=== PATIENT | female | born 1950 | race American Indian/Alaskan Native ===

== ENCOUNTER 2016-06-23 07:40 | Inpatient (IN) | payer MEDICARE ==
[2016-06-23] MEDS ORDERED: NACL 0.9% 1000 ML 1,000 ML IV ONE (08:10)
[2016-06-23] MEDS ORDERED: NACL 0.9% 500 ML 500 ML IV ONE ×2 (08:28→08:59)
[2016-06-23 08:34] LABS: Hematocrit 21.3 % (30.3-42.9); Hemoglobin 6.9 gm/dl (10.1-14.3); Mean Corpuscular HGB Conc 33 % (30-34); Mean Corpuscular Hemoglobin 28 pg (28-32); Mean Corpuscular Volume 87 fl (79-97); Platelet Count 457 K/mm3 (140-440); Red Blood Count 2.44 M/mm3 (3.65-5.03); Red Cell Distribution Width 16.8 % (13.2-15.2); White Blood Count 19.5 K/mm3 (4.5-11.0)
--- NOTE | 2016-06-23 08:43 | Emergency Department Report ---
HPI - General Chief Complaint: GI Bleed Time Seen by Provider: 06/23/16 08:26 - HPI HPI: Chief complaint: GI bleeding HPI: Patient is 66-year-old female who is of diabetes [id number], hypertension, atrial fibrillation, CVA with right-sided hemiparesis and speech difficulties who is on Coumadin and woke up with bloody rectal bleeding. Patient was brought in by ambulance with a blood pressure 77/40. History was from patient's son who takes care of her along with his aunt the patient's sister. Son states over the last several weeks she's been more confused and she had a seizure last week and was put on Keppra. CT scan of her head done at that time showed no acute process. Per the son. Patient's last INR was about a month ago and was therapeutic. Patient takes 5 mg on and Sunday and 2.5 mg the rest of the time. Unclear if patient had black tarry stools before today. Mode of arrival: EMS Source: Patient old chart family member Began: This morning Duration: Continuous Context: See above Quality: Denies pain Severity: 0 out of 10 Improved with: Unable to assess Worsened with: Unable to assess Associated signs and symptoms: Unable to assess ED Past Medical Hx - Past Medical History Previous Medical History?: Yes Hx Hypertension: Yes Hx CVA: Yes Hx Heart Attack/AMI: Yes (questional) Hx Diabetes: Yes Hx Arthritis: Yes Additional medical history: AFIB--on coumadin - Surgical History Past Surgical History?: Yes Additional Surgical History: right femoral pseudoaneurysm repair 2010 - Social History Smoking Status: Current Every Day Smoker Substance Use Type: None - Medications Home Medications: Home Medications Medication Instructions Recorded Confirmed Last Taken Type Lisinopril [Zestril TAB] 40 mg PO QDAY 07/19/13 05/24/16 1 Day Ago History Warfarin [Coumadin] 5 mg PO DAILY 07/19/13 05/24/16 1 Day Ago History glipiZIDE [Glucotrol] 5 mg PO BID 07/19/13 05/24/16 1 Day Ago History Ascorbic Acid [Vitamin C] 500 mg PO QDAY #30 ml 07/25/13 05/24/16 1 Day Ago Rx Carvedilol [Coreg] 12.5 mg PO BID #60 tablet 07/25/13 05/24/16 1 Day Ago Rx Ferrous Sulfate [Feosol 325 MG tab] 325 mg PO QDAY #30 tablet 07/25/13 05/24/16 1 Day Ago Rx amLODIPine [Norvasc] 5 mg PO QDAY #30 tablet 07/25/13 05/24/16 1 Day Ago Rx LORazepam [Ativan] 0.5 mg PO QHS PRN #5 tab 05/25/16 Unknown Rx ED Review of Systems ROS: Stated complaint: LOW BP/LOWER GI BLEED Other details as noted in HPI Comment: Unobtainable due to pts medical conditions (patient confused and hypotensive) Physical Exam - Physical Exam Vital Signs: Vital Signs 06/23/16 08:04 Temperature 97.6 F Pulse Rate 72 Blood Pressure 77/40 O2 Sat by Pulse 93 Oximetry Physical Exam: GENERAL: The patient is an obese -[place] female in no acute distress HEENT: Normocephalic. Atraumatic. Extraocular motions are intact. Patient has moist mucous membranes. Pale conjunctiva NECK: Supple. No meningitic signs are noted. There is no adenopathy noted. CHEST/LUNGS: Clear to auscultation. There is no respiratory distress noted. HEART/CARDIOVASCULAR: Regular. There is no tachycardia. There is no gallop rub or murmur. ABDOMEN: Abdomen is soft, nontender. Patient has normal bowel sounds. There is no abdominal distention. A large amount of maroon bloody stool to patient's clothing and on the bed. Guaiac positive SKIN: There is no rash. There is no edema. There is no diaphoresis. NEURO: The patient is awake, alert, and oriented to name and situation. The patient is cooperative. MUSCULOSKELETAL: There is no tenderness or deformity. There is no evidence of acute injury. ED Course Vital Signs 06/23/16 08:04 Temperature 97.6 F Pulse Rate 72 Blood Pressure 77/40 O2 Sat by Pulse 93 Oximetry - Reevaluation(s) Reevaluation #1: 06/23/16 08:45 2 IVs were started and patient given 2 L of normal saline. Patient will be transfused as soon as the blood is ready. Reevaluation #2: 06/23/16 09:55 Because patient's EKG is not consistent with elevated potassium and she will be given 5 units of regular insulin IV and calcium chloride. We will hold the sodium bicarbonate. We will redraw the potassium. Reevaluation #3: 06/23/16 Dr. Celeste was notified. Reevaluation #4: 06/23/16 10:10 Patient given 10 g of vitamin K IV as well as 4 units of fresh frozen plasma INR greater than 17. ED Medical Decision Making - Lab Data Result diagrams: 06/23/16 08:16 06/23/16 08:16 Laboratory Tests 06/23/16 06/23/16 08:16 08:16 PT > 120.0 H INR > 17.67 H* APTT 91.4 H* Glucose 303 H Calcium 8.3 L Total Protein 5.4 L Lipase 11 L - EKG Data EKG shows normal: sinus rhythm Rate: normal (62) - EKG Data When compared to previous EKG there are: previous EKG unavailable Interpretation: other (low-voltage EKG no peaked T waves.) Critical care time in (mins) excluding proc time.: 40 Critical care attestation.: If time is entered above; I have spent that time in minutes in the direct care of this critically ill patient, excluding procedure time. ED Disposition Clinical Impression: Hyperkalemia GI bleed Qualifiers: GI bleed type/associated pathology: unspecified gastrointestinal hemorrhage type Qualified Code(s): K92.2 - Gastrointestinal hemorrhage, unspecified Acute renal failure Qualifiers: Acute renal failure type: unspecified Qualified Code(s): N17.9 - Acute kidney failure, unspecified Disposition: OP ADMITTED IP TO THIS HOSP Is pt being admited?: Yes Does the pt Need Aspirin: No Condition: Serious Time of Disposition: 09:09 (admit to the hospitalist)
[2016-06-23 08:53] LABS: Albumin 3.2 g/dL (3.9-5); Albumin/Globulin Ratio 1.5 %; BUN/Creatinine Ratio 16.12; Bilirubin,Total 0.2 mg/dL (0.1-1.2); Calcium 8.3 mg/dL (8.4-10.2); Chloride 99.3 mmol/L (98-107); Total Protein 5.4 g/dL (6.3-8.2)
[2016-06-23 08:57] LABS: INR > 17.67 (0.87-1.13); Partial Thromboplastin Time 91.4 Sec. (24.2-36.6)
[2016-06-23 09:00] LABS: Potassium 6.4 mmol/L (3.6-5.0)
[2016-06-23] MEDS ORDERED: D50W (25GM) IV ONE ×2 (09:04→09:46)
[2016-06-23] MEDS ORDERED: SODIUM BICARBONATE IV ONE ×3 (09:04→10:30)
[2016-06-23] MEDS ORDERED: CALCIUM CHLORIDE IVP ONE (09:04)
--- NOTE | 2016-06-23 09:15 | Admit Criteria Form ---
Admission Criteria Documentation: GASTROINTESTINAL BLEEDING, LOWER Clinical Indications for Admission to Inpatient Care ( Place 'X' for any and all applicable criteria): Admission is indicated for ANY ONE of the following(1)(2)(3)(4)(5): [X ]I. Active gross bleeding per rectum [X ]II. Inpatient admission required rather than observation care (Also use Gastrointestinal Bleeding, Lower: Observation Care as appropriate) because of ANY ONE of the following: [X ]a) Hemodynamic instability that is severe or persistent [ ]b) Anemia requiring inpatient admission as indicated by ALL of the following: [ ]1) Presence of significant clinical finding indicated by ANY ONE of the following: [ ]A. Tachycardia for age [ ]B. Orthostatic vital sign changes [ ]C. Cognitive impairment [ ]D. Heart failure [ ]E. Chest pain [ ]F. Exertional dyspnea [ ]G. Other findings suggesting inadequate perfusion (eg, peripheral or myocardial ischemia, end organ dysfunction) [ ]2) Initial (eg, emergency department, observation care) treatment with transfusion or volume replacement is judged inappropriate (due to severity of the finding) or has been ineffective [ ]c) Severe pain requiring acute inpatient management [ ]d) Absent bowel sounds with complete ileus [ ]e) Signs of intestinal obstruction or peritonitis [A] [ ]f) High-risk low platelet count [ X]g) Severe electrolyte abnormalities requiring inpatient care [ ]h) Acute renal failure [ ]i) High fever or infection requiring inpatient admission as indicated by ANY ONE of the following(8)(9): [ ]1) Appropriate outpatient or observation care antimicrobial treatment unavailable, not effective, or not feasible Documented bacteremia [ ]2) Documented bacteremia [ ]3) Temperature greater than 104.9 degrees F ( 40.5 degrees C) (oral) [ ]4) Temperature greater than 103.1 degrees F ( 39.5 degrees C) (oral) or less than 96.8 degrees F (36 degrees C) (rectal) that does not respond to all emergency treatment measures [ ]j) IV fluid to replace significant ongoing losses ( greater than 3 L/m2 per day) [ ]k) Immediate inpatient surgery needed [ ]l) Parenteral nutrition regimen that must be implemented on inpatient basis [ ]m) Other condition, treatment or monitoring requiring inpatient admission [ ]III. Unstable comorbid illness (renal, hepatic, pulmonary, hematologic, neurologic, or cardiac) [ ]IV. Failure to control bleeding after colonoscopy [ ]V. Coagulopathy [ ]. Suspected or known ischemic colitis(6) [ ]VII. Previous aortic graft placement or known aortic aneurysm Extended stay beyond goal length of stay may be needed for(3)(4)(28): [ ]a) Emergency surgery [ ]b) Coagulation abnormalities(26) [ ]c) Recurrent or persistent bleeding, continued vital sign instability(27)( 28) [ ]d) Active comorbidities (eg, renal insufficiency, heart failure, pre- existing liver disease) The original [employer] content created by [employer] has been revised. The portions of the content which have been revised are identified through the use of italic text or in bold, and [facility] has neither reviewed nor approved the modified material. All other unmodified content is copyright [facility] [employer] [employer]. Please see references footnoted in the original [employer] edition 2016 Admission Criteria Met: Yes
--- NOTE | 2016-06-23 09:39 | History and Physical Report ---
History of Present Illness Date of examination: 06/23/16 Date of admission: 06/23/16 Chief complaint: GI bleed History of present illness: Patient is a pleasant 66-year-old female with history of atrial fibrillation on Coumadin, anemia, diabetes mellitus, hypertension, seizure, stroke and recent loss of vision in both eyes in the last 2 months. We'll presents to the ER with noted GI bleed and hypotension. Information is obtained from the son who reports the patient for about 2 days of having some Dark stools and for the past 1-2 days red blood per rectum which he noted mostly today. On arrival to the ER she was noted to be hypotensive with an INR greater than 17. Patient is being transfused 2 units packed red blood cells with 6 pack FFP. She denies any chest pain, nausea, vomiting, he denies any prior episode of GI bleed. ROS Constitutional: No fever but fatigue Skin: No rash. Eyes: No recent vision problems or eye pain. ENT: No congestion, ear pain, or sore throat. Endocrine: No thyroid problems. Cardiovascular: No chest pain. Respiratory: No cough, shortness of breath, congestion, or wheezing. Gastrointestinal: Abdominal pain nausea or vomiting but reports GI bleed Genitourinary: No dysuria. Musculoskeletal: No joint swelling. Neurologic: States she went blind recently, No seizures. Hematologic: No unusual bruising or bleeding. Psychiatric: No psychiatric problems, hallucinations or depression. All other systems reviewed and otherwise negative. Past History Past Medical History: atrial fib, CAD, diabetes, hypertension, seizures, other ( blind) Past Surgical History: Other (femoral repair right) Social history: lives with family, smoking (history), full code Medications and Allergies Allergies Allergy/AdvReac Type Severity Reaction Status Date / Time No Known Allergies Allergy Unverified 07/19/13 16:48 Home Medications Medication Instructions Recorded Confirmed Last Taken Type Lisinopril [Zestril TAB] 40 mg PO QDAY 07/19/13 06/23/16 06/22/16 History Warfarin [Coumadin] 5 mg PO DAILY 07/19/13 06/23/16 06/22/16 History Ascorbic Acid [Vitamin C] 500 mg PO QDAY #30 ml 07/25/13 06/23/16 06/22/16 Rx Carvedilol [Coreg] 12.5 mg PO BID #60 tablet 07/25/13 06/23/16 06/22/16 Rx Ferrous Sulfate [Feosol 325 MG tab] 325 mg PO QDAY #30 tablet 07/25/13 06/23/16 06/22/16 Rx amLODIPine [Norvasc] 5 mg PO QDAY #30 tablet 07/25/13 06/23/16 06/22/16 Rx Aspirin [Aspirin BABY CHEW TAB] 81 mg PO QDAY 06/23/16 06/23/16 Unknown History Citalopram [Celexa] 20 mg PO DAILY 06/23/16 06/23/16 06/22/16 History Keppra TAB 500 mg PO BID 06/23/16 06/23/16 06/22/16 History glipiZIDE [Glucotrol] 5 mg PO BID 06/23/16 06/23/16 Unknown History Active Meds: Active Medications Al Hydrox/Mg Hydrox/Simethicone (Alum-Mag Hydrox-Simeth [phone]/5ml) 30 ml PO Q4H PRN PRN Reason: Indigestion Bisacodyl (Dulcolax) 10 mg OR QDAY PRN PRN Reason: constipation unrelieved by MOM Dextrose (D50w (25gm)) 50 ml IV PRN PRN PRN Reason: Hypoglycemia Sodium Chloride (Nacl 0.9% 1000 Ml) 1,000 mls @ 250 mls/hr IV ONCE ONE Stop: 06/23/16 12:09 Last Admin: 06/23/16 08:34 Dose: 250 mls/hr Dextrose/Sodium Chloride (D5ns) 1,000 mls @ 75 mls/hr IV DIRECT MARVEL Phytonadione 10 mg/ Sodium (Chloride) 51 mls @ 100 mls/hr IV ONCE ONE Stop: 06/23/16 09:54 Pantoprazole Sodium 80 mg/ (Sodium Chloride) 100 mls @ 10 mls/hr IV Q10H MARVEL PRN Reason: 8 MG/HR Insulin Aspart (Novolog) 0 units SUB-Q Q6HR MARVEL PRN Reason: Protocol Sodium Bicarbonate (Sodium Bicarbonate) 50 meq IV ONCE ONE Stop: 06/23/16 09:05 Sodium Chloride (Nacl 0.9% 1000 Ml) 1,810 ml IV ONCE ONE Stop: 06/23/16 09:27 Exam - Physical Exam Narrative exam: VITAL SIGNS: Reviewed. GENERAL: The patient appeared well nourished and normally developed. Vital signs as documented. HEAD: No signs of head trauma. EYES: Pupils are equal. Extraocular motions intact. EARS: Hearing grossly intact. MOUTH: Oropharynx is normal. NECK: No adenopathy, no JVD. CHEST: Chest with clear breath sounds bilaterally. No wheezes, rales, or rhonchi. CARDIAC: Regular rate and rhythm. S1 and S2, without murmurs, gallops, or rubs. VASCULAR: No Edema. Peripheral pulses normal and equal in all extremities. ABDOMEN: Soft, without detectable tenderness. No sign of distention. No rebound or guarding, and no masses palpated. Bowel Sounds normal. MUSCULOSKELETAL: Good range of motion of all major joints. Extremities without clubbing, cyanosis or edema. NEUROLOGIC EXAM: Alert and oriented x 3. No focal sensory or strength deficits. Speech normal. Follows commands, gait not assessed. PSYCHIATRIC: Mood normal. SKIN: Age-appropriate wrinkles some blemishes. - Constitutional Vitals: Temp Pulse Resp BP Pulse Ox 97.7 F 64 18 104/41 98 06/23/16 09:34 06/23/16 09:34 06/23/16 09:34 06/23/16 09:34 06/23/16 09:34 Results - Labs CBC & Chem 7: 06/23/16 08:16 06/23/16 08:16 Labs: Laboratory Last Values WBC 19.5 K/mm3 (4.5-11.0) H 06/23/16 08:16 RBC 2.44 M/mm3 (3.65-5.03) L 06/23/16 08:16 Hgb 6.9 gm/dl (10.1-14.3) L 06/23/16 08:16 Hct 21.3 % (30.3-42.9) L 06/23/16 08:16 MCV 87 fl (79-97) 06/23/16 08:16 MCH 28 pg (28-32) 06/23/16 08:16 MCHC 33 % (30-34) 06/23/16 08:16 RDW 16.8 % (13.2-15.2) H 06/23/16 08:16 Plt Count 457 K/mm3 (140-440) H 06/23/16 08:16 PT > 120.0 Sec. (12.2-14.9) H 06/23/16 08:16 INR > 17.67 (0.87-1.13) H* 06/23/16 08:16 APTT 91.4 Sec. (24.2-36.6) H* 06/23/16 08:16 Sodium 134 mmol/L (137-145) L 06/23/16 08:16 Potassium 6.4 mmol/L (3.6-5.0) H* 06/23/16 08:16 Chloride 99.3 mmol/L (98-107) 06/23/16 08:16 Carbon Dioxide 16 mmol/L (22-30) L 06/23/16 08:16 Anion Gap 25 mmol/L 06/23/16 08:16 BUN 50 mg/dL (7-17) H 06/23/16 08:16 Creatinine 3.1 mg/dL (0.7-1.2) H 06/23/16 08:16 Estimated GFR 18 ml/min 06/23/16 08:16 BUN/Creatinine Ratio 16.12 % 06/23/16 08:16 Glucose 303 mg/dL (65-100) H 06/23/16 08:16 POC Glucose 313 (70-105) H 06/23/16 08:04 Calcium 8.3 mg/dL (8.4-10.2) L 06/23/16 08:16 Total Bilirubin 0.2 mg/dL (0.1-1.2) 06/23/16 08:16 AST 20 units/L (5-40) 06/23/16 08:16 ALT 14 units/L (7-56) 06/23/16 08:16 Alkaline Phosphatase 70 units/L (35-129) 06/23/16 08:16 Total Protein 5.4 g/dL (6.3-8.2) L 06/23/16 08:16 Albumin 3.2 g/dL (3.9-5) L 06/23/16 08:16 Albumin/Globulin Ratio 1.5 % 06/23/16 08:16 Lipase 11 units/L (13-60) L 06/23/16 08:16 Blood Type O POSITIVE 06/23/16 08:16 Antibody Screen Negative 06/23/16 08:16 Crossmatch See Detail 06/23/16 08:16 - Imaging and Cardiology EKG: image reviewed (normal sinus rhythm or review) Assessment and Plan Assessment and plan: Patient is a pleasant 66-year-old female with history of atrial fibrillation on Coumadin, anemia, diabetes mellitus, hypertension, seizure, stroke and recent loss of vision in both eyes in the last 2 months. We'll presents to the ER with noted GI bleed and hypotension. Information is obtained from the son who reports the patient for about 2 days of having some Dark stools and for the past 1-2 days red blood per rectum which he noted mostly today. On arrival to the ER she was noted to be hypotensive with an INR greater than 17. Patient is being transfused 2 units packed red blood cells with 6 pack FFP. She denies any chest pain, nausea, vomiting, he denies any prior episode of GI bleed. * GI bleed * Admitted to ICU * Avoid all blood thinners, * Start a PPI drip * Discussed with GI will correct INR and plan for panendoscopy * Hypovolemic shock secondary to GI bleed * Admit to ICU, was discussed with insole tack puller hand, we'll aggressively resuscitate patient with IV fluids * ELEUTERIO ON CHRONIC KIDNEY INJURY Secondary to ATN, IN A GI BLEED PATIENT * Likely secondary to ATN. We'll monitor closely. Obtain nephrology evaluation. * Uncontrolled Type 2 DM * Hypotension currently nothing by mouth Will start patient on D5 normal saline after adequately resuscitated * Hyperkalemia * She received, insulin, Kayexalate, calcium gluconate in the ER. We'll recheck * Metabolic acidosis * Likely secondary to renal failure will start patient on bicarbonate drip. For 24 hours. * Legally blind * Has been ongoing for about 2 months recommend outpatient reevaluation. Question if patient had an additional stroke versus diabetic retinopathy. * Seizures * Continue Keppra change to IV while nothing by mouth * Leukocytosis * Reactive no evidence of infection or sepsis at this time * SECONDARY hypercoagulable state * Likely secondary to warfarin, will correct * Mild PROTEIN CALORIE MALNUTRITION * Tar Worker consult once stable. * Etiology of prophylaxis Advance Directives: Yes Plan of care discussed with patient/family: Yes
[2016-06-23] MEDS ORDERED: CALCIUM CHLORIDE IV ONE ×2 (09:46→10:30)
--- NOTE | 2016-06-23 09:50 | Gastroenterology Consultation ---
<VENANCIOAAYUSH ANN - Last Filed: 06/23/16 09:51> History of Present Illness - Reason for Consult Consult date: 06/23/16 GI bleed Requesting physician: VAN LANG - History of Present Illness Ms Miranda is a 66 y/o female admitted for GI bleeding with hypotension. Her son is at bedside and reports a 1-2 day Hx of BRBPR. She denies Abdominal Pain or N/V but admitted to decreased appetite. She is on Coumadin daily for A fib. Her INR was noted >17 on admission. Per chart, her last EGD and colonoscopy was in 2013 with [facility] for anemia. No clear etiology found. It was recommended that the patient follow up with pill cam. On admission, her H/H was 6.9/21. She is currently receiving PRBC. Family at [facility]. PMH significant for A fib, CVA,HTN, DM. She uses tobacco products. Recently diagnosed with Seizures and started on Keppra. Past History Past Medical History: atrial fib, anemia, diabetes, hypertension, seizures, stroke Past Surgical History: Other (femoral psuedoanuerysm repair) Social history: smoking Family history: no significant family history Medications and Allergies Allergies Allergy/AdvReac Type Severity Reaction Status Date / Time No Known Allergies Allergy Unverified 07/19/13 16:48 Home Medications Medication Instructions Recorded Confirmed Last Taken Type Lisinopril [Zestril TAB] 40 mg PO QDAY 07/19/13 06/23/16 06/22/16 History Warfarin [Coumadin] 5 mg PO DAILY 07/19/13 06/23/16 06/22/16 History Ascorbic Acid [Vitamin C] 500 mg PO QDAY #30 ml 07/25/13 06/23/16 06/22/16 Rx Carvedilol [Coreg] 12.5 mg PO BID #60 tablet 07/25/13 06/23/16 06/22/16 Rx Ferrous Sulfate [Feosol 325 MG tab] 325 mg PO QDAY #30 tablet 07/25/13 06/23/16 06/22/16 Rx amLODIPine [Norvasc] 5 mg PO QDAY #30 tablet 07/25/13 06/23/16 06/22/16 Rx Aspirin [Aspirin BABY CHEW TAB] 81 mg PO QDAY 06/23/16 06/23/16 Unknown History Citalopram [Celexa] 20 mg PO DAILY 06/23/16 06/23/16 06/22/16 History Keppra TAB 500 mg PO BID 06/23/16 06/23/16 06/22/16 History glipiZIDE [Glucotrol] 5 mg PO BID 06/23/16 06/23/16 Unknown History Active Meds: Active Medications Al Hydrox/Mg Hydrox/Simethicone (Alum-Mag Hydrox-Simeth [phone]/5ml) 30 ml PO Q4H PRN PRN Reason: Indigestion Bisacodyl (Dulcolax) 10 mg SC QDAY PRN PRN Reason: constipation unrelieved by MOM Dextrose (D50w (25gm)) 50 ml IV PRN PRN PRN Reason: Hypoglycemia Sodium Chloride (Nacl 0.9% 1000 Ml) 1,000 mls @ 250 mls/hr IV ONCE ONE Stop: 06/23/16 12:09 Last Admin: 06/23/16 08:34 Dose: 250 mls/hr Phytonadione 10 mg/ Sodium (Chloride) 51 mls @ 100 mls/hr IV ONCE ONE Stop: 06/23/16 11:00 Pantoprazole Sodium 80 mg/ (Sodium Chloride) 100 mls @ 10 mls/hr IV Q10H MARVEL PRN Reason: 8 MG/HR Sodium Bicarbonate 25 meq/ (Dextrose/Sodium Chloride) 1,025 mls @ 75 mls/hr IV DIRECT MARVEL Insulin Aspart (Novolog) 0 units SUB-Q Q6HR MARVEL PRN Reason: Protocol Sodium Bicarbonate (Sodium Bicarbonate) 50 meq IV ONCE ONE Stop: 06/23/16 09:05 Sodium Chloride (Nacl 0.9% 1000 Ml) 1,810 ml IV ONCE ONE Stop: 06/23/16 09:27 Review of Systems - Review of Systems Constitutional: weakness, other (patient is blind) Eyes: change in vision Gastrointestinal: BRBPR Exam - Constitutional Vital Signs: Temp Pulse Resp BP Pulse Ox 97.7 F 62 18 104/41 98 06/23/16 09:35 06/23/16 09:35 06/23/16 09:35 06/23/16 09:35 06/23/16 09:35 General appearance: no acute distress - EENT ENT: hearing intact - Neck Neck: supple - Respiratory Respiratory: bilateral: CTA - Cardiovascular Rhythm: regular Heart Sounds: Present: S1 & S2 Extremities: No edema - Gastrointestinal General gastrointestinal: Present: soft, non-tender, normal bowel sounds - Integumentary Integumentary: Present: warm, dry - Neurologic Neurological: alert and oriented x3 - Psychiatric Psychiatric: cooperative - Labs CBC & Chem 7: 06/23/16 08:16 06/23/16 08:16 Assessment and Plan 1.BRBPR -EGD in 2013- with gastric erosions -C-scope 2013 with IH and diverticulosis -INR noted over 17. -At this time, recommend correcting INR with Vit K, FFP -PPI empirically -Trend H/H, agree with transfusion as needed -follow up INR post correction. -WIll follow. <HARI ASHLEY - Last Filed: 06/23/16 11:43> History of Present Illness - Reason for Consult Consult date: 06/23/16 Medications and Allergies Active Meds: Active Medications Al Hydrox/Mg Hydrox/Simethicone (Alum-Mag Hydrox-Simeth [phone]/5ml) 30 ml PO Q4H PRN PRN Reason: Indigestion Albuterol (Proventil) 2.5 mg IH Q1H MARVEL Stop: 06/23/16 13:01 Bisacodyl (Dulcolax) 10 mg SC QDAY PRN PRN Reason: constipation unrelieved by MOM Dextrose (D50w (25gm)) 50 ml IV PRN PRN PRN Reason: Hypoglycemia Sodium Chloride (Nacl 0.9% 1000 Ml) 1,000 mls @ 250 mls/hr IV ONCE ONE Stop: 06/23/16 12:09 Last Admin: 06/23/16 08:34 Dose: 250 mls/hr Pantoprazole Sodium 80 mg/ (Sodium Chloride) 100 mls @ 10 mls/hr IV Q10H MARVEL PRN Reason: 8 MG/HR Sodium Bicarbonate 25 meq/ (Dextrose/Sodium Chloride) 1,025 mls @ 75 mls/hr IV DIRECT MARVEL Insulin Aspart (Novolog) 0 units SUB-Q Q6HR MARVEL PRN Reason: Protocol Exam - Constitutional Vital Signs: Temp Pulse Resp BP Pulse Ox 98.3 F 75 16 135/73 100 06/23/16 11:13 06/23/16 11:13 06/23/16 11:13 06/23/16 11:13 06/23/16 11:13 - Labs CBC & Chem 7: 06/23/16 08:16 06/23/16 08:16 Assessment and Plan Pt has had diarrhea and weakness x 3 days. She cannot tell color of stool. Son and sister present. Currently doing well. No further BMs. No abd pain. Rec - Correct coagulopathy - monitor H/H and transfuse as needed. - will do urgent EGD if evidence of significant acute bleed, and otherwise electively in several days. - continue IV PPI - discussed with Dr. Nick and Dr. Andrade
[2016-06-23] MEDS ORDERED: DULCOLAX PR PRN (10:00)
[2016-06-23] MEDS ORDERED: D50W (25GM) IV PRN (10:00)
[2016-06-23] MEDS ORDERED: ALUM-MAG HYDROX-SIMETH 200-200-20MG/5ML PO PRN (10:00)
[2016-06-23] MEDS ORDERED: D5NS 1,000 ML IV SCH (10:00)
[2016-06-23 10:29] LABS: Blastocytes % (Manual) 0 %; Eosinophils % (Manual) 0 % (0.0-4.3)
[2016-06-23 10:30] LABS: Anisocytosis 1+; RBC Morphology Normal
[2016-06-23] MEDS ORDERED: VITAMIN K (ADULT ONLY) 10 MG in NACL 0.9% 50 ML IV ONE (10:30)
[2016-06-23 10:31] LABS: Diff Status Complete
[2016-06-23] MEDS ORDERED: NACL 0.9% 1000 ML IV ONE (11:00)
[2016-06-23] MEDS ORDERED: NACL 0.9% 250ML 250 ML ONE (11:26)
[2016-06-23] MEDS: PROTONIX 80 MG in NACL 0.9% 100 ML IV SCH ×2 (13:04→20:39)
[2016-06-23] MEDS: SODIUM BICARBONATE IV SCH ×2 (13:06→14:15)
[2016-06-23] MEDS: D5NS IV SCH ×2 (13:06→14:15)
[2016-06-23] MEDS: ATIVAN IV PRN (13:28)
[2016-06-23 13:45] LABS: Hematocrit 25.8 % (30.3-42.9); Hemoglobin 8.4 gm/dl (10.1-14.3)
[2016-06-23 13:57] LABS: Calcium 9.4 mg/dL (8.4-10.2); Chloride 104.9 mmol/L (98-107); Potassium 4.7 mmol/L (3.6-5.0)
[2016-06-23] MEDS: NOVOLOG SUB-Q SCH ×2 (14:13→19:15)
[2016-06-23] MEDS: PROVENTIL IH SCH ×3 (14:14→14:36)
[2016-06-23 14:17] LABS: Hematocrit 25.2 % (30.3-42.9); Hemoglobin 8.4 gm/dl (10.1-14.3)
[2016-06-23 14:27] LABS: INR 1.47 (0.87-1.13)
[2016-06-23 15:03] LABS: Bilirubin,Urine NEG (Negative); Blood,Urine NEG (Negative); Ketones,Urine NEG (Negative); Leukocyte Esterase,Urine NEG (Negative); Mucus,Urine FEW /HPF; Nitrite,Urine NEG (Negative); Protein,Urine <15 mg/dL mg/dL (Negative); RBC,Urine < 1.0 /HPF (0.0-6.0); Urobilinogen,Urine < 2.0 mg/dL (<2.0)
[2016-06-23] MEDS: KEPPRA 500 MG in D5W 100 ML IV SCH (16:00)
[2016-06-23] MEDS ORDERED: FLUARIX QUAD 2016-2017(36 MOS+) IM ONE (17:13)
[2016-06-23] MEDS ORDERED: PNEUMOVAX 23 IM ONE (17:13)
--- NOTE | 2016-06-23 17:32 | Consultation ---
History of Present Illness - Reason for Consult acute renal failure, hyperkalemia, metabolic acidosis - History of Present Illness Patient is a 66 year old AAF with history sigificant for Atrial fibrillation on Coumadin, Anemia, Diabetes mellitus type 2, Hypertension, Seizure disorder, CAV and bilateral blindness came to the ER with 2 days h/o rectal bleeding. Patient is a poor historian and information obtained from her son who was at the bedside. She has not been feeling well for the past 2 weeks with poor appetite and decreased PO intake. For the past 2 days patient is experiencing dark stools and red blood per rectum. On arrival to the ER she was noted to be hypotensive, an INR greater than 17, ELEUTERIO and Hyperkalemia. Patient received 2 units of PRBCs, 2 lts of IV normal saline and 6 packs of FFP. Her initial creatinine was 3.1 with potassium of 6.4. Repeat K level is 4.7. No h/o N, V, D, abd pain, chest pain, hemetemesis, dizziness or syncope. Patient is not taking any NSAIDs. Past History Past Medical History: atrial fib, CAD, diabetes, hypertension, seizures, other ( blind) Past Surgical History: Other (femoral repair right) Social history: lives with family, smoking (history), full code Family history: no significant family history Medications and Allergies Allergies Allergy/AdvReac Type Severity Reaction Status Date / Time No Known Allergies Allergy Unverified 07/19/13 16:48 Home Medications Medication Instructions Recorded Confirmed Last Taken Type Lisinopril [Zestril TAB] 40 mg PO QDAY 07/19/13 06/23/16 06/22/16 History Warfarin [Coumadin] 5 mg PO DAILY 07/19/13 06/23/16 06/22/16 History Ascorbic Acid [Vitamin C] 500 mg PO QDAY #30 ml 07/25/13 06/23/16 06/22/16 Rx Carvedilol [Coreg] 12.5 mg PO BID #60 tablet 07/25/13 06/23/16 06/22/16 Rx Ferrous Sulfate [Feosol 325 MG tab] 325 mg PO QDAY #30 tablet 07/25/13 06/23/16 06/22/16 Rx amLODIPine [Norvasc] 5 mg PO QDAY #30 tablet 07/25/13 06/23/16 06/22/16 Rx Aspirin [Aspirin BABY CHEW TAB] 81 mg PO QDAY 06/23/16 06/23/16 Unknown History Citalopram [Celexa] 20 mg PO DAILY 06/23/16 06/23/16 06/22/16 History Keppra TAB 500 mg PO BID 06/23/16 06/23/16 06/22/16 History glipiZIDE [Glucotrol] 5 mg PO BID 06/23/16 06/23/16 Unknown History Active Meds: Active Medications Al Hydrox/Mg Hydrox/Simethicone (Alum-Mag Hydrox-Simeth [id number]/5ml) 30 ml PO Q4H PRN PRN Reason: Indigestion Bisacodyl (Dulcolax) 10 mg VT QDAY PRN PRN Reason: constipation unrelieved by MOM Dextrose (D50w (25gm)) 50 ml IV PRN PRN PRN Reason: Hypoglycemia Pantoprazole Sodium 80 mg/ (Sodium Chloride) 100 mls @ 10 mls/hr IV Q10H MARVEL PRN Reason: 8 MG/HR Last Admin: 06/23/16 13:04 Dose: 10 mls/hr Sodium Bicarbonate 25 meq/ (Dextrose/Sodium Chloride) 1,025 mls @ 75 mls/hr IV DIRECT MARVEL Last Admin: 06/23/16 14:15 Dose: 75 mls/hr Levetiracetam 500 mg/ Dextrose 105 mls @ 400 mls/hr IV Q12H MARVEL Last Admin: 06/23/16 16:00 Dose: 400 mls/hr Insulin Aspart (Novolog) 0 units SUB-Q Q6HR MARVEL PRN Reason: Protocol Last Admin: 06/23/16 14:13 Dose: Not Given Lorazepam (Ativan) 1 mg IV Q4H PRN PRN Reason: Seizures Last Admin: 06/23/16 13:28 Dose: 1 mg Review of Systems Constitutional: fatigue, weakness, malaise, poor appetite, no fever, no chills Ears, nose, mouth and throat: no epistaxis Breasts: deferred Cardiovascular: no chest pain, no orthopnea, no edema, no shortness of breath Respiratory: no cough, no hemoptysis, no shortness of breath Gastrointestinal: BRBPR, melena, hematochezia, no abdominal pain, no nausea, no vomiting, no diarrhea, no hematemesis Genitourinary Female: no hematuria Rectal: bleeding Musculoskeletal: no neck pain Integumentary: no rash Neurological: loss of vision, no paralysis, no syncope Hematologic/Lymphatic: no easy bruising Allergic/Immunologic: no urticaria Exam - Vital Signs Vital signs: Vital Signs Pulse 105 H 06/23/16 07:51 - General Appearance General appearance: well-developed, well-nourished, obese, other (no distress) EENT: PERRL, mucous membranes dry, hearing intact Neck: Present: neck supple, trachea midline Respiratory: Clear to Ascultation Heart: regular, S1S2, no murmurs Gastrointestinal: Present: normoactive bowel sounds. Absent: tenderness, distended, guarding Integumentary: no rash, warm and dry Neurologic: other (bilateral blindness) Musculoskeletal: Present: other (no edema) Psychiatric: mood/affect appropriate, cooperative Results - Lab Results 06/23/16 Unknown 06/23/16 11:03 Most recent lab results Calcium 9.4 mg/dL (8.4-10.2) 06/23/16 11:03 Assessment and Plan - Patient Problems (1) Acute renal failure Current Visit: Yes Status: Acute Qualifiers: Acute renal failure type: unspecified Qualified Code(s): N17.9 - Acute kidney failure, unspecified Plan to address problem: Acute Kidney Injury superimposed on CKD stage 3 in the setting of hypotension and severe anemia. Creatinine is improving. Continue IV fluids. Hemodynamically stable. (2) Hyperkalemia Current Visit: Yes Status: Acute Plan to address problem: Hyperkalemia on the setting of ELEUTERIO. Potassium level is better. (3) Metabolic acidosis Current Visit: Yes Status: Acute Plan to address problem: On bicarbonate drip. (4) GI bleed Current Visit: Yes Status: Acute Qualifiers: GI bleed type/associated pathology: unspecified gastrointestinal hemorrhage type Qualified Code(s): K92.2 - Gastrointestinal hemorrhage, unspecified
[2016-06-23 17:46] LABS: Hematocrit 23.2 % (30.3-42.9); Hemoglobin 7.7 gm/dl (10.1-14.3)
[2016-06-24 01:16] LABS: Hematocrit 22.7 % (30.3-42.9); Hemoglobin 7.8 gm/dl (10.1-14.3)
[2016-06-24] MEDS: NOVOLOG SUB-Q SCH ×4 (02:00→17:34)
[2016-06-24] MEDS: KEPPRA 500 MG in D5W 100 ML IV SCH ×2 (02:49→15:49)
[2016-06-24] MEDS: PROTONIX 80 MG in NACL 0.9% 100 ML IV SCH ×2 (05:31→18:00)
[2016-06-24] MEDS: SODIUM BICARBONATE IV SCH (06:05)
[2016-06-24] MEDS: D5NS IV SCH (06:05)
[2016-06-24 07:56] LABS: Hematocrit 21.9 % (30.3-42.9); Hemoglobin 7.3 gm/dl (10.1-14.3); Mean Corpuscular HGB Conc 33 % (30-34); Mean Corpuscular Hemoglobin 28 pg (28-32); Mean Corpuscular Volume 86 fl (79-97); Platelet Count 184 K/mm3 (140-440); Red Blood Count 2.57 M/mm3 (3.65-5.03); Red Cell Distribution Width 16.4 % (13.2-15.2); White Blood Count 8.7 K/mm3 (4.5-11.0)
[2016-06-24 08:06] LABS: INR 1.22 (0.87-1.13)
[2016-06-24 08:12] LABS: Albumin 3.1 g/dL (3.9-5); Albumin/Globulin Ratio 1.4 %; Bilirubin,Total 0.4 mg/dL (0.1-1.2); Calcium 8.1 mg/dL (8.4-10.2); Total Protein 5.3 g/dL (6.3-8.2)
--- NOTE | 2016-06-24 09:37 | Progress Note ---
Assessment and Plan - Patient Problems (1) Acute renal failure Current Visit: Yes Status: Acute Qualifiers: Acute renal failure type: unspecified Qualified Code(s): N17.9 - Acute kidney failure, unspecified Plan to address problem: Acute Kidney Injury superimposed on CKD stage 3 in the setting of hypotension and severe anemia. Creatinine continues to improve. Continue IV fluids. Hemodynamically stable. (2) Hyperkalemia Current Visit: Yes Status: Acute Plan to address problem: Improved. (3) Metabolic acidosis Current Visit: Yes Status: Acute Plan to address problem: Improving with IV bicarbonate. (4) GI bleed Current Visit: Yes Status: Acute Qualifiers: GI bleed type/associated pathology: unspecified gastrointestinal hemorrhage type Qualified Code(s): K92.2 - Gastrointestinal hemorrhage, unspecified (5) Anemia Current Visit: Yes Status: Acute Plan to address problem: S/p PRBC. Subjective Date of service: 06/24/16 Interval history: Patient denies any new symptoms. Objective - Vital Signs Vital signs: Vital Signs - 12hr 06/24/16 06/24/16 06/24/16 00:15 05:17 07:00 Temperature 97.3 F L 97.3 F L Pulse Rate 78 Pulse Rate [ 86 78 Apical] Pulse Rate [ 80 From Monitor] Respiratory 18 18 20 Rate Blood Pressure 164/74 164/74 [Left Arm] O2 Sat by Pulse 96 96 100 Oximetry 06/24/16 08:14 Temperature 98 F Pulse Rate Pulse Rate [ 77 Apical] Pulse Rate [ From Monitor] Respiratory 18 Rate Blood Pressure 99/66 [Left Arm] O2 Sat by Pulse 100 Oximetry - General Appearance General appearance: well-developed, obese, other (no distress) EENT: PERRL, hearing intact Neck: supple Respiratory: Present: Clear to Ascultation Cardiology: regular, S1S2, no murmurs Gastrointestinal: normoactive bowel sounds, no tenderness, no distended, no guarding, obese Integumentary: no rash, warm and dry Neurologic: other (bilateral blindness) Musculoskeletal: other (no edema) Psychiatric: cooperative - Lab 06/24/16 07:45 06/24/16 07:45 Most recent lab results Calcium 8.1 mg/dL (8.4-10.2) L 06/24/16 07:45
--- NOTE | 2016-06-24 11:20 | Progress Note ---
Assessment and Plan Assessment and plan: Acute GI bleed . s/p 2 Units PRBC and FFP. Bleeding subsided Hgb 7.8. For EGD Coagulopathy due to Coumadin toxicity. INR was > 17 on admission, now down to 1.22 after 4 Units FFP Acute on CKD due to ATN. Creatinine now 1.6 from 3.1 on admission. Seizures disorder. Continue Keppra Hypertension. BP now stable Legally blind Diabetes mellitus type 2. Fingerstick Q6h Full code status History Interval history: Patient presented with bloody stools, Hospitalist Physical - Physical exam Narrative exam: Gen: Not in acute distress, obese HEENT: Normocephalic, atraumatic Neck :supple, no JVD Lungs: Clear to auscultation bilaterally, no crackles or wheeze. Heart: S1 and S2 regular, no murmurs no gallop Abdomen:soft, non-tender, non-distended, normal bowel sounds Ext: No edema, no clubbing or cyanosis Neuro: Awake alert - Constitutional Vitals: Temp Pulse Resp BP Pulse Ox 98.2 F 88 20 173/70 96 06/24/16 10:18 06/24/16 10:18 06/24/16 10:18 06/24/16 10:18 06/24/16 10:18 Results - Labs CBC & Chem 7: 06/24/16 22:30 06/24/16 07:45 Labs: Laboratory Last Values WBC 8.7 K/mm3 (4.5-11.0) 06/24/16 07:45 RBC 2.57 M/mm3 (3.65-5.03) L 06/24/16 07:45 Hgb 7.3 gm/dl (10.1-14.3) L 06/24/16 07:45 Hct 21.9 % (30.3-42.9) L 06/24/16 07:45 MCV 86 fl (79-97) 06/24/16 07:45 MCH 28 pg (28-32) 06/24/16 07:45 MCHC 33 % (30-34) 06/24/16 07:45 RDW 16.4 % (13.2-15.2) H 06/24/16 07:45 Plt Count 184 K/mm3 (140-440) 06/24/16 07:45 Add Manual Diff Complete 06/23/16 08:16 Total Counted 100 06/23/16 08:16 Seg Neuts % (Manual) 88.0 % (40.0-70.0) H 06/23/16 08:16 Band Neutrophils % 0 % 06/23/16 08:16 Lymphocytes % (Manual) 8.0 % (13.4-35.0) L 06/23/16 08:16 Reactive Lymphs % (Man) 0 % 06/23/16 08:16 Monocytes % (Manual) 2.0 % (0.0-7.3) 06/23/16 08:16 Eosinophils % (Manual) 0 % (0.0-4.3) 06/23/16 08:16 Basophils % (Manual) 1.0 % (0.0-1.8) 06/23/16 08:16 Metamyelocytes % 1.0 % 06/23/16 08:16 Myelocytes % 0 % 06/23/16 08:16 Promyelocytes % 0 % 06/23/16 08:16 Blast Cells % 0 % 06/23/16 08:16 Nucleated RBC % Not Reportable 06/23/16 08:16 Seg Neutrophils # Man 17.2 K/mm3 (1.8-7.7) H 06/23/16 08:16 Band Neutrophils # 0.0 K/mm3 06/23/16 08:16 Lymphocytes # (Manual) 1.6 K/mm3 (1.2-5.4) 06/23/16 08:16 Abs React Lymphs (Man) 0.0 K/mm3 06/23/16 08:16 Monocytes # (Manual) 0.4 K/mm3 (0.0-0.8) 06/23/16 08:16 Eosinophils # (Manual) 0.0 K/mm3 (0.0-0.4) 06/23/16 08:16 Basophils # (Manual) 0.2 K/mm3 (0.0-0.1) H 06/23/16 08:16 Metamyelocytes # 0.2 K/mm3 06/23/16 08:16 Myelocytes # 0.0 K/mm3 06/23/16 08:16 Promyelocytes # 0.0 K/mm3 06/23/16 08:16 Blast Cells # 0.0 K/mm3 06/23/16 08:16 WBC Morphology Not Reportable 06/23/16 08:16 Hypersegmented Neuts Not Reportable 06/23/16 08:16 Hyposegmented Neuts Not Reportable 06/23/16 08:16 Hypogranular Neuts Not Reportable 06/23/16 08:16 Smudge Cells Not Reportable 06/23/16 08:16 Toxic Granulation Not Reportable 06/23/16 08:16 Toxic Vacuolation Not Reportable 06/23/16 08:16 Dohle Bodies Not Reportable 06/23/16 08:16 Pelger-Huet Anomaly Not Reportable 06/23/16 08:16 Massiel Rods Not Reportable 06/23/16 08:16 Platelet Estimate Appears normal 06/23/16 08:16 Clumped Platelets Not Reportable 06/23/16 08:16 Plt Clumps, EDTA Not Reportable 06/23/16 08:16 Large Platelets Not Reportable 06/23/16 08:16 Giant Platelets Not Reportable 06/23/16 08:16 Platelet Satelliting Not Reportable 06/23/16 08:16 Plt Morphology Comment Not Reportable 06/23/16 08:16 RBC Morphology Normal 06/23/16 08:16 Dimorphic RBCs Not Reportable 06/23/16 08:16 Polychromasia Not Reportable 06/23/16 08:16 Hypochromasia Not Reportable 06/23/16 08:16 Poikilocytosis Not Reportable 06/23/16 08:16 Anisocytosis 1+ 06/23/16 08:16 Microcytosis Not Reportable 06/23/16 08:16 Macrocytosis Not Reportable 06/23/16 08:16 Spherocytes Not Reportable 06/23/16 08:16 Pappenheimer Bodies Not Reportable 06/23/16 08:16 Sickle Cells Not Reportable 06/23/16 08:16 Target Cells Not Reportable 06/23/16 08:16 Tear Drop Cells Not Reportable 06/23/16 08:16 Ovalocytes Not Reportable 06/23/16 08:16 Helmet Cells Not Reportable 06/23/16 08:16 [place] Bodies Not Reportable 06/23/16 08:16 Carrier Rings Not Reportable 06/23/16 08:16 [place] Cells Not Reportable 06/23/16 08:16 Bite Cells Not Reportable 06/23/16 08:16 Crenated Cell Not Reportable 06/23/16 08:16 Elliptocytes Not Reportable 06/23/16 08:16 Acanthocytes (Spur) Not Reportable 06/23/16 08:16 Rouleaux Not Reportable 06/23/16 08:16 Hemoglobin C Crystals Not Reportable 06/23/16 08:16 Schistocytes Not Reportable 06/23/16 08:16 Malaria parasites Not Reportable 06/23/16 08:16 Radames Bodies Not Reportable 06/23/16 08:16 Hem Pathologist Commnt No 06/23/16 08:16 PT 15.3 Sec. (12.2-14.9) H 06/24/16 07:45 INR 1.22 (0.87-1.13) H 06/24/16 07:45 APTT 91.4 Sec. (24.2-36.6) H* 06/23/16 08:16 Sodium 147 mmol/L (137-145) H 06/24/16 07:45 Potassium 4.0 mmol/L (3.6-5.0) 06/24/16 07:45 Chloride 111.0 mmol/L (98-107) H 06/24/16 07:45 Carbon Dioxide 20 mmol/L (22-30) L 06/24/16 07:45 Anion Gap 20 mmol/L 06/24/16 07:45 BUN 32 mg/dL (7-17) H 06/24/16 07:45 Creatinine 1.6 mg/dL (0.7-1.2) H 06/24/16 07:45 Estimated GFR 39 ml/min 06/24/16 07:45 BUN/Creatinine Ratio 20.00 % 06/24/16 07:45 Glucose 131 mg/dL (65-100) H 06/24/16 07:45 POC Glucose 145 (70-105) H 06/24/16 05:03 Calcium 8.1 mg/dL (8.4-10.2) L 06/24/16 07:45 Total Bilirubin 0.4 mg/dL (0.1-1.2) 06/24/16 07:45 AST 25 units/L (5-40) 06/24/16 07:45 ALT 14 units/L (7-56) 06/24/16 07:45 Alkaline Phosphatase 61 units/L (35-129) 06/24/16 07:45 Total Protein 5.3 g/dL (6.3-8.2) L 06/24/16 07:45 Albumin 3.1 g/dL (3.9-5) L 06/24/16 07:45 Albumin/Globulin Ratio 1.4 % 06/24/16 07:45 Lipase 11 units/L (13-60) L 06/23/16 08:16 Urine Color Yellow (Yellow) 06/23/16 14:35 Urine Turbidity Clear (Clear) 06/23/16 14:35 Urine pH 5.0 (5.0-7.0) 06/23/16 14:35 Ur Specific [place] 1.015 (1.003-1.030) 06/23/16 14:35 Urine Protein <15 mg/dl mg/dL (Negative) 06/23/16 14:35 Urine Glucose (UA) Neg mg/dL (Negative) 06/23/16 14:35 Urine Ketones Neg mg/dL (Negative) 06/23/16 14:35 Urine Blood Neg (Negative) 06/23/16 14:35 Urine Nitrite Neg (Negative) 06/23/16 14:35 Urine Bilirubin Neg (Negative) 06/23/16 14:35 Urine Urobilinogen < 2.0 mg/dL (<2.0) 06/23/16 14:35 Ur Leukocyte Esterase Neg (Negative) 06/23/16 14:35 Urine WBC (Auto) 1.0 /HPF (0.0-6.0) 06/23/16 14:35 Urine RBC (Auto) < 1.0 /HPF (0.0-6.0) 06/23/16 14:35 U Epithel Cells (Auto) < 1.0 /HPF (0-13.0) 06/23/16 14:35 Hyaline Casts 2 /LPF 06/23/16 14:35 Urine Mucus Few /HPF 06/23/16 14:35 Blood Type O POSITIVE 06/23/16 08:16 Antibody Screen Negative 06/23/16 08:16 Crossmatch See Detail 06/23/16 08:16
[2016-06-24] MEDS ORDERED: SODIUM BICARBONATE 150 MEQ in D5W 1,000 ML IV SCH (12:00)
[2016-06-24 13:42] LABS: Hemoglobin 7.8 gm/dl (10.1-14.3)
--- NOTE | 2016-06-24 17:32 | Progress Note ---
Assessment and Plan 1. GI bleed - doing well now, with no further bleed after correction of coagulopathy. H/H stable. - continue PPI - monitor H/H and INR and correct as needed - will give clears today - will plan on EGD +/- colonoscopy on 06/26, unless pt develops acute bleed. Subjective Date of service: 06/24/16 Interval history: Pt doing well. No complaints. Denies further bleeding. Objective - Constitutional Vitals: Vital Signs - 12hr 06/24/16 06/24/16 06/24/16 07:00 08:14 10:00 Temperature 98 F Pulse Rate 78 98 H Pulse Rate [ 78 77 Apical] Pulse Rate [ Left Radial] Respiratory 20 18 Rate Respiratory 18 Rate [Bilateral ] Blood Pressure 99/66 [Left Arm] O2 Sat by Pulse 100 100 Oximetry 06/24/16 06/24/16 10:18 13:38 Temperature 98.2 F 98.8 F Pulse Rate Pulse Rate [ 81 Apical] Pulse Rate [ 88 Left Radial] Respiratory 20 16 Rate Respiratory Rate [Bilateral ] Blood Pressure 173/70 160/89 [Left Arm] O2 Sat by Pulse 96 99 Oximetry General appearance: Present: no acute distress - EENT Eyes: PERRL, EOM intact ENT: hearing intact - Respiratory Respiratory effort: normal - Gastrointestinal General gastrointestinal: Present: soft, non-tender - Labs CBC & Chem 7: 06/24/16 13:33 06/24/16 07:45 Labs: Abnormal lab results 06/23/16 06/23/16 06/23/16 Range/Units 16:35 17:35 19:03 RBC (3.65-5.03) M/mm3 Hgb 7.7 L (10.1-14.3) gm/dl Hct 23.2 L (30.3-42.9) % RDW (13.2-15.2) % PT (12.2-14.9) Sec. INR (0.87-1.13) Sodium (137-145) mmol/L Chloride (98-107) mmol/L Carbon Dioxide (22-30) mmol/L BUN (7-17) mg/dL Creatinine (0.7-1.2) mg/dL Glucose (65-100) mg/dL POC Glucose 147 H 134 H (70-105) Calcium (8.4-10.2) mg/dL Total Protein (6.3-8.2) g/dL Albumin (3.9-5) g/dL 06/23/16 06/24/16 06/24/16 Range/Units 20:53 00:56 02:10 RBC (3.65-5.03) M/mm3 Hgb 7.8 L (10.1-14.3) gm/dl Hct 22.7 L (30.3-42.9) % RDW (13.2-15.2) % PT (12.2-14.9) Sec. INR (0.87-1.13) Sodium (137-145) mmol/L Chloride (98-107) mmol/L Carbon Dioxide (22-30) mmol/L BUN (7-17) mg/dL Creatinine (0.7-1.2) mg/dL Glucose (65-100) mg/dL POC Glucose 116 H 111 H (70-105) Calcium (8.4-10.2) mg/dL Total Protein (6.3-8.2) g/dL Albumin (3.9-5) g/dL 06/24/16 06/24/16 06/24/16 Range/Units 05:03 07:45 07:45 RBC 2.57 L (3.65-5.03) M/mm3 Hgb 7.3 L (10.1-14.3) gm/dl Hct 21.9 L (30.3-42.9) % RDW 16.4 H (13.2-15.2) % PT (12.2-14.9) Sec. INR (0.87-1.13) Sodium 147 H (137-145) mmol/L Chloride 111.0 H (98-107) mmol/L Carbon Dioxide 20 L (22-30) mmol/L BUN 32 H (7-17) mg/dL Creatinine 1.6 H (0.7-1.2) mg/dL Glucose 131 H (65-100) mg/dL POC Glucose 145 H (70-105) Calcium 8.1 L (8.4-10.2) mg/dL Total Protein 5.3 L (6.3-8.2) g/dL Albumin 3.1 L (3.9-5) g/dL 01/01/0106/24/16 06/24/16 Range/Units 07:45 11:17 13:33 RBC (3.65-5.03) M/mm3 Hgb 7.8 L (10.1-14.3) gm/dl Hct 23.0 L (30.3-42.9) % RDW (13.2-15.2) % PT 15.3 H (12.2-14.9) Sec. INR 1.22 H (0.87-1.13) Sodium (137-145) mmol/L Chloride (98-107) mmol/L Carbon Dioxide (22-30) mmol/L BUN (7-17) mg/dL Creatinine (0.7-1.2) mg/dL Glucose (65-100) mg/dL POC Glucose 193 H (70-105) Calcium (8.4-10.2) mg/dL Total Protein (6.3-8.2) g/dL Albumin (3.9-5) g/dL
[2016-06-24 22:48] LABS: Hemoglobin 8.5 gm/dl (10.1-14.3)
[2016-06-25] MEDS: NOVOLOG SUB-Q SCH ×4 (00:45→18:17)
[2016-06-25] MEDS: PROTONIX 80 MG in NACL 0.9% 100 ML IV SCH ×4 (03:13→22:52)
[2016-06-25] MEDS: KEPPRA 500 MG in D5W 100 ML IV SCH ×2 (03:45→15:12)
[2016-06-25 08:35] LABS: Hematocrit 24.6 % (30.3-42.9)
[2016-06-25 08:49] LABS: INR 1.19 (0.87-1.13)
--- NOTE | 2016-06-25 08:55 | Progress Note ---
Assessment and Plan - Patient Problems (1) Acute renal failure Current Visit: Yes Status: Acute Qualifiers: Acute renal failure type: unspecified Qualified Code(s): N17.9 - Acute kidney failure, unspecified Plan to address problem: Acute Kidney Injury superimposed on CKD stage 3 in the setting of hypotension and severe anemia. Creatinine continues to improve. Continue IV fluids. Hemodynamically stable. (2) Hyperkalemia Current Visit: Yes Status: Acute Plan to address problem: Improved. (3) Metabolic acidosis Current Visit: Yes Status: Acute Plan to address problem: Improving. (4) GI bleed Current Visit: Yes Status: Acute Qualifiers: GI bleed type/associated pathology: unspecified gastrointestinal hemorrhage type Qualified Code(s): K92.2 - Gastrointestinal hemorrhage, unspecified (5) Anemia Current Visit: Yes Status: Acute Plan to address problem: H/H is stable. Subjective Date of service: 06/25/16 Interval history: Patient doing ok. Objective - Vital Signs Vital signs: Vital Signs - 12hr 06/24/16 06/25/16 06/25/16 22:00 00:00 05:21 Temperature 98.1 F 98.3 F Pulse Rate 131 H Pulse Rate [ 100 H 68 Right Radial] Respiratory 18 18 Rate Blood Pressure 133/63 140/67 [Left Arm] O2 Sat by Pulse 98 97 Oximetry - General Appearance General appearance: well-developed, well-nourished, obese, other (no distress) EENT: mucous membranes moist, hearing intact Neck: no carotid bruit, supple Respiratory: Present: Clear to Ascultation Cardiology: regular, S1S2, no murmurs Gastrointestinal: normoactive bowel sounds, no tenderness, no distended, no guarding Integumentary: no rash, warm and dry Neurologic: other (bilateral blindness noted) Musculoskeletal: other (no edema) Psychiatric: mood/affect appropriate, cooperative - Lab 06/25/16 07:59 06/25/16 07:59 Most recent lab results Calcium 8.1 mg/dL (8.4-10.2) L 06/24/16 07:45
[2016-06-25 09:01] LABS: BUN/Creatinine Ratio 15.38; Chloride 109.9 mmol/L (98-107); Magnesium 1.7 mg/dL (1.7-2.3); Phosphorous 2.8 mg/dL (2.5-4.5); Potassium 3.7 mmol/L (3.6-5.0)
--- NOTE | 2016-06-25 13:47 | Progress Note ---
Assessment and Plan Assessment and plan: Acute GI bleed . s/p 2 Units PRBC and FFP. Bleeding subsided Hgb 8.0. For EGD tomorrow 06/26/2016 Coagulopathy due to Coumadin toxicity. INR was > 17 on admission, now down to 1.19 after 4 Units FFP Acute on CKD due to ATN. Creatinine now 1.3 today. Was 1.6 yesterday and 3.1 on admission. Seizures disorder. Continue Keppra Hypertension. BP now stable Legally blind. Diabetes mellitus type 2. Fingerstick Q6h Full code status History Interval history: Patient presented with bloody stools, she is poor historian, No more bloody stools Hospitalist Physical - Physical exam Narrative exam: Gen: Not in acute distress, obese HEENT: Normocephalic, atraumatic Neck :supple, no JVD Lungs: Clear to auscultation bilaterally, no crackles or wheeze. Heart: S1 and S2 regular, no murmurs no gallop Abdomen:soft, non-tender, non-distended, normal bowel sounds Ext: No edema, no clubbing or cyanosis Neuro: Awake alert, legally blind - Constitutional Vitals: Temp Pulse Resp BP Pulse Ox 98.4 F 74 20 121/59 100 06/25/16 11:15 06/25/16 11:15 06/25/16 11:15 06/25/16 11:15 06/25/16 11:15 General appearance: Present: no acute distress Results - Labs CBC & Chem 7: 06/25/16 07:59 06/25/16 07:59 Labs: Laboratory Last Values WBC 8.7 K/mm3 (4.5-11.0) 06/24/16 07:45 RBC 2.57 M/mm3 (3.65-5.03) L 06/24/16 07:45 Hgb 8.0 gm/dl (10.1-14.3) L 06/25/16 07:59 Hct 24.6 % (30.3-42.9) L 06/25/16 07:59 MCV 86 fl (79-97) 06/24/16 07:45 MCH 28 pg (28-32) 06/24/16 07:45 MCHC 33 % (30-34) 06/24/16 07:45 RDW 16.4 % (13.2-15.2) H 06/24/16 07:45 Plt Count 184 K/mm3 (140-440) 06/24/16 07:45 Add Manual Diff Complete 06/23/16 08:16 Total Counted 100 06/23/16 08:16 Seg Neuts % (Manual) 88.0 % (40.0-70.0) H 06/23/16 08:16 Band Neutrophils % 0 % 06/23/16 08:16 Lymphocytes % (Manual) 8.0 % (13.4-35.0) L 06/23/16 08:16 Reactive Lymphs % (Man) 0 % 06/23/16 08:16 Monocytes % (Manual) 2.0 % (0.0-7.3) 06/23/16 08:16 Eosinophils % (Manual) 0 % (0.0-4.3) 06/23/16 08:16 Basophils % (Manual) 1.0 % (0.0-1.8) 06/23/16 08:16 Metamyelocytes % 1.0 % 06/23/16 08:16 Myelocytes % 0 % 06/23/16 08:16 Promyelocytes % 0 % 06/23/16 08:16 Blast Cells % 0 % 06/23/16 08:16 Nucleated RBC % Not Reportable 06/23/16 08:16 Seg Neutrophils # Man 17.2 K/mm3 (1.8-7.7) H 06/23/16 08:16 Band Neutrophils # 0.0 K/mm3 06/23/16 08:16 Lymphocytes # (Manual) 1.6 K/mm3 (1.2-5.4) 06/23/16 08:16 Abs React Lymphs (Man) 0.0 K/mm3 06/23/16 08:16 Monocytes # (Manual) 0.4 K/mm3 (0.0-0.8) 06/23/16 08:16 Eosinophils # (Manual) 0.0 K/mm3 (0.0-0.4) 06/23/16 08:16 Basophils # (Manual) 0.2 K/mm3 (0.0-0.1) H 06/23/16 08:16 Metamyelocytes # 0.2 K/mm3 06/23/16 08:16 Myelocytes # 0.0 K/mm3 06/23/16 08:16 Promyelocytes # 0.0 K/mm3 06/23/16 08:16 Blast Cells # 0.0 K/mm3 06/23/16 08:16 WBC Morphology Not Reportable 06/23/16 08:16 Hypersegmented Neuts Not Reportable 06/23/16 08:16 Hyposegmented Neuts Not Reportable 06/23/16 08:16 Hypogranular Neuts Not Reportable 06/23/16 08:16 Smudge Cells Not Reportable 06/23/16 08:16 Toxic Granulation Not Reportable 06/23/16 08:16 Toxic Vacuolation Not Reportable 06/23/16 08:16 Dohle Bodies Not Reportable 06/23/16 08:16 Pelger-Huet Anomaly Not Reportable 06/23/16 08:16 Massiel Rods Not Reportable 06/23/16 08:16 Platelet Estimate Appears normal 06/23/16 08:16 Clumped Platelets Not Reportable 06/23/16 08:16 Plt Clumps, EDTA Not Reportable 06/23/16 08:16 Large Platelets Not Reportable 06/23/16 08:16 Giant Platelets Not Reportable 06/23/16 08:16 Platelet Satelliting Not Reportable 06/23/16 08:16 Plt Morphology Comment Not Reportable 06/23/16 08:16 RBC Morphology Normal 06/23/16 08:16 Dimorphic RBCs Not Reportable 06/23/16 08:16 Polychromasia Not Reportable 06/23/16 08:16 Hypochromasia Not Reportable 06/23/16 08:16 Poikilocytosis Not Reportable 06/23/16 08:16 Anisocytosis 1+ 06/23/16 08:16 Microcytosis Not Reportable 06/23/16 08:16 Macrocytosis Not Reportable 06/23/16 08:16 Spherocytes Not Reportable 06/23/16 08:16 Pappenheimer Bodies Not Reportable 06/23/16 08:16 Sickle Cells Not Reportable 06/23/16 08:16 Target Cells Not Reportable 06/23/16 08:16 Tear Drop Cells Not Reportable 06/23/16 08:16 Ovalocytes Not Reportable 06/23/16 08:16 Helmet Cells Not Reportable 06/23/16 08:16 [place] Bodies Not Reportable 06/23/16 08:16 [place] Rings Not Reportable 06/23/16 08:16 [place] Cells Not Reportable 06/23/16 08:16 Bite Cells Not Reportable 06/23/16 08:16 Crenated Cell Not Reportable 06/23/16 08:16 Elliptocytes Not Reportable 06/23/16 08:16 Acanthocytes (Spur) Not Reportable 06/23/16 08:16 Rouleaux Not Reportable 06/23/16 08:16 Hemoglobin C Crystals Not Reportable 06/23/16 08:16 Schistocytes Not Reportable 06/23/16 08:16 Malaria parasites Not Reportable 06/23/16 08:16 Radames Bodies Not Reportable 06/23/16 08:16 Hem Pathologist Commnt No 06/23/16 08:16 PT 15.0 Sec. (12.2-14.9) H 06/25/16 07:59 INR 1.19 (0.87-1.13) H 06/25/16 07:59 APTT 91.4 Sec. (24.2-36.6) H* 06/23/16 08:16 Sodium 146 mmol/L (137-145) H 06/25/16 07:59 Potassium 3.7 mmol/L (3.6-5.0) 06/25/16 07:59 Chloride 109.9 mmol/L (98-107) H 06/25/16 07:59 Carbon Dioxide 20 mmol/L (22-30) L 06/25/16 07:59 Anion Gap 20 mmol/L 06/25/16 07:59 BUN 20 mg/dL (7-17) H 06/25/16 07:59 Creatinine 1.3 mg/dL (0.7-1.2) H 06/25/16 07:59 Estimated GFR 50 ml/min 06/25/16 07:59 BUN/Creatinine Ratio 15.38 % 06/25/16 07:59 Glucose 157 mg/dL (65-100) H 06/25/16 07:59 POC Glucose 207 (70-105) H 06/25/16 11:27 Calcium 8.0 mg/dL (8.4-10.2) L 06/25/16 07:59 Phosphorus 2.8 mg/dL (2.5-4.5) 06/25/16 07:59 Magnesium 1.7 mg/dL (1.7-2.3) 06/25/16 07:59 Total Bilirubin 0.4 mg/dL (0.1-1.2) 06/24/16 07:45 AST 25 units/L (5-40) 06/24/16 07:45 ALT 14 units/L (7-56) 06/24/16 07:45 Alkaline Phosphatase 61 units/L (35-129) 06/24/16 07:45 Total Protein 5.3 g/dL (6.3-8.2) L 06/24/16 07:45 Albumin 3.1 g/dL (3.9-5) L 06/24/16 07:45 Albumin/Globulin Ratio 1.4 % 06/24/16 07:45 Lipase 11 units/L (13-60) L 06/23/16 08:16 Urine Color Yellow (Yellow) 06/23/16 14:35 Urine Turbidity Clear (Clear) 06/23/16 14:35 Urine pH 5.0 (5.0-7.0) 06/23/16 14:35 Ur Specific [place] 1.015 (1.003-1.030) 06/23/16 14:35 Urine Protein <15 mg/dl mg/dL (Negative) 06/23/16 14:35 Urine Glucose (UA) Neg mg/dL (Negative) 06/23/16 14:35 Urine Ketones Neg mg/dL (Negative) 06/23/16 14:35 Urine Blood Neg (Negative) 06/23/16 14:35 Urine Nitrite Neg (Negative) 06/23/16 14:35 Urine Bilirubin Neg (Negative) 06/23/16 14:35 Urine Urobilinogen < 2.0 mg/dL (<2.0) 06/23/16 14:35 Ur Leukocyte Esterase Neg (Negative) 06/23/16 14:35 Urine WBC (Auto) 1.0 /HPF (0.0-6.0) 06/23/16 14:35 Urine RBC (Auto) < 1.0 /HPF (0.0-6.0) 06/23/16 14:35 U Epithel Cells (Auto) < 1.0 /HPF (0-13.0) 06/23/16 14:35 Hyaline Casts 2 /LPF 06/23/16 14:35 Urine Mucus Few /HPF 06/23/16 14:35 Blood Type O POSITIVE 06/23/16 08:16 Antibody Screen Negative 06/23/16 08:16 Crossmatch See Detail 06/23/16 08:16
--- NOTE | 2016-06-25 15:44 | Progress Note ---
Assessment and Plan 1. GI bleed - doing well now, with no further bleed after correction of coagulopathy. H/H slightly lower. INR corrected. If endoscopic evaluation negative, pt can f/u as outpatient with her primary GI team regarding further evaluation. Would try to avoid Coumadin if possible, in that case. - continue PPI - monitor H/H - will give clears today - will plan on EGD and colonoscopy on 06/26 Subjective Date of service: 06/25/16 Interval history: Pt doing well. No complaints except she is thirsty. Denies further bleeding. Objective - Constitutional Vitals: Vital Signs - 12hr 06/25/16 06/25/16 06/25/16 05:21 09:05 10:00 Temperature 98.3 F 98.4 F Pulse Rate 66 Pulse Rate [ 80 Left Radial] Pulse Rate [ 68 Right Radial] Respiratory 18 20 Rate Blood Pressure 140/67 123/59 [Left Arm] O2 Sat by Pulse 97 100 Oximetry 06/25/16 11:15 Temperature 98.4 F Pulse Rate Pulse Rate [ 74 Left Radial] Pulse Rate [ Right Radial] Respiratory 20 Rate Blood Pressure 121/59 [Left Arm] O2 Sat by Pulse 100 Oximetry General appearance: Present: no acute distress - EENT Eyes: PERRL, EOM intact ENT: hearing intact - Respiratory Respiratory effort: normal - Gastrointestinal General gastrointestinal: Present: soft, non-tender - Labs CBC & Chem 7: 06/25/16 07:59 06/25/16 07:59 Labs: Abnormal lab results 06/24/16 06/24/16 06/25/16 Range/Units 16:44 22:30 07:59 Hgb 8.5 L 8.0 L (10.1-14.3) gm/dl Hct 26.0 L 24.6 L (30.3-42.9) % PT (12.2-14.9) Sec. INR (0.87-1.13) Sodium (137-145) mmol/L Chloride (98-107) mmol/L Carbon Dioxide (22-30) mmol/L BUN (7-17) mg/dL Creatinine (0.7-1.2) mg/dL Glucose (65-100) mg/dL POC Glucose 144 H (70-105) Calcium (8.4-10.2) mg/dL 01/02/0106/25/16 06/25/16 Range/Units 07:59 07:59 09:14 Hgb (10.1-14.3) gm/dl Hct (30.3-42.9) % PT 15.0 H (12.2-14.9) Sec. INR 1.19 H (0.87-1.13) Sodium 146 H (137-145) mmol/L Chloride 109.9 H (98-107) mmol/L Carbon Dioxide 20 L (22-30) mmol/L BUN 20 H (7-17) mg/dL Creatinine 1.3 H (0.7-1.2) mg/dL Glucose 157 H (65-100) mg/dL POC Glucose 183 H (70-105) Calcium 8.0 L (8.4-10.2) mg/dL 06/25/16 Range/Units 11:27 Hgb (10.1-14.3) gm/dl Hct (30.3-42.9) % PT (12.2-14.9) Sec. INR (0.87-1.13) Sodium (137-145) mmol/L Chloride (98-107) mmol/L Carbon Dioxide (22-30) mmol/L BUN (7-17) mg/dL Creatinine (0.7-1.2) mg/dL Glucose (65-100) mg/dL POC Glucose 207 H (70-105) Calcium (8.4-10.2) mg/dL
[2016-06-25] MEDS ORDERED: GOLYTELY PO ONE (18:00)
[2016-06-26] MEDS: NOVOLOG SUB-Q SCH ×5 (00:47→23:49)
[2016-06-26] MEDS: [UNRECOGNIZED DRUG - OTHER] IV SCH ×3 (03:14→20:56)
[2016-06-26] MEDS: KEPPRA IV SCH ×3 (03:14→20:56)
[2016-06-26 07:06] LABS: BUN/Creatinine Ratio 13.33; Calcium 7.7 mg/dL (8.4-10.2); Chloride 105.2 mmol/L (98-107); Potassium 3.3 mmol/L (3.6-5.0)
[2016-06-26] MEDS ORDERED: D5W 1,000 ML IV SCH (08:00)
--- NOTE | 2016-06-26 08:22 | Anesthesia Consultation ---
Anesthesia Consult and Med Hx Date of service: 06/26/16 - Pre-Operative Health Status ASA Pre-Surgery Classification: ASA3 Proposed Anesthetic Plan: MAC - Pulmonary Hx Smoking: Yes Hx Asthma: No COPD: No Hx Pneumonia: No - Cardiovascular System Hx Hypertension: Yes Hx Coronary Artery Disease: Yes (CABG; acute CHF due to severe anemia) Hx Heart Attack/AMI: Yes (Cardioembolic stroke) Hx Cardia Arrhythmia: Yes (h/o atrial fibrilation with embolic event) - Central Nervous System Hx Seizures: Yes CVA: Yes - Endocrine Hx Renal Disease: Yes (ARF) Hx End Stage Renal Disease: No Hx Insulin Dependent Diabetes: Yes (uncontrolled IDDM, present with metabolic acidosis) - Hematic Hx Anemia: Yes (severe anemia, was tranfused 3 units of RBCs on 07/20/13) - Other Systems Hx Alcohol Use: Yes - Additional Comments Anesthesia Medical History Comments: Patient presented on 06/23/16 with hypotension, metabolic acidosis, blood in stool, Coumadin toxicity INR >17. Transfused with 2 units PRBC and 4 FFP. Patient has become blind in both eyes within past 2 months. Poor historian.
--- NOTE | 2016-06-26 09:26 | Progress Note ---
Assessment and Plan - Patient Problems (1) Acute renal failure Current Visit: Yes Status: Acute Qualifiers: Acute renal failure type: unspecified Plan to address problem: Acute Kidney Injury superimposed on CKD stage 3 in the setting of hypotension and severe anemia. Creatinine has improved to her baseline. Hemodynamically stable. (2) Hyperkalemia Current Visit: Yes Status: Acute Plan to address problem: Improved. (3) Metabolic acidosis Current Visit: Yes Status: Acute Plan to address problem: Improving. (4) GI bleed Current Visit: Yes Status: Acute Qualifiers: GI bleed type/associated pathology: unspecified gastrointestinal hemorrhage type Qualified Code(s): K92.2 - Gastrointestinal hemorrhage, unspecified Plan to address problem: S/p EGD and Colonoscopy. (5) Anemia Current Visit: Yes Status: Acute Plan to address problem: H/H is stable. Subjective Date of service: 06/26/16 Interval history: No new complaint. Objective - Vital Signs Vital signs: Vital Signs - 12hr 06/25/16 06/26/16 06/26/16 22:00 00:00 04:00 Temperature 98.3 F 98.0 F Pulse Rate 72 Pulse Rate [ 68 65 Right Radial] Respiratory 18 18 Rate Blood Pressure 125/59 130/63 [Right Arm] O2 Sat by Pulse 99 98 Oximetry 06/26/16 09:14 Temperature 97.7 F Pulse Rate Pulse Rate [ 69 Right Radial] Respiratory 18 Rate Blood Pressure 135/63 [Right Arm] O2 Sat by Pulse 98 Oximetry - General Appearance General appearance: well-developed, well-nourished, obese, other (no distress) EENT: PERRL, hearing intact Neck: supple Respiratory: Present: Clear to Ascultation Cardiology: regular, S1S2, no murmurs Gastrointestinal: normoactive bowel sounds, no tenderness, no distended, no guarding Integumentary: no rash Neurologic: no asterixis, confused, other (bilateral blindness) Musculoskeletal: other (no edema) Psychiatric: mood/affect appropriate, cooperative - Lab 06/25/16 07:59 06/26/16 05:41 Most recent lab results Calcium 7.7 mg/dL (8.4-10.2) L 06/26/16 05:41 Phosphorus 2.8 mg/dL (2.5-4.5) 06/25/16 07:59 Magnesium 1.7 mg/dL (1.7-2.3) 06/25/16 07:59
[2016-06-26] MEDS: KCL 10MEQ/100ML 100 ML IV SCH ×2 (09:35→19:58)
[2016-06-26] MEDS ORDERED: PROVENTIL IH PRN (09:43)
[2016-06-26] MEDS ORDERED: DIPRIVAN 10 MG/ML IV ONE ×3 (12:54→14:42)
[2016-06-26] MEDS: NACL 0.9% 1000 ML 1,000 ML IV SCH (13:40)
--- NOTE | 2016-06-26 15:38 | Post Operative Note ---
Pre-op diagnosis: GI bleed, anemia Post-op diagnosis: other (Erosive gastritis and duodenitis, normal colonoscopy except for mild diverticulosis) Findings: 1. Mult shallow linear erosions in gastric body and antrum. No clear stigmata of bleeding. 2. Mult shallow linear erosions in proximal duodenum 3. Otherwise normal EGD 4. Mild sigmoid diverticulosis 5. Otherwise normal colonoscopy 6. No evidence of old or fresh blood noted Procedure: EGD with bx, Colonoscopy Anesthesia: MAC Surgeon: HARI ASHLEY Estimated blood loss: none Pathology: list (1. Gastric body) Specimen disposition: to lab Condition: stable Disposition: floor (Advance diet, chronic PPI, F/u patholgy, monitor H/H, and consider whether or not to keep pt on coumadin local [employer])
--- NOTE | 2016-06-26 15:42 | Progress Note ---
Assessment and Plan Assessment and plan: Acute GI bleed . s/p 2 Units PRBC and FFP. Bleeding subsided Hgb 8.0. For EGD today 06/26/16 Coagulopathy due to Coumadin toxicity. INR was > 17 on admission, now down to 1.19 after 4 Units FFP Acute on CKD due to ATN. Creatinine now 1.2 today. Was 3.1 on admission. Nephrology following. Chronic afib. Was on Coumadin. Now on hold because of bleed. Seizures disorder. Continue Keppra iv Hypertension. BP now stable Legally blind. Diabetes mellitus type 2. Fingerstick Q6h Full code status History Interval history: Patient presented with bloody stools, she is a poor historian, No more bloody stools, legally blind Hospitalist Physical - Physical exam Narrative exam: Gen: Not in acute distress, obese HEENT: Normocephalic, atraumatic Neck :supple, no JVD Lungs: Clear to auscultation bilaterally, no crackles or wheeze. Heart: S1 and S2 regular, no murmurs no gallop Abdomen:soft, non-tender, non-distended, normal bowel sounds Ext: No edema, no clubbing or cyanosis Neuro: Awake alert, legally blind - Constitutional Vitals: Temp Pulse Resp BP Pulse Ox 97.5 F L 96 H 18 153/93 97 06/26/16 13:32 06/26/16 13:32 06/26/16 13:32 06/26/16 13:32 06/26/16 13:32 General appearance: Present: no acute distress Results - Labs CBC & Chem 7: 06/25/16 07:59 06/26/16 05:41 Labs: Laboratory Last Values WBC 8.7 K/mm3 (4.5-11.0) 06/24/16 07:45 RBC 2.57 M/mm3 (3.65-5.03) L 06/24/16 07:45 Hgb 8.0 gm/dl (10.1-14.3) L 06/25/16 07:59 Hct 24.6 % (30.3-42.9) L 06/25/16 07:59 MCV 86 fl (79-97) 06/24/16 07:45 MCH 28 pg (28-32) 06/24/16 07:45 MCHC 33 % (30-34) 06/24/16 07:45 RDW 16.4 % (13.2-15.2) H 06/24/16 07:45 Plt Count 184 K/mm3 (140-440) 06/24/16 07:45 Add Manual Diff Complete 06/23/16 08:16 Total Counted 100 06/23/16 08:16 Seg Neuts % (Manual) 88.0 % (40.0-70.0) H 06/23/16 08:16 Band Neutrophils % 0 % 06/23/16 08:16 Lymphocytes % (Manual) 8.0 % (13.4-35.0) L 06/23/16 08:16 Reactive Lymphs % (Man) 0 % 06/23/16 08:16 Monocytes % (Manual) 2.0 % (0.0-7.3) 06/23/16 08:16 Eosinophils % (Manual) 0 % (0.0-4.3) 06/23/16 08:16 Basophils % (Manual) 1.0 % (0.0-1.8) 06/23/16 08:16 Metamyelocytes % 1.0 % 06/23/16 08:16 Myelocytes % 0 % 06/23/16 08:16 Promyelocytes % 0 % 06/23/16 08:16 Blast Cells % 0 % 06/23/16 08:16 Nucleated RBC % Not Reportable 06/23/16 08:16 Seg Neutrophils # Man 17.2 K/mm3 (1.8-7.7) H 06/23/16 08:16 Band Neutrophils # 0.0 K/mm3 06/23/16 08:16 Lymphocytes # (Manual) 1.6 K/mm3 (1.2-5.4) 06/23/16 08:16 Abs React Lymphs (Man) 0.0 K/mm3 06/23/16 08:16 Monocytes # (Manual) 0.4 K/mm3 (0.0-0.8) 06/23/16 08:16 Eosinophils # (Manual) 0.0 K/mm3 (0.0-0.4) 06/23/16 08:16 Basophils # (Manual) 0.2 K/mm3 (0.0-0.1) H 06/23/16 08:16 Metamyelocytes # 0.2 K/mm3 06/23/16 08:16 Myelocytes # 0.0 K/mm3 06/23/16 08:16 Promyelocytes # 0.0 K/mm3 06/23/16 08:16 Blast Cells # 0.0 K/mm3 06/23/16 08:16 WBC Morphology Not Reportable 06/23/16 08:16 Hypersegmented Neuts Not Reportable 06/23/16 08:16 Hyposegmented Neuts Not Reportable 06/23/16 08:16 Hypogranular Neuts Not Reportable 06/23/16 08:16 Smudge Cells Not Reportable 06/23/16 08:16 Toxic Granulation Not Reportable 06/23/16 08:16 Toxic Vacuolation Not Reportable 06/23/16 08:16 Dohle Bodies Not Reportable 06/23/16 08:16 [place]uet Anomaly Not Reportable 06/23/16 08:16 Massiel Rods Not Reportable 06/23/16 08:16 Platelet Estimate Appears normal 06/23/16 08:16 Clumped Platelets Not Reportable 06/23/16 08:16 Plt Clumps, EDTA Not Reportable 06/23/16 08:16 Large Platelets Not Reportable 06/23/16 08:16 Giant Platelets Not Reportable 06/23/16 08:16 Platelet Satelliting Not Reportable 06/23/16 08:16 Plt Morphology Comment Not Reportable 06/23/16 08:16 RBC Morphology Normal 06/23/16 08:16 Dimorphic RBCs Not Reportable 06/23/16 08:16 Polychromasia Not Reportable 06/23/16 08:16 Hypochromasia Not Reportable 06/23/16 08:16 Poikilocytosis Not Reportable 06/23/16 08:16 Anisocytosis 1+ 06/23/16 08:16 Microcytosis Not Reportable 06/23/16 08:16 Macrocytosis Not Reportable 06/23/16 08:16 Spherocytes Not Reportable 06/23/16 08:16 Pappenheimer Bodies Not Reportable 06/23/16 08:16 Sickle Cells Not Reportable 06/23/16 08:16 Target Cells Not Reportable 06/23/16 08:16 Tear Drop Cells Not Reportable 06/23/16 08:16 Ovalocytes Not Reportable 06/23/16 08:16 Helmet Cells Not Reportable 06/23/16 08:16 [place] Bodies Not Reportable 06/23/16 08:16 [place] Rings Not Reportable 06/23/16 08:16 [place] Cells Not Reportable 06/23/16 08:16 Bite Cells Not Reportable 06/23/16 08:16 Crenated Cell Not Reportable 06/23/16 08:16 Elliptocytes Not Reportable 06/23/16 08:16 Acanthocytes (Spur) Not Reportable 06/23/16 08:16 Rouleaux Not Reportable 06/23/16 08:16 Hemoglobin C Crystals Not Reportable 06/23/16 08:16 Schistocytes Not Reportable 06/23/16 08:16 Malaria parasites Not Reportable 06/23/16 08:16 Radames Bodies Not Reportable 06/23/16 08:16 Hem Pathologist Commnt No 06/23/16 08:16 PT 15.0 Sec. (12.2-14.9) H 06/25/16 07:59 INR 1.19 (0.87-1.13) H 06/25/16 07:59 APTT 91.4 Sec. (24.2-36.6) H* 06/23/16 08:16 Sodium 146 mmol/L (137-145) H 06/26/16 05:41 Potassium 3.3 mmol/L (3.6-5.0) L 06/26/16 05:41 Chloride 105.2 mmol/L (98-107) 06/26/16 05:41 Carbon Dioxide 29 mmol/L (22-30) D 06/26/16 05:41 Anion Gap 15 mmol/L 06/26/16 05:41 BUN 16 mg/dL (7-17) 06/26/16 05:41 Creatinine 1.2 mg/dL (0.7-1.2) 06/26/16 05:41 Estimated GFR 55 ml/min 06/26/16 05:41 BUN/Creatinine Ratio 13.33 % 06/26/16 05:41 Glucose 155 mg/dL (65-100) H 06/26/16 05:41 POC Glucose 159 (70-105) H 06/26/16 06:41 Calcium 7.7 mg/dL (8.4-10.2) L 06/26/16 05:41 Phosphorus 2.8 mg/dL (2.5-4.5) 06/25/16 07:59 Magnesium 1.7 mg/dL (1.7-2.3) 06/25/16 07:59 Total Bilirubin 0.4 mg/dL (0.1-1.2) 06/24/16 07:45 AST 25 units/L (5-40) 06/24/16 07:45 ALT 14 units/L (7-56) 06/24/16 07:45 Alkaline Phosphatase 61 units/L (35-129) 06/24/16 07:45 Total Protein 5.3 g/dL (6.3-8.2) L 06/24/16 07:45 Albumin 3.1 g/dL (3.9-5) L 06/24/16 07:45 Albumin/Globulin Ratio 1.4 % 06/24/16 07:45 Lipase 11 units/L (13-60) L 06/23/16 08:16 Urine Color Yellow (Yellow) 06/23/16 14:35 Urine Turbidity Clear (Clear) 06/23/16 14:35 Urine pH 5.0 (5.0-7.0) 06/23/16 14:35 Ur Specific [place] 1.015 (1.003-1.030) 06/23/16 14:35 Urine Protein <15 mg/dl mg/dL (Negative) 06/23/16 14:35 Urine Glucose (UA) Neg mg/dL (Negative) 06/23/16 14:35 Urine Ketones Neg mg/dL (Negative) 06/23/16 14:35 Urine Blood Neg (Negative) 06/23/16 14:35 Urine Nitrite Neg (Negative) 06/23/16 14:35 Urine Bilirubin Neg (Negative) 06/23/16 14:35 Urine Urobilinogen < 2.0 mg/dL (<2.0) 06/23/16 14:35 Ur Leukocyte Esterase Neg (Negative) 06/23/16 14:35 Urine WBC (Auto) 1.0 /HPF (0.0-6.0) 06/23/16 14:35 Urine RBC (Auto) < 1.0 /HPF (0.0-6.0) 06/23/16 14:35 U Epithel Cells (Auto) < 1.0 /HPF (0-13.0) 06/23/16 14:35 Hyaline Casts 2 /LPF 06/23/16 14:35 Urine Mucus Few /HPF 06/23/16 14:35 Blood Type O POSITIVE 06/23/16 08:16 Antibody Screen Negative 06/23/16 08:16 Crossmatch See Detail 06/23/16 08:16
--- NOTE | 2016-06-26 16:37 | Post Anesthesia Evaluation ---
- Post Anesthesia Evaluation Patient Participated: Yes Airway Patent: Yes Stable Respiratory Function: Yes Nausea/Vomiting: No Temp > 96.8F: Yes Pain Manageable: Yes Adequeate Hydration: Yes Anesthesia Complications: No Block Receding Appropriately: Not Applicable Patient on Ventilator: No
[2016-06-26] MEDS: ATIVAN IV PRN (18:35)
[2016-06-26] MEDS: PROTONIX 80 MG in NACL 0.9% 100 ML IV SCH (19:56)
--- NOTE | 2016-06-26 20:06 | Operative Report ---
UPPER ENDOSCOPY AND COLONOSCOPY REPORT PROCEDURE: Upper endoscopy with biopsy and colonoscopy. PREOPERATIVE DIAGNOSIS: Gastrointestinal bleed. POSTOPERATIVE DIAGNOSIS: Erosive gastritis and sigmoid diverticulosis. SEDATION: MAC by Anesthesia. HISTORY: The patient is a 66-year-old woman, who is on Coumadin for chronic atrial fibrillation. She has a history of CVA. She apparently had rectal bleeding at home and was brought to the ER, where she was found to have maroon bloody stool in the bed. Procedure, indications, risks, and benefits were explained, and consent was obtained. The patient was placed in left lateral decubitus position and sedated. Fuji video upper endoscope was passed through the mouth and oropharynx into the descending duodenum. Scope was then gradually withdrawn with close inspection of mucosa. FINDINGS: 1. Normal appearing esophagus with sharp Z-line at 36 cm from the incisors. 2. 4 cm hiatal hernia. 3. Multiple shallow linear gastric erosions, especially in the body and in the antrum. Biopsies were obtained. 4. Remainder of gastric antrum, fundus, body, and cardia were normal appearing. There was no evidence of older fresh blood and no stigmata of bleeding noted. 5. Multiple shallow erosions with white base noted in the proximal duodenum. Remainder of duodenum was normal. The patient was subsequently rotated and a colonoscopy was performed. Fuji video colonoscope was passed through the rectum after digital examination and passed with significant difficulty to the cecum, which was identified by the ileocecal valve and the appendiceal orifice. Scope was then gradually withdrawn with close inspection of the mucosa. Prep was good. The colon was tortuous and looped. FINDINGS: 1. Mild sigmoid diverticulosis. 2. Remainder of visualized colonic mucosa is normal appearing with no evidence of mass lesions, vascular lesions or inflammation. The patient tolerated both procedures well without immediate complications. IMPRESSION: 1. Erosive gastritis - biopsied. 2. Mild erosive antritis. 3. Mild sigmoid diverticulosis. 4. Otherwise, normal exam from both ends. RECOMMENDATIONS: 1. Monitor H and H and transfuse if needed. 2. Chronic proton pump inhibitors. 3. Reassess need or appropriateness of long-term Coumadin based on the patient's individual risks of complications. 4. Follow up as an outpatient and may need pill camera evaluation based on how she responds. [facility]# [id number] [facility]
[2016-06-27] MEDS: PROTONIX 80 MG in NACL 0.9% 100 ML IV SCH ×2 (05:56→08:02)
[2016-06-27] MEDS: NACL 0.9% 1000 ML 1,000 ML IV SCH (05:58)
[2016-06-27 06:33] LABS: Hematocrit 22.7 % (30.3-42.9); Hemoglobin 7.6 gm/dl (10.1-14.3); Mean Corpuscular HGB Conc 34 % (30-34); Mean Corpuscular Hemoglobin 30 pg (28-32); Mean Corpuscular Volume 87 fl (79-97); Platelet Count 219 K/mm3 (140-440); Red Blood Count 2.59 M/mm3 (3.65-5.03); Red Cell Distribution Width 16.4 % (13.2-15.2)
[2016-06-27 06:54] LABS: BUN/Creatinine Ratio 8.33; Calcium 7.5 mg/dL (8.4-10.2); Chloride 103.8 mmol/L (98-107); Magnesium 1.7 mg/dL (1.7-2.3); Phosphorous 2.3 mg/dL (2.5-4.5); Potassium 3.2 mmol/L (3.6-5.0)
[2016-06-27] MEDS: NOVOLOG SUB-Q SCH ×3 (07:27→18:43)
[2016-06-27] MEDS: ATIVAN IV PRN ×2 (08:29→12:10)
--- NOTE | 2016-06-27 09:15 | Progress Note ---
Assessment and Plan - Patient Problems (1) Acute renal failure Status: Acute Qualifiers: Acute renal failure type: unspecified Qualified Code(s): N17.9 - Acute kidney failure, unspecified Plan to address problem: Acute Kidney Injury superimposed on CKD stage 3 in the setting of hypotension and severe anemia. Creatinine has improved to her baseline. Hemodynamically stable. F/u with me in 1-2 weeks. (2) Hyperkalemia Status: Acute Plan to address problem: Patient is hypokalemic now. (3) Metabolic acidosis Status: Acute Plan to address problem: Improving. (4) GI bleed Status: Acute Qualifiers: GI bleed type/associated pathology: unspecified gastrointestinal hemorrhage type Qualified Code(s): K92.2 - Gastrointestinal hemorrhage, unspecified Plan to address problem: S/p EGD and Colonoscopy. (5) Anemia Status: Acute Subjective Date of service: 06/27/16 Interval history: Patient is feeling better. Objective - Vital Signs Vital signs: Vital Signs - 12hr 06/27/16 06/27/16 06/27/16 00:58 02:42 06:05 Temperature 99.5 F 98.7 F Pulse Rate 80 Pulse Rate [ 76 77 Apical] Pulse Rate [ Right Radial] Respiratory 18 18 Rate Blood Pressure 108/55 136/65 [Right Arm] O2 Sat by Pulse 98 98 Oximetry 06/27/16 08:20 Temperature 98.5 F Pulse Rate Pulse Rate [ Apical] Pulse Rate [ 73 Right Radial] Respiratory 16 Rate Blood Pressure 131/59 [Right Arm] O2 Sat by Pulse 99 Oximetry - General Appearance General appearance: well-developed, well-nourished, obese, other (no distress) EENT: mucous membranes moist, hearing intact Neck: supple Respiratory: Present: Clear to Ascultation Cardiology: regular, S1S2, no murmurs Gastrointestinal: normoactive bowel sounds, no tenderness, no distended, no guarding Integumentary: no rash, warm and dry Neurologic: no focal deficit, confused, other (bilateral blindness) Musculoskeletal: other (no edema) Psychiatric: mood/affect appropriate, cooperative - Lab 06/27/16 05:31 06/27/16 05:31 Most recent lab results Calcium 7.5 mg/dL (8.4-10.2) L 06/27/16 05:31 Phosphorus 2.3 mg/dL (2.5-4.5) L 06/27/16 05:31 Magnesium 1.7 mg/dL (1.7-2.3) 06/27/16 05:31
[2016-06-27] MEDS ORDERED: NACL 0.9% 500 ML 500 ML IV NR (09:30)
[2016-06-27] MEDS ORDERED: PROTONIX PO SCH (10:00)
[2016-06-27] MEDS: [UNRECOGNIZED DRUG - OTHER] IV SCH (10:20)
[2016-06-27] MEDS: KEPPRA IV SCH (10:20)
[2016-06-27] MEDS: K-PHOS NEUTRAL PO SCH ×2 (11:41→17:36)
--- NOTE | 2016-06-27 16:59 | Discharge Summary ---
Providers - Providers Date of Admission: 06/23/16 09:21 Date of discharge: 06/27/16 Attending physician: OSCAR ENGLISH 06/23/16 09:29 Consult to Physician [CONS] Routine Consulting Provider: AYANA TRAVIS Reason For Exam: ELEUTERIO Place consult to:: nephro Notified:: y Was contact made?: Yes If yes, spoke with:: office Time called:: 09:45 06/23/16 09:30 Consult to Physician [CONS] Routine Consulting Provider: HARI BATISTA Reason For Exam: GI BLEED Place consult to:: gastro Notified:: y If yes, spoke with:: dr batista Time called:: 09:35 06/26/16 14:15 Physical Therapy Evaluation and Treat [CONS] Routine Comment: Reason For Exam: SKILL LEVEL FOR SNF Primary care 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: 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 Hospitalization Condition: Serious Disposition: DC/TX SNF W [facility] CERT Core Measure Documentation - Palliative Care Palliative Care/ Comfort Measures: Not Applicable - Core Measures Any of the following diagnoses?: none Exam - Constitutional Vitals: Temp Pulse Resp BP Pulse Ox 98.0 F 70 16 115/76 99 06/27/16 16:27 06/27/16 16:27 06/27/16 16:27 06/27/16 16:27 06/27/16 08:20 General appearance: Present: no acute distress, well-nourished - EENT Eyes: Present: PERRL, EOM intact - Neck Neck: Present: supple, normal ROM - Respiratory Respiratory effort: normal Respiratory: negative: rales, rhonchi, wheezing - Cardiovascular Rhythm: regular Heart Sounds: Present: S1 & S2 - Extremities Extremities: no ischemia, pulses intact, pulses symmetrical - Abdominal General gastrointestinal: Present: soft, non-tender, non-distended, normal bowel sounds - Integumentary Integumentary: Present: clear, warm - Musculoskeletal Musculoskeletal: strength equal bilaterally - Psychiatric Psychiatric: appropriate mood/affect, cooperative - Neurologic Neurologic: moves all extremities Plan Activity: advance as tolerated Diet: low salt, diabetic Additional Instructions: Hold Coumadin and aspirin in view of severe anemia and GI bleeding. Check with primary care physician/federal district law clerk prior to resuming aspirin and Coumadin Follow up with: PRIMARY CAREMD [Primary Care Provider] - 3-5 Days HARI BATISTA MD [Staff Physician] - 7 Days SENAIT BALDERRAMA MD [Staff Physician] - 7 Days Forms: Accompanied Note
[2016-06-27 18:25] VITALS: BP 106/59
[2016-06-27] MEDS ORDERED: KEPPRA PO SCH (22:00)
== END 2016-06-27 19:18 | DRG 377 ==
LOC: ED 07:40 → CC1 09:21 → 4A 17:17
PROVIDERS: ADMIT Internal Medicine; ATTEND Internal Medicine
PROC: 30233K1 Transfusion of Nonautologous Frozen Plasma into Peripheral Vein, Percutaneous Approach (ICD-10-PCS; 2016-06-23)
PROC: 30233L1 Transfusion of Nonautologous Fresh Plasma into Peripheral Vein, Percutaneous Approach (ICD-10-PCS; 2016-06-23)
PROC: 3E0234Z Introduction of Serum, Toxoid and Vaccine into Muscle, Percutaneous Approach (ICD-10-PCS; 2016-06-23)
PROC: 0DB68ZX Excision of Stomach, Via Natural or Artificial Opening Endoscopic, Diagnostic (ICD-10-PCS; principal; 2016-06-26)
PROC: 0DJD8ZZ Inspection of Lower Intestinal Tract, Via Natural or Artificial Opening Endoscopic (ICD-10-PCS; 2016-06-26)
PROC: 30233N1 Transfusion of Nonautologous Red Blood Cells into Peripheral Vein, Percutaneous Approach (ICD-10-PCS; 2016-06-27)
DX: K92.2 Gastrointestinal hemorrhage, unspecified (principal); N17.0 Acute kidney failure with tubular necrosis; R57.1 Hypovolemic shock; I69.351 Hemiplegia and hemiparesis following cerebral infarction affecting right dominant side; E87.2 Acidosis; E44.1 Mild protein-calorie malnutrition; D68.69 Other thrombophilia; D68.32 Hemorrhagic disorder due to extrinsic circulating anticoagulants; I13.0 Hypertensive heart and chronic kidney disease with heart failure and stage 1 through stage 4 chronic kidney disease, or unspecified chronic kidney disease; M19.90 Unspecified osteoarthritis, unspecified site; E87.5 Hyperkalemia; D64.9 Anemia, unspecified; I95.9 Hypotension, unspecified; I25.10 Atherosclerotic heart disease of native coronary artery without angina pectoris; E11.22 Type 2 diabetes mellitus with diabetic chronic kidney disease; E11.65 Type 2 diabetes mellitus with hyperglycemia; D72.829 Elevated white blood cell count, unspecified; G40.909 Epilepsy, unspecified, not intractable, without status epilepticus; N18.3 Chronic kidney disease, stage 3 (moderate); T45.515A Adverse effect of anticoagulants, initial encounter; H54.8 Legal blindness, as defined in USA; I50.9 Heart failure, unspecified; I48.2 Chronic atrial fibrillation; K44.9 Diaphragmatic hernia without obstruction or gangrene; Z23 Encounter for immunization; I69.328 Other speech and language deficits following cerebral infarction; Z79.01 Long term (current) use of anticoagulants; Z98.890 Other specified postprocedural states; Z79.899 Other long term (current) drug therapy; Z87.891 Personal history of nicotine dependence; Z79.82 Long term (current) use of aspirin; Z68.34 Body mass index [BMI] 34.0-34.9, adult; Z95.1 Presence of aortocoronary bypass graft
CPT/HCPCS: 36415; 51702; 80048; 80053; 81001; 82271; 82962; 83690; 83735; 84100; 85007; 85014; 85018; 85025; 85027; 85610; 85730; 86850; 86900; 86901; 86920; 88305; 88342; 90686; 90732; 93005; 93010; 94640; 96361; 96365; 96375; C9113; J1815; J1953; J2060; J2704; J3430; J3480; J7030; J7042; J7050; J7070; P9016; P9017

== ENCOUNTER 2018-06-23 22:59 | Inpatient (IN) | payer MEDICARE ==
[2018-06-23] MEDS ORDERED: NACL 0.9% 500 ML 500 ML IV ONE (23:30)
[2018-06-23] MEDS ORDERED: ROCEPHIN/NS 1 GM/50 ML 1 GM/50 ML BAG IV SCH (23:45)
--- NOTE | 2018-06-23 23:58 | XRay Report ---
FINAL REPORT PROCEDURE: XR CHEST 1V AP TECHNIQUE: Chest radiograph anteroposterior view. CPT 27674 HISTORY: fever COMPARISON: 05/22/2018. FINDINGS: Heart: [id number] degree cardiomegaly is noted obscuring the left lower lung and left costophre calvin angle. Mediastinum/Vessels: Normal. Lungs/Pleural space: Right lung and right pleural space are clear. Left lower lung and left costophre calvin angle are obscured by the cardiac shadow. Any underlying infiltrates or left pleural effusion can not be excluded. Bony thorax: No acute osseous abnormality. Life support devices: None. IMPRESSION: Cardiomegaly Left lower lung and left costophrenic angle are obscured by cardiac shadow. A two view chest study is recommended whenever the patient's condition permits. Otherwise no obvious acute abnormality.
[2018-06-24] MEDS ORDERED: TYLENOL PR ONE ×2 (00:03→00:08)
[2018-06-24 00:04] LABS: Bilirubin,Urine NEG (Negative); Blood,Urine NEG (Negative); Color,Urine Amber (Yellow); Mucus,Urine 2+ /HPF; Urobilinogen,Urine < 2.0 mg/dL (<2.0)
[2018-06-24 00:07] LABS: Hematocrit 35.8 % (30.3-42.9); Mean Corpuscular HGB Conc 33 % (30-34); Mean Corpuscular Volume 92 fl (79-97); Platelet Count 227 K/mm3 (140-440); Red Blood Count 3.87 M/mm3 (3.65-5.03); Red Cell Distribution Width 15.7 % (13.2-15.2)
--- NOTE | 2018-06-24 00:24 | Emergency Department Report ---
ED General Adult HPI - General Chief complaint: Fever Stated complaint: AMS Time Seen by Provider: 06/23/18 23:24 Source: EMS, old records reviewed Mode of arrival: Stretcher Limitations: Altered Mental Status - History of Present Illness Initial comments: Patient is a 68-year-old female past history of recent admission for acute renal failure as well as A. fib hypertension who is presenting with altered mental status. Patient was noted this evening to be poorly responsive. Patient baseline is talking although she does have some d ementia. Patient was noted to be poorly responsive and responding only to painful stimuli prior to arrival. Patient also noted to have a fever in route. Patient's report states that there has been no nausea vomiting off and congestion. Symptoms started just this evening. Severity scale (0 -10): 10 - Related Data Home Medications Medication Instructions Recorded Confirmed Last Taken AtorvaSTATin [Lipitor] 40 mg PO DAILY 08/06/16 06/24/18 Unknown Acetaminophen [Acetaminophen TAB] 650 mg PO Q6HR PRN 05/22/18 06/24/18 Unknown Amlodipine Besylate [Norvasc] 10 mg PO QDAY 05/22/18 06/24/18 Unknown Cholecalciferol (Vitamin D3) 2,000 unit PO DAILY 05/22/18 06/24/18 Unknown [Vitamin D3] Folic Acid 0.4 mg PO QDAY 05/22/18 06/24/18 Unknown Hydralazine HCl 50 mg PO BID 05/22/18 06/24/18 Unknown Insulin Detemir [Levemir VIAL] 20 units SUB-Q QHS 05/22/18 06/24/18 Unknown Insulin NPH Hum/Reg Insulin Hm 5 units SUB-Q DAILY@1130 05/22/18 06/24/18 Unknown [HumuLIN 70-30 Vial] Insulin Regular, Human [HumuLIN R] See Protocol SUB-Q ACHS 05/22/18 06/24/18 Unknown Melatonin [Melatin] 3 mg PO HS 05/22/18 06/24/18 Unknown Multivitamin Tab W-MINERAL 1 each PO QDAY 05/22/18 06/24/18 Unknown [Multiple Vitamin/Mineral (Theragran M)] Ranitidine HCl [Zantac 150 MG TAB] 150 mg PO BID 05/22/18 06/24/18 Unknown hydrOXYzine HCl [Hydroxyzine HCl] 25 mg PO Q12H 05/22/18 06/24/18 Unknown Divalproex [Ryan AGUILLON] 125 mg PO BID 06/24/18 06/24/18 Unknown carBAMazepine [TEGretol] 200 mg PO BID 06/24/18 06/24/18 Unknown Previous Rx's Medication Instructions Recorded Last Taken Type Carvedilol [Coreg] 25 mg PO BID tablet 08/09/16 Unknown Rx Allergies Allergy/AdvReac Type Severity Reaction Status Date / Time lisinopril Allergy Unknown Verified 06/23/18 23:57 ED Review of Systems ROS: Stated complaint: AMS Other details as noted in HPI Comment: Unobtainable due to pts medical conditions ED Past Medical Hx - Past Medical History Previous Medical History?: Yes Hx Hypertension: Yes Hx CVA: Yes Hx Heart Attack/AMI: Yes Hx Diabetes: Yes Hx Renal Disease: Yes (ARF) Hx Arthritis: Yes Hx Seizures: Yes Hx Asthma: No Hx COPD: No Hx HIV: No Additional medical history: AFIB--on coumadin - Surgical History Past Surgical History?: Yes Additional Surgical History: right femoral pseudoaneurysm repair 2010 - Social History Smoking Status: Unknown if ever smoked Substance Use Type: None - Medications Home Medications: Home Medications Medication Instructions Recorded Confirmed Last Taken Type AtorvaSTATin [Lipitor] 40 mg PO DAILY 08/06/16 06/24/18 Unknown History Carvedilol [Coreg] 25 mg PO BID tablet 08/09/16 06/24/18 Unknown Rx Acetaminophen [Acetaminophen TAB] 650 mg PO Q6HR PRN 05/22/18 06/24/18 Unknown History Amlodipine Besylate [Norvasc] 10 mg PO QDAY 05/22/18 06/24/18 Unknown History Cholecalciferol (Vitamin D3) 2,000 unit PO DAILY 05/22/18 06/24/18 Unknown History [Vitamin D3] Folic Acid 0.4 mg PO QDAY 05/22/18 06/24/18 Unknown History Hydralazine HCl 50 mg PO BID 05/22/18 06/24/18 Unknown History Insulin Detemir [Levemir VIAL] 20 units SUB-Q QHS 05/22/18 06/24/18 Unknown History Insulin NPH Hum/Reg Insulin Hm 5 units SUB-Q DAILY@1130 05/22/18 06/24/18 Unknown History [HumuLIN 70-30 Vial] Insulin Regular, Human [HumuLIN R] See Protocol SUB-Q ACHS 05/22/18 06/24/18 Unknown History Melatonin [Melatin] 3 mg PO HS 05/22/18 06/24/18 Unknown History Multivitamin Tab W-MINERAL 1 each PO QDAY 05/22/18 06/24/18 Unknown History [Multiple Vitamin/Mineral (Theragran M)] Ranitidine HCl [Zantac 150 MG TAB] 150 mg PO BID 05/22/18 06/24/18 Unknown History hydrOXYzine HCl [Hydroxyzine HCl] 25 mg PO Q12H 05/22/18 06/24/[address] [DepaKOTE DR] 125 mg PO BID 06/24/18 06/24/18 Unknown History carBAMazepine [TEGretol] 200 mg PO BID 06/24/18 06/24/18 Unknown History ED Physical Exam - General Limitations: Altered Mental Status, Physical Limitation General appearance: in no apparent distress, lethargic - Head Head exam: Present: atraumatic - Eye Eye exam: Present: other (patient is clinically blind). Absent: normal appearance - ENT ENT exam: Present: mucous membranes moist - Neck Neck exam: Present: normal inspection - Respiratory Respiratory exam: Present: normal lung sounds bilaterally, rhonchi. Absent: respiratory distress, wheezes, rales - Cardiovascular Cardiovascular Exam: Present: regular rate, normal rhythm. Absent: systolic murmur, diastolic murmur, rubs, gallop - GI/Abdominal GI/Abdominal exam: Present: soft, normal bowel sounds. Absent: distended, guarding, rebound - Extremities Exam Extremities exam: Present: normal inspection - Back Exam Back exam: Present: normal inspection - Neurological Exam Neurological exam: Present: alert, oriented X3 - Psychiatric Psychiatric exam: Present: normal affect, normal mood - Skin Skin exam: Present: warm, dry, intact, normal color. Absent: rash ED Course Vital Signs 06/23/18 06/23/18 06/23/18 23:30 23:43 23:57 Temperature 102.2 F H Pulse Rate 109 H 111 H Respiratory 17 20 20 Rate Blood Pressure 140/84 140/84 Blood Pressure 140/84 [Right] O2 Sat by Pulse 100 100 100 Oximetry 06/24/18 06/24/18 06/24/18 00:46 01:00 01:42 Temperature 101.2 F H Pulse Rate 110 H 110 H 112 H Respiratory 13 10 L 13 Rate Blood Pressure 120/67 122/72 Blood Pressure 114/68 [Right] O2 Sat by Pulse 100 100 100 Oximetry ED Medical Decision Making - Lab Data Result diagrams: 06/23/18 23:38 06/23/18 23:38 Lab Results 06/23/18 06/23/18 06/23/18 Range/Units 23:38 23:38 23:38 WBC 14.2 H (4.5-11.0) K/mm3 RBC 3.87 (3.65-5.03) M/mm3 Hgb 12.0 (10.1-14.3) gm/dl Hct 35.8 (30.3-42.9) % MCV 92 (79-97) fl MCH 31 (28-32) pg MCHC 33 (30-34) % RDW 15.7 H (13.2-15.2) % Plt Count 227 (140-440) K/mm3 Seg Neutrophils % Vamp Liner Sodium 140 (137-145) mmol/L Potassium 4.3 (3.6-5.0) mmol/L Chloride 101.4 (98-107) mmol/L Carbon Dioxide 26 (22-30) mmol/L Anion Gap 17 mmol/L BUN 26 H (7-17) mg/dL Creatinine 1.6 H (0.7-1.2) mg/dL Estimated GFR 39 ml/min BUN/Creatinine Ratio 16 % Glucose 183 H (65-100) mg/dL Lactic Acid 2.10 H* (0.7-2.0) mmol/L Calcium 8.3 L (8.4-10.2) mg/dL Total Bilirubin 0.30 (0.1-1.2) mg/dL AST 52 H (5-40) units/L ALT 31 (7-56) units/L Alkaline Phosphatase 119 (35-129) units/L Total Protein 6.3 (6.3-8.2) g/dL Albumin 3.2 L (3.9-5) g/dL Albumin/Globulin Ratio 1.0 % Urine Color (Yellow) Urine Turbidity (Clear) Urine pH (5.0-7.0) Ur Specific Melcroft (1.003-1.030) Urine Protein (Negative) mg/dL Urine Glucose (UA) (Negative) mg/dL Urine Ketones (Negative) mg/dL Urine Blood (Negative) Urine Nitrite (Negative) Urine Bilirubin (Negative) Urine Urobilinogen (<2.0) mg/dL Ur Leukocyte Esterase (Negative) Urine WBC (Auto) (0.0-6.0) /HPF Urine RBC (Auto) (0.0-6.0) /HPF U Epithel Cells (Auto) (0-13.0) /HPF Urine Mucus /HPF 06/23/18 06/24/18 Range/Units 23:43 00:50 WBC (4.5-11.0) K/mm3 RBC (3.65-5.03) M/mm3 Hgb (10.1-14.3) gm/dl Hct (30.3-42.9) % MCV (79-97) fl MCH (28-32) pg MCHC (30-34) % RDW (13.2-15.2) % Plt Count (140-440) K/mm3 Seg Neutrophils % Sodium (137-145) mmol/L Potassium (3.6-5.0) mmol/L Chloride (98-107) mmol/L Carbon Dioxide (22-30) mmol/L Anion Gap mmol/L BUN (7-17) mg/dL Creatinine (0.7-1.2) mg/dL Estimated GFR ml/min BUN/Creatinine Ratio % Glucose (65-100) mg/dL Lactic Acid 2.00 (0.7-2.0) mmol/L Calcium (8.4-10.2) mg/dL Total Bilirubin (0.1-1.2) mg/dL AST (5-40) units/L ALT (7-56) units/L Alkaline Phosphatase (35-129) units/L Total Protein (6.3-8.2) g/dL Albumin (3.9-5) g/dL Albumin/Globulin Ratio % Urine Color Fabiola (Yellow) Urine Turbidity Slightly-cloudy (Clear) Urine pH 5.0 (5.0-7.0) Ur Specific Melcroft 1.023 (1.003-1.030) Urine Protein 30 mg/dl (Negative) mg/dL Urine Glucose (UA) Neg (Negative) mg/dL Urine Ketones Neg (Negative) mg/dL Urine Blood Neg (Negative) Urine Nitrite Neg (Negative) Urine Bilirubin Neg (Negative) Urine Urobilinogen < 2.0 (<2.0) mg/dL Ur Leukocyte Esterase Tr (Negative) Urine WBC (Auto) 4.0 (0.0-6.0) /HPF Urine RBC (Auto) 1.0 (0.0-6.0) /HPF U Epithel Cells (Auto) < 1.0 (0-13.0) /HPF Urine Mucus 2+ /HPF - Medical Decision Making Patient is a 68-year-old female who is presenting with fever of unknown etiology. Patient had just trace leuk esterase in her urine. No definitive pneumonia was found. Blood cultures are been sent. Patient also had a flu test is sent as well. Patient will be admitted because of the altered mental status. Patient is admitetd to the hospitalist service. Critical care attestation.: If time is entered above; I have spent that time in minutes in the direct care of this critically ill patient, excluding procedure time. ED Disposition Clinical Impression: Fever of unknown origin Altered mental state Qualifiers: Altered mental status type: unspecified Qualified Code(s): R41.82 - Altered mental status, unspecified Disposition: OP ADMIT IP TO THIS HOSP Is pt being admited?: Yes Does the pt Need Aspirin: No Condition: Stable Referrals: PRIMARY CARE, [Primary Care Provider] - 3-5 Days Time of Disposition: 02:05
[2018-06-24 00:29] LABS: Albumin 3.2 g/dL (3.9-5); Calcium 8.3 mg/dL (8.4-10.2)
--- NOTE | 2018-06-24 01:43 | Cat Scan Report ---
FINAL REPORT PROCEDURE: CT CHEST WO CON TECHNIQUE: Computerized axial tomography of the chest was performed without contrast material. This study is performed without intravenous contrast and the sensitivity for pathology, including neoplasm s, adenopathy, abscess, pulmonary embolism and aortic dissection, is reduced. HISTORY: fever, cough, inconclusive cxr COMPARISON: No prior studies are available for comparison. TECHNICAL QUALITY: Satisfactory. FINDINGS: Heart and pericardium: The heart size is moderately pronounced. No pericardial effusion. Thoracic aorta: Mild atherosclerosis of the aorta. Pulmonary vasculature: Normal. Lymph nodes: No enlarged thoracic lymph nodes. Lungs: Slight vascular congestion. Mild atelectasis bilateral lower lungs. No consolidation or effusi on. No pneumothorax. Central airway is patent.. Pleural space: No effusion, thickening, or pneumothorax. Musculoskeletal structures: Mild degenerative changes of the thoracic spine. No acute osseous abnorma lity.. Upper abdominal structures: No significant abnormality. IMPRESSION: Mild vascular congestion with slight bilateral lower lung atelectasis. Heart size is moderately enlar ged..
[2018-06-24] MEDS ORDERED: TORADOL IV ONE (01:48)
[2018-06-24] MEDS ORDERED: TORADOL ONE (01:48)
[2018-06-24 02:07] LABS: Band Neutrophils # (Manual) 0.6 K/mm3; Basophils % (Manual) 0 % (0.0-1.8); Eosinophils % (Manual) 0 % (0.0-4.3); Platelet Estimate Consistent w Auto; RBC Morphology Normal; Total Cells Counted 100
[2018-06-24] MEDS ORDERED: TYLENOL PO PRN (02:31)
[2018-06-24] MEDS ORDERED: ZOFRAN IV PRN (02:33)
[2018-06-24] MEDS ORDERED: D50W (25GM) Syringe IV PRN (02:40)
[2018-06-24] MEDS ORDERED: HEPARIN SUB-Q ONE (03:03)
--- NOTE | 2018-06-24 03:33 | History and Physical Report ---
CHIEF COMPLAINT: Fever. Other complaint include change in mental status. HISTORY OF PRESENT ILLNESS: The patient is a 68-year-old [place] [facility] because of change in mental status with fever. The patient was noted to be less responsive than baseline, although the patient has a history of dementia, she talks. There is no history of shortness of breath. No history of nausea or vomiting and no history of chest pain and the patient was brought in for evaluation. PAST MEDICAL HISTORY: Pertinent for dementia, hypertension, cerebrovascular accident, coronary artery disease, diabetes mellitus, renal insufficiency, arthritis, seizure disorder and atrial fibrillation, on Coumadin. PAST SURGICAL HISTORY: Pertinent for right femoral pseudoaneurysm repair in 2010. FAMILY HISTORY: Noncontributory. SOCIAL HISTORY: [facility]. Does not smoke, does not drink alcohol and does not use illicit drugs. MEDICATIONS: The patient is on Lipitor 40 mg daily, Coreg 25 mg by mouth twice daily, Tylenol 650 mg by mouth every 6 hours as needed for fever and headache, Norvasc 10 mg by mouth daily, vitamin D3 2000 units by mouth daily, folic acid 0.4 mg by mouth daily, hydralazine 50 mg twice daily, Levemir insulin 20 units subcutaneous at bedtime, insulin 70/30, 5 units subcutaneous daily, insulin regular according to sliding scale protocol, melatonin 3 mg by mouth at bedtime, multivitamin with mineral one by mouth daily, ranitidine 150 mg by mouth twice daily, hydroxyzine 25 mg by mouth every 12 hours, divalproex or Depakote 125 mg by mouth daily, Tegretol 200 mg by mouth daily. ALLERGIES: THE PATIENT IS ALLERGIC TO LISINOPRIL. REVIEW OF SYSTEMS: CONSTITUTIONAL: There is fever, but no chills and no diaphoresis. HEENT: There is no headache or sore throat. CARDIOVASCULAR SYSTEM: There is no chest pain or orthopnea. RESPIRATORY SYSTEM: There is no shortness of breath or cough. GASTROINTESTINAL SYSTEM: There is no nausea, no vomiting, no abdominal pain, diarrhea or constipation. NEUROLOGIC SYSTEM: Change in mental status noted. MUSCULOSKELETAL SYSTEM: There is no joint pain or swelling. DERMATOLOGIC: There is no skin rash or itching. GENITOURINARY SYSTEM: There is no dysuria, hematuria or flank pain. Rest of system review is normal. PHYSICAL EXAMINATION: GENERAL: At the time of exam, the patient was found to be lethargic, but arousable and not in acute disease. VITAL SIGNS: Vital signs at the initial time of presentation show temperature of 102.2 degrees Fahrenheit, pulse of 109, respirations 17, blood pressure 140/84, O2 sat of 100% on room air. HEENT: Showed pupils to be equal, round, reactive to light and accommodating. Oral mucosa looks dry. NECK: Supple with no JVD or carotid bruit. CARDIOVASCULAR: Show normal first and second heart sounds with no gallops or murmurs. RESPIRATORY SYSTEM: Show good air entry on both sides of the lung with no abnormal breath sounds. GASTROINTESTINAL SYSTEM: Show abdomen to be full, soft, nontender with no organomegaly or rigidity. NEUROLOGIC: Shows the patient is lethargic, but arousable with no new focal deficit. MUSCULOSKELETAL SYSTEM: Show no joint swelling. DERMATOLOGICAL SYSTEM: Show no skin rash. GENITOURINARY SYSTEM: Showing no costovertebral angle tenderness. PERTINENT LABORATORY AND IMAGING STUDIES: The patient had a chest x-ray done and chest x-ray shows cardiomegaly with left lower lung and left costophrenic angle blunting by cardiac shadow. The patient also had CT of the chest without contrast done that showed that mild vascular congestion with slight bilateral lower lobe atelectasis and moderately enlarged heart size. LABORATORY RESULTS: The patient had CBC done with elevated white count of 14,200 with CBC differential showing high segmented neutrophil of 85% and unremarkable lymphocyte count. The patient's chemistry shows elevated BUN of 26 with high creatinine of 1.6. The patient's initial lactic acid level was elevated with a value of 2.1 and rest of chemistry shows elevated AST of 52 with normal ALT. The patient's urinalysis shows slightly cloudy urine with trace urine leukocyte esterase and normal urine WBC with no urine bacteria seen and negative urine nitrite. DIAGNOSES: 1. Altered mental status. 2. Sepsis. PLAN: 1. The patient will be admitted to telemetry. 2. The patient will be on IV Zosyn 3.375 grams q. 8 hours. Also, the patient will be on IV Levaquin 750 mg daily. 3. The patient will be on IV normal saline at 75 mL an hour because of finding of mild congestion on chest x-ray. 4. The patient will be on Accu-Chek before meals and at bedtime followed by low-dose sliding scale using regular insulin coverage. The patient's diet will be consistent carbohydrate, low sodium diet. 5. The patient will have Nephrology consult with Dr. Willy Mujica in the morning because of renal insufficiency. 6. The patient will have basic metabolic panel done in the morning. 7. The patient will have PT and PTT done stat because of notation of patient being on Coumadin for atrial fibrillation. 8. The patient will be on Tylenol 650 mg by mouth every 4 hours for fever and headache. 9. The patient will be on IV Levaquin 750 mg daily for treatment of sepsis. 10. The patient will be on her home medication as shown in the medication reconciliation section. JOB# [id number] OCN/NTS
[2018-06-24 03:39] LABS: INR 1.31 (0.87-1.13)
[2018-06-24] MEDS ORDERED: HEPARIN ONE (04:04)
[2018-06-24] MEDS ORDERED: ZOSYN/NS 4.5GM/100ML 4.5 GM/100 ML VIAL IV ONE (06:13)
[2018-06-24 06:40] LABS: Calcium 8.3 mg/dL (8.4-10.2)
[2018-06-24] MEDS: ZOSYN/NS 3.375GM/50ML 3.375 GM/50 ML BAG IV SCH ×3 (06:45→21:53)
[2018-06-24] MEDS: HumuLIN R SUB-Q SCH ×3 (08:04→18:00)
[2018-06-24] MEDS ORDERED: NON-FORMULARY (Hydralazine Hcl [Hydralazine Hcl] 50 MG) PO SCH (10:00)
[2018-06-24] MEDS ORDERED: NON-FORMULARY (Folic Acid [Folic Acid] 0.4 MG) PO SCH (10:00)
[2018-06-24] MEDS ORDERED: LEVAQUIN 750MG/150ML 750 MG/150 ML BAG IV SCH ×2 (10:00)
[2018-06-24] MEDS ORDERED: NON-FORMULARY (Ranitidine Hcl [Zantac 150 Mg Tab] 150 MG) PO SCH (10:00)
[2018-06-24] MEDS ORDERED: NON-FORMULARY (Cholecalciferol (Vitamin D3) [Vitamin D3] 2,000 UNIT) PO SCH (10:00)
--- NOTE | 2018-06-24 10:37 | Consultation ---
History of Present Illness - Reason for Consult Consult date: 06/24/18 chronic renal failure Requesting physician: JAMES DENT - History of Present Illness 68-year-old lady brought from half-way due to altered mental status. Patient was only responding to painful stimuli. She had her mouth open. She has not been observed to be having any fever or chills cough, nausea, vomiting or diarrhea. Patient is not able to give a history and history obtained from [facility] family is limited since she resides at the half-way. History is obtained from them and from the review of the records. She does have history of chronic kidney disease creatinine was 1.5 in 05/25/2018. Past History Past Medical History: atrial fib, CAD, diabetes, hypertension, hyperlipidemia, stroke (multiple strokes and felt to have multi-infarct dementia), other (Vision impairment) Past Surgical History: No surgical history Social history: lives with family (Lived with Son until 2 Years Ago When She Had to Go to a [facility] after She Had a Stroke. 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 denies: smoking (smoking 2 years ago when she moved into a half-way), prescription drug abuse, IV drug use Family history: CAD (Brother from a myocardial infarction), cancer (father of CA larynx. He worked in the [employer]), other (Mother at a young age of alcohol related medical problems) Medications and Allergies Allergies Allergy/AdvReac Type Severity Reaction Status Date / Time lisinopril Allergy Unknown Verified 06/23/18 23:57 Home Medications Medication Instructions Recorded Confirmed Last Taken Type AtorvaSTATin [Lipitor] 40 mg PO DAILY 08/06/16 06/24/18 Unknown History Carvedilol [Coreg] 25 mg PO BID tablet 08/09/16 06/24/18 Unknown Rx Acetaminophen [Acetaminophen TAB] 650 mg PO Q6HR PRN 05/22/18 06/24/18 Unknown History Amlodipine Besylate [Norvasc] 10 mg PO QDAY 05/22/18 06/24/18 Unknown History Cholecalciferol (Vitamin D3) 2,000 unit PO DAILY 05/22/18 06/24/18 Unknown History [Vitamin D3] Folic Acid 0.4 mg PO QDAY 05/22/18 06/24/18 Unknown History Hydralazine HCl 50 mg PO BID 05/22/18 06/24/18 Unknown History Insulin Detemir [Levemir VIAL] 20 units SUB-Q QHS 05/22/18 06/24/18 Unknown History Insulin NPH Hum/Reg Insulin Hm 5 units SUB-Q DAILY@1130 05/22/18 06/24/18 Unknown History [HumuLIN 70-30 Vial] Insulin Regular, Human [HumuLIN R] See Protocol SUB-Q ACHS 05/22/18 06/24/18 Unknown History Melatonin [Melatin] 3 mg PO HS 05/22/18 06/24/18 Unknown History Multivitamin Tab W-MINERAL 1 each PO QDAY 05/22/18 06/24/18 Unknown History [Multiple Vitamin/Mineral (Theragran M)] Ranitidine HCl [Zantac 150 MG TAB] 150 mg PO BID 05/22/18 06/24/18 Unknown History hydrOXYzine HCl [Hydroxyzine HCl] 25 mg PO Q12H 05/22/18 06/24/[address] [Adrienne LOPEZ] 125 mg PO BID 06/24/18 06/24/18 Unknown History carBAMazepine [TEGretol] 200 mg PO BID 06/24/18 06/24/18 Unknown History Active Meds: Active Medications Acetaminophen (Tylenol) 650 mg PO Q4H PRN PRN Reason: Fever >101 Amlodipine Besylate (Norvasc) 10 mg PO QDAY [facility] Atorvastatin Calcium (Lipitor) 40 mg PO DAILY [facility] Carbamazepine (Tegretol) 200 mg PO BID [facility] Carvedilol (Coreg) 25 mg PO BID [facility] Cholecalciferol (Vitamin D3) 2,000 unit PO DAILY [facility] Dextrose (D50w (25gm) Syringe) 50 ml IV PRN PRN PRN Reason: Hypoglycemia Divalproex Sodium (Adrienne Lopez) 125 mg PO BID [facility] Famotidine (Pepcid) 10 mg PO BID [facility] Folic Acid (Folvite) 0.5 mg PO DAILY [facility] Hydralazine HCl (Apresoline) 50 mg PO BID [facility] Hydroxyzine HCl (Atarax) 25 mg PO Q12HR [facility] Sodium Chloride (Nacl 0.9% 1000 Ml) 1,000 mls @ 75 mls/hr IV DIRECT [facility] Piperacillin Sod/Tazobactam Sod (Zosyn/Ns 3.375gm/50ml) 3.375 gm in 50 mls @ 100 mls/hr IV Q8HR [facility]; Protocol Last Admin: 06/24/18 06:45 Dose: 100 mls/hr Documented by: Levofloxacin/Dextrose (Levaquin 750mg/150ml) 750 mg in 150 mls @ 100 mls/hr IV Q48HR [facility]; Protocol Insulin Human Regular (Humulin R) 0 units SUB-Q AC [facility]; Protocol Last Admin: 06/24/18 08:04 Dose: Not Given Documented by: Insulin Human Regular (Humulin R) 0 units SUB-Q QHS [facility]; Protocol Miscellaneous Medication (Melatonin [Melatin]) 3 mg PO HS [facility] Multivitamins/Minerals (Theragran-M Tab) 1 each PO QDAY [facility] Ondansetron HCl (Zofran) 4 mg IV Q8H PRN PRN Reason: Nausea And Vomiting Review of Systems ROS unobtainable: due to mental status Exam - Vital Signs Vital signs: Vital Signs Pulse Resp BP Pulse Ox 109 H 17 140/84 100 06/23/18 23:30 06/23/18 23:30 06/23/18 23:30 06/23/18 23:30 - Physical Exam Narrative exam: Elderly -Ivorian female lying in bed uncooperative with the exam in no acute distress HEENT: NCAT, pink oral mucous membrane Neck: Supple, no venous distention CVS: S1S2 RRR with no murmur, rub or gallop Chest: Clear to auscultation though diminished bilaterally Abdomen: Protuberant, soft, nontender, no organomegaly, bowel sounds are present Extremities: Mild edema left leg with marked tenderness, pigmentary changes both feet and legs, Skin warm and dry, pigmentary changes in both feet and legs Genitourinary: Deferred Neuro: Drowsy, difficult to arouse, some movements on arousal but not speaking to me, alert no focal deficits Results - Lab Results 06/23/18 23:38 06/24/18 06:04 Most recent lab results Calcium 8.3 mg/dL (8.4-10.2) L 06/24/18 06:04 Assessment and Plan - Patient Problems (1) Chronic kidney disease, stage III (moderate) Current Visit: Yes Status: Acute Plan to address problem: 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 Kidney function is close to her baseline. Will quantify proteinuria and follow-up electrolytes and renal function. No other intervention needed at this time. Adjust medications to the degree of renal f unction. (2) Hypertensive chronic kidney disease with stage 1 through stage 4 chronic kidney disease, or unspecified chronic kidney disease Current Visit: Yes Status: Acute Plan to address problem: Blood pressure is controlled. Follow blood pressure on current medications (3) Type 2 diabetes mellitus with diabetic chronic kidney disease Current Visit: Yes Status: Acute Plan to address problem: Blood sugar is not quite at goal. Follow blood sugars on current medication (4) History of stroke with residual deficit Current Visit: Yes Status: Acute Plan to address problem: Continue supportive care (5) Swelling of left lower extremity Current Visit: Yes Status: Acute Plan to address problem: Duplex ultrasound of the leg
[2018-06-24] MEDS: FOLVITE PO SCH (11:02)
[2018-06-24] MEDS: APRESOLINE PO SCH ×2 (11:02→22:28)
[2018-06-24] MEDS: PEPCID PO SCH ×2 (11:03→21:55)
[2018-06-24] MEDS: NORVASC PO SCH (11:03)
[2018-06-24] MEDS: ATARAX PO SCH ×2 (11:03→22:29)
[2018-06-24] MEDS: VITAMIN D3 PO SCH (11:03)
[2018-06-24] MEDS: THERAGRAN-M Tab PO SCH (11:03)
[2018-06-24] MEDS: COREG PO SCH ×2 (11:04→22:28)
--- NOTE | 2018-06-24 14:01 | Event Note ---
Date: 06/24/18 Patient seen and examined, son at bedside. Reports patient normal would have one word responses although at baseline not coherent. she has not spoken necessitating the hospitalization. Will continue treatment for underlying Sepsis. Patient has not been on anticoagluation due to the dementia and previous suspected GI bleed per son. He understands the associated risk
--- NOTE | 2018-06-24 15:22 | Nuclear Medicine Report ---
PERFUSION LUNG SCAN: History: Pulmonary embolism. After injection of Technetium 99m macroaggregated albumin gamma camera imaging of the lungs in multiple projections demonstrates normal pulmonary contours with a homogeneous distribution of activity. No focal areas of perfusion deficiency are identified. IMPRESSION: Normal study.
[2018-06-24 16:00] LABS: Creatinine,Urine 218.6 mg/dL (0.1-20.0)
[2018-06-24] MEDS ORDERED: NON-FORMULARY (Melatonin [Melatin] 3 MG) PO SCH (22:00)
[2018-06-24] MEDS ORDERED: HumuLIN R SUB-Q SCH (22:00)
[2018-06-25] MEDS: HumuLIN R SUB-Q SCH ×5 (00:11→22:51)
[2018-06-25] MEDS: NACL 0.9% 1000 ML 1,000 ML IV SCH ×2 (02:18→22:52)
[2018-06-25] MEDS: ZOSYN/NS 3.375GM/50ML 3.375 GM/50 ML BAG IV SCH (05:12)
--- NOTE | 2018-06-25 08:48 | Progress Note ---
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 Kidney function is close to her baseline. Will quantify proteinuria and follow-up electrolytes and renal function. No other intervention needed at this time. Adjust medications to the degree of renal function. (2) Hypertensive chronic kidney disease with stage 1 through stage 4 chronic kidney disease, or unspecified chronic kidney disease Current Visit: Yes Status: Acute Plan to address problem: Blood pressure is controlled. Follow blood pressure on current medications (3) Type 2 diabetes mellitus with diabetic chronic kidney disease Current Visit: Yes Status: Acute Plan to address problem: Blood sugar is not quite at goal. Follow blood sugars on current medication (4) History of stroke with residual deficit Current Visit: Yes Status: Acute Plan to address problem: Continue supportive care (5) Swelling of left lower extremity Current Visit: Yes Status: Acute Plan to address problem: Duplex ultrasound of the leg Subjective Date of service: 06/25/18 Principal diagnosis: chronic kidney disease with acute kidney injury Interval history: Patient seen lying in bed. She says a few words today. Family at bedside Objective - Exam Narrative Exam: Elderly -Chilean female lying in bed uncooperative with the exam in no acute distress HEENT: NCAT, pink oral mucous membrane Neck: Supple, no venous distention CVS: S1S2 RRR with no murmur, rub or gallop Chest: Clear to auscultation though diminished bilaterally Abdomen: Protuberant, soft, nontender, no organomegaly, bowel sounds are present Extremities: Mild edema left leg with mild tenderness, pigmentary changes both feet and legs, Skin warm and dry, pigmentary changes in both feet and legs Genitourinary: Deferred Neuro: Drowsy, difficult to arouse, some movements on arousal but not speaking to me, alert no focal deficits - Vital Signs Vital signs: Vital Signs - 12hr 06/24/18 06/24/18 06/24/18 21:16 22:00 22:28 Temperature Pulse Rate 113 H 113 H Respiratory 18 Rate Blood Pressure 139/82 O2 Sat by Pulse Oximetry 06/25/18 06/25/18 06/25/18 02:03 05:26 07:26 Temperature 100.6 F H 98.3 F 98.0 F Pulse Rate 121 H 118 H Respiratory 22 18 Rate Blood Pressure 129/84 121/77 O2 Sat by Pulse 93 92 Oximetry - Lab 06/26/18 06:58 06/26/18 06:58 Most recent lab results Calcium 8.0 mg/dL (8.4-10.2) L 06/25/18 05:00 Urine Creatinine 218.6 mg/dL (0.1-20.0) H 06/24/18 15:37 Urine Total Protein 87 mg/dL (5-11.8) H 06/24/18 15:37 Medications & Allergies - Medications Allergies/Adverse Reactions: Allergies lisinopril Allergy (Verified 06/23/18 23:57) Unknown Home Medications: Home Medications Medication Instructions Recorded Confirmed Last Taken Type AtorvaSTATin [Lipitor] 40 mg PO DAILY 08/06/16 06/24/18 Unknown History Carvedilol [Coreg] 25 mg PO BID tablet 08/09/16 06/24/18 Unknown Rx Acetaminophen [Acetaminophen TAB] 650 mg PO Q6HR PRN 05/22/18 06/24/18 Unknown History Amlodipine Besylate [Norvasc] 10 mg PO QDAY 05/22/18 06/24/18 Unknown History Cholecalciferol (Vitamin D3) 2,000 unit PO DAILY 05/22/18 06/24/18 Unknown History [Vitamin D3] Folic Acid 0.4 mg PO QDAY 05/22/18 06/24/18 Unknown History Hydralazine HCl 50 mg PO BID 05/22/18 06/24/18 Unknown History Insulin Detemir [Levemir VIAL] 20 units SUB-Q QHS 05/22/18 06/24/18 Unknown History Insulin NPH Hum/Reg Insulin Hm 5 units SUB-Q DAILY@1130 05/22/18 06/24/18 Unknown History [HumuLIN 70-30 Vial] Insulin Regular, Human [HumuLIN R] See Protocol SUB-Q ACHS 05/22/18 06/24/18 Unknown History Melatonin [Melatin] 3 mg PO HS 05/22/18 06/24/18 Unknown History Multivitamin Tab W-MINERAL 1 each PO QDAY 05/22/18 06/24/18 Unknown History [Multiple Vitamin/Mineral (Theragran M)] Ranitidine HCl [Zantac 150 MG TAB] 150 mg PO BID 05/22/18 06/24/18 Unknown History hydrOXYzine HCl [Hydroxyzine HCl] 25 mg PO Q12H 05/22/18 06/24/18 Unknown History Divalproex [Adrienne LOPEZ] 125 mg PO BID 06/24/18 06/24/18 Unknown History carBAMazepine [TEGretol] 200 mg PO BID 06/24/18 06/24/18 Unknown History Active Medications: Generic Name Dose Route Start Last Admin Trade Name Freq PRN Reason Stop Dose Admin Acetaminophen 650 mg 06/24/18 02:31 06/25/18 02:18 Tylenol PO 650 mg Q4H PRN Administration Fever >101 Amlodipine Besylate 10 mg 06/24/18 10:00 06/24/18 11:03 Norvasc PO 10 mg QDAY [facility] Administration Atorvastatin Calcium 40 mg 06/24/18 10:00 06/24/18 11:04 Lipitor PO 40 mg DAILY [facility] Administration Carbamazepine 200 mg 06/24/18 10:00 06/24/18 21:55 Tegretol PO 200 mg BID [facility] Administration Carvedilol 25 mg 06/24/18 10:00 06/24/18 22:28 Coreg PO 25 mg BID [facility] Administration Cholecalciferol 2,000 unit 06/24/18 10:00 06/24/18 11:03 Vitamin D3 PO 2,000 unit DAILY [facility] Administration Dextrose 50 ml 06/24/18 02:40 D50w (25gm) Syringe IV PRN PRN Hypoglycemia Divalproex Sodium 125 mg 06/24/18 10:00 06/24/18 22:29 Adrienne Lopez PO 125 mg BID [facility] Administration Famotidine 10 mg 06/24/18 10:00 06/24/18 21:55 Pepcid PO 10 mg BID [facility] Administration Folic Acid 0.5 mg 06/24/18 10:00 06/24/18 11:02 Folvite PO 0.5 mg DAILY [facility] Administration Hydralazine HCl 50 mg 06/24/18 10:00 06/24/18 22:28 Apresoline PO 50 mg BID [facility] Administration Hydroxyzine HCl 25 mg 06/24/18 10:00 06/24/18 22:29 Atarax PO 25 mg Q12HR [facility] Administration Sodium Chloride 1,000 mls @ 75 mls/hr 06/24/18 03:00 06/25/18 02:18 Nacl 0.9% 1000 Ml IV 75 mls/hr DIRECT [facility] Administration Piperacillin Sod/Tazobactam Sod 3.375 gm in 50 mls @ 100 mls/hr 06/24/18 06:00 06/25/18 05:12 Zosyn/Ns 3.375gm/50ml IV 100 mls/hr Q8HR [facility] Administration Protocol Levofloxacin/Dextrose 750 mg in 150 mls @ 100 mls/hr 06/24/18 10:00 06/24/18 11:04 Levaquin 750mg/150ml IV 100 mls/hr Q48HR [facility] Administration Protocol Insulin Human Regular 0 units 06/24/18 18:00 06/25/18 06:46 Humulin R SUB-Q 1 units Q6HR [facility] Administration Protocol Multivitamins/Minerals 1 each 06/24/18 10:00 06/24/18 11:03 Theragran-M Tab PO 1 each QDAY [facility] Administration Ondansetron HCl 4 mg 06/24/18 02:33 Zofran IV Q8H PRN Nausea And Vomiting
[2018-06-25] MEDS: THERAGRAN-M Tab PO SCH (09:07)
[2018-06-25] MEDS: FOLVITE PO SCH (09:07)
[2018-06-25] MEDS: PEPCID PO SCH ×2 (09:08→22:49)
[2018-06-25] MEDS: VITAMIN D3 PO SCH (09:09)
[2018-06-25] MEDS: ATARAX PO SCH ×2 (09:10→22:49)
[2018-06-25] MEDS: COREG PO SCH ×2 (09:11→22:50)
[2018-06-25] MEDS: NORVASC PO SCH (09:12)
[2018-06-25] MEDS: APRESOLINE PO SCH ×2 (09:12→22:50)
--- NOTE | 2018-06-25 09:46 | Progress Note ---
Assessment and Plan Assessment and plan: Patient is a 68-year-old female past history of Afib, ckd, Dementia, DM, Seizure and [facility] patient presenting to the ED with report of change in mental status. Per Patients son who was in the room the patient normal would have one word responses although at baseline not coherent. she has not spoken necessitating the hospitalization. Patient has not been on anticoagluation due to the dementia and previous suspected GI bleed per son. He understands the associated risk. No other report was obtained from the nursing facility Sepsis secondary to Beta hemolytic Strep Acute on chronic kidney injury secondary to vasomotor nephropathy Severe Dementia Scabies Diabetes Mellitus Seizure Disorder Right leg cellulitis Left Lower ext swelling CVA with residual deficit. Plan Continue supportive care Obtain ID consult- discussed with them placed the isolation for scabies Abx per ID- Cefazlin AND PREMETHRIN AND IVERMENCTIN Recheck Blood culture TTE Nephrology input noted Adjust Insulin therapy NM checked and no Pulmonary embolism. DVT/GI prophy Discussed with the son. History Interval history: Patient seen and examined, still very weak appearing. Hospitalist Physical - Physical exam Narrative exam: VITAL SIGNS: Reviewed. GENERAL: The patient appeared somnolent, mild distress and with itching. Vital signs as documented. HEAD: No signs of head trauma. EYES: Pupils are equal. Extraocular motions intact. EARS: Hearing grossly intact. MOUTH: Oropharynx is normal. NECK: No adenopathy, no JVD. CHEST: Chest with clear breath sounds bilaterally. No wheezes, rales, or rhonchi. CARDIAC: Regular rate and rhythm. S1 and S2, without murmurs, gallops, or rubs. VASCULAR: No Edema. Peripheral pulses normal and equal in all extremities. ABDOMEN: Soft, without detectable tenderness. No sign of distention. No rebound or guarding, and no masses palpated. Bowel Sounds normal. MUSCULOSKELETAL: Good range of motion of all major joints. Extremities without clubbing, cyanosis or edema. NEUROLOGIC EXAM: Alert and oriented x 3. No focal sensory or strength deficits. Speech normal. Follows commands. PSYCHIATRIC: Mood normal. SKIN: Right lower ext cellulites, +scabies - Constitutional Vitals: Temp Pulse Resp BP Pulse Ox 98.0 F 114 H 18 123/80 92 06/25/18 07:26 06/25/18 09:12 06/25/18 07:26 06/25/18 09:12 06/25/18 07:26 Results - Labs CBC & Chem 7: 06/23/18 23:38 06/25/18 05:00 Labs: Laboratory Last Values WBC 14.2 K/mm3 (4.5-11.0) H 06/23/18 23:38 RBC 3.87 M/mm3 (3.65-5.03) 06/23/18 23:38 Hgb 12.0 gm/dl (10.1-14.3) 06/23/18 23:38 Hct 35.8 % (30.3-42.9) 06/23/18 23:38 MCV 92 fl (79-97) 06/23/18 23:38 MCH 31 pg (28-32) 06/23/18 23:38 MCHC 33 % (30-34) 06/23/18 23:38 RDW 15.7 % (13.2-15.2) H 06/23/18 23:38 Plt Count 227 K/mm3 (140-440) 06/23/18 23:38 Add Manual Diff Complete 06/23/18 23:38 Total Counted 100 06/23/18 23:38 Seg Neutrophils % [employer] 06/23/18 23:38 Seg Neuts % (Manual) 85.0 % (40.0-70.0) H 06/23/18 23:38 Band Neutrophils % 4.0 % 06/23/18 23:38 Lymphocytes % (Manual) 5.0 % (13.4-35.0) L 06/23/18 23:38 Reactive Lymphs % (Man) 0 % 06/23/18 23:38 Monocytes % (Manual) 6.0 % (0.0-7.3) 06/23/18 23:38 Eosinophils % (Manual) 0 % (0.0-4.3) 06/23/18 23:38 Basophils % (Manual) 0 % (0.0-1.8) 06/23/18 23:38 Metamyelocytes % 0 % 06/23/18 23:38 Myelocytes % 0 % 06/23/18 23:38 Promyelocytes % 0 % 06/23/18 23:38 Blast Cells % 0 % 06/23/18 23:38 Nucleated RBC % 1.0 % (0.0-0.9) H 06/23/18 23:38 Seg Neutrophils # Man 12.1 K/mm3 (1.8-7.7) H 06/23/18 23:38 Band Neutrophils # 0.6 K/mm3 06/23/18 23:38 Lymphocytes # (Manual) 0.7 K/mm3 (1.2-5.4) L 06/23/18 23:38 Abs React Lymphs (Man) 0.0 K/mm3 06/23/18 23:38 Monocytes # (Manual) 0.9 K/mm3 (0.0-0.8) H 06/23/18 23:38 Eosinophils # (Manual) 0.0 K/mm3 (0.0-0.4) 06/23/18 23:38 Basophils # (Manual) 0.0 K/mm3 (0.0-0.1) 06/23/18 23:38 Metamyelocytes # 0.0 K/mm3 06/23/18 23:38 Myelocytes # 0.0 K/mm3 06/23/18 23:38 Promyelocytes # 0.0 K/mm3 06/23/18 23:38 Blast Cells # 0.0 K/mm3 06/23/18 23:38 WBC Morphology Not Reportable 06/23/18 23:38 Hypersegmented Neuts Not Reportable 06/23/18 23:38 Hyposegmented Neuts Not Reportable 06/23/18 23:38 Hypogranular Neuts Not Reportable 06/23/18 23:38 Smudge Cells Not Reportable 06/23/18 23:38 Toxic Granulation Not Reportable 06/23/18 23:38 Toxic Vacuolation Not Reportable 06/23/18 23:38 Dohle Bodies Not Reportable 06/23/18 23:38 Pelger-Huet Anomaly Not Reportable 06/23/18 23:38 Massiel Rods Not Reportable 06/23/18 23:38 Platelet Estimate Consistent w auto 06/23/18 23:38 Clumped Platelets Not Reportable 06/23/18 23:38 Plt Clumps, EDTA Not Reportable 06/23/18 23:38 Large Platelets Not Reportable 06/23/18 23:38 Giant Platelets Not Reportable 06/23/18 23:38 Platelet Satelliting Not Reportable 06/23/18 23:38 Plt Morphology Comment Not Reportable 06/23/18 23:38 RBC Morphology Normal 06/23/18 23:38 Dimorphic RBCs Not Reportable 06/23/18 23:38 Polychromasia Not Reportable 06/23/18 23:38 Hypochromasia Not Reportable 06/23/18 23:38 Poikilocytosis Not Reportable 06/23/18 23:38 Anisocytosis Not Reportable 06/23/18 23:38 Microcytosis Not Reportable 06/23/18 23:38 Macrocytosis Not Reportable 06/23/18 23:38 Spherocytes Not Reportable 06/23/18 23:38 Pappenheimer Bodies Not Reportable 06/23/18 23:38 Sickle Cells Not Reportable 06/23/18 23:38 Target Cells Not Reportable 06/23/18 23:38 Tear Drop Cells Not Reportable 06/23/18 23:38 Ovalocytes Not Reportable 06/23/18 23:38 Helmet Cells Not Reportable 06/23/18 23:38 Webber-Ravanna Bodies Not Reportable 06/23/18 23:38 Lagrange Rings Not Reportable 06/23/18 23:38 Beau Cells Not Reportable 06/23/18 23:38 Bite Cells Not Reportable 06/23/18 23:38 Crenated Cell Not Reportable 06/23/18 23:38 Elliptocytes Not Reportable 06/23/18 23:38 Acanthocytes (Spur) Not Reportable 06/23/18 23:38 Rouleaux Not Reportable 06/23/18 23:38 Hemoglobin C Crystals Not Reportable 06/23/18 23:38 Schistocytes Not Reportable 06/23/18 23:38 Malaria parasites Not Reportable 06/23/18 23:38 Radames Bodies Not Reportable 06/23/18 23:38 Hem Pathologist Commnt No 06/23/18 23:38 PT 16.7 Sec. (12.2-14.9) H 06/24/18 03:14 INR 1.31 (0.87-1.13) H 06/24/18 03:14 APTT 34.0 Sec. (24.2-36.6) 06/24/18 03:14 D-Dimer 790.04 ng/mlDDU (0-234) H 06/24/18 11:14 Sodium 145 mmol/L (137-145) 06/25/18 05:00 Potassium 3.9 mmol/L (3.6-5.0) 06/25/18 05:00 Chloride 106.9 mmol/L (98-107) 06/25/18 05:00 Carbon Dioxide 24 mmol/L (22-30) 06/25/18 05:00 Anion Gap 18 mmol/L 06/25/18 05:00 BUN 33 mg/dL (7-17) H 06/25/18 05:00 Creatinine 1.6 mg/dL (0.7-1.2) H 06/25/18 05:00 Estimated GFR 39 ml/min 06/25/18 05:00 BUN/Creatinine Ratio 21 % 06/25/18 05:00 Glucose 156 mg/dL (65-100) H 06/25/18 05:00 POC Glucose 174 (70-105) H 06/25/18 06:41 Lactic Acid 1.40 mmol/L (0.7-2.0) 06/24/18 03:01 Calcium 8.0 mg/dL (8.4-10.2) L 06/25/18 05:00 Total Bilirubin 0.30 mg/dL (0.1-1.2) 06/23/18 23:38 AST 52 units/L (5-40) H 06/23/18 23:38 ALT 31 units/L (7-56) 06/23/18 23:38 Alkaline Phosphatase 119 units/L (35-129) 06/23/18 23:38 Total Protein 6.3 g/dL (6.3-8.2) 06/23/18 23:38 Albumin 3.2 g/dL (3.9-5) L 06/23/18 23:38 Albumin/Globulin Ratio 1.0 % 06/23/18 23:38 Urine Color Fabiola (Yellow) 06/23/18 23:43 Urine Turbidity Slightly-cloudy (Clear) 06/23/18 23:43 Urine pH 5.0 (5.0-7.0) 06/23/18 23:43 Ur Specific [place] 1.023 (1.003-1.030) 06/23/18 23:43 Urine Protein 30 mg/dl mg/dL (Negative) 06/23/18 23:43 Urine Glucose (UA) Neg mg/dL (Negative) 06/23/18 23:43 Urine Ketones Neg mg/dL (Negative) 06/23/18 23:43 Urine Blood Neg (Negative) 06/23/18 23:43 Urine Nitrite Neg (Negative) 06/23/18 23:43 Urine Bilirubin Neg (Negative) 06/23/18 23:43 Urine Urobilinogen < 2.0 mg/dL (<2.0) 06/23/18 23:43 Ur Leukocyte Esterase Tr (Negative) 06/23/18 23:43 Urine WBC (Auto) 4.0 /HPF (0.0-6.0) 06/23/18 23:43 Urine RBC (Auto) 1.0 /HPF (0.0-6.0) 06/23/18 23:43 U Epithel Cells (Auto) < 1.0 /HPF (0-13.0) 06/23/18 23:43 Urine Mucus 2+ /HPF 06/23/18 23:43 Urine Creatinine 218.6 mg/dL (0.1-20.0) H 06/24/18 15:37 Urine Total Protein 87 mg/dL (5-11.8) H 06/24/18 15:37 Influenza A (Rapid) Negative (Negative) 06/24/18 07:15 Influenza B (Rapid) Negative (Negative) 06/24/18 07:15 Nutrition/Malnutrition Assess - Dietary Evaluation Nutrition/Malnutrition Findings: Nutrition Notes Start: 06/24/18 16:25 Freq: Status: Active Protocol: Document 06/24/18 16:25 RM (Rec: 06/24/18 16:26 RM [id number]) Nutrition Notes Need for 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 Andrea 14 points. Pt not in room at time of visit. Nutrition Intervention Follow-Up By: 06/25/18 Additional Comments Follow for assessment
[2018-06-25] MEDS: ZITHROMAX 500 MG in NACL 0.9% 250ML 250 ML IV SCH (10:46)
--- NOTE | 2018-06-25 11:49 | Consultation ---
History of Present Illness - Reason for Consult Consult date: 06/25/18 Sepsis Requesting physician: JAMES DENT - History of Present Illness This patient is a 68-year-old female with a past history of recent admission on 05/22/18 for acute renal failure , A fib and hypertension. She presented in the ED on 06/23/18 with altered mental status. On admission, WBC 14.2, Creatinine 1.6, Temperature 102.2, BP 140/84, HR 118. U/A negative for UTI, Influenza s creen is negative. Chest CT shows slight vascular congestion, Mild atelectasis bilateral lower lungs. No consolidation, effusion or pneumothorax. Blood cultures were drawn and are positive for Beta Hemolytic Strep group G , 4 out of 4 bottles. Patient is currently non-verbal, somnolent. Sister is a bedside, stated that she is a SNF resident and is normally communicative at baseline with early dementia. Sister stated that patient was diagnosed with scabies 3 months ago and was given an oral medication and cream . She is unsure of the duration that the shelter gave the patient the medication regimen, however she states that patient continues to scratch her abdomen, back and palms of hands vigorously. Family member also states that for the last 6 months, her sister has had chronic right leg swelling and warmth. She states that prior to 6 months, her sister was ambulating without incidence. Review of Systems: (obtained from sister at bedside) General: + fevers, no chills no rigors, + decreased appetite HEENT: no new visual disturbance Respiratory: No cough, sputum, hemoptysis or shortness of breath Cardiovascular: No chest pain, syncope Gastrointestinal: No nausea, vomiting. or diarrhea Genitourinary: No dysuria or hematuria Musculoskeletal: decreased joint motion , right leg tenderness and swelling Neurologic: No headaches, seizures Hematologic: No easy bruising or bleeding Endocrine: No night sweats. Skin: excessive pruritus on hands, back and abdomen, +scabies Psychiatric: No suicidal or homicidal ideation Past History Past Medical History: atrial fib, CAD, diabetes, hypertension, hyperlipidemia, stroke (multiple strokes and felt to have multi-infarct dementia), other (Vision impairment) Past Surgical History: No surgical history Social history: lives with family (Lived with Son until 2 Years Ago When She Had to Go to a Half-Way after She Had a Stroke. 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 denies: smoking (smoking 2 years ago when she moved into a shelter), prescription drug abuse, IV drug use Family history: CAD (Brother from a myocardial infarction), cancer (father of CA larynx. He worked in the [employer]), other (Mother at a young age of alcohol related medical problems) Medications and Allergies Allergies Allergy/AdvReac Type Severity Reaction Status Date / Time lisinopril Allergy Unknown Verified 06/23/18 23:57 Home Medications Medication Instructions Recorded Confirmed Last Taken Type AtorvaSTATin [Lipitor] 40 mg PO DAILY 08/06/16 06/24/18 Unknown History Carvedilol [Coreg] 25 mg PO BID tablet 08/09/16 06/24/18 Unknown Rx Acetaminophen [Acetaminophen TAB] 650 mg PO Q6HR PRN 05/22/18 06/24/18 Unknown History Amlodipine Besylate [Norvasc] 10 mg PO QDAY 05/22/18 06/24/18 Unknown History Cholecalciferol (Vitamin D3) 2,000 unit PO DAILY 05/22/18 06/24/18 Unknown History [Vitamin D3] Folic Acid 0.4 mg PO QDAY 05/22/18 06/24/18 Unknown History Hydralazine HCl 50 mg PO BID 05/22/18 06/24/18 Unknown History Insulin Detemir [Levemir VIAL] 20 units SUB-Q QHS 05/22/18 06/24/18 Unknown History Insulin NPH Hum/Reg Insulin Hm 5 units SUB-Q DAILY@1130 05/22/18 06/24/18 Unknown History [HumuLIN 70-30 Vial] Insulin Regular, Human [HumuLIN R] See Protocol SUB-Q ACHS 05/22/18 06/24/18 Unknown History Melatonin [Melatin] 3 mg PO HS 05/22/18 06/24/18 Unknown History Multivitamin Tab W-MINERAL 1 each PO QDAY 05/22/18 06/24/18 Unknown History [Multiple Vitamin/Mineral (Theragran M)] Ranitidine HCl [Zantac 150 MG TAB] 150 mg PO BID 05/22/18 06/24/18 Unknown History hydrOXYzine HCl [Hydroxyzine HCl] 25 mg PO Q12H 05/22/18 06/24/[address] [Ryan LOPEZ] 125 mg PO BID 06/24/18 06/24/18 Unknown History carBAMazepine [TEGretol] 200 mg PO BID 06/24/18 06/24/18 Unknown History Active Meds: Active Medications Acetaminophen (Tylenol) 650 mg PO Q4H PRN PRN Reason: Fever >101 Last Admin: 06/25/18 02:18 Dose: 650 mg Documented by: Amlodipine Besylate (Norvasc) 10 mg PO QDAY [facility] Last Admin: 06/25/18 09:12 Dose: 10 mg Documented by: Atorvastatin Calcium (Lipitor) 40 mg PO DAILY [facility] Last Admin: 06/25/18 09:09 Dose: 40 mg Documented by: Carbamazepine (Tegretol) 200 mg PO BID [facility] Last Admin: 06/25/18 09:09 Dose: 200 mg Documented by: Carvedilol (Coreg) 25 mg PO BID [facility] Last Admin: 06/25/18 09:11 Dose: 25 mg Documented by: Cholecalciferol (Vitamin D3) 2,000 unit PO DAILY [facility] Last Admin: 06/25/18 09:09 Dose: 2,000 unit Documented by: Dextrose (D50w (25gm) Syringe) 50 ml IV PRN PRN PRN Reason: Hypoglycemia Divalproex Sodium (Ryan Lopez) 125 mg PO BID [facility] Last Admin: 06/25/18 09:42 Dose: 125 mg Documented by: Famotidine (Pepcid) 10 mg PO BID [facility] Last Admin: 06/25/18 09:08 Dose: 10 mg Documented by: Folic Acid (Folvite) 0.5 mg PO DAILY [facility] Last Admin: 06/25/18 09:07 Dose: 0.5 mg Documented by: Hydralazine HCl (Apresoline) 50 mg PO BID [facility] Last Admin: 06/25/18 09:12 Dose: Not Given Documented by: Hydroxyzine HCl (Atarax) 25 mg PO Q12HR [facility] Last Admin: 06/25/18 09:10 Dose: 25 mg Documented by: Sodium Chloride (Nacl 0.9% 1000 Ml) 1,000 mls @ 75 mls/hr IV DIRECT [facility] Last Admin: 06/25/18 02:18 Dose: 75 mls/hr Documented by: Azithromycin 500 mg/ Sodium (Chloride) 250 mls @ 250 mls/hr IV Q24HR [facility] Last Admin: 06/25/18 10:46 Dose: 250 mls/hr Documented by: Insulin Human Regular (Humulin R) 0 units SUB-Q Q6HR [facility]; Protocol Last Admin: 06/25/18 06:46 Dose: 1 units Documented by: Multivitamins/Minerals (Theragran-M Tab) 1 each PO QDAY [facility] Last Admin: 06/25/18 09:07 Dose: 1 each Documented by: Ondansetron HCl (Zofran) 4 mg IV Q8H PRN PRN Reason: Nausea And Vomiting Physical Examination - Physical Exam Narrative exam: Constitutional: somnolent, mild distress, excessive scratching Head, Ears, Nose: Normocephalic, atraumatic. External ears, nose normal Eyes: exam limeted, eyes remained closed. Neck: Supple, no meningeal signs Oral: dentition exam limited Cardiovascular: S1, S2 normal. Respiratory: Good air entry, clear to auscultation bilaterally GI: Soft, non-tender; bowel sounds normal. No peritoneal signs Musculoskeletal: Right leg celllulitis, warm to touch Skin: pruritic lesions with erythematous paoules on back, stomach and bilateral hands, + scabies Hem/Lymphatic: No palpable cervical or supraclavicular nodes. No lymphangitis Psych: somnolent, unable to assess Neurological: somnolent - Constitutional Vitals: Vital Signs Temp Pulse Resp BP Pulse Ox 98.0 F 118 H 18 123/80 92 06/25/18 07:26 06/25/18 09:58 06/25/18 10:00 06/25/18 09:12 06/25/18 10:00 Temperature -Last 24 Hours Temperature 98.0 F Temperature 98.3 F Temperature 100.6 F Temperature 99.2 F Temperature 98.4 F Results - Labs CBC & Chem 7: 06/23/18 23:38 06/25/18 05:00 Labs: Abnormal lab results 06/24/18 06/24/18 06/24/18 Range/Units 11:05 15:37 17:57 BUN (7-17) mg/dL Creatinine (0.7-1.2) mg/dL Glucose (65-100) mg/dL POC Glucose 146 H 159 H (70-105) Calcium (8.4-10.2) mg/dL Urine Creatinine 218.6 H (0.1-20.0) mg/dL Urine Total Protein 87 H (5-11.8) mg/dL 06/24/18 06/25/18 06/25/18 Range/Units 23:40 05:00 05:51 BUN 33 H (7-17) mg/dL Creatinine 1.6 H (0.7-1.2) mg/dL Glucose 156 H (65-100) mg/dL POC Glucose 158 H 168 H (70-105) Calcium 8.0 L (8.4-10.2) mg/dL Urine Creatinine (0.1-20.0) mg/dL Urine Total Protein (5-11.8) mg/dL 06/25/18 Range/Units 06:41 BUN (7-17) mg/dL Creatinine (0.7-1.2) mg/dL Glucose (65-100) mg/dL POC Glucose 174 H (70-105) Calcium (8.4-10.2) mg/dL Urine Creatinine (0.1-20.0) mg/dL Urine Total Protein (5-11.8) mg/dL Assessment and Plan Imaging 06/24/[address]: No consolidation, effusion or pnuemothorax. Mild ateletasis bilateral lower lungs Cultures: 06/23/2018 Blood: Beta Hemolytic Strep Group G, 4 out of 4 bottles A/P: 68-year-old female female with a past history of recent admission on 05/22/18 for acute renal failure , A fib and hypertension, no admitted with: 1. Sepsis on Admission: Evidenced by leukocytosis, fever, tachycardia, Etiology Gram Positive Bacteremia. Beta Hemolytic Strep group G. CT chest shows no consolidation, effuison or pneumothorax. U/A is negative for UTI. Influenza negative. Curently being treated with Azithromycin. 2. Beta Hemolytic Strep, Group C Bacteremia- Culture grew 4 out of 4 bottles. source lilkely skin/scabies +/- ?right leg cellulities 3. Acute Encephalopathy - likely due to sepsis 4. ELEUTERIO- antibiotics renally dosed 5. Scabies- active lesions, bilateral hands and chest and abdomen, patient was presumely treated at the shelter 3 months ago. 6. Right leg celulitis vs stasis dermatitis: per family she has chronic swelling of right leg, r/o DVT Plan: Contact isolation for scabies repeat blood cultures start Cefazolin 2 gm IV q 12 (CrCl 42) start Permethrin 5% from skin to toes including under fingernails and toenails once a week for two weeks start Ivermectin 200 microG per kg per dose x 3. day 1, day 2 and day 8 TTE to r/o endocarditis check strep C [facility] f/u blood cultures order CBC lower extremity ultrasound [facility] M: [phone] O:[phone]
[2018-06-25] MEDS ORDERED: ZOSYN/NS 2.25 GM/50ML 2.25 GM/50 ML BAG IV SCH (12:00)
[2018-06-25] MEDS: ceFAZolin 2 GM in NACL 0.9% 100 ML IV SCH (13:19)
[2018-06-25] MEDS ORDERED: IVERMECTIN PO SCH ×2 (14:30→16:00)
[2018-06-25] MEDS ORDERED: ACTICIN TP ONE (16:00)
[2018-06-25] MEDS ORDERED: ACTICIN TP SCH (16:00)
--- NOTE | 2018-06-25 18:10 | Vascular Lab Report ---
FINAL REPORT EXAM: VL VENOUS DUPLEX LE BILAT HISTORY: Pain and swelling LE TECHNIQUE: Ultrasound examination of the right lower extremity venous system Ultrasound examination of the left lower extremity venous system PRIORS: None. FINDINGS: Right leg: Normal compressibility, vascular patency, and augmentation are present diffusely throughout the visua lized portion of the deep veins of the right leg. No abnormal intraluminal echoes are visualized to suggest thrombus. Left leg: Normal compressibility, vascular patency, and augmentation are present diffusely throughout the visua lized portion of the deep veins of the left leg. No abnormal intraluminal echoes are visualized to s uggest thrombus. IMPRESSION: No sonographic evidence of DVT in the right leg No sonographic evidence of DVT in the left leg
[2018-06-26] MEDS: ceFAZolin 2 GM in NACL 0.9% 100 ML IV SCH ×2 (02:42→14:55)
[2018-06-26 07:09] LABS: Hematocrit 32.5 % (30.3-42.9); Hemoglobin 10.9 gm/dl (10.1-14.3); Mean Corpuscular HGB Conc 33 % (30-34); Mean Corpuscular Volume 93 fl (79-97); Platelet Count 243 K/mm3 (140-440); Red Blood Count 3.52 M/mm3 (3.65-5.03); Red Cell Distribution Width 15.3 % (13.2-15.2)
[2018-06-26 07:30] LABS: Calcium 8.1 mg/dL (8.4-10.2)
[2018-06-26] MEDS: HumuLIN R SUB-Q SCH ×3 (08:15→17:56)
[2018-06-26] MEDS ORDERED: LASIX IV NR (10:00)
[2018-06-26] MEDS: FOLVITE PO SCH (10:21)
[2018-06-26] MEDS: ATARAX PO SCH ×2 (10:21→22:06)
[2018-06-26] MEDS: THERAGRAN-M Tab PO SCH (10:21)
[2018-06-26] MEDS: PEPCID PO SCH ×2 (10:21→22:09)
[2018-06-26] MEDS: VITAMIN D3 PO SCH (10:21)
[2018-06-26] MEDS: KCL 10MEQ/100ML 10 MEQ/100 ML BAG IV SCH ×4 (10:22→14:00)
[2018-06-26] MEDS: APRESOLINE PO SCH ×2 (10:23→22:09)
[2018-06-26] MEDS: NORVASC PO SCH (10:23)
[2018-06-26] MEDS: COREG PO SCH ×2 (10:23→22:07)
[2018-06-26] MEDS: ZITHROMAX 500 MG in NACL 0.9% 250ML 250 ML IV SCH (10:31)
--- NOTE | 2018-06-26 11:16 | Progress Note ---
Assessment and Plan Imaging 06/24/[address]: No consolidation, effusion or pnuemothorax. Mild ateletasis bilateral lower lungs Cultures: 06/23/2018 Blood: Beta Hemolytic Strep Group G, 4 out of 4 bottles A/P: 68-year-old female female with a past history of recent admission on 05/22/18 for acute renal failure , A fib and hypertension, no admitted with: 1. Sepsis on Admission: Evidenced by leukocytosis, fever, tachycardia, Etiology Gram Positive Bacteremia. Beta Hemolytic Strep group G. CT chest shows no consolidation, effuison or pneumothorax. U/A is negative for UTI. Influenza negative. Curently being treated with Azithromycin. 2. Beta Hemolytic Strep, Group G Bacteremia- Culture grew 4 out of 4 bottles. source lilkely skin/scabies +/- ?right leg cellulities -Echo negative for vegetation 3. Scabies- active lesions, bilateral hands and chest and abdomen, patient was presumely treated at the assisted 3 months ago. 4. Acute Encephalopathy - likely due to sepsis 5. ELEUTERIO- antibiotics renally dosed 6. Right leg celulitis vs stasis dermatitis: per family she has chronic swelling of right leg, r/o DVT. Duplex scan show no evidence of DVT. Plan: Contact isolation for scabies f/u blood cultures to ensure clearance, then place Midline continue Cefazolin 2 gm IV q 12 (CrCl 42) continue Permethrin 5% from skin to toes including under fingernails and toenails once a week for two weeks continue Ivermectin 200 microG per kg per dose x 3. day 1, day 2 and day 8 f/u strep C [facility] upon discharge will arrange for IV cefazolin for 2 weeks ending 07/09/17 Order placed with case management. [facility] M: [phone] O:[phone] Subjective Date of service: 06/26/18 Interval history: Patient seen and examined. Conversive today, stated that she was feeling better with decreased "itching". No family at bedside. Objective - Exam Narrative Exam: Constitutional: Alert, conversant, no acute distress Head, Ears, Nose: Normocephalic, atraumatic. External ears, nose normal Eyes: exam limeted, eyes remained closed. Neck: Supple, no meningeal signs Oral: dentition poor. no thrush . Cardiovascular: S1, S2 normal. Respiratory: Good air entry, clear to auscultation bilaterally GI: Soft, non-tender; bowel sounds normal. No peritoneal signs Musculoskeletal: Right leg celllulitis, warm to touch Skin: pruritic lesions with erythematous paoules on back, stomach and bilateral hands, + scabies Hem/Lymphatic: No palpable cervical or supraclavicular nodes. No lymphangitis Psych: Mood ok. Affect normal Neurological: awake, alert, dementia - Constitutional Vitals: Vital Signs Temp Pulse Resp BP Pulse Ox 99.4 F 124 H 22 149/94 94 06/26/18 08:03 06/26/18 10:23 06/26/18 08:03 06/26/18 10:23 06/26/18 09:17 Temperature -Last 24 Hours Temperature 99.4 F Temperature 98.5 F Temperature 98.1 F Temperature 98.0 F - Labs CBC & Chem 7: 06/26/18 06:58 06/26/18 06:58 Labs: Abnormal lab results 06/25/18 06/25/18 06/25/18 Range/Units 11:31 17:27 21:56 WBC (4.5-11.0) K/mm3 RBC (3.65-5.03) M/mm3 RDW (13.2-15.2) % Sodium (137-145) mmol/L Potassium (3.6-5.0) mmol/L Chloride (98-107) mmol/L BUN (7-17) mg/dL Creatinine (0.7-1.2) mg/dL Glucose (65-100) mg/dL POC Glucose 193 H 157 H 140 H (70-105) Calcium (8.4-10.2) mg/dL 06/26/18 06/26/18 06/26/18 Range/Units 06:58 06:58 08:03 WBC 18.8 H (4.5-11.0) K/mm3 RBC 3.52 L (3.65-5.03) M/mm3 RDW 15.3 H (13.2-15.2) % Sodium 147 H (137-145) mmol/L Potassium 3.5 L (3.6-5.0) mmol/L Chloride 108.1 H (98-107) mmol/L BUN 27 H (7-17) mg/dL Creatinine 1.3 H (0.7-1.2) mg/dL Glucose 153 H (65-100) mg/dL POC Glucose 147 H (70-105) Calcium 8.1 L (8.4-10.2) mg/dL
[2018-06-26] MEDS ORDERED: IVERMECTIN PO ONE (12:00)
--- NOTE | 2018-06-26 14:12 | Progress Note ---
Assessment and Plan Assessment and plan: Patient is a 68-year-old female past history of Afib, ckd, Dementia, DM, Seizure and skilled nursing patient presenting to the ED with report of change in mental status. Per Patients son who was in the room the patient normal would have one word responses although at baseline not coherent. she has not spoken necessitating the hospitalization. Patient has not been on anticoagluation due to the dementia and previous suspected GI bleed per son. He understands the associated risk. No other report was obtained from the nursing facility Sepsis secondary to Beta hemolytic Strep Acute on chronic kidney injury secondary to vasomotor nephropathy Severe Dementia Scabies Diabetes Mellitus Seizure Disorder Right leg cellulitis Left Lower ext swelling CVA with residual deficit. Plan Continue supportive care Obtain ID consult- discussed with them placed the isolation for scabies Abx per ID- Cefazlin AND PREMETHRIN AND IVERMENCTIN Recheck Blood culture- 3/4 bottles + TTE- negative for vegetation Nephrology input noted Adjust Insulin therapy NM checked and no Pulmonary embolism. DVT/GI prophy No family present History Interval history: Patient seen and examined, appears improved today now nonverbal and unable to a nswer questions. Nursing staff reports less pruritus. Hospitalist Physical - Physical exam Narrative exam: VITAL SIGNS: Reviewed. GENERAL: The patient appeared somnolent, no distress . Vital signs as docum ented. HEAD: No signs of head trauma. EYES: Pupils are equal. Extraocular motions intact. EARS: Hearing grossly intact. MOUTH: Oropharynx is normal. NECK: No adenopathy, no JVD. CHEST: Chest with clear breath sounds bilaterally. No wheezes, rales, or rhonchi. CARDIAC: Regular rate and rhythm. S1 and S2, without murmurs, gallops, or rubs. VASCULAR: No Edema. Peripheral pulses normal and equal in all extremities. ABDOMEN: Soft, without detectable tenderness. No sign of distention. No rebound or guarding, and no masses palpated. Bowel Sounds normal. MUSCULOSKELETAL: Good range of motion of all major joints. Extremities without clubbing, cyanosis or edema. NEUROLOGIC EXAM: Alert and oriented x 3. No focal sensory or strength deficits. Speech normal. Follows nikhil commands. PSYCHIATRIC: Mood normal. SKIN: Right lower ext cellulites, +scabies - Constitutional Vitals: Temp Pulse Resp BP Pulse Ox 99.4 F 124 H 22 149/94 94 01/09/19 08:03 06/26/18 10:23 06/26/18 08:03 06/26/18 10:23 06/26/18 09:17 Results - Labs CBC & Chem 7: 06/26/18 06:58 06/26/18 06:58 Labs: Laboratory Last Values WBC 18.8 K/mm3 (4.5-11.0) H 06/26/18 06:58 RBC 3.52 M/mm3 (3.65-5.03) L 06/26/18 06:58 Hgb 10.9 gm/dl (10.1-14.3) 06/26/18 06:58 Hct 32.5 % (30.3-42.9) 06/26/18 06:58 MCV 93 fl (79-97) 06/26/18 06:58 MCH 31 pg (28-32) 06/26/18 06:58 MCHC 33 % (30-34) 06/26/18 06:58 RDW 15.3 % (13.2-15.2) H 06/26/18 06:58 Plt Count 243 K/mm3 (140-440) 06/26/18 06:58 Add Manual Diff Complete 06/23/18 23:38 Total Counted 100 06/23/18 23:38 Seg Neutrophils % Sewing Machine Operator Paper Bags 06/23/18 23:38 Seg Neuts % (Manual) 85.0 % (40.0-70.0) H 06/23/18 23:38 Band Neutrophils % 4.0 % 06/23/18 23:38 Lymphocytes % (Manual) 5.0 % (13.4-35.0) L 06/23/18 23:38 Reactive Lymphs % (Man) 0 % 06/23/18 23:38 Monocytes % (Manual) 6.0 % (0.0-7.3) 06/23/18 23:38 Eosinophils % (Manual) 0 % (0.0-4.3) 06/23/18 23:38 Basophils % (Manual) 0 % (0.0-1.8) 06/23/18 23:38 Metamyelocytes % 0 % 06/23/18 23:38 Myelocytes % 0 % 06/23/18 23:38 Promyelocytes % 0 % 06/23/18 23:38 Blast Cells % 0 % 06/23/18 23:38 Nucleated RBC % 1.0 % (0.0-0.9) H 06/23/18 23:38 Seg Neutrophils # Man 12.1 K/mm3 (1.8-7.7) H 06/23/18 23:38 Band Neutrophils # 0.6 K/mm3 06/23/18 23:38 Lymphocytes # (Manual) 0.7 K/mm3 (1.2-5.4) L 06/23/18 23:38 Abs React Lymphs (Man) 0.0 K/mm3 06/23/18 23:38 Monocytes # (Manual) 0.9 K/mm3 (0.0-0.8) H 06/23/18 23:38 Eosinophils # (Manual) 0.0 K/mm3 (0.0-0.4) 06/23/18 23:38 Basophils # (Manual) 0.0 K/mm3 (0.0-0.1) 06/23/18 23:38 Metamyelocytes # 0.0 K/mm3 06/23/18 23:38 Myelocytes # 0.0 K/mm3 06/23/18 23:38 Promyelocytes # 0.0 K/mm3 06/23/18 23:38 Blast Cells # 0.0 K/mm3 06/23/18 23:38 WBC Morphology Not Reportable 06/23/18 23:38 Hypersegmented Neuts Not Reportable 06/23/18 23:38 Hyposegmented Neuts Not Reportable 06/23/18 23:38 Hypogranular Neuts Not Reportable 06/23/18 23:38 Smudge Cells Not Reportable 06/23/18 23:38 Toxic Granulation Not Reportable 06/23/18 23:38 Toxic Vacuolation Not Reportable 06/23/18 23:38 Dohle Bodies Not Reportable 06/23/18 23:38 Pelger-Huet Anomaly Not Reportable 06/23/18 23:38 Massiel Rods Not Reportable 06/23/18 23:38 Platelet Estimate Consistent w auto 06/23/18 23:38 Clumped Platelets Not Reportable 06/23/18 23:38 Plt Clumps, EDTA Not Reportable 06/23/18 23:38 Large Platelets Not Reportable 06/23/18 23:38 Giant Platelets Not Reportable 06/23/18 23:38 Platelet Satelliting Not Reportable 06/23/18 23:38 Plt Morphology Comment Not Reportable 06/23/18 23:38 RBC Morphology Normal 06/23/18 23:38 Dimorphic RBCs Not Reportable 06/23/18 23:38 Polychromasia Not Reportable 06/23/18 23:38 Hypochromasia Not Reportable 06/23/18 23:38 Poikilocytosis Not Reportable 06/23/18 23:38 Anisocytosis Not Reportable 06/23/18 23:38 Microcytosis Not Reportable 06/23/18 23:38 Macrocytosis Not Reportable 06/23/18 23:38 Spherocytes Not Reportable 06/23/18 23:38 Pappenheimer Bodies Not Reportable 06/23/18 23:38 Sickle Cells Not Reportable 06/23/18 23:38 Target Cells Not Reportable 06/23/18 23:38 Tear Drop Cells Not Reportable 06/23/18 23:38 Ovalocytes Not Reportable 06/23/18 23:38 Helmet Cells Not Reportable 06/23/18 23:38 [place] Bodies Not Reportable 06/23/18 23:38 Prim Rings Not Reportable 06/23/18 23:38 Beau Cells Not Reportable 06/23/18 23:38 Bite Cells Not Reportable 06/23/18 23:38 Crenated Cell Not Reportable 06/23/18 23:38 Elliptocytes Not Reportable 06/23/18 23:38 Acanthocytes (Spur) Not Reportable 06/23/18 23:38 Rouleaux Not Reportable 06/23/18 23:38 Hemoglobin C Crystals Not Reportable 06/23/18 23:38 Schistocytes Not Reportable 06/23/18 23:38 Malaria parasites Not Reportable 06/23/18 23:38 Radames Bodies Not Reportable 06/23/18 23:38 Hem Pathologist Commnt No 06/23/18 23:38 PT 16.7 Sec. (12.2-14.9) H 06/24/18 03:14 INR 1.31 (0.87-1.13) H 06/24/18 03:14 APTT 34.0 Sec. (24.2-36.6) 06/24/18 03:14 D-Dimer 790.04 ng/mlDDU (0-234) H 06/24/18 11:14 Sodium 147 mmol/L (137-145) H 06/26/18 06:58 Potassium 3.5 mmol/L (3.6-5.0) L 06/26/18 06:58 Chloride 108.1 mmol/L (98-107) H 06/26/18 06:58 Carbon Dioxide 23 mmol/L (22-30) 06/26/18 06:58 Anion Gap 19 mmol/L 06/26/18 06:58 BUN 27 mg/dL (7-17) H 06/26/18 06:58 Creatinine 1.3 mg/dL (0.7-1.2) H 06/26/18 06:58 Estimated GFR 50 ml/min 06/26/18 06:58 BUN/Creatinine Ratio 21 % 06/26/18 06:58 Glucose 153 mg/dL (65-100) H 06/26/18 06:58 POC Glucose 147 (70-105) H 06/26/18 08:03 Lactic Acid 1.40 mmol/L (0.7-2.0) 06/24/18 03:01 Calcium 8.1 mg/dL (8.4-10.2) L 06/26/18 06:58 Total Bilirubin 0.30 mg/dL (0.1-1.2) 06/23/18 23:38 AST 52 units/L (5-40) H 06/23/18 23:38 ALT 31 units/L (7-56) 06/23/18 23:38 Alkaline Phosphatase 119 units/L (35-129) 06/23/18 23:38 Total Protein 6.3 g/dL (6.3-8.2) 06/23/18 23:38 Albumin 3.2 g/dL (3.9-5) L 06/23/18 23:38 Albumin/Globulin Ratio 1.0 % 06/23/18 23:38 Urine Color Fabiola (Yellow) 06/23/18 23:43 Urine Turbidity Slightly-cloudy (Clear) 06/23/18 23:43 Urine pH 5.0 (5.0-7.0) 06/23/18 23:43 Ur Specific [place] 1.023 (1.003-1.030) 06/23/18 23:43 Urine Protein 30 mg/dl mg/dL (Negative) 06/23/18 23:43 Urine Glucose (UA) Neg mg/dL (Negative) 06/23/18 23:43 Urine Ketones Neg mg/dL (Negative) 06/23/18 23:43 Urine Blood Neg (Negative) 06/23/18 23:43 Urine Nitrite Neg (Negative) 06/23/18 23:43 Urine Bilirubin Neg (Negative) 06/23/18 23:43 Urine Urobilinogen < 2.0 mg/dL (<2.0) 06/23/18 23:43 Ur Leukocyte Esterase Tr (Negative) 06/23/18 23:43 Urine WBC (Auto) 4.0 /HPF (0.0-6.0) 06/23/18 23:43 Urine RBC (Auto) 1.0 /HPF (0.0-6.0) 06/23/18 23:43 U Epithel Cells (Auto) < 1.0 /HPF (0-13.0) 06/23/18 23:43 Urine Mucus 2+ /HPF 06/23/18 23:43 Urine Creatinine 218.6 mg/dL (0.1-20.0) H 06/24/18 15:37 Urine Total Protein 87 mg/dL (5-11.8) H 06/24/18 15:37 Influenza A (Rapid) Negative (Negative) 06/24/18 07:15 Influenza B (Rapid) Negative (Negative) 06/24/18 07:15 Nutrition/Malnutrition Assess - Dietary Evaluation Nutrition/Malnutrition Findings: Nutrition Notes Start: 06/24/18 16:25 Freq: Status: Active Protocol: Document 06/25/18 15:33 RM (Rec: 06/25/18 16:02 RM [id number]) Nutrition Notes Initial or Follow up Assessment Current Diagnosis Acute Kidney Injury CKD(stage I-IV) Coronary Artery Disease Diabetes Hypertension Stroke Other Pertinent Diagnosis Dementia,Swelling of left lower extremity, Seizure disorder Current Diet Cardiac/Consistent Carb Labs/Tests Reviewed Pertinent Medications Reviewed Height 5 ft 7 in Weight 79.379 kg [place] Body Weight (lbs) 135.0 BMI 27.3 Subjective/Other Information Per nurse pt will only eat applesauce. Percent of energy/protein needs met: 0%/0% Burn Absent Trauma Absent #1 Nutrition Diagnosis Inadequate oral intake Etiology dementia As Evidenced by Signs and Symptoms pt nurse statement that pt will only eat applesauce Is patient on ventilator? No Is Patient Ambulatory and/or Out of Bed No REE-([facility]-confined to bed) 1865.080 Calculation Used for Recommendations [facility] Additional Notes Protein Needs: 64-79g (.8-1g/ kg) Fluid Needs: 1 ml/kcal Nutrition Intervention Change Diet Order: Continue current Add Supplement/Snack (indicate name/kcal Nepro 1 daily /protein ) Provides kCal: 425 Provides Protein (gm) 19 Goal #1 Meet at least 75% of calorie and protein needs via PO and ONS intakes Anticipated Discharge Needs: Cardiac/Consistent Carb Follow-Up By: 06/28/18 Additional Comments Follow for PO and ONS intakes
--- NOTE | 2018-06-26 14:21 | Progress Note ---
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 Kidney function has improved. Follow-up electrolytes and renal function periodically.. (2) Hypertensive chronic kidney disease with stage 1 through stage 4 chronic kidney disease, or unspecified chronic kidney disease Current Visit: Yes Status: Acute Plan to address problem: Blood pressure is controlled. Follow blood pressure on current medications (3) Type 2 diabetes mellitus with diabetic chronic kidney disease Current Visit: Yes Status: Acute Plan to address problem: Blood sugar is not quite at goal. Follow blood sugars on current medication (4) History of stroke with residual deficit Current Visit: Yes Status: Acute Plan to address problem: Continue supportive care (5) Swelling of left lower extremity Current Visit: Yes Status: Acute Plan to address problem: Duplex ultrasound of the lower extremities shows no evidence of deep venous thrombosis (6) Encephalopathy acute Current Visit: Yes Status: Acute Plan to address problem: Toxic/metabolic encephalopathy. Resolved (7) Other acute kidney failure Current Visit: Yes Status: Acute Plan to address problem: Acute kidney injury. Pre-renal azotemia which has resolved. Subjective Date of service: 06/26/18 Principal diagnosis: chronic kidney disease with acute kidney injury Interval history: Patient seen lying in bed. She is more talkative today. She denies any pain, shortness of breath, nausea or vomiting. No Family at bedside Objective - Exam Narrative Exam: Elderly -[place] female lying in bed uncooperative with the exam in no acute distress HEENT: NCAT, pink oral mucous membrane Neck: Supple, no venous distention CVS: S1S2 RRR with no murmur, rub or gallop Chest: Clear to auscultation though diminished bilaterally Abdomen: Protuberant, soft, nontender, no organomegaly, bowel sounds are present Extremities: Mild edema, pigmentary changes both feet and legs, Skin warm and dry, pigmentary changes in both feet and legs Genitourinary: Deferred Neuro: Awake, alert no focal deficits - Vital Signs Vital signs: Vital Signs - 12hr 06/26/18 06/26/18 06/26/18 08:03 09:17 10:23 Temperature 99.4 F Pulse Rate 124 H 124 H Respiratory 22 Rate Blood Pressure 149/94 149/94 O2 Sat by Pulse 88 94 Oximetry - Lab 06/26/18 06:58 06/26/18 06:58 Most recent lab results Calcium 8.1 mg/dL (8.4-10.2) L 06/26/18 06:58 Urine Creatinine 218.6 mg/dL (0.1-20.0) H 06/24/18 15:37 Urine Total Protein 87 mg/dL (5-11.8) H 06/24/18 15:37 Medications & Allergies - Medications Allergies/Adverse Reactions: Allergies lisinopril Allergy (Verified 06/23/18 23:57) Unknown Home Medications: Home Medications Medication Instructions Recorded Confirmed Last Taken Type AtorvaSTATin [Lipitor] 40 mg PO DAILY 08/06/16 06/24/18 Unknown History Carvedilol [Coreg] 25 mg PO BID tablet 08/09/16 06/24/18 Unknown Rx Acetaminophen [Acetaminophen TAB] 650 mg PO Q6HR PRN 05/22/18 06/24/18 Unknown History Amlodipine Besylate [Norvasc] 10 mg PO QDAY 05/22/18 06/24/18 Unknown History Cholecalciferol (Vitamin D3) 2,000 unit PO DAILY 05/22/18 06/24/18 Unknown History [Vitamin D3] Folic Acid 0.4 mg PO QDAY 05/22/18 06/24/18 Unknown History Hydralazine HCl 50 mg PO BID 05/22/18 06/24/18 Unknown History Insulin Detemir [Levemir VIAL] 20 units SUB-Q QHS 05/22/18 06/24/18 Unknown History Insulin NPH Hum/Reg Insulin Hm 5 units SUB-Q DAILY@1130 05/22/18 06/24/18 Unknown History [HumuLIN 70-30 Vial] Insulin Regular, Human [HumuLIN R] See Protocol SUB-Q ACHS 05/22/18 06/24/18 Unknown History Melatonin [Melatin] 3 mg PO HS 05/22/18 06/24/18 Unknown History Multivitamin Tab W-MINERAL 1 each PO QDAY 05/22/18 06/24/18 Unknown History [Multiple Vitamin/Mineral (Theragran M)] Ranitidine HCl [Zantac 150 MG TAB] 150 mg PO BID 05/22/18 06/24/18 Unknown History hydrOXYzine HCl [Hydroxyzine HCl] 25 mg PO Q12H 05/22/18 06/24/[address] [Ryan AGUILLON] 125 mg PO BID 06/24/18 06/24/18 Unknown History carBAMazepine [TEGretol] 200 mg PO BID 06/24/18 06/24/18 Unknown History Active Medications: Generic Name Dose Route Start Last Admin Trade Name Freq PRN Reason Stop Dose Admin Acetaminophen 650 mg 06/24/18 02:31 06/25/18 02:18 Tylenol PO 650 mg Q4H PRN Administration Fever >101 Amlodipine Besylate 10 mg 06/24/18 10:00 06/26/18 10:23 Norvasc PO 10 mg QDAY MARVEL Administration Atorvastatin Calcium 40 mg 06/24/18 10:00 06/26/18 10:21 Lipitor PO 40 mg DAILY MARVEL Administration Carbamazepine 200 mg 06/24/18 10:00 06/26/18 10:21 Tegretol PO 200 mg BID MARVEL Administration Carvedilol 25 mg 06/24/18 10:00 06/26/18 10:23 Coreg PO 25 mg BID MARVEL Administration Cholecalciferol 2,000 unit 06/24/18 10:00 06/26/18 10:21 Vitamin D3 PO 2,000 unit DAILY MARVEL Administration Dextrose 50 ml 06/24/18 02:40 D50w (25gm) Syringe IV PRN PRN Hypoglycemia Divalproex Sodium 125 mg 06/24/18 10:00 06/26/18 10:[address] PO 125 mg BID MARVEL Administration Famotidine 10 mg 06/24/18 10:00 06/26/18 10:21 Pepcid PO 10 mg BID MARVEL Administration Folic Acid 0.5 mg 06/24/18 10:00 06/26/18 10:21 Folvite PO 0.5 mg DAILY MARVEL Administration Hydralazine HCl 50 mg 06/24/18 10:00 06/26/18 10:23 Apresoline PO 50 mg BID MARVEL Administration Hydroxyzine HCl 25 mg 06/24/18 10:00 06/26/18 10:21 Atarax PO 25 mg Q12HR MARVEL Administration Sodium Chloride 1,000 mls @ 75 mls/hr 06/24/18 03:00 06/25/18 22:52 Nacl 0.9% 1000 Ml IV 75 mls/hr DIRECT MARVEL Administration Azithromycin 500 mg/ Sodium 250 mls @ 250 mls/hr 06/25/18 11:00 06/26/18 10:31 Chloride IV 250 mls/hr Q24HR MARVEL Administration Cefazolin Sodium 2 gm/ Sodium 100 mls @ 200 mls/hr 06/25/18 14:00 06/26/18 02:42 Chloride IV 200 mls/hr Q12H MARVEL Administration Insulin Human Regular 0 units 06/25/18 16:30 06/26/18 11:25 Humulin R SUB-Q 2 units ACHS MARVEL Administration Protocol Ivermectin 15 mg 07/02/18 12:00 Ivermectin (Nf) PO 07/02/18 12:01 ONCE ONE Multivitamins/Minerals 1 each 06/24/18 10:00 06/26/18 10:21 Theragran-M Tab PO 1 each QDAY MARVEL Administration Ondansetron HCl 4 mg 06/24/18 02:33 Zofran IV Q8H PRN Nausea And Vomiting Permethrin 1 applic 06/25/18 16:00 06/25/18 16:13 Acticin TP 07/02/18 16:01 1 applic Tu MARVEL Administration
--- NOTE | 2018-06-26 15:17 | XRay Report ---
AP CHEST: HISTORY: Pulmonary congestion Moderate cardiomegaly and mild pulmonary venous congestion are identified. The lungs are clear. No evidence for pneumonia, pleural effusion or pneumothorax. IMPRESSION: Cardiomegaly and pulmonary venous congestion.
[2018-06-27] MEDS: ceFAZolin 2 GM in NACL 0.9% 100 ML IV SCH (01:25)
[2018-06-27] MEDS: HumuLIN R SUB-Q SCH ×3 (01:57→15:28)
[2018-06-27 06:28] LABS: Hematocrit 32.6 % (30.3-42.9); Hemoglobin 10.6 gm/dl (10.1-14.3); Mean Corpuscular HGB Conc 32 % (30-34); Mean Corpuscular Volume 93 fl (79-97); Platelet Count 237 K/mm3 (140-440); Red Blood Count 3.51 M/mm3 (3.65-5.03); Red Cell Distribution Width 15.7 % (13.2-15.2)
[2018-06-27] MEDS: NACL 0.9% 1000 ML 1,000 ML IV SCH (06:32)
[2018-06-27 06:36] LABS: Calcium 7.9 mg/dL (8.4-10.2)
[2018-06-27] MEDS ORDERED: MAGNESIUM SULFATE IV ONE (07:57)
--- NOTE | 2018-06-27 07:58 | Discharge Summary ---
Providers - Providers Date of Admission: 06/24/18 03:00 Attending physician: JAMES DENT MD 06/24/18 06:00 Consult to Physician [CONS] Routine Comment: Consulting Provider: GOKUL LOWE Physician Instructions: Reason For Exam: RENAL INSUFFICIENCY 06/24/18 14:17 Speech Therapy Evaluation and Treat [CONS] Stat Reason For Exam: Dysphagia 06/25/18 09:39 Consult to Physician [CONS] Routine Comment: sarika Consulting Provider: SALIMA WALLIS Physician Instructions: Maria Dolores was notified Reason For Exam: SEPSIS 06/26/18 14:36 Consult to Case Management [CONS] Urgent Services Needed at Discharge: Other Notified:: no Additional Physician Instructions: [facility] M [phone] O [phone] F [phone] OUTPATIENT PARENTERAL ANTIBIOTIC THERAPY ORDERS Diagnoses: Beta Henmolytic Group G Bacteremia/ Scabies Antimicrobial administration: IV cefazolin for 2 weeks ending 07/09/17 Permethrin 5% from skin to toes including under fingernails and toenails once a week for two weeks -- !st one done 06/25/18, 2nd one to be completed 07/02/18 Remove MID line after last dose unless otherwise instructed. Lines: Midline Lab monitoring: CBC, BUN, Creatinine, ALT, AST, once a week preferly on Sunday morning. Please fax results to [phone] and call [phone] for critical lab results. Maria Dolores Sorensen NP/Salima Fragoso MD Date: 06/26/2018 Primary care physician: CLERK ANALYST Hospitalization Reason for admission: sepsis Condition: Stable Hospital course: Patient is a 68-year-old female past history of Afib, ckd, Dementia, DM, Seizure and shelter patient presenting to the ED with report of change in mental status. Per Patients son who was in the room the patient normal would have one word responses although at baseline not coherent. she has not spoken necessitating the hospitalization. Patient has not been on anticoagluation due to the dementia and previous suspected GI bleed per son. He understands the associated risk. No other report was obtained from the nursing facility. Patient was treated for sepsis which was beta-hemolytic strep was from azithromycin and subsequently succinylcholine was added ID doctor decided the patient. The patient may have scabies with active lesions bilateral chest patient was started on permethrin, ivermectin per ID recommendation. She is clinically improved. Answering questions appropriately. She is stable at this point for discharge to follow up outpatient PICC line is being placed and will be discontinued once treatment is completed. Echocardiogram was also done which was negative for vegetation. Sepsis secondary to Beta hemolytic Strep Acute on chronic kidney injury secondary to vasomotor nephropathy-resolved Severe Dementia Scabies Diabetes Mellitus Seizure Disorder Right leg cellulitis Left Lower ext swelling CVA with residual deficit. Disposition: DC/[place]-03 SNF [facility] Time spent for discharge: 35 MINS Core Measure Documentation - Palliative Care Palliative Care/ Comfort Measures: Not Applicable - Core Measures Any of the following diagnoses?: none Exam - Physical Exam Narrative exam: VITAL SIGNS: Reviewed. GENERAL: The patient appeared no acute distress, no distress . Vital signs as documented. HEAD: No signs of head trauma. EYES: Pupils are equal. Extraocular motions intact. EARS: Hearing grossly intact. MOUTH: Oropharynx is normal. NECK: No adenopathy, no JVD. CHEST: Chest with clear breath sounds bilaterally. No wheezes, rales, or rhonchi. CARDIAC: Regular rate and rhythm. S1 and S2, without murmurs, gallops, or rubs. VASCULAR: No Edema. Peripheral pulses normal and equal in all extremities. ABDOMEN: Soft, without detectable tenderness. No sign of distention. No rebound or guarding, and no masses palpated. Bowel Sounds normal. MUSCULOSKELETAL: Good range of motion of all major joints. Extremities without clubbing, cyanosis or edema. NEUROLOGIC EXAM: Alert and oriented x 3. No focal sensory or strength deficits. Speech normal. Follows nikhil commands. PSYCHIATRIC: Mood normal. SKIN: Right lower ext cellulites, +scabies - Constitutional Vitals: Temp Pulse Resp BP Pulse Ox 98.4 F 127 H 20 139/94 93 06/27/18 02:06 06/27/18 05:27 06/27/18 02:06 06/27/18 02:06 06/27/18 02:06 Plan Activity: advance as tolerated, fall precautions Diet: diabetic Special Instructions: record daily weights, record daily BP diary, record blood sugar diary Additional Instructions: discontinue PICC LINE POST ANTIBIOTICS Follow up with: PRIMARY CAREMD [Primary Care Provider] - 3-5 Days SALIMA WALLIS MD [Staff Physician] - 7 Days ELISE KUMAR MD [Staff Physician] - 7 Days Prescriptions: ceFAZolin Sodium [ceFAZolin] 2 gm IV Q12H 12 Days vial Ivermectin (Nf) 15 mg PO ONCE #1 tablet Permethrin 5% [Acticin 5% CREAM] 1 applic TP Tu 1 Days tube
--- NOTE | 2018-06-27 09:01 | Progress Note ---
Assessment and Plan Imaging 06/24/[address]: No consolidation, effusion or pnuemothorax. Mild ateletasis bilateral lower lungs Cultures: 06/23/2018 Blood: Beta Hemolytic Strep Group G, 4 out of 4 bottles A/P: 68-year-old female female with a past history of recent admission on 05/22/18 for acute renal failure , A fib and hypertension, no admitted with: 1. Sepsis on Admission: Improved, leukocytosis trending down, still tachycardia. Etiology Gram Positive Bacteremia. Beta Hemolytic Strep group G. CT chest shows no consolidation, effuison or pneumothorax. U/A is negative for UTI. Influenza negative. Curently being treated with Azithromycin. 2. Beta Hemolytic Strep, Group G Bacteremia- Culture grew 4 out of 4 bottles. source lilkely skin/scabies +/- ?right leg cellulities -Echo negative for vegetation 3. Scabies- active lesions, bilateral hands and chest and abdomen, patient was presumely treated at the [facility] 3 months ago. 4. Acute Encephalopathy - Improved 5. ELEUTERIO- Resolved 6. Right leg celulitis vs stasis dermatitis: per family she has chronic swelling of right leg, r/o DVT. Duplex scan show no evidence of DVT. Plan: Contact isolation for scabies f/u blood cultures to ensure clearance continue Cefazolin 2 gm IV q12 continue Permethrin 5% from skin to toes including under fingernails and toenails once a week for two weeks continue Ivermectin 200 microG per kg per dose x 3. day 1, day 2 and day 8 upon discharge will arrange for IV ceftriaxone 2g, IV q 24 for two weeks ending 07/09/17 Order placed with case management. Midline ordered f/u ID clinic 07/11/18 [facility] M: [phone] O:[phone] Subjective Date of service: 06/27/18 Principal diagnosis: chronic kidney disease with acute kidney injury Interval history: Patient seen and examined. Somnolent today, not easily arousable. No family at bedside. Objective - Exam Narrative Exam: Constitutional: Alert, conversant, no acute distress Head, Ears, Nose: Normocephalic, atraumatic. External ears, nose normal Eyes: exam limeted, eyes remained closed. Neck: Supple, no meningeal signs Oral: dentition poor. no thrush . Cardiovascular: S1, S2 normal. Respiratory: Good air entry, clear to auscultation bilaterally GI: Soft, non-tender; bowel sounds normal. No peritoneal signs Musculoskeletal: Right leg celllulitis, warm to touch Skin: pruritic lesions with erythematous paoules on back, stomach and bilateral hands, + scabies, Hem/Lymphatic: No palpable cervical or supraclavicular nodes. No lymphangitis Psych: Mood ok. Affect normal Neurological: awake, alert, dementia - Constitutional Vitals: Vital Signs Temp Pulse Resp BP Pulse Ox 98.4 F 127 H 20 139/94 93 06/27/18 02:06 06/27/18 05:27 06/27/18 02:06 06/27/18 02:06 06/27/18 02:06 Temperature -Last 24 Hours Temperature 98.4 F Temperature 98.0 F Temperature 100.0 F - Labs CBC & Chem 7: 06/27/18 05:08 06/27/18 05:08 Labs: Abnormal lab results 06/26/18 06/26/18 06/27/18 Range/Units 11:38 17:51 05:08 WBC 14.4 H (4.5-11.0) K/mm3 RBC 3.51 L (3.65-5.03) M/mm3 RDW 15.7 H (13.2-15.2) % Sodium (137-145) mmol/L Potassium (3.6-5.0) mmol/L Chloride (98-107) mmol/L BUN (7-17) mg/dL POC Glucose 245 H 235 H (70-105) Calcium (8.4-10.2) mg/dL 06/27/18 Range/Units 05:08 WBC (4.5-11.0) K/mm3 RBC (3.65-5.03) M/mm3 RDW (13.2-15.2) % Sodium 147 H (137-145) mmol/L Potassium 3.4 L (3.6-5.0) mmol/L Chloride 109.2 H (98-107) mmol/L BUN 22 H (7-17) mg/dL POC Glucose (70-105) Calcium 7.9 L (8.4-10.2) mg/dL
[2018-06-27] MEDS: VITAMIN D3 PO SCH (10:00)
[2018-06-27] MEDS ORDERED: MAGNESIUM SULFATE 1 GM in NACL 0.9% 50 ML IV ONE (10:00)
[2018-06-27] MEDS: KCL 10MEQ/100ML 10 MEQ/100 ML BAG IV SCH ×2 (11:03→15:30)
[2018-06-27] MEDS: ZITHROMAX 500 MG in NACL 0.9% 250ML 250 ML IV SCH (11:04)
[2018-06-27] MEDS: APRESOLINE PO SCH (11:04)
[2018-06-27] MEDS: NORVASC PO SCH (11:05)
[2018-06-27] MEDS: ATARAX PO SCH (11:05)
[2018-06-27] MEDS: THERAGRAN-M Tab PO SCH (11:05)
[2018-06-27] MEDS: PEPCID PO SCH (11:06)
[2018-06-27] MEDS: FOLVITE PO SCH (11:06)
[2018-06-27] MEDS: COREG PO SCH (11:06)
[2018-06-27 11:07] VITALS: BP 156/96
--- NOTE | 2018-06-27 13:06 | Progress Note ---
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 Kidney function has improved. stable for discharge from renal stand point (2) Hypertensive chronic kidney disease with stage 1 through stage 4 chronic kidney disease, or unspecified chronic kidney disease Current Visit: Yes Status: Acute Plan to address problem: Blood pressure is controlled. Follow blood pressure on current medications (3) Type 2 diabetes mellitus with diabetic chronic kidney disease Current Visit: Yes Status: Acute Plan to address problem: Blood sugar is not quite at goal. Follow blood sugars on current medication (4) Encephalopathy acute Current Visit: Yes Status: Acute Plan to address problem: Toxic/metabolic encephalopathy. Resolved (5) History of stroke with residual deficit Current Visit: Yes Status: Acute Plan to address problem: Continue supportive care (6) Swelling of left lower extremity Current Visit: Yes Status: Acute Plan to address problem: Duplex ultrasound of the lower extremities shows no evidence of deep venous thrombosis Subjective Date of service: 06/27/18 Principal diagnosis: chronic kidney disease with acute kidney injury Interval history: Pt in no acute respiratory distress, not following commands. Objective - Vital Signs Vital signs: Vital Signs - 12hr 06/27/18 06/27/18 06/27/18 02:06 05:27 11:05 Temperature 98.4 F Pulse Rate 124 H 127 H Respiratory 20 Rate Blood Pressure 139/94 156/96 O2 Sat by Pulse 93 Oximetry 06/27/18 11:06 Temperature Pulse Rate Respiratory Rate Blood Pressure 156/96 O2 Sat by Pulse Oximetry - General Appearance General appearance: appears stated age, chronically ill EENT: ATNC, PERRL, mucous membranes moist Neck: no JVD Respiratory: Present: Clear to Ascultation Cardiology: regular, S1S2 Gastrointestinal: normoactive bowel sounds Integumentary: no rash, other (no edema ) - Lab 06/27/18 05:08 06/27/18 05:08 Most recent lab results Calcium 7.9 mg/dL (8.4-10.2) L 06/27/18 05:08 Urine Creatinine 218.6 mg/dL (0.1-20.0) H 06/24/18 15:37 Urine Total Protein 87 mg/dL (5-11.8) H 06/24/18 15:37 Medications & Allergies - Medications Allergies/Adverse Reactions: Allergies lisinopril Allergy (Verified 06/23/18 23:57) Unknown Home Medications: Home Medications Medication Instructions Recorded Confirmed Last Taken Type AtorvaSTATin [Lipitor] 40 mg PO DAILY 08/06/16 06/24/18 Unknown History Carvedilol [Coreg] 25 mg PO BID tablet 08/09/16 06/24/18 Unknown Rx Acetaminophen [Acetaminophen TAB] 650 mg PO Q6HR PRN 05/22/18 06/24/18 Unknown History Amlodipine Besylate [Norvasc] 10 mg PO QDAY 05/22/18 06/24/18 Unknown History Cholecalciferol (Vitamin D3) 2,000 unit PO DAILY 05/22/18 06/24/18 Unknown History [Vitamin D3] Folic Acid 0.4 mg PO QDAY 05/22/18 06/24/18 Unknown History Hydralazine HCl 50 mg PO BID 05/22/18 06/24/18 Unknown History Insulin Detemir [Levemir VIAL] 20 units SUB-Q QHS 05/22/18 06/24/18 Unknown History Insulin NPH Hum/Reg Insulin Hm 5 units SUB-Q DAILY@1130 05/22/18 06/24/18 Unknown History [HumuLIN 70-30 Vial] Insulin Regular, Human [HumuLIN R] See Protocol SUB-Q ACHS 05/22/18 06/24/18 Un known History Melatonin [Melatin] 3 mg PO HS 05/22/18 06/24/18 Unknown History Multivitamin Tab W-MINERAL 1 each PO QDAY 05/22/18 06/24/18 Unknown History [Multiple Vitamin/Mineral (Theragran M)] Ranitidine HCl [Zantac 150 MG TAB] 150 mg PO BID 05/22/18 06/24/18 Unknown History hydrOXYzine HCl [Hydroxyzine HCl] 25 mg PO Q12H 05/22/18 06/24/18 Unknown History Divalproex [Adrienne Lopez] 125 mg PO BID 06/24/18 06/24/18 Unknown History carBAMazepine [TEGretol] 200 mg PO BID 06/24/18 06/24/18 Unknown History Ivermectin (Nf) 15 mg PO ONCE #1 tablet 06/27/18 Unknown Rx Permethrin 5% [Acticin 5% CREAM] 1 applic TP Tu 1 Days tube 06/27/18 Unknown Rx ceFAZolin Sodium [ceFAZolin] 2 gm IV Q12H 12 Days vial 06/27/18 Unknown Rx Active Medications: Generic Name Dose Route Start Last Admin Trade Name Freq PRN Reason Stop Dose Admin Acetaminophen 650 mg 06/24/18 02:31 06/25/18 02:18 Tylenol PO 650 mg Q4H PRN Administration Fever >101 Amlodipine Besylate 10 mg 06/24/18 10:00 06/27/18 11:05 Norvasc PO 10 mg QDAY MARVEL Administration Atorvastatin Calcium 40 mg 06/24/18 10:00 06/27/18 11:07 Lipitor PO 40 mg DAILY MARVEL Administration Azithromycin 500 mg 06/28/18 10:00 Zithromax PO QDAY MARVEL Carbamazepine 200 mg 06/24/18 10:00 06/27/18 11:05 Tegretol PO 200 mg BID MARVEL Administration Carvedilol 25 mg 06/24/18 10:00 06/27/18 11:06 Coreg PO 25 mg BID MARVEL Administration Cholecalciferol 2,000 unit 06/24/18 10:00 06/27/18 10:00 Vitamin D3 PO 2,000 unit DAILY MARVEL Administration Dextrose 50 ml 06/24/18 02:40 D50w (25gm) Syringe IV PRN PRN Hypoglycemia Divalproex Sodium 125 mg 06/24/18 10:00 06/27/18 11:[address] PO 125 mg BID MARVEL Administration Famotidine 10 mg 06/24/18 10:00 06/27/18 11:06 Pepcid PO 10 mg BID MARVEL Administration Folic Acid 0.5 mg 06/24/18 10:00 06/27/18 11:06 Folvite PO 0.5 mg DAILY MARVEL Administration Hydralazine HCl 50 mg 06/24/18 10:00 06/27/18 11:04 Apresoline PO 50 mg BID MARVEL Administration Hydroxyzine HCl 25 mg 06/24/18 10:00 06/27/18 11:05 Atarax PO 25 mg Q12HR MARVEL Administration Sodium Chloride 1,000 mls @ 75 mls/hr 06/24/18 03:00 06/27/18 06:32 Nacl 0.9% 1000 Ml IV 75 mls/hr DIRECT MARVEL Administration Cefazolin Sodium 2 gm/ Sodium 100 mls @ 200 mls/hr 06/27/18 14:00 Chloride IV Q8HR [facility] Insulin Human Regular 0 units 06/25/18 16:30 06/27/18 11:07 Humulin R SUB-Q Not Given ACHS [facility] Protocol Ivermectin 15 mg 07/02/18 12:00 Ivermectin (Nf) PO 07/02/18 12:01 ONCE ONE Multivitamins/Minerals 1 each 06/24/18 10:00 06/27/18 11:05 Theragran-M Tab PO 1 each QDAY MARVEL Administration Ondansetron HCl 4 mg 06/24/18 02:33 Zofran IV Q8H PRN Nausea And Vomiting Permethrin 1 applic 06/25/18 16:00 06/25/18 16:13 Acticin TP 07/02/18 16:01 1 applic Tu MARVEL Administration
[2018-06-27] MEDS ORDERED: ceFAZolin 2 GM in NACL 0.9% 100 ML IV SCH (14:00)
[2018-06-28] MEDS ORDERED: ZITHROMAX PO SCH (10:00)
[2018-07-02] MEDS ORDERED: IVERMECTIN PO ONE ×2 (10:00→12:00)
== END 2018-06-27 15:50 | DRG 871 ==
LOC: ED 22:59 → 4A 06-24 03:00 → 2B-ACE 06-24 12:52
PROVIDERS: ADMIT Internal Medicine; ATTEND Internal Medicine
PROC: 05HY33Z Insertion of Infusion Device into Upper Vein, Percutaneous Approach (ICD-10-PCS; principal; 2018-06-27)
DX: A40.1 Sepsis due to streptococcus, group B (principal); N17.0 Acute kidney failure with tubular necrosis; G93.40 Encephalopathy, unspecified; L03.115 Cellulitis of right lower limb; F03.90 Unspecified dementia, unspecified severity, without behavioral disturbance, psychotic disturbance, mood disturbance, and anxiety; G40.909 Epilepsy, unspecified, not intractable, without status epilepticus; N18.3 Chronic kidney disease, stage 3 (moderate); I25.10 Atherosclerotic heart disease of native coronary artery without angina pectoris; E11.9 Type 2 diabetes mellitus without complications; B86 Scabies; I48.91 Unspecified atrial fibrillation; E11.22 Type 2 diabetes mellitus with diabetic chronic kidney disease; I12.9 Hypertensive chronic kidney disease with stage 1 through stage 4 chronic kidney disease, or unspecified chronic kidney disease; Z87.891 Personal history of nicotine dependence; Z82.49 Family history of ischemic heart disease and other diseases of the circulatory system; Z79.01 Long term (current) use of anticoagulants; Z88.6 Allergy status to analgesic agent; Z80.2 Family history of malignant neoplasm of other respiratory and intrathoracic organs; Z79.4 Long term (current) use of insulin; Z79.899 Other long term (current) drug therapy; I69.30 Unspecified sequelae of cerebral infarction
CPT/HCPCS: 36415; 71045; 71250; 78580; 80048; 80053; 81001; 82140; 82570; 82962; 84156; 85007; 85025; 85027; 85379; 85610; 85730; 87040; 87076; 87186; 87400; 93005; 93010; 93306; 93970; G0378; A9270-GY; A9540; J0456; J0690; J0696; J1644; J1815; J1885; J1940; J1956; J2543; J3475; J3480; J7030; J7040; J7050

== ENCOUNTER 2018-07-26 04:37 | Inpatient (IN) | payer MEDICAID, MEDICARE ==
[2018-07-26] MEDS ORDERED: LASIX IV ONE (04:44)
[2018-07-26] MEDS ORDERED: CARDIZEM IVP ONE (04:47)
[2018-07-26] MEDS ORDERED: CARDIZEM 100 MG in D5W 80 ML IV SCH (05:00)
--- NOTE | 2018-07-26 05:04 | Emergency Department Report ---
ED Shortness of Breath HPI - General Chief Complaint: Dyspnea/Respdistress Stated Complaint: RESP DISTRESS Time Seen by Provider: 07/26/18 04:44 Source: EMS Mode of arrival: Stretcher Limitations: Altered Mental Status - History of Present Illness Initial Comments: Mrs. Cordova is a 68-year-old female with history of diabetes, hypertension, atrial fibrillation, coronary artery disease, chronic kidney disease, seizure disorder, CVA, encephalopathy, sepsis severe dementia who presents with severe shortness of breath which occurred suddenly just prior to arrival. half-way staff at [facility] stated that patient was in her normal state of health when she began to have lethargy and difficulty breathing. Patient required ventilation through bag valve mask. EMS was unable to apply CPAP. Due to severe work of breathing and altered mental status, Mrs. Miranda was unable to provide any history. History obtained from retirement report to EMS. Past history obtained from electronic medical record. Mrs. Miranda was recently admitted to the hospital for sepsis and altered mental status. She is full CODE STATUS. Lang Rojas is bedside is desires intubation if necessary MD Complaint: shortness of breath -: Sudden Severity: severe Improves With: nothing Worsens With: nothing Known History Of: congestive heart failure Context: recent illness - Related Data Home Medications Medication Instructions Recorded Confirmed Last Taken AtorvaSTATin [Lipitor] 40 mg PO DAILY 08/06/16 06/24/18 Unknown Acetaminophen [Acetaminophen TAB] 650 mg PO Q6HR PRN 05/22/18 06/24/18 Unknown Amlodipine Besylate [Norvasc] 10 mg PO QDAY 05/22/18 06/24/18 Unknown Cholecalciferol (Vitamin D3) 2,000 unit PO DAILY 05/22/18 06/24/18 Unknown [Vitamin D3] Folic Acid 0.4 mg PO QDAY 05/22/18 06/24/18 Unknown Hydralazine HCl 50 mg PO BID 05/22/18 06/24/18 Unknown Insulin Detemir [Levemir VIAL] 20 units SUB-Q QHS 05/22/18 06/24/18 Unknown Insulin NPH Hum/Reg Insulin Hm 5 units SUB-Q DAILY@1130 05/22/18 06/24/18 Unknown [HumuLIN 70-30 Vial] Insulin Regular, Human [HumuLIN R] See Protocol SUB-Q ACHS 05/22/18 06/24/18 Unknown Melatonin [Melatin] 3 mg PO HS 05/22/18 06/24/18 Unknown Multivitamin Tab W-MINERAL 1 each PO QDAY 05/22/18 06/24/18 Unknown [Multiple Vitamin/Mineral (Theragran M)] Ranitidine HCl [Zantac 150 MG TAB] 150 mg PO BID 05/22/18 06/24/18 Unknown hydrOXYzine HCl [Hydroxyzine HCl] 25 mg PO Q12H 05/22/18 06/24/[address] [Depakorebecca Lopez] 125 mg PO BID 06/24/18 06/24/18 Unknown carBAMazepine [TEGretol] 200 mg PO BID 06/24/18 06/24/18 Unknown Previous Rx's Medication Instructions Recorded Last Taken Type Carvedilol [Coreg] 25 mg PO BID tablet 08/09/16 Unknown Rx Ivermectin (Nf) 15 mg PO ONCE #1 tablet 06/27/18 Unknown Rx Permethrin 5% [Acticin 5% CREAM] 1 applic TP Tu 1 Days tube 06/27/18 Unknown Rx ceFAZolin Sodium [ceFAZolin] 2 gm IV Q12H 12 Days vial 06/27/18 Unknown Rx Allergies Allergy/AdvReac Type Severity Reaction Status Date / Time lisinopril Allergy Unknown Verified 06/23/18 23:57 ED Review of Systems ROS: Stated complaint: RESP DISTRESS Other details as noted in HPI Comment: Unobtainable due to pts medical conditions ED Past Medical Hx - Past Medical History Previous Medical History?: Yes Hx Hypertension: Yes Hx CVA: Yes Hx Heart Attack/AMI: Yes Hx Diabetes: Yes Hx Deep Vein Thrombosis: No Hx Renal Disease: Yes (ARF) Hx Arthritis: Yes Hx Seizures: Yes Hx Asthma: No Hx COPD: No Hx HIV: No Additional medical history: AFIB--on coumadin - Surgical History Hx Pacemaker: No Hx Internal Defibrillator: No Additional Surgical History: right femoral pseudoaneurysm repair 2010 - Social History Smoking Status: Unknown if ever smoked - Medications Home Medications: Home Medications Medication Instructions Recorded Confirmed Last Taken Type AtorvaSTATin [Lipitor] 40 mg PO DAILY 08/06/16 06/24/18 Unknown History Carvedilol [Coreg] 25 mg PO BID tablet 08/09/16 06/24/18 Unknown Rx Acetaminophen [Acetaminophen TAB] 650 mg PO Q6HR PRN 12/05/18 01/07/19 Unknown History Amlodipine Besylate [Norvasc] 10 mg PO QDAY 05/22/18 06/24/18 Unknown History Cholecalciferol (Vitamin D3) 2,000 unit PO DAILY 05/22/18 06/24/18 Unknown History [Vitamin D3] Folic Acid 0.4 mg PO QDAY 05/22/18 06/24/18 Unknown History Hydralazine HCl 50 mg PO BID 05/22/18 06/24/18 Unknown History Insulin Detemir [Levemir VIAL] 20 units SUB-Q QHS 05/22/18 06/24/18 Unknown History Insulin NPH Hum/Reg Insulin Hm 5 units SUB-Q DAILY@1130 05/22/18 06/24/18 Unknown History [HumuLIN 70-30 Vial] Insulin Regular, Human [HumuLIN R] See Protocol SUB-Q ACHS 05/22/18 06/24/18 Unknown History Melatonin [Melatin] 3 mg PO HS 05/22/18 06/24/18 Unknown History Multivitamin Tab W-MINERAL 1 each PO QDAY 05/22/18 06/24/18 Unknown History [Multiple Vitamin/Mineral (Theragran M)] Ranitidine HCl [Zantac 150 MG TAB] 150 mg PO BID 05/22/18 06/24/18 Unknown History hydrOXYzine HCl [Hydroxyzine HCl] 25 mg PO Q12H 05/22/18 06/24/[address] [Depfranky Dr] 125 mg PO BID 06/24/18 06/24/18 Unknown History carBAMazepine [TEGretol] 200 mg PO BID 06/24/18 06/24/18 Unknown History Ivermectin (Nf) 15 mg PO ONCE #1 tablet 06/27/18 Unknown Rx Permethrin 5% [Acticin 5% CREAM] 1 applic TP Tu 1 Days tube 06/27/18 Unknown Rx ceFAZolin Sodium [ceFAZolin] 2 gm IV Q12H 12 Days vial 06/27/18 Unknown Rx ED Physical Exam - General Limitations: Altered Mental Status General appearance: lethargic, in distress, other (diaphoretic, pursed lip breathing, accessory muscle use, lethargic) - Head Head exam: Present: atraumatic, normocephalic - Eye Eye exam: Present: normal appearance, PERRL. Absent: scleral icterus, conjunctival injection - ENT ENT exam: Present: mucous membranes moist - Neck Neck exam: Present: normal inspection, full ROM. Absent: tenderness, meningismus - Respiratory Respiratory exam: Present: respiratory distress, wheezes, accessory muscle use, decreased breath sounds, prolonged expiratory - Cardiovascular Cardiovascular Exam: Present: tachycardia, irregular rhythm. Absent: rubs - GI/Abdominal GI/Abdominal exam: Present: soft. Absent: distended, tenderness, guarding, rebound - Extremities Exam Extremities exam: Present: pedal edema - Neurological Exam Neurological exam: Present: altered - Psychiatric Psychiatric exam: Present: flat affect - Skin Skin exam: Present: pallor, other (clammy) ED Course Vital Signs 07/26/18 07/26/18 07/26/18 04:40 04:44 04:45 Pulse Rate 151 H 145 H 140 H Respiratory 39 H 26 H 22 Rate Blood Pressure 170/114 170/114 O2 Sat by Pulse 83 L 100 98 Oximetry 07/26/18 07/26/18 07/26/18 04:48 05:01 05:10 Pulse Rate 154 H 76 145 H Respiratory 32 H 25 H Rate Blood Pressure 172/109 116/84 O2 Sat by Pulse 100 95 Oximetry 07/26/18 05:50 Pulse Rate 114 H Respiratory Rate Blood Pressure 137/94 O2 Sat by Pulse Oximetry ED Medical Decision Making - Lab Data Result diagrams: 07/26/18 05:15 07/26/18 05:15 Laboratory Results - last 24 hr 07/26/18 07/26/18 07/26/18 05:15 05:15 05:15 WBC 9.4 RBC 3.89 Hgb 11.5 Hct 36.0 MCV 93 MCH 30 MCHC 32 RDW 16.4 H Plt Count 236 Lymph % (Auto) 6.1 L [place] % (Auto) 8.4 H Eos % (Auto) 0.7 Baso % (Auto) 0.3 Lymph # 0.6 L [place] # 0.8 Eos # 0.1 Baso # 0.0 Seg Neutrophils % 84.5 H Seg Neutrophils # 7.9 H PT 14.9 INR 1.13 APTT 29.8 D-Dimer 2370.66 H POC ABG pH POC ABG pCO2 POC ABG pO2 POC ABG HCO3 POC ABG Total CO2 POC ABG O2 Sat POC ABG Base Excess FiO2 Sodium Potassium Chloride Carbon Dioxide Anion Gap BUN Creatinine Estimated GFR BUN/Creatinine Ratio Glucose Lactic Acid Calcium Total Bilirubin AST ALT Alkaline Phosphatase Troponin T 0.036 H NT-Pro-B Natriuret Pep Total Protein Albumin Albumin/Globulin Ratio 07/26/18 07/26/18 07/26/18 05:15 05:15 05:37 WBC RBC Hgb Hct MCV MCH MCHC RDW Plt Count Lymph % (Auto) [place] % (Auto) Eos % (Auto) Baso % (Auto) Lymph # [place] # Eos # Baso # Seg Neutrophils % Seg Neutrophils # PT INR APTT D-Dimer POC ABG pH 7.371 POC ABG pCO2 43.8 POC ABG pO2 69 L POC ABG HCO3 25.3 POC ABG Total CO2 27 POC ABG O2 Sat 93 POC ABG Base Excess 0 FiO2 35 Sodium 140 Potassium 4.7 Chloride 101.4 Carbon Dioxide 25 Anion Gap 18 BUN 12 Creatinine 1.0 Estimated GFR > 60 BUN/Creatinine Ratio 12 Glucose 224 H Lactic Acid 2.90 H* Calcium 8.3 L Total Bilirubin 0.40 AST 33 ALT 16 Alkaline Phosphatase 251 H Troponin T NT-Pro-B Natriuret Pep 7314 H Total Protein 7.0 Albumin 3.3 L Albumin/Globulin Ratio 0.9 - EKG Data 07/26/18 05:03 EKG obtained 0446 Atrial fibrillation rapid ventricular rate 140 bpm normal axis prolonged QT interval no ST elevation and no signs of ischemia - Radiology Data Radiology results: image reviewed AP portable chest: Reviewed by me: Pulmonary edema pattern with right pleural effusion - Medical Decision Making I came to the bedside immediately. I saw the patient was severe respiratory distress. I obtained history from EMS and retirement documentation. Also reviewed electronic medical. I spoke with respiratory therapist who promptly applied BiPAP, noninvasive pressure ventilation. Without oxygen supplementation pulse oximetry was 82% on room air. She did have poor air movement with loud wheezing. She did nit make eye contact. Due to altered mental status, I was initially hesitant to utilize non-invasive positive pressure ventilation in lieu of intubation. However I did note that patient had a fibrillation with RVR. Moreover, EMS reported that patient's respiratory distress develop suddenly. Fortunately, after rate control with diltiazem bolus, Mrs. Miranda' respiratory status greatly improved. Her respiratory rate decreased from 45 breaths per minute to 22 breaths per minute on BiPAP. Heart rate improved to 72-90 beats per minute. She appeared much more comfortable. Son is at the bedside. I anticipate that she will do well on BiPAP after rate control, diuresis and blood pressure control. First dose furosemide provided in the ED. Diltiazem infusion initiated. Admitted to ICU in fair condition. Lactic acid 2.9 normal white count, no hypotension, no fever at this time, 30 ml/kg IVF will not be initiated due to acute respiratory failure with pulmonary edema seen on chest x-ray, Awaiting urinalysis results. CT angios has ordered what elevated d-dimer. 1. Acute respiratory failure hypoxia: Acute congestive heart failure exacerbation with atrial fibrillation RVR, CT angios chest will rule out PE, arterial blood gas reviewed, normal pH with normal CO2 while on BiPAP 2. Acute encephalopathy due to respiratory failure hypoxia and dementia possible sepsis 3. Possible sepsis with previous admission for the same, awaiting urinalysis results 4. Atrial fibrillation RVR address with diltiazem bolus with a diltiazem i nfusion Hospitalist Dr. Ramirez agreed to accept the patient in fair condition to ICU Critical Care Time: Yes Critical care time in (mins) excluding proc time.: 55 Critical care attestation.: If time is entered above; I have spent that time in minutes in the direct care of this critically ill patient, excluding procedure time. 55 minutes of critical care time excluding procedures were used in the care of the patient. Patient required multiple assessments and interventions. I reviewed the electronic medical record. I spoke with consultants involved in the care of the patient. ED Disposition Clinical Impression: Acute respiratory failure with hypoxia, Acute exacerbation of CHF (congestive heart failure), Atrial fibrillation with rapid ventricular response, Acute metabolic encephalopathy Disposition: DC-[id number] OP ADMIT IP TO THIS HOSP Is pt being admited?: Yes Does the pt Need Aspirin: No Condition: Fair
[2018-07-26 05:26] LABS: Basophils % (Auto) 0.3 % (0.0-1.8); Eosinophils # (Auto) 0.1 K/mm3 (0.0-0.4); Eosinophils % (Auto) 0.7 % (0.0-4.3); Hemoglobin 11.5 gm/dl (10.1-14.3); Lymphocytes # (Auto) 0.6 K/mm3 (1.2-5.4); Lymphocytes % (Auto) 6.1 % (13.4-35.0); Mean Corpuscular HGB Conc 32 % (30-34); Mean Corpuscular Volume 93 fl (79-97); Monocytes # (Auto) 0.8 K/mm3 (0.0-0.8); Monocytes % (Auto) 8.4 % (0.0-7.3); Platelet Count 236 K/mm3 (140-440); Red Blood Count 3.89 M/mm3 (3.65-5.03); Red Cell Distribution Width 16.4 % (13.2-15.2)
[2018-07-26 05:38] LABS: INR 1.13 (0.87-1.13)
[2018-07-26 05:39] LABS: Partial Thromboplastin Time 29.8 Sec. (24.2-36.6)
[2018-07-26 05:47] LABS: Alanine Aminotransferase 16 units/L (7-56); Albumin 3.3 g/dL (3.9-5); BUN/Creatinine Ratio 12; Blood Urea Nitrogen 12 mg/dL (7-17); Calcium 8.3 mg/dL (8.4-10.2); Hemolysis Index 3
--- NOTE | 2018-07-26 05:52 | XRay Report ---
FINAL REPORT EXAM: XR CHEST 1V AP HISTORY: Dyspnea TECHNIQUE: AP portable view(s) of the chest obtained. PRIORS: 06/23/2018 FINDINGS: No mediastinal shift. Cardiomegaly. Blunting of the right costophrenic angle. Diffuse interstitial pr ominence. No pneumothorax. IMPRESSION: Pulmonary interstitial edema is suggested with small right pleural effusion.
[2018-07-26 06:11] LABS: Bacteria,Urine 1+ /HPF (Negative); Bilirubin,Urine NEG (Negative); Blood,Urine NEG (Negative); Color,Urine Yellow (Yellow); Mucus,Urine FEW /HPF; Urobilinogen,Urine < 2.0 mg/dL (<2.0)
[2018-07-26] MEDS: MAXIPIME/NS 2 GM/100 ML 2 GM/100 ML BAG IV SCH ×3 (06:15→23:14)
[2018-07-26] MEDS ORDERED: ZOFRAN IV PRN (06:20)
[2018-07-26] MEDS ORDERED: SODIUM CHLORIDE FLUSH SYRINGE 10 ML IV PRN (06:20)
[2018-07-26] MEDS ORDERED: TYLENOL PO PRN ×2 (06:20→23:00)
[2018-07-26 06:23] LABS: Chol/HDL Ratio 3.7 %
--- NOTE | 2018-07-26 06:27 | History and Physical Report ---
History of Present Illness Date of examination: 07/26/18 History of present illness: 68-year-old woman with a history of A. fib, hypertension, diabetes, seizure, CVA, coronary artery disease, anxiety, legally blind [facility] breath. History is per the son at bedside, patient is unable to give a history, she is minimally communicative, review of system is unobtainable. Patient was found to be in A. fib with RVR, rate of 150s, started on BiPAP and a Cardizem drip in the Emergency room PAST MEDICAL HISTORY: A. fib, hypertension, diabetes, seizure, CVA, coronary artery disease, anxiety, legally blind PAST SURGICAL HISTORY: Breast surgery, femoral repair SOCIAL HISTORY: No alcohol, no drugs, tobacco FAMILY HISTORY: Hypertension Medications and Allergies Allergies Allergy/AdvReac Type Severity Reaction Status Date / Time lisinopril Allergy Unknown Verified 06/23/18 23:57 Home Medications Medication Instructions Recorded Confirmed Last Taken Type AtorvaSTATin [Lipitor] 40 mg PO DAILY 08/06/16 06/24/18 Unknown History Carvedilol [Coreg] 25 mg PO BID tablet 08/09/16 06/24/18 Unknown Rx Acetaminophen [Acetaminophen TAB] 650 mg PO Q6HR PRN 05/22/18 06/24/18 Unknown History Amlodipine Besylate [Norvasc] 10 mg PO QDAY 05/22/18 06/24/18 Unknown History Cholecalciferol (Vitamin D3) 2,000 unit PO DAILY 05/22/18 06/24/18 Unknown History [Vitamin D3] Folic Acid 0.4 mg PO QDAY 05/22/18 06/24/18 Unknown History Hydralazine HCl 50 mg PO BID 05/22/18 06/24/18 Unknown History Insulin Detemir [Levemir VIAL] 20 units SUB-Q QHS 05/22/18 06/24/18 Unknown History Insulin NPH Hum/Reg Insulin Hm 5 units SUB-Q DAILY@1130 05/22/18 06/24/18 Unknown History [HumuLIN 70-30 Vial] Insulin Regular, Human [HumuLIN R] See Protocol SUB-Q ACHS 05/22/18 06/24/18 Unknown History Melatonin [Melatin] 3 mg PO HS 05/22/18 06/24/18 Unknown History Multivitamin Tab W-MINERAL 1 each PO QDAY 05/22/18 06/24/18 Unknown History [Multiple Vitamin/Mineral (Theragran M)] Ranitidine HCl [Zantac 150 MG TAB] 150 mg PO BID 05/22/18 06/24/18 Unknown Hi story hydrOXYzine HCl [Hydroxyzine HCl] 25 mg PO Q12H 05/22/18 06/24/[address] [Depakote Dr] 125 mg PO BID 06/24/18 06/24/18 Unknown History carBAMazepine [TEGretol] 200 mg PO BID 06/24/18 06/24/18 Unknown History Ivermectin (Nf) 15 mg PO ONCE #1 tablet 06/27/18 Unknown Rx Permethrin 5% [Acticin 5% CREAM] 1 applic TP Tu 1 Days tube 06/27/18 Unknown Rx ceFAZolin Sodium [ceFAZolin] 2 gm IV Q12H 12 Days vial 06/27/18 Unknown Rx Active Meds: Active Medications Acetaminophen (Tylenol) 650 mg PO Q4H PRN PRN Reason: Pain MILD(1-3)/Fever >100.5/YOUSIF Diltiazem HCl 100 mg/ Dextrose 100 mls @ 5 mls/hr IV TITR [facility]; Protocol Last Admin: 07/26/18 05:50 Dose: 5 mg/hr, 5 mls/hr Documented by: Cefepime HCl (Maxipime/Ns 2 Gm/100 Ml) 2 gm in 100 mls @ 200 mls/hr IV Q8HR [facility]; Protocol Vancomycin HCl 1,750 mg/ (Sodium Chloride) 535 mls @ 333 mls/hr IV ONCE ONE; Protocol Stop: 07/26/18 08:36 Ondansetron HCl (Zofran) 4 mg IV Q8H PRN PRN Reason: Nausea And Vomiting Sodium Chloride (Sodium Chloride Flush Syringe 10 Ml) 10 ml IV BID [facility] Sodium Chloride (Sodium Chloride Flush Syringe 10 Ml) 10 ml IV PRN PRN PRN Reason: LINE FLUSH Exam - Physical Exam Narrative exam: Gen. appearance: Patient lying in bed, no apparent distress HEENT: Normocephalic, atraumatic, pupils equally round and reactive to light, unable to do extraocular movement , and no sclericterus,. No JVD or thyromegaly or nodule,neck supple, no carotid bruit ,mucous membranes moist, no exudate or erythema Heart: S1, S2, regular rate and rhythm Lungs: Clear bilaterally, breathing comfortable Abdomen: Positive bowel sounds, non-tender, nondistended, no organomegaly Extremity:no edema cyanosis, clubbing Skin: no rash, dry, warm Neuro: difficult to assess - Constitutional Vitals: Temp Pulse Resp BP Pulse Ox 114 H 25 H 137/94 95 07/26/18 05:50 07/26/18 05:01 07/26/18 05:50 07/26/18 05:01 Results - Labs CBC & Chem 7: 07/26/18 05:15 07/26/18 05:15 Labs: Abnormal lab results 07/26/18 07/26/18 07/26/18 Range/Units 05:15 05:15 05:15 RDW 16.4 H (13.2-15.2) % Lymph % (Auto) 6.1 L (13.4-35.0) % [place] % (Auto) 8.4 H (0.0-7.3) % Lymph # 0.6 L (1.2-5.4) K/mm3 Seg Neutrophils % 84.5 H (40.0-70.0) % Seg Neutrophils # 7.9 H (1.8-7.7) K/mm3 D-Dimer 2370.66 H (0-234) ng/mlDDU POC ABG pO2 (80-105) Glucose (65-100) mg/dL Lactic Acid (0.7-2.0) mmol/L Calcium (8.4-10.2) mg/dL Alkaline Phosphatase (35-129) units/L Troponin T 0.036 H (0.00-0.029) ng/mL NT-Pro-B Natriuret Pep (0-900) pg/mL Albumin (3.9-5) g/dL HDL Cholesterol 30 L (40-59) mg/dL 07/26/18 07/26/18 07/26/18 Range/Units 05:15 05:15 05:37 RDW (13.2-15.2) % Lymph % (Auto) (13.4-35.0) % [place] % (Auto) (0.0-7.3) % Lymph # (1.2-5.4) K/mm3 Seg Neutrophils % (40.0-70.0) % Seg Neutrophils # (1.8-7.7) K/mm3 D-Dimer (0-234) ng/mlDDU POC ABG pO2 69 L (80-105) Glucose 224 H (65-100) mg/dL Lactic Acid 2.90 H* (0.7-2.0) mmol/L Calcium 8.3 L (8.4-10.2) mg/dL Alkaline Phosphatase 251 H (35-129) units/L Troponin T (0.00-0.029) ng/mL NT-Pro-B Natriuret Pep 7314 H (0-900) pg/mL Albumin 3.3 L (3.9-5) g/dL HDL Cholesterol (40-59) mg/dL Assessment and Plan Assessment Acute respiratory failure A. fib with RVR Pulmonary edema Hypertension Diabetes Hypertension Seizure History of CVA Coronary artery disease Anxiety Dementia Legally blind Plan Admit to medicine Continue cardizem drip, continue BIPAP Check cardiac enzymes, echo, consult cardiolgy Patient had GI bleeding 2016, GI recommended no further Coumadin if possible Will hold full dose anticoagulation for now until seen by cardiology Consult critical care, follow CT chest S/p IV antibiotic, no signs of infection but will continue emperic antibiotic for now Check fingersticks, DVT prophylaxis
[2018-07-26] MEDS ORDERED: VANCOMYCIN 1,750 MG in NACL 0.9% 500 ML 500 ML IV ONE (07:00)
[2018-07-26 07:27] LABS: Creatine Kinase MB 1.4 ng/mL (0.0-4.0)
--- NOTE | 2018-07-26 07:32 | Cat Scan Report ---
FINAL REPORT EXAM: CT ANGIO CHEST HISTORY: acute respiratory failure, elevated d-dimer TECHNIQUE: CT imaging obtained through the chest in pulmonary angiographic phase following intraveno us administration of contrast. Transaxial, Coronal and sagittal reformats with maximal intensity proj ections are provided. PRIORS: Chest radiograph of the same date, CT 06/24/2018 FINDINGS: Enlarged caliber of the main pulmonary artery. Well opacified pulmonary arterial tree. No pulmonary e mbolism. No pericardial effusion. Cardiomegaly. Scattered coronary artery calcifications. Thoracic aorta is normal in course and caliber. No periaortic fluid or stranding. No pneumothorax. Moderate right and small left pleural effusion. Right upper lung airspace disease se en at the apex on axial series 2, image 19 and silhouetting the major fissure on images 42-44. Imaged portion of the upper abdomen is unremarkable. The superficial soft tissues are unremarkable. No acute bony abnormality or worrisome osseous lesions identified. IMPRESSION: New right upper lung airspace disease compared to 06/24/2018. Moderate right and small left pleural e ffusions are also present. No pulmonary embolism or pneumothorax.
[2018-07-26] MEDS ORDERED: LOVENOX SUB-Q SCH ×3 (10:00→22:00)
[2018-07-26] MEDS: SODIUM CHLORIDE FLUSH SYRINGE 10 ML IV SCH ×2 (10:29→23:24)
--- NOTE | 2018-07-26 12:10 | Consultation ---
History of Present Illness Consult date: 07/26/18 Requesting physician: ARBEN TSE Reason for consult: other (Acute Hypoxemic Respiratory Failure) History of present illness: PULMONARY/CCM CONSULT NOTE (Full dictation # [id number]) Please see dictated notes for full details Medications and Allergies Allergies Allergy/AdvReac Type Severity Reaction Status Date / Time lisinopril Allergy Unknown Verified 06/23/18 23:57 Home Medications Medication Instructions Recorded Confirmed Last Taken Type AtorvaSTATin [Lipitor] 40 mg PO DAILY 08/06/16 07/26/18 Unknown History Carvedilol [Coreg] 25 mg PO BID tablet 08/09/16 07/26/18 Unknown Rx Acetaminophen [Acetaminophen TAB] 650 mg PO Q6HR PRN 05/22/18 07/26/18 Unknown History Amlodipine Besylate [Norvasc] 10 mg PO QDAY 05/22/18 07/26/18 Unknown History Cholecalciferol (Vitamin D3) 2,000 unit PO DAILY 05/22/18 07/26/18 Unknown History [Vitamin D3] Folic Acid 0.4 mg PO QDAY 05/22/18 07/26/18 Unknown History Hydralazine HCl 50 mg PO BID 05/22/18 07/26/18 Unknown History Insulin Detemir [Levemir VIAL] 20 units SUB-Q QHS 05/22/18 07/26/18 Unknown History Insulin NPH Hum/Reg Insulin Hm 5 units SUB-Q DAILY@1130 05/22/18 07/26/18 Unknown History [HumuLIN 70-30 Vial] Insulin Regular, Human [HumuLIN R] See Protocol SUB-Q ACHS 05/22/18 07/26/18 Unknown History Melatonin [Melatin] 3 mg PO HS 05/22/18 07/26/18 Unknown History Multivitamin Tab W-MINERAL 1 each PO QDAY 05/22/18 07/26/18 Unknown History [Multiple Vitamin/Mineral (Theragran M)] Ranitidine HCl [Zantac 150 MG TAB] 150 mg PO BID 05/22/18 07/26/18 Unknown History hydrOXYzine HCl [Hydroxyzine HCl] 25 mg PO Q12H 05/22/18 07/26/[address] [Depakote Dr] 125 mg PO BID 06/24/18 07/26/18 Unknown History carBAMazepine [TEGretol] 200 mg PO BID 06/24/18 07/26/18 Unknown History Active Meds: Active Medications Acetaminophen (Tylenol) 650 mg PO Q4H PRN PRN Reason: Pain MILD(1-3)/Fever >100.5/YOUSIF Enoxaparin Sodium (Lovenox) 40 mg SUB-Q QDAY@1000 [facility] Last Admin: 07/26/18 10:28 Dose: 40 mg Documented by: Diltiazem HCl 100 mg/ Dextrose 100 mls @ 5 mls/hr IV TITR [facility]; Protocol Last Titration: 07/26/18 10:24 Dose: 10 mg/hr, 10 mls/hr Documented by: Cefepime HCl (Maxipime/Ns 2 Gm/100 Ml) 2 gm in 100 mls @ 200 mls/hr IV Q8HR [facility]; Protocol Last Admin: 07/26/18 06:15 Dose: 200 mls/hr Documented by: Insulin Human Lispro (Humalog) 0 unit SUB-Q ACHS [facility]; Protocol Ondansetron HCl (Zofran) 4 mg IV Q8H PRN PRN Reason: Nausea And Vomiting Sodium Chloride (Sodium Chloride Flush Syringe 10 Ml) 10 ml IV BID [facility] Last Admin: 07/26/18 10:29 Dose: 10 ml Documented by: Sodium Chloride (Sodium Chloride Flush Syringe 10 Ml) 10 ml IV PRN PRN PRN Reason: LINE FLUSH Physical Examination Vital signs: Vital Signs Pulse Resp Pulse Ox 151 H 39 H 83 L 07/26/18 04:40 07/26/18 04:40 07/26/18 04:40 Results - Laboratory Findings CBC and BMP: 07/26/18 05:15 07/26/18 05:15 ABG POC ABG pH 7.371 (7.35-7.45) 07/26/18 05:37 POC ABG pCO2 43.8 (35-45) 07/26/18 05:37 POC ABG pO2 69 (80-105) L 07/26/18 05:37 POC ABG HCO3 25.3 07/26/18 05:37 POC ABG Total CO2 27 07/26/18 05:37 POC ABG O2 Sat 93 07/26/18 05:37 PT/INR, D-dimer PT 14.9 Sec. (12.2-14.9) 07/26/18 05:15 INR 1.13 (0.87-1.13) 07/26/18 05:15 D-Dimer 2370.66 ng/mlDDU (0-234) H 07/26/18 05:15 Abnormal lab findings: Abnormal Labs 07/26/18 07/26/18 07/26/18 05:15 05:15 05:15 RDW 16.4 H Lymph % (Auto) 6.1 L [place] % (Auto) 8.4 H Lymph # 0.6 L Seg Neutrophils % 84.5 H Seg Neutrophils # 7.9 H D-Dimer 2370.66 H POC ABG pO2 Glucose POC Glucose Lactic Acid Calcium Alkaline Phosphatase Troponin T 0.036 H NT-Pro-B Natriuret Pep Albumin HDL Cholesterol 30 L 07/26/18 07/26/18 07/26/18 05:15 05:15 05:37 RDW Lymph % (Auto) [place] % (Auto) Lymph # Seg Neutrophils % Seg Neutrophils # D-Dimer POC ABG pO2 69 L Glucose 224 H POC Glucose Lactic Acid 2.90 H* Calcium 8.3 L Alkaline Phosphatase 251 H Troponin T NT-Pro-B Natriuret Pep 7314 H Albumin 3.3 L HDL Cholesterol 07/26/18 07/26/18 07/26/18 06:35 06:49 09:26 RDW Lymph % (Auto) [place] % (Auto) Lymph # Seg Neutrophils % Seg Neutrophils # D-Dimer POC ABG pO2 Glucose POC Glucose 195 H Lactic Acid 2.20 H* Calcium Alkaline Phosphatase Troponin T 0.034 H NT-Pro-B Natriuret Pep Albumin HDL Cholesterol
[2018-07-26] MEDS: HumaLOG SUB-Q SCH ×2 (12:29→17:27)
[2018-07-26 13:13] LABS: Creatine Kinase MB 1.8 ng/mL (0.0-4.0)
--- NOTE | 2018-07-26 13:56 | Event Note ---
Date: 07/26/18 Patient seen and evaluated medical records reviewed Patient is admitted this morning with acute hypoxic respiratory failure Requiring BiPAP, ST elevation SD, elevated d-dimer is negative PE Cardiology and pulmonology consultation, will follow recommendations Resume home medications, agree with the current management Closely monitor the patient and adjust the management as needed Start clear liquid diet advance as tolerated
[2018-07-26] MEDS ORDERED: ZOSYN/NS 3.375GM/50ML 3.375 GM/50 ML BAG IV SCH (14:00)
--- NOTE | 2018-07-26 14:09 | Vascular Lab Report ---
FINAL REPORT EXAM: VL VENOUS DUPLEX LE BILAT HISTORY: elevated d dimers/r/o DVT , CHF, atrial fibrillation, hypertension, encephalopathy TECHNIQUE: Ultrasound examination of the right lower extremity venous system Ultrasound examination of the left lower extremity venous system PRIORS: 06/25/2018 FINDINGS: Right leg: Normal compressibility, vascular patency, and augmentation are present diffusely throughout the visua lized portion of the deep veins of the right leg. No abnormal intraluminal echoes are visualized to suggest thrombus. Left leg: Normal compressibility, vascular patency, and augmentation are present diffusely throughout the visua lized portion of the deep veins of the left leg. No abnormal intraluminal echoes are visualized to s uggest thrombus. IMPRESSION: No sonographic evidence of DVT in the right leg No sonographic evidence of DVT in the left leg
--- NOTE | 2018-07-26 14:34 | Consultation ---
History of Present Illness Consult date: 07/26/18 Medications and Allergies Allergies Allergy/AdvReac Type Severity Reaction Status Date / Time lisinopril Allergy Unknown Verified 06/23/18 23:57 Home Medications Medication Instructions Recorded Confirmed Last Taken Type AtorvaSTATin [Lipitor] 40 mg PO DAILY 08/06/16 07/26/18 Unknown History Carvedilol [Coreg] 25 mg PO BID tablet 08/09/16 07/26/18 Unknown Rx Acetaminophen [Acetaminophen TAB] 650 mg PO Q6HR PRN 05/22/18 07/26/18 Unknown History Amlodipine Besylate [Norvasc] 10 mg PO QDAY 05/22/18 07/26/18 Unknown History Cholecalciferol (Vitamin D3) 2,000 unit PO DAILY 05/22/18 07/26/18 Unknown History [Vitamin D3] Folic Acid 0.4 mg PO QDAY 05/22/18 07/26/18 Unknown History Hydralazine HCl 50 mg PO BID 05/22/18 07/26/18 Unknown History Insulin Detemir [Levemir VIAL] 20 units SUB-Q QHS 05/22/18 07/26/18 Unknown History Insulin NPH Hum/Reg Insulin Hm 5 units SUB-Q DAILY@1130 05/22/18 07/26/18 Unknown History [HumuLIN 70-30 Vial] Insulin Regular, Human [HumuLIN R] See Protocol SUB-Q ACHS 05/22/18 07/26/18 Unknown History Melatonin [Melatin] 3 mg PO HS 05/22/18 07/26/18 Unknown History Multivitamin Tab W-MINERAL 1 each PO QDAY 05/22/18 07/26/18 Unknown History [Multiple Vitamin/Mineral (Theragran M)] Ranitidine HCl [Zantac 150 MG TAB] 150 mg PO BID 05/22/18 07/26/18 Unknown History hydrOXYzine HCl [Hydroxyzine HCl] 25 mg PO Q12H 05/22/18 07/26/18 Unknown History Divalproex [Adrienne Lopez] 125 mg PO BID 06/24/18 07/26/18 Unknown History carBAMazepine [TEGretol] 200 mg PO BID 06/24/18 07/26/18 Unknown History Active Meds: Active Medications Acetaminophen (Tylenol) 650 mg PO Q4H PRN PRN Reason: Pain MILD(1-3)/Fever >100.5/YOUSIF Amlodipine Besylate (Norvasc) 10 mg PO QDAY [facility] Atorvastatin Calcium (Lipitor) 40 mg PO QHS [facility] Carbamazepine (Tegretol) 200 mg PO BID [facility] Divalproex Sodium (Depakote Dr) 125 mg PO BID [facility] Hydralazine HCl (Apresoline) 50 mg PO BID [facility] Cefepime HCl (Maxipime/Ns 2 Gm/100 Ml) 2 gm in 100 mls @ 200 mls/hr IV Q8HR [facility]; Protocol Last Admin: 07/26/18 06:15 Dose: 200 mls/hr Documented by: Insulin Human Isoph/Insulin Regular (Humulin 70/30) 5 unit SUB-Q DAILY@1130 [facility] Insulin Human Lispro (Humalog) 0 unit SUB-Q ACHS [facility]; Protocol Last Admin: 07/26/18 12:29 Dose: 2 unit Documented by: Metoprolol Tartrate (Lopressor) 50 mg PO Q8H [facility] Ondansetron HCl (Zofran) 4 mg IV Q8H PRN PRN Reason: Nausea And Vomiting Sodium Chloride (Sodium Chloride Flush Syringe 10 Ml) 10 ml IV BID [facility] Last Admin: 07/26/18 10:29 Dose: 10 ml Documented by: Sodium Chloride (Sodium Chloride Flush Syringe 10 Ml) 10 ml IV PRN PRN PRN Reason: LINE FLUSH Physical Examination Vital Signs Pulse Resp Pulse Ox 151 H 39 H 83 L 07/26/18 04:40 07/26/18 04:40 07/26/18 04:40 Results 07/26/18 05:15 07/26/18 05:15 Cardiac Enzymes 07/26/18 07/26/18 07/26/18 Range/Units 05:15 06:49 12:39 AST 33 (5-40) units/L CK-MB (CK-2) 1.4 1.8 (0.0-4.0) ng/mL Coagulation 07/26/18 Range/Units 05:15 PT 14.9 (12.2-14.9) Sec. INR 1.13 (0.87-1.13) APTT 29.8 (24.2-36.6) Sec. Lipids 07/26/18 Range/Units 05:15 Triglycerides 120 (2-149) mg/dL Cholesterol 111 (50-199) mg/dL HDL Cholesterol 30 L (40-59) mg/dL Cholesterol/HDL Ratio 3.70 % CBC 07/26/18 Range/Units 05:15 WBC 9.4 (4.5-11.0) K/mm3 RBC 3.89 (3.65-5.03) M/mm3 Hgb 11.5 (10.1-14.3) gm/dl Hct 36.0 (30.3-42.9) % Plt Count 236 (140-440) K/mm3 Lymph # 0.6 L (1.2-5.4) K/mm3 [place] # 0.8 (0.0-0.8) K/mm3 Eos # 0.1 (0.0-0.4) K/mm3 Baso # 0.0 (0.0-0.1) K/mm3 Comprehensive Metabolic Panel 07/26/18 Range/Units 05:15 Sodium 140 (137-145) mmol/L Potassium 4.7 (3.6-5.0) mmol/L Chloride 101.4 (98-107) mmol/L Carbon Dioxide 25 (22-30) mmol/L BUN 12 (7-17) mg/dL Creatinine 1.0 (0.7-1.2) mg/dL Glucose 224 H (65-100) mg/dL Calcium 8.3 L (8.4-10.2) mg/dL AST 33 (5-40) units/L ALT 16 (7-56) units/L Alkaline Phosphatase 251 H (35-129) units/L Total Protein 7.0 (6.3-8.2) g/dL Albumin 3.3 L (3.9-5) g/dL Assessment and Plan Detailed Cardiology consult dictated.
[2018-07-26] MEDS: LOPRESSOR PO SCH ×2 (16:05→23:52)
[2018-07-26 16:57] LABS: C-Reactive Protein 2.9 mg/dL (0.00-1.30)
--- NOTE | 2018-07-26 21:44 | Consultation ---
CARDIOLOGY CONSULTATION REFERRING PHYSICIAN: Larisa Burris MD, hospitalist HISTORY OF PRESENT ILLNESS: A 68-year-old obese (BMI of 34) pleasant -[place] woman transferred from [facility] with a history of progressive shortness of breath for the past 2-3 days. She is legally blind and also has history of dementia. She was diagnosed as having [id number] congestive heart failure. She was found to be in atrial fibrillation with rapid ventricular response with a rate of 141 beats per minute. She received intravenous Cardizem bolus and she is on intravenous continuous infusion. She is also on intravenous antibiotics for sepsis and chest x-ray revealed pulmonary interstitial edema with small right pleural effusion. Duplex scan of both lower extremities was negative for deep venous thrombosis. CAT scan of the chest done today revealed new right upper lung airspace disease, moderate right and small left pleural effusion. There was no evidence of pulmonary embolism or pneumothorax. The patient is still in atrial fibrillation but the heart rate is under control (high 70s). Blood pressure has been stable. Her proBNP was increased. Her D-dimer was also markedly increased to 2371. Troponin was minimally increased to 0.034 and 0.045 most likely secondary to congestive heart failure and mild CKD. She is not communicating as she has dementia and is on BiPAP. PAST MEDICAL HISTORY: She is known to have chronic atrial fibrillation and she has not been on any anticoagulation, history of hypertension, type 2 diabetes mellitus, seizures, old cerebrovascular accident, chronic anxiety. PAST SURGICAL HISTORY: She has had breast surgery and femoral repair in the past. SOCIAL HISTORY: Not a smoker, not an alcoholic, no history of drug abuse. FAMILY HISTORY: Negative for ____ coronary artery disease; however, there is family history of hypertension. ALLERGIES: LISINOPRIL. MEDICATIONS: IV Cardizem 15 mg per hour, atorvastatin 40 mg p.o. at bedtime daily, amlodipine 10 mg p.o. daily, Tegretol 200 mg p.o. b.i.d., carvedilol 25 mg p.o. b.i.d., Lovenox 40 mg subcutaneous daily, hydralazine 50 mg p.o. b.i.d., and insulin. REVIEW OF SYSTEMS: CARDIOVASCULAR SYSTEM: As described in the history. PULMONARY: As described in the history. METABOLISM AND ENDOCRINOLOGY: As described in the history. NEUROLOGICAL: As described in the history. RENAL: As described in the history. She has had abnormal liver function test in the recent past. The review of rest of the 10 systems is negative. PHYSICAL EXAMINATION: GENERAL: A 68-year-old mildly obese, pleasant -[place] woman. VITAL SIGNS: She is afebrile, pulse 76 per minute, irregularly irregular rhythm, blood pressure 165/104 mmHg. NECK: Supple, no JVD, no bruit. HEART: PMI could not be felt satisfactorily, no palpable thrills. Auscultation of heart reveals S1, S2 heard. S3 is loud, irregularly irregular rhythm. Grade 2/6 ejection systolic murmur is heard over the precardium. EXTREMITIES: Peripheral pulses felt. No edema. LUNGS: Clear bilaterally. No bronchial breathing, no wheezing. ABDOMEN: Soft, benign, bowel sounds heard. SKIN: Negative. BONE AND JOINTS: Negative. NEUROLOGIC: She is not responding to commands or questions at this time (history of dementia and confusion). LABORATORY DATA AND IMAGING STUDIES: As described in the history. Recent BUN and creatinine is 12 and 1, potassium 4.7, LDL is 70, HDL is 30, triglycerides 120. ProBNP is 7314. Her EKG revealed atrial fibrillation with rapid ventricular response of 141 per minute, poor R-wave progression and low voltage complexes in standard and limb leads. Her echocardiogram done on 07/05/2018 revealed mild left ventricular systolic dysfunction with EF around 45-50%, severe left atrial enlargement, moderate mitral and moderate tricuspid regurgitation, severe pulmonary hypertension with right ventricular systolic pressure of 67 mmHg. The platelet counts were within normal limits. IMPRESSION: 1. Acute on chronic systolic congestive heart failure. 2. Chronic atrial fibrillation (rate under control at this time). 3. Mild increase in troponins, most likely secondary to congestive heart failure and mild chronic kidney disease. 4. History of hypertension, type 2 diabetes mellitus. 5. Old cerebrovascular accident and history of seizures. 6. Chronic anxiety. 7. The patient is legally blind. RECOMMENDATIONS: 1. Would discontinue intravenous Cardizem. 2. Would discontinue carvedilol and place her on metoprolol 50 mg p.o. 3 times daily. 3. Would also increase Lovenox to 80 mg subcutaneous b.i.d. (for full anticoagulation as she has atrial fibrillation). 4. To continue other medications at the same dosage. Thank you again, we will follow. Yours sincerely, JOB# [id number] [facility]
[2018-07-26] MEDS ORDERED: D5/0.45NS 1,000 ML IV SCH (22:00)
[2018-07-26] MEDS ORDERED: COREG PO SCH (22:00)
[2018-07-26] MEDS ORDERED: NON-FORMULARY (Hydralazine Hcl [Hydralazine Hcl] 50 MG) PO SCH (22:00)
--- NOTE | 2018-07-26 22:08 | Consultation ---
PULMONARY CRITICAL CARE CONSULTATION CONSULTING PHYSICIAN: Sveta Mckoy MD, ER physician. REASON FOR CONSULTATION: Acute hypoxemic respiratory failure. CHIEF COMPLAINT AND HISTORY OF PRESENT ILLNESS: The patient is a 68-year-old -Prydeinig female with past medical history significant amongst other things for diabetes and atrial fibrillation, a intermediate resident, [facility], who report that the patient was in normal state of health up until earlier today when she developed lethargy, difficulty breathing. She required bag mask ventilation. Emergency medical services were unable to apply CPAP. They brought her into the Emergency Room. In the Emergency Room, she was evaluated by the physicians. She had recently been discharged from this hospital after treatment for sepsis and altered mental status. She was stabilized, but required continuous noninvasive ventilation, hence the consult. I should also mention she also was found to be in atrial fibrillation with a rapid ventricular response. When I stopped by to see her, her relative was in the room, I was able to get her to answer me back, as she replied how are you to a greeting. She remained on the BiPAP mask at the time. I do not have any history of vomiting or overt aspiration. Really, the above is as much of the history of presentation as I have. She is not a current tobacco smoker at this time. As regards to remote history that is unknown. PAST MEDICAL HISTORY: Again, hypertension, cerebrovascular accident, coronary artery disease, diabetes, chronic kidney disease, arthritis, history of seizures, history of atrial fibrillation, and she is obese. PAST SURGICAL HISTORY: She has had a right femoral pseudoaneurysm repaired in 2010. MEDICATIONS: She was on at the time I stopped by to see her were reviewed. Pertinent medications included the following: Tylenol 650 mg p.o. q. 4 hours p.r.n. mild pain or fevers, Norvasc 10 mg p.o. daily, Lipitor 40 mg p.o. at bedtime, Tegretol 200 mg p.o. b.i.d., Maxipime 2 grams IV q. 8 hours, Depakote 125 mg p.o. b.i.d., Lovenox 80 mg subcutaneous q. 12 hours, Apresoline 50 mg p.o. b.i.d., insulin 70/30 five units subcutaneous daily at 11:30, insulin via sliding scale, Lopressor 50 mg p.o. q. 8 hours, Zofran 4 mg IV q. 8 hours p.r.n. nausea and vomiting. She was also on a Cardizem drip, I believe it was going at 10 mg per hour. ALLERGIES: LISINOPRIL, nature of this allergy is unknown. DIET: Obese lady, denies acute weight loss or gain in the preceding few weeks to months according to the caregiver in the room. FAMILY AND SOCIAL HISTORY: penit[facility]iary resident. No current alcohol, tobacco, or illicit drug use or abuse. Remote history is unknown. Family history is otherwise unobtainable. REVIEW OF SYSTEMS: Unobtainable, mostly secondary to her medical and mental condition. Since she has been here, no gross hematochezia or melena, no gross hematuria, no hematemesis, no hemoptysis, no witnessed seizures. No new onset focal weakness. Complete 13-system review of systems obtained as best as I could. Pertinent positives and/or negatives as in body of history above, otherwise they are noncontributory. PHYSICAL EXAMINATION: VITAL SIGNS: At presentation here, temperature was not recorded. Our first temperature here in the intensive care unit is 98.2 Fahrenheit, at presentation, though her pulse was 151, respiratory rate 39, blood pressure 170/114, O2 sats initially were 83%, inspired oxygen concentration was not recorded. When I stopped by to see her O2 sats were 99%; however, that was on BiPAP 16/8 with a backup rate of 16 and 35% FiO2. GENERAL: Obese, elderly looking -Prydeinig female, normocephalic, atraumatic, on the BiPAP machine riding the set rate with mildly increased respiratory effort. HEAD, EYES, EARS, NOSE, AND THROAT: She is anicteric. No conjunctival erythema. Oropharynx appears moist. No gross jugular venous distention, no thyromegaly. She does have a large neck circumference. Grossly, no palpable lymph nodes in the supraclavicular or submandibular lymph node chains. LUNGS: Auscultation of both lung aguila were done. She had diminished bilateral breath sounds. Some scant inspiratory rhonchi in the bases. No wheezing. HEART: Heart sounds 1 and 2 were heard. They were irregular in rate and rhythm at the time of my evaluation, without rubs or murmurs. ABDOMEN: Soft, full, bowel sounds are positive, nontender. No palpable hepatosplenomegaly. EXTREMITIES: Without overt digital clubbing or cyanosis. She has trace bilateral pedal edema. NEUROLOGIC: Pupils are equal, round, about 4 mm, reactive to light. Extraocular muscle movements appeared intact. She had spontaneous movements to all 4 extremities. The skin is of poor turgor with a chronic stasis type rash to the lower extremities. No overt cellulitis or rash otherwise. LABORATORY DATA: From my review are as follows: White cell count 9400, hemoglobin 11.5, hematocrit 36.0, platelet count 236. No manual differential. INR 1.13. D-dimer 2370. Arterial blood gas showed a pH of 7.37, pCO2 of 44, pO2 of 69 that was on 35% FiO2. Serum sodium was 140, potassium 4.7, chloride 101, bicarbonate 25, BUN 12, creatinine 1.0, glucose was 224. Lactic acid level was 2.2, alkaline phosphatase 251, albumin 3.3. Otherwise, liver function tests within normal limits. Troponin was 0.034. BNP was elevated at 7314. Urinalysis negative for nitrites and leukocyte esterase, trace ketones. Blood cultures 2 sets have been drawn, no growth to date. Chest x-ray was done. I have reviewed the chest x-ray, gross cardiomegaly, mild interstitial edema and suggestion of a right pleural effusion. A CT angiogram of the chest was also done. I have reviewed the CT. I have also reviewed the radiologist's interpretation. I do agree no gross filling defects consistent with the first order pulmonary emboli for certain. She has right small to moderate and left small pleural effusion. There is cardiomegaly. Lung windows suggest a developing right apical infiltrate. No gross pneumothorax, no gross bony fractures that I can see. ASSESSMENT: 1. Acute hypoxemic respiratory failure, on mechanical ventilatory support. 2. Pneumonia, right upper lobe, healthcare-associated pneumonia. 3. Mild congestive heart failure exacerbation. 4. Bilateral pleural effusions. 5. Atrial fibrillation with a rapid ventricular response. 6. Diabetes type 2. 7. History of hypertension. 8. Seizure disorder. 9. History of cerebrovascular accident. 10. Coronary artery disease with elevated serum troponins. 11. Anxiety disorder. 12. Dementia. 13. She is legally blind. PLAN: I will keep her on continuous noninvasive ventilation round the clock with a plan to ultimately transitioned to at bedtime alone BiPAP with p.r.n. daytime use. I do believe she will benefit from some diuresis, a low dose diuresis. I will probably put her on 40 mg p.o. of Lasix, certainly do not want to dry her out. I will also be looking forward to the Cardiology evaluation, for now we will continue diltiazem. We will continue empiric cefepime therapy at this point in time, I will hold on addition of vancomycin. Lactic acid levels and CRP levels will be ordered to aid clinical decision making. Cardiology evaluation is already ongoing. We will continue full dose anticoagulation. I will complete the venous thromboembolic disorder workup with bilateral lower extremity Dopplers. I will also be placing her on GI prophylaxis. Aspiration precautions will be maintained. Dysphagia screen will be done if we can get her off the BiPAP support and at that point if she cannot swallow well, feeding tube will be placed. Lactic acid level is now within normal limits, though. Mobility protocol will be instituted as prophylaxis for pressure ulcers. Flu and pneumonia vaccination will be addressed per protocol. Thank you very much for the consult. We will follow along and make further recommendations as picture progresses/becomes clearer. She is critically ill on life-sustaining interventions including continuous noninvasive ventilation and the diltiazem drip at high risk for deterioration including the risk of from cardiopulmonary system deterioration. The exam is grossly nonfocal at this point, I see no acute indication for a CT of the brain, especially that she responded appropriately to me; however, if there is any change in mental status or there is no improvement, consideration will be given for that. At this point, I have spent about 35-40 minutes of critical care time without overlap and excluding any procedural time that may be necessary. The care plan has been discussed with her caregiver in the room and we are all in agreement. JOB# [id number] RAY/CONSTANCE ZHANG
--- NOTE | 2018-07-26 23:40 | XRay Report ---
FINAL REPORT EXAM: XRAY ABDOMEN 1 VIEW HISTORY: DOBHOFF PLACEMENT TECHNIQUE: Supine AP view of the abdomen, centered at the upper abdomen. PRIORS: None. FINDINGS: There is a feeding tube in place with the tip in the mid stomach. The bowel gas pattern appears luna l. The bones are unremarkable. IMPRESSION: Normal bowel gas pattern.
[2018-07-26] MEDS: APRESOLINE PO SCH (23:51)
[2018-07-26] MEDS: DepaKENE Liq PO SCH (23:52)
[2018-07-27] MEDS: HumaLOG SUB-Q SCH ×4 (00:06→18:40)
[2018-07-27 04:52] LABS: Basophils # (Auto) 0.1 K/mm3 (0.0-0.1); Basophils % (Auto) 1.1 % (0.0-1.8); Eosinophils # (Auto) 0.1 K/mm3 (0.0-0.4); Eosinophils % (Auto) 1.6 % (0.0-4.3); Lymphocytes # (Auto) 0.8 K/mm3 (1.2-5.4); Lymphocytes % (Auto) 16.8 % (13.4-35.0); Mean Corpuscular HGB Conc 34 % (30-34); Mean Corpuscular Volume 90 fl (79-97); Monocytes # (Auto) 0.7 K/mm3 (0.0-0.8); Monocytes % (Auto) 14.5 % (0.0-7.3); Platelet Count 179 K/mm3 (140-440); Red Blood Count 4.23 M/mm3 (3.65-5.03); Red Cell Distribution Width 16.3 % (13.2-15.2)
[2018-07-27 05:09] LABS: BUN/Creatinine Ratio 14; Blood Urea Nitrogen 13 mg/dL (7-17); Calcium 8.5 mg/dL (8.4-10.2); Hemolysis Index 3
--- NOTE | 2018-07-27 06:38 | Progress Note ---
Assessment and Plan Acute hypoxemic respiratory failure on NIPPV HAP Right pleural effusion Acute encephalopathy( toxic, metabolic) NSTEMI, type 2 ischaemia h/o CAD Atrial fibrillation h/o CVA h/o HTN -Antibiotics for HAP -Continue with NIPPV for now -Bronchodilators -Supplemental oxygen to keep O2 sats>90% -ABG in am -CXR in the next 48 hours, if persistent pleural effusion plan for thoracentesis( ultrasound guided) -Place small bowel feeding tube and initiate tube feeding, once placement is confirmed. -Nutrition consult -VTE prophylaxis (anticoagulated) -Aspiration precautions -Accucheck with glycemic control. Target blood glucose of 140-180mg/dL -Mobility for pressure ulcer prevention, will place PT/OT consult -Cardiology consult notes reviewed. -Accucheck with glycemic control, target blood glucose <180mg/dL. -Monitor for hypoglycemia CONDITION: CRITICAL PROGNOSIS: GUARDED CODE STATUS: FULL CODE The high probability of a clinically significant, sudden or life-threatening deterioration of the [pulmonary, neurological, cardiovascular) system(s) required my full and direct attention, intervention and personal management. The aggregate critical care time was [35] minutes without overlap. Time includes spent on; [x] Data Review and interpretation [x] Patient assessment and monitoring of vital signs [x] Documentation [x] Medication orders and management Subjective Date of service: 07/20/18 Interval history: Follow up: Acute hypoxemic resp failure on NIPPV; HAP; Acute encephaloapthy; Right pleural effusions: NSTEMI Patient seen and examined. 24 hour events reviewed. 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 Continues to require continuous NIPPV to maintain saturations; No fevers or vomiting. Remains encephalopathy. Vitals, labs, medications, chart and imaging reviewed Objective - Exam Narrative Exam: Gen. appearance: Patient lying in bed, unresponsive on NIPPV HEENT: Normocephalic, atraumatic, pupils equally round and reactive to light, unable to do extraocular movement , and no scleral icterus,. No JVD or thyromegaly or nodule,neck supple, no carotid bruit Heart: S1, S2, irregular rate and rhythm Lungs: Decreased AE bilaterally with rhonchi Abdomen: Positive bowel sounds, non-tender, non distended, no organomegaly Extremity:no edema cyanosis, clubbing Skin: no rash, dry, warm Neuro: difficult to assess Vital Signs - 12hr 07/26/18 07/26/18 07/26/18 18:41 19:00 19:01 Temperature Pulse Rate 94 H 110 H Pulse Rate [ From Monitor] Respiratory 17 16 13 Rate Blood Pressure 129/96 122/95 120/64 O2 Sat by Pulse 100 100 100 Oximetry 07/26/18 07/26/18 07/26/18 19:21 19:38 19:41 Temperature 99.4 F Pulse Rate 138 H 97 H Pulse Rate [ From Monitor] Respiratory 10 L 10 L Rate Blood Pressure 120/64 119/98 O2 Sat by Pulse 99 100 Oximetry 07/26/18 07/26/18 07/26/18 20:00 20:15 20:20 Temperature Pulse Rate 101 H 102 H Pulse Rate [ 102 H From Monitor] Respiratory 14 24 24 Rate Blood Pressure 119/98 149/107 O2 Sat by Pulse 100 100 96 Oximetry 07/26/18 07/26/18 07/26/18 20:40 20:47 20:54 Temperature Pulse Rate 100 H 106 H 90 Pulse Rate [ From Monitor] Respiratory 16 23 14 Rate Blood Pressure 163/91 163/91 O2 Sat by Pulse 100 100 100 Oximetry 07/26/18 07/26/18 07/26/18 21:00 21:30 22:00 Temperature Pulse Rate 95 H 97 H 107 H Pulse Rate [ From Monitor] Respiratory 15 17 13 Rate Blood Pressure 163/91 145/94 185/111 O2 Sat by Pulse 100 100 100 Oximetry 07/26/18 07/26/18 07/26/18 22:30 23:00 23:30 Temperature 99 F Pulse Rate 148 H 100 H Pulse Rate [ From Monitor] Respiratory 19 15 12 Rate Blood Pressure 153/102 153/102 179/111 O2 Sat by Pulse 99 95 100 Oximetry 07/26/18 07/26/18 07/26/18 23:51 23:52 23:55 Temperature Pulse Rate 100 H 112 H Pulse Rate [ 112 H From Monitor] Respiratory 18 Rate Blood Pressure 168/102 168/102 O2 Sat by Pulse 100 Oximetry 07/27/18 07/27/18 07/27/18 00:00 00:23 00:30 Temperature Pulse Rate 116 H 96 H 99 H Pulse Rate [ From Monitor] Respiratory 17 23 13 Rate Blood Pressure 168/102 164/116 O2 Sat by Pulse 100 100 100 Oximetry 02/03/0607/27/18 07/27/18 01:00 01:30 02:00 Temperature Pulse Rate 99 H 101 H 97 H Pulse Rate [ From Monitor] Respiratory 17 24 19 Rate Blood Pressure 147/94 142/88 142/95 O2 Sat by Pulse 100 100 100 Oximetry 07/27/18 03:15 Temperature 97.9 F Pulse Rate Pulse Rate [ From Monitor] Respiratory Rate Blood Pressure O2 Sat by Pulse Oximetry CBC and BMP: 07/28/18 04:48 07/28/18 04:48 ABG, PT/INR, D-dimer: ABG POC ABG pH 7.371 (7.35-7.45) 07/26/18 05:37 POC ABG pCO2 43.8 (35-45) 07/26/18 05:37 POC ABG pO2 69 (80-105) L 07/26/18 05:37 POC ABG HCO3 25.3 07/26/18 05:37 POC ABG Total CO2 27 07/26/18 05:37 POC ABG O2 Sat 93 07/26/18 05:37 PT/INR, D-dimer PT 14.9 Sec. (12.2-14.9) 07/26/18 05:15 INR 1.13 (0.87-1.13) 07/26/18 05:15 D-Dimer 2370.66 ng/mlDDU (0-234) H 07/26/18 05:15 Abnormal lab findings: Abnormal Labs 07/26/18 07/26/18 07/26/18 05:15 05:15 05:15 RDW 16.4 H Lymph % (Auto) 6.1 L [place] % (Auto) 8.4 H Lymph # 0.6 L Seg Neutrophils % 84.5 H Seg Neutrophils # 7.9 H D-Dimer 2370.66 H POC ABG pO2 Glucose POC Glucose Lactic Acid Calcium Alkaline Phosphatase CK-MB (CK-2) Rel Index Troponin T 0.036 H C-Reactive Protein NT-Pro-B Natriuret Pep Albumin HDL Cholesterol 30 L 07/26/18 07/26/18 07/26/18 05:15 05:15 05:37 RDW Lymph % (Auto) [place] % (Auto) Lymph # Seg Neutrophils % Seg Neutrophils # D-Dimer POC ABG pO2 69 L Glucose 224 H POC Glucose Lactic Acid 2.90 H* Calcium 8.3 L Alkaline Phosphatase 251 H CK-MB (CK-2) Rel Index Troponin T C-Reactive Protein NT-Pro-B Natriuret Pep 7314 H Albumin 3.3 L HDL Cholesterol 07/26/18 07/26/18 07/26/18 06:35 06:49 09:26 RDW Lymph % (Auto) [place] % (Auto) Lymph # Seg Neutrophils % Seg Neutrophils # D-Dimer POC ABG pO2 Glucose POC Glucose 195 H Lactic Acid 2.20 H* Calcium Alkaline Phosphatase CK-MB (CK-2) Rel Index Troponin T 0.034 H C-Reactive Protein NT-Pro-B Natriuret Pep Albumin HDL Cholesterol 07/26/18 07/26/18 07/26/18 12:25 12:39 15:42 RDW Lymph % (Auto) [place] % (Auto) Lymph # Seg Neutrophils % Seg Neutrophils # D-Dimer POC ABG pO2 Glucose POC Glucose 171 H Lactic Acid Calcium Alkaline Phosphatase CK-MB (CK-2) Rel Index 4.2 H Troponin T 0.045 H D C-Reactive Protein 2.90 H NT-Pro-B Natriuret Pep Albumin HDL Cholesterol 07/26/18 07/27/18 07/27/18 16:32 00:08 04:23 RDW 16.3 H Lymph % (Auto) [place] % (Auto) 14.5 H Lymph # 0.8 L Seg Neutrophils % Seg Neutrophils # D-Dimer POC ABG pO2 Glucose POC Glucose 140 H 148 H Lactic Acid Calcium Alkaline Phosphatase CK-MB (CK-2) Rel Index Troponin T C-Reactive Protein NT-Pro-B Natriuret Pep Albumin HDL Cholesterol 07/27/18 07/27/18 04:23 05:13 RDW Lymph % (Auto) [place] % (Auto) Lymph # Seg Neutrophils % Seg Neutrophils # D-Dimer POC ABG pO2 Glucose 158 H POC Glucose 176 H Lactic Acid Calcium Alkaline Phosphatase CK-MB (CK-2) Rel Index Troponin T C-Reactive Protein NT-Pro-B Natriuret Pep Albumin HDL Cholesterol Chest x-ray: image reviewed (RUL infiltrate, right pleural effusion) Allied health notes reviewed: RT
[2018-07-27] MEDS ORDERED: SODIUM BICARBONATE FEEDTUBE PRN ×2 (07:29→11:25)
[2018-07-27] MEDS ORDERED: PANCREAZE DR 10,500 UNIT FEEDTUBE PRN ×2 (07:29→11:25)
[2018-07-27] MEDS ORDERED: SIMPLE SYRUP FEEDTUBE PRN ×4 (07:29→11:25)
[2018-07-27] MEDS: LOPRESSOR PO SCH ×4 (07:44→23:36)
[2018-07-27] MEDS: MAXIPIME/NS 2 GM/100 ML 2 GM/100 ML BAG IV SCH ×3 (08:26→21:06)
[2018-07-27] MEDS ORDERED: NORVASC PO SCH (10:00)
[2018-07-27] MEDS: SODIUM CHLORIDE FLUSH SYRINGE 10 ML IV SCH ×2 (10:00→21:08)
[2018-07-27] MEDS: DepaKENE Liq PO SCH ×2 (11:05→21:06)
[2018-07-27] MEDS: LASIX IV SCH (11:06)
[2018-07-27] MEDS: APRESOLINE PO SCH ×2 (11:07→21:35)
[2018-07-27] MEDS: LOVENOX SUB-Q SCH ×2 (11:09→21:07)
--- NOTE | 2018-07-27 12:48 | Progress Note ---
Assessment and Plan Respiratory failure secondary hypoxemia on BiPAP Pneumonia Atrial fibrillation with rapid ventricle response Non-ST elevation CA type II Dementia Hypertension urgency Recommend continue Lovenox 1 mg/kg every 12 48 hours unclear patient be a candidate for long-term" given history of dementia continue heart rate control with Lopressor 50 mg every 6 and BP control awaiting echocardiogram Subjective Date of service: 07/27/18 Principal diagnosis: on bipap and afib Interval history: pt has on bipap and lethargic Objective Vital Signs Temp Pulse Pulse Resp BP Pulse Ox 07/27/18 12:00 96.6 F L 07/27/18 11:08 78 146/93 07/27/18 11:07 92 H 146/93 07/27/18 10:00 83 15 138/95 100 07/27/18 09:30 94 H 25 H 144/90 100 07/27/18 09:00 88 14 151/113 100 07/27/18 08:35 80 17 151/113 100 07/27/18 08:30 82 18 159/117 100 07/27/18 08:00 96.7 F L 91 H 76 18 159/117 100 07/27/18 07:44 88 165/108 07/27/18 07:30 88 16 155/113 100 07/27/18 07:00 95 H 14 150/88 100 07/27/18 06:30 87 12 150/88 100 07/27/18 06:00 92 H 16 153/87 100 07/27/18 05:30 89 15 152/95 100 07/27/18 05:00 88 14 152/95 100 07/27/18 04:30 99 H 25 H 146/92 98 07/27/18 04:00 101 H 101 H 16 148/95 100 07/27/18 03:30 87 17 151/88 100 07/27/18 03:15 97.9 F 07/27/18 03:00 92 H 14 138/85 100 07/27/18 02:30 87 15 142/95 100 07/27/18 02:00 97 H 19 142/95 100 07/27/18 01:30 101 H 24 142/88 100 07/27/18 01:00 99 H 17 147/94 100 07/27/18 00:30 99 H 13 164/116 100 07/27/18 00:23 96 H 23 100 07/27/18 00:00 116 H 17 168/102 100 07/26/18 23:55 112 H 18 100 07/26/18 23:52 112 H 168/102 07/26/18 23:51 100 H 168/102 07/26/18 23:30 99 F 100 H 12 179/111 100 07/26/18 23:00 148 H 15 153/102 95 07/26/18 22:30 19 153/102 99 07/26/18 22:00 107 H 13 185/111 100 07/26/18 21:30 97 H 17 145/94 100 07/26/18 21:00 95 H 15 163/91 100 07/26/18 20:54 90 14 163/91 100 07/26/18 20:47 106 H 23 100 07/26/18 20:40 100 H 16 163/91 100 07/26/18 20:20 102 H 24 149/107 96 07/26/18 20:15 102 H 24 100 07/26/18 20:00 101 H 14 119/98 100 07/26/18 19:41 97 H 10 L 119/98 100 07/26/18 19:38 99.4 F 07/26/18 19:21 138 H 10 L 120/64 99 07/26/18 19:01 110 H 13 120/64 100 07/26/18 19:00 16 122/95 100 07/26/18 18:41 94 H 17 129/96 100 07/26/18 18:20 93 H 18 122/95 100 07/26/18 18:00 86 13 129/96 100 07/26/18 17:40 99 H 18 129/96 100 07/26/18 17:30 19 129/96 100 07/26/18 17:29 96 H 20 98 07/26/18 17:20 82 22 136/87 100 07/26/18 17:00 79 23 145/91 100 07/26/18 16:40 89 14 145/91 100 07/26/18 16:30 13 145/91 100 07/26/18 16:20 88 21 135/90 100 07/26/18 16:00 97.1 F L 76 22 133/87 100 07/26/18 15:40 86 26 H 133/87 100 07/26/18 15:30 20 133/87 100 07/26/18 15:20 69 15 124/85 100 07/26/18 15:00 70 23 123/83 100 07/26/18 14:40 71 26 H 123/83 100 07/26/18 14:36 62 22 100 07/26/18 14:30 22 123/83 100 07/26/18 14:00 18 133/97 100 07/26/18 13:30 15 134/95 99 07/26/18 13:00 9 L 139/97 100 - Physical Examination General: No Apparent Distress HEENT: Positive: PERRL, EOMI Neck: Positive: neck supple Cardiac: Positive: Irregularly Regular Lungs: Positive: Decreased Breath Sounds Neuro: Positive: Other (lethargic) Abdomen: Positive: Soft Extremities: Present: normal, edema (swelling ) - Labs and Meds Cardiac Enzymes 07/26/18 Range/Units 12:39 CK-MB (CK-2) 1.8 (0.0-4.0) ng/mL CBC 07/27/18 Range/Units 04:23 WBC 4.8 (4.5-11.0) K/mm3 RBC 4.23 (3.65-5.03) M/mm3 Hgb 13.0 (10.1-14.3) gm/dl Hct 38.0 (30.3-42.9) % Plt Count 179 (140-440) K/mm3 Lymph # 0.8 L (1.2-5.4) K/mm3 [place] # 0.7 (0.0-0.8) K/mm3 Eos # 0.1 (0.0-0.4) K/mm3 Baso # 0.1 (0.0-0.1) K/mm3 Comprehensive Metabolic Panel 07/27/18 Range/Units 04:23 Sodium 140 (137-145) mmol/L Potassium 4.1 (3.6-5.0) mmol/L Chloride 102.1 (98-107) mmol/L Carbon Dioxide 25 (22-30) mmol/L BUN 13 (7-17) mg/dL Creatinine 0.9 (0.7-1.2) mg/dL Glucose 158 H (65-100) mg/dL Calcium 8.5 (8.4-10.2) mg/dL - Imaging and Cardiology Echo: pending - Telemetry EKG Rhythm: Atrial Fibrillation
[2018-07-27] MEDS ORDERED: LOPRESSOR PO SCH (13:00)
--- NOTE | 2018-07-27 15:14 | Progress Note ---
Assessment and Plan Assessment and plan: --Acute hypoxic respiratory failure; Requiring continuous BiPAP, continue nebulizers, IV steroids IV antibiotics, supportive care, pulmonary critical following --Right-sided pneumonia; empiric antibiotics Follow cultures, supportive care --A. fib with rapid ventricle rate; now rate controlled, continue beta blockers --Chronic anticoagulation with full dose Lovenox --Non-ST elevation [place]; probably type II Cardiology following --Hypertension; moderate control, continue current antihypertensives When necessary medications --Type 2 diabetes mellitus; Accu-Chek sliding scale coverage tube feeding, long-acting insulin --History of seizure disorder; continue antiepileptic medications, seizure precautions, supportive care --Legally blind; supportive care --Dementia; supportive care --DVT prophylaxis; Lovenox Consults and recommendations noted and appreciated Closely monitor the patient and adjust management as needed Critical care time 31 minutes History Interval history: Patient seen and examined medical records reviewed On continuous BiPAP, mild distress No new events reported by the nursing Vital signs reviewed Hospitalist Physical - Constitutional Vitals: Temp Pulse Resp BP Pulse Ox 96.6 F L 72 15 141/87 100 07/27/18 12:00 07/27/18 13:30 07/27/18 13:30 07/27/18 13:30 07/27/18 13:30 General appearance: Present: mild distress, well-nourished, obese, other (continuous BiPAP) - EENT Eyes: Present: PERRL, EOM intact - Neck Neck: Present: supple, normal ROM - Respiratory Respiratory effort: normal, labored Respiratory: bilateral: diminished, rhonchi, negative: rales, wheezing - Cardiovascular Rhythm: regular Heart Sounds: Present: S1 & S2 - Extremities Extremities: no ischemia, No edema - Abdominal General gastrointestinal: soft, non-tender, non-distended, normal bowel sounds - Integumentary Integumentary: Present: clear, warm - Psychiatric Psychiatric: other (non communicative) - Neurologic Neurologic: moves all extremities Results - Labs CBC & Chem 7: 07/27/18 04:23 07/27/18 04:23 Labs: Laboratory Last Values WBC 4.8 K/mm3 (4.5-11.0) 07/27/18 04:23 RBC 4.23 M/mm3 (3.65-5.03) 07/27/18 04:23 Hgb 13.0 gm/dl (10.1-14.3) 07/27/18 04:23 Hct 38.0 % (30.3-42.9) 07/27/18 04:23 MCV 90 fl (79-97) 07/27/18 04:23 MCH 31 pg (28-32) 07/27/18 04:23 MCHC 34 % (30-34) 07/27/18 04:23 RDW 16.3 % (13.2-15.2) H 07/27/18 04:23 Plt Count 179 K/mm3 (140-440) 07/27/18 04:23 Lymph % (Auto) 16.8 % (13.4-35.0) 07/27/18 04:23 [place] % (Auto) 14.5 % (0.0-7.3) H 07/27/18 04:23 Eos % (Auto) 1.6 % (0.0-4.3) 07/27/18 04:23 Baso % (Auto) 1.1 % (0.0-1.8) 07/27/18 04:23 Lymph # 0.8 K/mm3 (1.2-5.4) L 07/27/18 04:23 [place] # 0.7 K/mm3 (0.0-0.8) 07/27/18 04:23 Eos # 0.1 K/mm3 (0.0-0.4) 07/27/18 04:23 Baso # 0.1 K/mm3 (0.0-0.1) 07/27/18 04:23 Seg Neutrophils % 66.0 % (40.0-70.0) 07/27/18 04:23 Seg Neutrophils # 3.2 K/mm3 (1.8-7.7) 07/27/18 04:23 PT 14.9 Sec. (12.2-14.9) 07/26/18 05:15 INR 1.13 (0.87-1.13) 07/26/18 05:15 APTT 29.8 Sec. (24.2-36.6) 07/26/18 05:15 D-Dimer 2370.66 ng/mlDDU (0-234) H 07/26/18 05:15 POC ABG pH 7.371 (7.35-7.45) 07/26/18 05:37 POC ABG pCO2 43.8 (35-45) 07/26/18 05:37 POC ABG pO2 69 (80-105) L 07/26/18 05:37 POC ABG HCO3 25.3 07/26/18 05:37 POC ABG Total CO2 27 07/26/18 05:37 POC ABG O2 Sat 93 07/26/18 05:37 POC ABG Base Excess 0 07/26/18 05:37 FiO2 35 % 07/26/18 05:37 Sodium 140 mmol/L (137-145) 07/27/18 04:23 Potassium 4.1 mmol/L (3.6-5.0) 07/27/18 04:23 Chloride 102.1 mmol/L (98-107) 07/27/18 04:23 Carbon Dioxide 25 mmol/L (22-30) 07/27/18 04:23 Anion Gap 17 mmol/L 07/27/18 04:23 BUN 13 mg/dL (7-17) 07/27/18 04:23 Creatinine 0.9 mg/dL (0.7-1.2) 07/27/18 04:23 Estimated GFR > 60 ml/min 07/27/18 04:23 BUN/Creatinine Ratio 14 % 07/27/18 04:23 Glucose 158 mg/dL (65-100) H 07/27/18 04:23 POC Glucose 161 (70-105) H 07/27/18 11:44 Lactic Acid 1.90 mmol/L (0.7-2.0) 07/27/18 04:23 Calcium 8.5 mg/dL (8.4-10.2) 07/27/18 04:23 Phosphorus 3.10 mg/dL (2.5-4.5) 07/27/18 04:23 Magnesium 1.80 mg/dL (1.7-2.3) 07/27/18 04:23 Total Bilirubin 0.40 mg/dL (0.1-1.2) 07/26/18 05:15 AST 33 units/L (5-40) 07/26/18 05:15 ALT 16 units/L (7-56) 07/26/18 05:15 Alkaline Phosphatase 251 units/L (35-129) H 07/26/18 05:15 Total Creatine Kinase 42 units/L (30-135) 07/26/18 12:39 CK-MB (CK-2) 1.8 ng/mL (0.0-4.0) 07/26/18 12:39 CK-MB (CK-2) Rel Index 4.2 (0-4) H 07/26/18 12:39 Troponin T 0.045 ng/mL (0.00-0.029) H D 07/26/18 12:39 C-Reactive Protein 2.90 mg/dL (0.00-1.30) H 07/26/18 15:42 NT-Pro-B Natriuret Pep 7314 pg/mL (0-900) H 07/26/18 05:15 Total Protein 7.0 g/dL (6.3-8.2) 07/26/18 05:15 Albumin 3.3 g/dL (3.9-5) L 07/26/18 05:15 Albumin/Globulin Ratio 0.9 % 07/26/18 05:15 Triglycerides 120 mg/dL (2-149) 07/26/18 05:15 Cholesterol 111 mg/dL (50-199) 07/26/18 05:15 LDL Cholesterol Direct 70 mg/dL (50-130) 07/26/18 05:15 HDL Cholesterol 30 mg/dL (40-59) L 07/26/18 05:15 Cholesterol/HDL Ratio 3.70 % 07/26/18 05:15 Urine Color Yellow (Yellow) 07/26/18 05:55 Urine Turbidity Clear (Clear) 07/26/18 05:55 Urine pH 6.0 (5.0-7.0) 07/26/18 05:55 Ur Specific [place] 1.006 (1.003-1.030) 07/26/18 05:55 Urine Protein 100 mg/dl mg/dL (Negative) 07/26/18 05:55 Urine Glucose (UA) 50 mg/dL (Negative) 07/26/18 05:55 Urine Ketones Tr mg/dL (Negative) 07/26/18 05:55 Urine Blood Neg (Negative) 07/26/18 05:55 Urine Nitrite Neg (Negative) 07/26/18 05:55 Urine Bilirubin Neg (Negative) 07/26/18 05:55 Urine Urobilinogen < 2.0 mg/dL (<2.0) 07/26/18 05:55 Ur Leukocyte Esterase Neg (Negative) 07/26/18 05:55 Urine WBC (Auto) 2.0 /HPF (0.0-6.0) 07/26/18 05:55 Urine RBC (Auto) 4.0 /HPF (0.0-6.0) 07/26/18 05:55 U Epithel Cells (Auto) < 1.0 /HPF (0-13.0) 07/26/18 05:55 Urine Bacteria (Auto) 1+ /HPF (Negative) 07/26/18 05:55 Urine Mucus Few /HPF 07/26/18 05:55 Nutrition/Malnutrition Assess - Dietary Evaluation Nutrition/Malnutrition Findings: Nutrition Notes Start: 07/26/18 13:42 Freq: Status: Active Protocol: Document 07/27/18 11:21 OL (Rec: 07/27/18 11:24 OL [id number]) Nutrition Notes Need for Assessment generated from: MD Order Initial or Follow up Reassessment Current Diagnosis CKD(stage I-IV) Coronary Artery Disease Diabetes Hypertension Stroke Other Pertinent Diagnosis afib, SOB, Dementia Current Diet TF Labs/Tests glucose 158 Pertinent Medications Reviewed Height 5 ft 2 in Weight 84 kg [place] Body Weight (kg) 50.00 BMI 33.8 Subjective/Other Information RD consult for TF. Burn Absent Trauma Absent #1 Nutrition Diagnosis Predicted suboptimal energy intake Diagnosis Progress(for reassessment Continues documentation) Is patient on ventilator? No Is Patient Ambulatory and/or Out of Bed No REE-([place]-confined to bed) 1605.228 Kcal/Kg value to use for calculation 14 Approximate Energy Requirements Using 1176 kcal/Kg Calculation Used for Recommendations Kcal/kg Additional Notes pro: 100g/day (2g/kg IBW) fluid: 1mL/kcal Nutrition Intervention Change Diet Order: TF Nutrition Support: Vital AF 1.2 at 50mL/hr with 80mL flush q4h Kcal 1,440 Protein (gm) 90 Fluid (mL) 876 Goal #1 TF to meet 80-100% of nutrient needs Anticipated Discharge Needs: Unable to determine at this time Follow-Up By: 07/29/18 Additional Comments f/u: new TF
[2018-07-28] MEDS: HumaLOG SUB-Q SCH ×4 (00:33→18:44)
[2018-07-28] MEDS: MAXIPIME/NS 2 GM/100 ML 2 GM/100 ML BAG IV SCH ×3 (05:42→21:11)
[2018-07-28 05:51] LABS: Basophils % (Auto) 0.8 % (0.0-1.8); Eosinophils # (Auto) 0.2 K/mm3 (0.0-0.4); Eosinophils % (Auto) 5.2 % (0.0-4.3); Hematocrit 32.8 % (30.3-42.9); Hemoglobin 10.3 gm/dl (10.1-14.3); Lymphocytes # (Auto) 0.9 K/mm3 (1.2-5.4); Lymphocytes % (Auto) 21.7 % (13.4-35.0); Mean Corpuscular HGB Conc 32 % (30-34); Mean Corpuscular Volume 92 fl (79-97); Monocytes # (Auto) 0.4 K/mm3 (0.0-0.8); Monocytes % (Auto) 9.8 % (0.0-7.3); Platelet Count 203 K/mm3 (140-440); Red Blood Count 3.56 M/mm3 (3.65-5.03); Red Cell Distribution Width 16.3 % (13.2-15.2)
[2018-07-28] MEDS: LOPRESSOR PO SCH ×3 (06:06→18:10)
[2018-07-28 06:22] LABS: Alanine Aminotransferase 19 units/L (7-56); Albumin 2.8 g/dL (3.9-5); BUN/Creatinine Ratio 14; Blood Urea Nitrogen 13 mg/dL (7-17); Calcium 8.3 mg/dL (8.4-10.2); Hemolysis Index 41
--- NOTE | 2018-07-28 09:14 | Progress Note ---
Assessment and Plan Respiratory failure secondary hypoxemia on BiPAP Pneumonia Atrial fibrillation with rapid ventricle response Non-ST elevation [place] type II Dementia Hypertension urgency Acute systolic heart failure Recommend continue Lovenox 1 mg/kg every 12 for 48 hours unclear patient be a candidate for long-term" given history of dementia continue heart rate control with Lopressor 50 mg every 6 and BP control in view of decreased LV function, hypertension continue diuretics. Beta refugio therapy hydralazine and stop Norvasc and add imdur and losartan - Patient Problems (1) Acute systolic heart failure Current Visit: Yes Status: Acute (2) NSTEMI (non-ST elevated myocardial infarction) Current Visit: Yes Status: Acute (3) Atrial fibrillation Current Visit: No Status: Acute (4) CAD (coronary artery disease) Current Visit: No Status: Chronic (5) Diabetes mellitus Current Visit: No Status: Chronic (6) Hx of CABG Current Visit: No Status: Chronic (7) Hypertension Current Visit: No Status: Chronic Subjective Date of service: 07/28/18 Principal diagnosis: on bipap and afib Interval history: pt lethargic , but moves Objective Vital Signs Temp Pulse Pulse Resp BP Pulse Ox 07/28/18 08:06 79 19 128/89 100 07/28/18 07:30 77 21 150/93 100 07/28/18 07:00 82 11 L 155/92 99 07/28/18 06:30 78 21 134/99 100 07/28/18 06:06 78 149/93 07/28/18 06:00 149/93 100 07/28/18 05:30 81 14 137/76 100 07/28/18 05:00 75 11 L 139/72 100 07/28/18 04:30 77 18 139/72 100 07/28/18 04:00 98.7 F 74 85 12 144/84 100 07/28/18 03:49 79 19 133/79 100 07/28/18 03:30 133/79 100 07/28/18 03:00 144/84 100 07/28/18 02:30 118/66 100 07/28/18 02:00 73 13 139/78 100 07/28/18 01:30 85 20 139/78 99 07/28/18 01:00 77 12 96/25 100 07/28/18 00:54 69 20 96/25 100 07/28/18 00:30 74 13 134/77 100 07/28/18 00:00 98.1 F 77 16 131/77 100 07/27/18 23:42 87 18 100 07/27/18 23:41 98.1 F 07/27/18 23:40 75 17 131/77 100 07/27/18 23:36 86 131/77 07/27/18 23:30 76 23 131/77 99 07/27/18 23:00 80 14 127/75 100 07/27/18 22:30 89 16 126/77 100 07/27/18 22:00 84 12 139/83 100 07/27/18 21:35 79 139/83 07/27/18 21:30 77 14 139/83 100 07/27/18 21:00 79 16 127/89 99 07/27/18 20:30 82 12 140/77 100 07/27/18 20:00 96.9 F L 75 80 15 150/80 100 07/27/18 19:56 75 17 150/80 100 07/27/18 19:30 86 16 137/108 100 07/27/18 19:00 81 13 135/97 100 07/27/18 18:30 75 12 143/89 100 07/27/18 18:00 87 12 158/140 87 07/27/18 17:32 86 21 158/140 100 07/27/18 17:30 77 18 121/79 100 07/27/18 17:00 85 15 147/85 93 07/27/18 16:30 89 16 147/85 100 07/27/18 16:00 96.2 F L 80 83 18 141/92 100 07/27/18 15:30 77 15 141/92 100 07/27/18 15:00 80 21 140/91 99 07/27/18 14:30 77 15 145/81 99 07/27/18 14:00 71 17 139/84 100 07/27/18 13:30 72 15 141/87 100 07/27/18 13:15 76 139/84 07/27/18 13:00 70 21 150/87 100 07/27/18 12:30 83 18 150/87 100 07/27/18 12:00 96.6 F L 84 76 24 141/102 100 07/27/18 11:30 78 16 143/89 100 07/27/18 11:08 78 146/93 07/27/18 11:07 92 H 146/93 07/27/18 11:00 91 H 24 145/100 100 07/27/18 10:30 74 18 144/90 100 07/27/18 10:00 83 15 138/95 100 07/27/18 09:30 94 H 25 H 144/90 100 - Physical Examination General: No Apparent Distress HEENT: Positive: PERRL, EOMI Neck: Positive: neck supple Cardiac: Positive: Irregularly Regular Lungs: Positive: clear to auscultation Neuro: Positive: Other (lethargic) Abdomen: Positive: Soft Extremities: Present: normal, edema (swelling ) - Labs and Meds Cardiac Enzymes 07/28/18 Range/Units 04:48 AST 39 (5-40) units/L CBC 07/28/18 Range/Units 04:48 WBC 4.2 L (4.5-11.0) K/mm3 RBC 3.56 L (3.65-5.03) M/mm3 Hgb 10.3 (10.1-14.3) gm/dl Hct 32.8 (30.3-42.9) % Plt Count 203 (140-440) K/mm3 Lymph # 0.9 L (1.2-5.4) K/mm3 [place] # 0.4 (0.0-0.8) K/mm3 Eos # 0.2 (0.0-0.4) K/mm3 Baso # 0.0 (0.0-0.1) K/mm3 Comprehensive Metabolic Panel 07/28/18 Range/Units 04:48 Sodium 141 (137-145) mmol/L Potassium 3.5 L (3.6-5.0) mmol/L Chloride 103.9 (98-107) mmol/L Carbon Dioxide 24 (22-30) mmol/L BUN 13 (7-17) mg/dL Creatinine 0.9 (0.7-1.2) mg/dL Glucose 139 H (65-100) mg/dL Calcium 8.3 L (8.4-10.2) mg/dL AST 39 (5-40) units/L ALT 19 (7-56) units/L Alkaline Phosphatase 177 H (35-129) units/L Total Protein 6.1 L (6.3-8.2) g/dL Albumin 2.8 L (3.9-5) g/dL - Imaging and Cardiology Echo: report reviewed (quadrant over dysfunction 30 to 35% severe palmar hypertension RVSP 60 mmHg mild RV dysfunction) - Telemetry EKG Rhythm: Atrial Fibrillation (question a fibrillation versus sinus rhythm)
[2018-07-28] MEDS ORDERED: NORVASC PO SCH (09:15)
--- NOTE | 2018-07-28 09:59 | Progress Note ---
Assessment and Plan Assessment and plan: --Hypokalemia: replenish per protocol,monitor levels --Acute hypoxic respiratory failure; Requiring continuous BiPAP, continue nebulizers, IV steroids IV antibiotics, supportive care, pulmonary critical following --Right-sided pneumonia; empiric antibiotics Follow cultures, supportive care --A. fib with rapid ventricle rate; now rate controlled, continue beta blockers --Chronic anticoagulation with full dose Lovenox --Non-ST elevation [place]; probably type II Cardiology following --Hypertension; moderate control, continue current antihypertensives When necessary medications --Type 2 diabetes mellitus; Accu-Chek sliding scale coverage tube feeding, long-acting insulin --History of seizure disorder; continue antiepileptic medications, seizure precautions, supportive care --Legally blind; supportive care --Dementia; supportive care --Severe malnutrition; hypoproteinemia, nutrition supplements Nutrition consult --DVT prophylaxis; Lovenox Closely monitor the patient and adjust the management as needed Consultation recommendations noted Critical care time 35 minutes The high probability of a clinically significant, sudden or life threatening deterioration of the [cardiac, respiratory , neuro] system(s) required my full and direct attention, intervention and personal management. The aggregate critical care time was [35] minutes. This time is in addition to time spent performing reported procedures but includes the following: [x] Data Review and interpretation [x] Patient assessment and monitoring of vital signs [x] Documentation [x] Medication orders and management History Interval history: Patient seen and examined medical records reviewed No new events reported by the nursing staff Patient remains on continuous BiPAP In mild distress Vital signs reviewed Hospitalist Physical - Constitutional Vitals: Temp Pulse Resp BP Pulse Ox 96.2 F L 79 19 128/89 100 07/28/18 08:00 07/28/18 08:06 07/28/18 08:06 07/28/18 08:06 07/28/18 08:06 General appearance: Present: mild distress, well-nourished, obese, other (continuous BiPAP) - EENT Eyes: Present: PERRL, EOM intact - Neck Neck: Present: supple, normal ROM - Respiratory Respiratory effort: normal Respiratory: bilateral: diminished, rhonchi, negative: rales, wheezing - Cardiovascular Rhythm: regular Heart Sounds: Present: S1 & S2 - Extremities Extremities: no ischemia, No edema - Abdominal General gastrointestinal: soft, non-tender, non-distended, normal bowel sounds - Integumentary Integumentary: Present: clear, warm - Psychiatric Psychiatric: cooperative - Neurologic Neurologic: moves all extremities, other (on BiPAP) Results - Labs CBC & Chem 7: 07/28/18 04:48 07/28/18 04:48 Labs: Laboratory Last Values WBC 4.2 K/mm3 (4.5-11.0) L 07/28/18 04:48 RBC 3.56 M/mm3 (3.65-5.03) L 07/28/18 04:48 Hgb 10.3 gm/dl (10.1-14.3) 07/28/18 04:48 Hct 32.8 % (30.3-42.9) 07/28/18 04:48 MCV 92 fl (79-97) 07/28/18 04:48 MCH 29 pg (28-32) 07/28/18 04:48 MCHC 32 % (30-34) 07/28/18 04:48 RDW 16.3 % (13.2-15.2) H 07/28/18 04:48 Plt Count 203 K/mm3 (140-440) 07/28/18 04:48 Lymph % (Auto) 21.7 % (13.4-35.0) 07/28/18 04:48 [place] % (Auto) 9.8 % (0.0-7.3) H 07/28/18 04:48 Eos % (Auto) 5.2 % (0.0-4.3) H 07/28/18 04:48 Baso % (Auto) 0.8 % (0.0-1.8) 07/28/18 04:48 Lymph # 0.9 K/mm3 (1.2-5.4) L 07/28/18 04:48 [place] # 0.4 K/mm3 (0.0-0.8) 07/28/18 04:48 Eos # 0.2 K/mm3 (0.0-0.4) 07/28/18 04:48 Baso # 0.0 K/mm3 (0.0-0.1) 07/28/18 04:48 Seg Neutrophils % 62.5 % (40.0-70.0) 07/28/18 04:48 Seg Neutrophils # 2.6 K/mm3 (1.8-7.7) 07/28/18 04:48 PT 14.9 Sec. (12.2-14.9) 07/26/18 05:15 INR 1.13 (0.87-1.13) 07/26/18 05:15 APTT 29.8 Sec. (24.2-36.6) 07/26/18 05:15 D-Dimer 2370.66 ng/mlDDU (0-234) H 07/26/18 05:15 POC ABG pH 7.371 (7.35-7.45) 07/26/18 05:37 POC ABG pCO2 43.8 (35-45) 07/26/18 05:37 POC ABG pO2 69 (80-105) L 07/26/18 05:37 POC ABG HCO3 25.3 07/26/18 05:37 POC ABG Total CO2 27 07/26/18 05:37 POC ABG O2 Sat 93 07/26/18 05:37 POC ABG Base Excess 0 07/26/18 05:37 FiO2 35 % 07/26/18 05:37 Sodium 141 mmol/L (137-145) 07/28/18 04:48 Potassium 3.5 mmol/L (3.6-5.0) L 07/28/18 04:48 Chloride 103.9 mmol/L (98-107) 07/28/18 04:48 Carbon Dioxide 24 mmol/L (22-30) 07/28/18 04:48 Anion Gap 17 mmol/L 07/28/18 04:48 BUN 13 mg/dL (7-17) 07/28/18 04:48 Creatinine 0.9 mg/dL (0.7-1.2) 07/28/18 04:48 Estimated GFR > 60 ml/min 07/28/18 04:48 BUN/Creatinine Ratio 14 % 07/28/18 04:48 Glucose 139 mg/dL (65-100) H 07/28/18 04:48 POC Glucose 133 (70-105) H 07/28/18 05:56 Lactic Acid 1.90 mmol/L (0.7-2.0) 07/27/18 04:23 Calcium 8.3 mg/dL (8.4-10.2) L 07/28/18 04:48 Phosphorus 3.00 mg/dL (2.5-4.5) 07/28/18 04:48 Magnesium 1.90 mg/dL (1.7-2.3) 07/28/18 04:48 Total Bilirubin 0.30 mg/dL (0.1-1.2) 07/28/18 04:48 AST 39 units/L (5-40) 07/28/18 04:48 ALT 19 units/L (7-56) 07/28/18 04:48 Alkaline Phosphatase 177 units/L (35-129) H 07/28/18 04:48 Total Creatine Kinase 42 units/L (30-135) 07/26/18 12:39 CK-MB (CK-2) 1.8 ng/mL (0.0-4.0) 07/26/18 12:39 CK-MB (CK-2) Rel Index 4.2 (0-4) H 07/26/18 12:39 Troponin T 0.045 ng/mL (0.00-0.029) H D 07/26/18 12:39 C-Reactive Protein 2.90 mg/dL (0.00-1.30) H 07/26/18 15:42 NT-Pro-B Natriuret Pep 7314 pg/mL (0-900) H 07/26/18 05:15 Total Protein 6.1 g/dL (6.3-8.2) L 07/28/18 04:48 Albumin 2.8 g/dL (3.9-5) L 07/28/18 04:48 Albumin/Globulin Ratio 0.8 % 07/28/18 04:48 Triglycerides 120 mg/dL (2-149) 07/26/18 05:15 Cholesterol 111 mg/dL (50-199) 07/26/18 05:15 LDL Cholesterol Direct 70 mg/dL (50-130) 07/26/18 05:15 HDL Cholesterol 30 mg/dL (40-59) L 07/26/18 05:15 Cholesterol/HDL Ratio 3.70 % 07/26/18 05:15 Urine Color Yellow (Yellow) 07/26/18 05:55 Urine Turbidity Clear (Clear) 07/26/18 05:55 Urine pH 6.0 (5.0-7.0) 07/26/18 05:55 Ur Specific [place] 1.006 (1.003-1.030) 07/26/18 05:55 Urine Protein 100 mg/dl mg/dL (Negative) 07/26/18 05:55 Urine Glucose (UA) 50 mg/dL (Negative) 07/26/18 05:55 Urine Ketones Tr mg/dL (Negative) 07/26/18 05:55 Urine Blood Neg (Negative) 07/26/18 05:55 Urine Nitrite Neg (Negative) 07/26/18 05:55 Urine Bilirubin Neg (Negative) 07/26/18 05:55 Urine Urobilinogen < 2.0 mg/dL (<2.0) 07/26/18 05:55 Ur Leukocyte Esterase Neg (Negative) 07/26/18 05:55 Urine WBC (Auto) 2.0 /HPF (0.0-6.0) 07/26/18 05:55 Urine RBC (Auto) 4.0 /HPF (0.0-6.0) 07/26/18 05:55 U Epithel Cells (Auto) < 1.0 /HPF (0-13.0) 07/26/18 05:55 Urine Bacteria (Auto) 1+ /HPF (Negative) 07/26/18 05:55 Urine Mucus Few /HPF 07/26/18 05:55 Nutrition/Malnutrition Assess - Dietary Evaluation Nutrition/Malnutrition Findings: Nutrition Notes Start: 07/26/18 13:42 Freq: Status: Active Protocol: Document 07/27/18 11:21 OL (Rec: 07/27/18 11:24 OL [id number]) Nutrition Notes Need for Assessment generated from: MD Order Initial or Follow up Reassessment Current Diagnosis CKD(stage I-IV) Coronary Artery Disease Diabetes Hypertension Stroke Other Pertinent Diagnosis afib, SOB, Dementia Current Diet TF Labs/Tests glucose 158 Pertinent Medications Reviewed Height 5 ft 2 in Weight 84 kg [place] Body Weight (kg) 50.00 BMI 33.8 Subjective/Other Information RD consult for TF. Burn Absent Trauma Absent #1 Nutrition Diagnosis Predicted suboptimal energy intake Diagnosis Progress(for reassessment Continues documentation) Is patient on ventilator? No Is Patient Ambulatory and/or Out of Bed No REE-([place]-confined to bed) 1605.228 Kcal/Kg value to use for calculation 14 Approximate Energy Requirements Using 1176 kcal/Kg Calculation Used for Recommendations Kcal/kg Additional Notes pro: 100g/day (2g/kg IBW) fluid: 1mL/kcal Nutrition Intervention Change Diet Order: TF Nutrition Support: Vital AF 1.2 at 50mL/hr with 80mL flush q4h Kcal 1,440 Protein (gm) 90 Fluid (mL) 876 Goal #1 TF to meet 80-100% of nutrient needs Anticipated Discharge Needs: Unable to determine at this time Follow-Up By: 07/29/18 Additional Comments f/u: new TF
[2018-07-28] MEDS ORDERED: IMDUR PO SCH (10:00)
[2018-07-28] MEDS: DepaKENE Liq PO SCH ×2 (10:10→21:12)
[2018-07-28] MEDS: LASIX IV SCH (10:10)
[2018-07-28] MEDS: LOVENOX SUB-Q SCH ×2 (10:10→21:11)
[2018-07-28] MEDS ORDERED: POTASSIUM CHLORIDE FEEDTUBE ONE (11:00)
[2018-07-28] MEDS: APRESOLINE PO SCH ×3 (11:10→20:53)
[2018-07-28] MEDS: COZAAR PO SCH (11:11)
--- NOTE | 2018-07-28 11:11 | Ultrasound Report ---
FINAL REPORT EXAM: US CHEST HISTORY: bilateral effusions TECHNIQUE: PRIORS: None. FINDINGS: There is a right pleural effusion with a volume measuring 345 milliliters. The pleural effusion appea rs simple without evidence of internal septation or debris. No left pleural effusion. IMPRESSION: Moderate simple right pleural effusion. No left pleural effusion.
[2018-07-28] MEDS: SODIUM CHLORIDE FLUSH SYRINGE 10 ML IV SCH ×2 (11:13→21:31)
--- NOTE | 2018-07-28 15:25 | Progress Note ---
Assessment and Plan Acute hypoxemic respiratory failure on NIPPV HAP Right pleural effusion Acute encephalopathy( toxic, metabolic) NSTEMI, type 2 ischaemia h/o CAD Atrial fibrillation h/o CVA h/o HTN -Antibiotics for HAP -Continue with NIPPV for now -Bronchodilators -Supplemental oxygen to keep O2 sats>90% -ABG in am -CXR in the next 24 hours, if persistent pleural effusion plan for thoracentesis (ultrasound guided) -Continue tube feeding -VTE prophylaxis (anticoagulated) -Aspiration precautions -Mobility for pressure ulcer prevention, PT/OT -Accucheck with glycemic control, target blood glucose <180mg/dL. -Monitor for hypoglycemia Continue all supportive care for now. Acceptable gas exchange, will start wening BIPAP tomorrow as tolerated CONDITION: CRITICAL PROGNOSIS: GUARDED CODE STATUS: FULL CODE The high probability of a clinically significant, sudden or life-threatening deterioration of the [pulmonary, neurological, cardiovascular) system(s) required my full and direct attention, intervention and personal management. The aggregate critical care time was [35] minutes without overlap. Time includes spent on; [x] Data Review and interpretation [x] Patient assessment and monitoring of vital signs [x] Documentation [x] Medication orders and management Subjective Date of service: 07/28/18 Principal diagnosis: on bipap and afib Interval history: Follow up: Acute hypoxemic resp failure on NIPPV; HAP; Acute encephaloapthy; Right pleural effusions: NSTEMI Patient seen and examined. 24 hour events reviewed. No new events reported by RT control operator. Continues to require continuous NIPPV to maintain saturations; No fevers or vomiting. Remains encephalopathy. Vitals, labs, medications, chart and imaging reviewed Objective - Exam Narrative Exam: Gen. appearance: Patient lying in bed, unresponsive on NIPPV HEENT: Normocephalic, atraumatic, pupils equally round and reactive to light, unable to do extraocular movement , and no scleral icterus,. No JVD or thyromeg sae or nodule,neck supple, no carotid bruit Heart: S1, S2, irregular rate and rhythm Lungs: Decreased AE bilaterally with rhonchi Abdomen: Positive bowel sounds, non-tender, non distended, no organomegaly Extremity:no edema cyanosis, clubbing Skin: no rash, dry, warm Neuro: difficult to assess, moans and gron, opens eyes on verbal stimuli, not obeying commands Vital Signs - 12hr 07/28/18 07/28/18 07/28/18 03:30 03:49 04:00 Temperature 98.7 F Pulse Rate 79 74 Pulse Rate [ 85 From Monitor] Respiratory 19 12 Rate Blood Pressure 133/79 133/79 144/84 O2 Sat by Pulse 100 100 100 Oximetry 07/28/18 07/28/18 07/28/18 04:30 05:00 05:30 Temperature Pulse Rate 77 75 81 Pulse Rate [ From Monitor] Respiratory 18 11 L 14 Rate Blood Pressure 139/72 139/72 137/76 O2 Sat by Pulse 100 100 100 Oximetry 07/28/18 07/28/18 07/28/18 06:00 06:06 06:30 Temperature Pulse Rate 78 78 Pulse Rate [ From Monitor] Respiratory 21 Rate Blood Pressure 149/93 149/93 134/99 O2 Sat by Pulse 100 100 Oximetry 07/28/18 07/28/18 07/28/18 07:00 07:30 08:00 Temperature 96.2 F L Pulse Rate 82 77 79 Pulse Rate [ 77 From Monitor] Respiratory 11 L 21 13 Rate Blood Pressure 155/92 150/93 131/84 O2 Sat by Pulse 99 100 100 Oximetry 07/28/18 07/28/18 07/28/18 08:06 08:30 09:00 Temperature Pulse Rate 79 80 77 Pulse Rate [ From Monitor] Respiratory 19 18 17 Rate Blood Pressure 128/89 128/89 112/82 O2 Sat by Pulse 100 100 100 Oximetry 07/28/18 07/28/18 07/28/18 09:30 10:00 10:30 Temperature Pulse Rate 78 80 81 Pulse Rate [ From Monitor] Respiratory 13 13 15 Rate Blood Pressure 144/81 144/81 147/94 O2 Sat by Pulse 100 100 100 Oximetry 07/28/18 07/28/18 07/28/18 11:00 11:10 11:11 Temperature Pulse Rate 77 76 89 Pulse Rate [ From Monitor] Respiratory 16 Rate Blood Pressure 152/96 144/81 152/96 O2 Sat by Pulse Oximetry 07/28/18 07/28/18 07/28/18 11:22 11:30 12:00 Temperature 96.2 F L Pulse Rate 84 83 80 Pulse Rate [ 82 From Monitor] Respiratory 13 15 Rate Blood Pressure 152/96 152/96 141/85 O2 Sat by Pulse 100 100 Oximetry 07/28/18 07/28/18 07/28/18 12:15 12:30 13:00 Temperature Pulse Rate 85 77 81 Pulse Rate [ From Monitor] Respiratory 25 H 19 24 Rate Blood Pressure 152/116 152/116 119/72 O2 Sat by Pulse 100 100 100 Oximetry 07/28/18 07/28/18 07/28/18 13:30 13:33 14:00 Temperature Pulse Rate 77 74 74 Pulse Rate [ From Monitor] Respiratory 21 16 Rate Blood Pressure 119/72 123/76 114/75 O2 Sat by Pulse 100 100 Oximetry 07/28/18 14:30 Temperature Pulse Rate 81 Pulse Rate [ From Monitor] Respiratory 14 Rate Blood Pressure 114/75 O2 Sat by Pulse 100 Oximetry CBC and BMP: 07/28/18 04:48 07/28/18 04:48 ABG, PT/INR, D-dimer: ABG POC ABG pH 7.371 (7.35-7.45) 07/26/18 05:37 POC ABG pCO2 43.8 (35-45) 07/26/18 05:37 POC ABG pO2 69 (80-105) L 07/26/18 05:37 POC ABG HCO3 25.3 07/26/18 05:37 POC ABG Total CO2 27 07/26/18 05:37 POC ABG O2 Sat 93 07/26/18 05:37 PT/INR, D-dimer PT 14.9 Sec. (12.2-14.9) 07/26/18 05:15 INR 1.13 (0.87-1.13) 07/26/18 05:15 D-Dimer 2370.66 ng/mlDDU (0-234) H 07/26/18 05:15 Abnormal lab findings: Abnormal Labs 07/26/18 07/26/18 07/26/18 05:15 05:15 05:15 WBC RBC RDW 16.4 H Lymph % (Auto) 6.1 L [place] % (Auto) 8.4 H Eos % (Auto) Lymph # 0.6 L Seg Neutrophils % 84.5 H Seg Neutrophils # 7.9 H D-Dimer 2370.66 H POC ABG pO2 Potassium Glucose POC Glucose Lactic Acid Calcium Alkaline Phosphatase CK-MB (CK-2) Rel Index Troponin T 0.036 H C-Reactive Protein NT-Pro-B Natriuret Pep Total Protein Albumin HDL Cholesterol 30 L 07/26/18 07/26/18 07/26/18 05:15 05:15 05:37 WBC RBC RDW Lymph % (Auto) [place] % (Auto) Eos % (Auto) Lymph # Seg Neutrophils % Seg Neutrophils # D-Dimer POC ABG pO2 69 L Potassium Glucose 224 H POC Glucose Lactic Acid 2.90 H* Calcium 8.3 L Alkaline Phosphatase 251 H CK-MB (CK-2) Rel Index Troponin T C-Reactive Protein NT-Pro-B Natriuret Pep 7314 H Total Protein Albumin 3.3 L HDL Cholesterol 07/26/18 07/26/18 07/26/18 06:35 06:49 09:26 WBC RBC RDW Lymph % (Auto) [place] % (Auto) Eos % (Auto) Lymph # Seg Neutrophils % Seg Neutrophils # D-Dimer POC ABG pO2 Potassium Glucose POC Glucose 195 H Lactic Acid 2.20 H* Calcium Alkaline Phosphatase CK-MB (CK-2) Rel Index Troponin T 0.034 H C-Reactive Protein NT-Pro-B Natriuret Pep Total Protein Albumin HDL Cholesterol 07/26/18 07/26/18 07/26/18 12:25 12:39 15:42 WBC RBC RDW Lymph % (Auto) [place] % (Auto) Eos % (Auto) Lymph # Seg Neutrophils % Seg Neutrophils # D-Dimer POC ABG pO2 Potassium Glucose POC Glucose 171 H Lactic Acid Calcium Alkaline Phosphatase CK-MB (CK-2) Rel Index 4.2 H Troponin T 0.045 H D C-Reactive Protein 2.90 H NT-Pro-B Natriuret Pep Total Protein Albumin HDL Cholesterol 07/26/18 07/27/18 07/27/18 16:32 00:08 04:23 WBC RBC RDW 16.3 H Lymph % (Auto) [place] % (Auto) 14.5 H Eos % (Auto) Lymph # 0.8 L Seg Neutrophils % Seg Neutrophils # D-Dimer POC ABG pO2 Potassium Glucose POC Glucose 140 H 148 H Lactic Acid Calcium Alkaline Phosphatase CK-MB (CK-2) Rel Index Troponin T C-Reactive Protein NT-Pro-B Natriuret Pep Total Protein Albumin HDL Cholesterol 07/27/18 07/27/18 07/27/18 04:23 05:13 11:44 WBC RBC RDW Lymph % (Auto) [place] % (Auto) Eos % (Auto) Lymph # Seg Neutrophils % Seg Neutrophils # D-Dimer POC ABG pO2 Potassium Glucose 158 H POC Glucose 176 H 161 H Lactic Acid Calcium Alkaline Phosphatase CK-MB (CK-2) Rel Index Troponin T C-Reactive Protein NT-Pro-B Natriuret Pep Total Protein Albumin HDL Cholesterol 07/27/18 07/27/18 07/28/18 18:22 23:33 04:48 WBC 4.2 L RBC 3.56 L RDW 16.3 H Lymph % (Auto) [place] % (Auto) 9.8 H Eos % (Auto) 5.2 H Lymph # 0.9 L Seg Neutrophils % Seg Neutrophils # D-Dimer POC ABG pO2 Potassium Glucose POC Glucose 190 H 121 H Lactic Acid Calcium Alkaline Phosphatase CK-MB (CK-2) Rel Index Troponin T C-Reactive Protein NT-Pro-B Natriuret Pep Total Protein Albumin HDL Cholesterol 07/28/18 07/28/18 07/28/18 04:48 05:56 11:49 WBC RBC RDW Lymph % (Auto) [place] % (Auto) Eos % (Auto) Lymph # Seg Neutrophils % Seg Neutrophils # D-Dimer POC ABG pO2 Potassium 3.5 L Glucose 139 H POC Glucose 133 H 214 H Lactic Acid Calcium 8.3 L Alkaline Phosphatase 177 H CK-MB (CK-2) Rel Index Troponin T C-Reactive Protein NT-Pro-B Natriuret Pep Total Protein 6.1 L Albumin 2.8 L HDL Cholesterol
[2018-07-29] MEDS: HumaLOG SUB-Q SCH ×4 (00:12→18:49)
[2018-07-29] MEDS: LOPRESSOR PO SCH ×4 (00:13→18:50)
[2018-07-29] MEDS: MAXIPIME/NS 2 GM/100 ML 2 GM/100 ML BAG IV SCH ×2 (06:22→13:40)
[2018-07-29] MEDS: APRESOLINE PO SCH ×3 (08:53→22:12)
[2018-07-29] MEDS: COZAAR PO SCH (10:56)
[2018-07-29] MEDS: DepaKENE Liq PO SCH ×2 (10:57→22:13)
[2018-07-29] MEDS: LASIX IV SCH (10:57)
[2018-07-29] MEDS: LOVENOX SUB-Q SCH ×2 (10:57→22:14)
[2018-07-29] MEDS: SODIUM CHLORIDE FLUSH SYRINGE 10 ML IV SCH ×2 (10:58→22:14)
--- NOTE | 2018-07-29 11:35 | Progress Note ---
Assessment and Plan Acute hypoxemic respiratory failure, on mechanical ventilatory support. Pneumonia, right upper lobe, healthcare-associated pneumonia. Mild congestive heart failure exacerbation. Bilateral pleural effusions. Atrial fibrillation with a rapid ventricular response. Acute on Chronic Encephalopathy Diabetes type 2. History of hypertension. Seizure disorder. History of cerebrovascular accident. Coronary artery disease with elevated serum troponins. Anxiety disorder. Dementia. She is legally blind - get CT head i able to tolerate breaks off BIPAP - give daytime breaks off BIPAP as tolerated - continue to wean oxygen to keep O2 sats > 90% - continue Antibiotics for HAP (ID consulted also) - continue bronchodilators with pulmonary hygiene per RT - ABG prn at this point (ordered today to evaluate for hypercapnia) - change lasix to p.o. dosing at this time as pulmonaruy edema better - hold on thoracentesis acutely - continue tube feeding as tolerated - VTE prophylaxis (anticoagulated) - continue asspiration precautions - continue mobility protocol for pressure ulcer prophylaxis - PT/OT as tolerated - discontinue oliver catheter - continue accuchecks with glycemic control per SSI for target blood glucose < 180 mg/dL. - Monitor for hypoglycemia - continue other care per attending / other consultants Continue all supportive care for now. Acceptable gas exchange, will start wening BIPAP tomorrow as tolerated CONDITION: CRITICAL PROGNOSIS: GUARDED CODE STATUS: FULL CODE The high probability of a clinically significant, sudden or life-threatening deterioration of the [pulmonary, neurological, cardiovascular) system(s) required my full and direct attention, intervention and personal management. The aggregate critical care time was [35] minutes without overlap. Time includes spent on; [x] Data Review and interpretation [x] Patient assessment and monitoring of vital signs [x] Documentation [x] Medication orders and management Subjective Date of service: 07/29/18 Principal diagnosis: Acute hypoxemic Resp failure; Pneumonia (HAP); Tod Pleural effusions; A-Fib Interval history: Patient is seen today for: Acute hypoxemic Resp failure; Pneumonia (RUL HAP); Mild congestive heart failure exacerbation; Bilateral pleural effusions; Atrial fibrillation with a rapid ventricular response; Diabetes type 2. Seen and examined at bedside; 24hour events reviewed; nursing and respiratory care staff consulted; no adverse overnight events reported to me; remains on continuous BIPAP therapy; still lethargic but apparently not far from baseline per discussions with [id number]; no emesis or overt aspiration noted. Objective Vital Signs - 12hr 07/28/18 07/29/18 07/29/18 23:59 00:00 00:13 Temperature 97.1 F L Pulse Rate 76 89 Pulse Rate [ 89 From Monitor] Respiratory 16 Rate Blood Pressure 131/74 127/77 O2 Sat by Pulse 100 Oximetry 07/29/18 07/29/18 07/29/18 00:30 01:00 01:30 Temperature Pulse Rate 77 76 83 Pulse Rate [ From Monitor] Respiratory 15 15 17 Rate Blood Pressure 127/77 138/83 138/83 O2 Sat by Pulse Oximetry 07/29/18 07/29/18 07/29/18 02:00 02:30 03:00 Temperature Pulse Rate 79 73 74 Pulse Rate [ From Monitor] Respiratory 14 22 16 Rate Blood Pressure 144/88 157/88 125/84 O2 Sat by Pulse 100 98 Oximetry 07/29/18 07/29/18 07/29/18 03:30 04:00 04:30 Temperature 97.9 F Pulse Rate 77 83 73 Pulse Rate [ 78 From Monitor] Respiratory 19 18 16 Rate Blood Pressure 135/80 127/75 128/76 O2 Sat by Pulse 96 98 99 Oximetry 07/29/18 07/29/18 07/29/18 05:00 05:30 06:00 Temperature Pulse Rate 77 77 79 Pulse Rate [ From Monitor] Respiratory 18 16 23 Rate Blood Pressure 132/78 132/78 127/75 O2 Sat by Pulse 99 100 Oximetry 07/29/18 07/29/18 07/29/18 06:22 06:30 07:00 Temperature Pulse Rate 87 85 72 Pulse Rate [ From Monitor] Respiratory 16 18 Rate Blood Pressure 127/75 127/75 117/67 O2 Sat by Pulse 99 99 Oximetry 07/29/18 07/29/18 07/29/18 08:18 08:53 10:56 Temperature Pulse Rate 77 74 75 Pulse Rate [ From Monitor] Respiratory 23 Rate Blood Pressure 130/72 112/79 122/72 O2 Sat by Pulse 100 Oximetry Constitutional: no acute distress, appears uncomfortable, other (elderly looking obese AAF; normocephalic and atraumatic with mildly increased respiratory effort at rest) Eyes: non-icteric ENT: oropharynx moist Neck: supple, no lymphadenopathy, no JVD, other (no thyromegaly) Effort: mildly labored Ascultation: Bilateral: diminished breath sounds, rhonchi Percussion: Bilateral: not dull Cardiovascular: regular rate and rhythm, murmur noted (systolic) Gastrointestinal: normoactive bowel sounds, soft, non-tender, non-distended Integumentary: other (poor turgor) Extremities: no cyanosis, pulses normal, no ischemia or petechiae, edema (trace) Neurologic: pupils equal and round, unable to assess Psychiatric: other (unable to assess) CBC and BMP: 07/28/18 04:48 07/28/18 04:48 ABG, PT/INR, D-dimer: ABG POC ABG pH 7.371 (7.35-7.45) 07/26/18 05:37 POC ABG pCO2 43.8 (35-45) 07/26/18 05:37 POC ABG pO2 69 (80-105) L 07/26/18 05:37 POC ABG HCO3 25.3 07/26/18 05:37 POC ABG Total CO2 27 07/26/18 05:37 POC ABG O2 Sat 93 07/26/18 05:37 PT/INR, D-dimer PT 14.9 Sec. (12.2-14.9) 07/26/18 05:15 INR 1.13 (0.87-1.13) 07/26/18 05:15 D-Dimer 2370.66 ng/mlDDU (0-234) H 07/26/18 05:15 Abnormal lab findings: Abnormal Labs 07/26/18 07/26/18 07/26/18 05:15 05:15 05:15 WBC RBC RDW 16.4 H Lymph % (Auto) 6.1 L [place] % (Auto) 8.4 H Eos % (Auto) Lymph # 0.6 L Seg Neutrophils % 84.5 H Seg Neutrophils # 7.9 H D-Dimer 2370.66 H POC ABG pO2 Potassium Glucose POC Glucose Lactic Acid Calcium Alkaline Phosphatase CK-MB (CK-2) Rel Index Troponin T 0.036 H C-Reactive Protein NT-Pro-B Natriuret Pep Total Protein Albumin HDL Cholesterol 30 L 07/26/18 07/26/18 07/26/18 05:15 05:15 05:37 WBC RBC RDW Lymph % (Auto) [place] % (Auto) Eos % (Auto) Lymph # Seg Neutrophils % Seg Neutrophils # D-Dimer POC ABG pO2 69 L Potassium Glucose 224 H POC Glucose Lactic Acid 2.90 H* Calcium 8.3 L Alkaline Phosphatase 251 H CK-MB (CK-2) Rel Index Troponin T C-Reactive Protein NT-Pro-B Natriuret Pep 7314 H Total Protein Albumin 3.3 L HDL Cholesterol 07/26/18 07/26/18 07/26/18 06:35 06:49 09:26 WBC RBC RDW Lymph % (Auto) [place] % (Auto) Eos % (Auto) Lymph # Seg Neutrophils % Seg Neutrophils # D-Dimer POC ABG pO2 Potassium Glucose POC Glucose 195 H Lactic Acid 2.20 H* Calcium Alkaline Phosphatase CK-MB (CK-2) Rel Index Troponin T 0.034 H C-Reactive Protein NT-Pro-B Natriuret Pep Total Protein Albumin HDL Cholesterol 07/26/18 07/26/18 07/26/18 12:25 12:39 15:42 WBC RBC RDW Lymph % (Auto) [place] % (Auto) Eos % (Auto) Lymph # Seg Neutrophils % Seg Neutrophils # D-Dimer POC ABG pO2 Potassium Glucose POC Glucose 171 H Lactic Acid Calcium Alkaline Phosphatase CK-MB (CK-2) Rel Index 4.2 H Troponin T 0.045 H D C-Reactive Protein 2.90 H NT-Pro-B Natriuret Pep Total Protein Albumin HDL Cholesterol 07/26/18 07/27/18 07/27/18 16:32 00:08 04:23 WBC RBC RDW 16.3 H Lymph % (Auto) [place] % (Auto) 14.5 H Eos % (Auto) Lymph # 0.8 L Seg Neutrophils % Seg Neutrophils # D-Dimer POC ABG pO2 Potassium Glucose POC Glucose 140 H 148 H Lactic Acid Calcium Alkaline Phosphatase CK-MB (CK-2) Rel Index Troponin T C-Reactive Protein NT-Pro-B Natriuret Pep Total Protein Albumin HDL Cholesterol 07/27/18 07/27/18 07/27/18 04:23 05:13 11:44 WBC RBC RDW Lymph % (Auto) [place] % (Auto) Eos % (Auto) Lymph # Seg Neutrophils % Seg Neutrophils # D-Dimer POC ABG pO2 Potassium Glucose 158 H POC Glucose 176 H 161 H Lactic Acid Calcium Alkaline Phosphatase CK-MB (CK-2) Rel Index Troponin T C-Reactive Protein NT-Pro-B Natriuret Pep Total Protein Albumin HDL Cholesterol 07/27/18 07/27/18 07/28/18 18:22 23:33 04:48 WBC 4.2 L RBC 3.56 L RDW 16.3 H Lymph % (Auto) [place] % (Auto) 9.8 H Eos % (Auto) 5.2 H Lymph # 0.9 L Seg Neutrophils % Seg Neutrophils # D-Dimer POC ABG pO2 Potassium Glucose POC Glucose 190 H 121 H Lactic Acid Calcium Alkaline Phosphatase CK-MB (CK-2) Rel Index Troponin T C-Reactive Protein NT-Pro-B Natriuret Pep Total Protein Albumin HDL Cholesterol 07/28/18 07/28/18 07/28/18 04:48 05:56 11:49 WBC RBC RDW Lymph % (Auto) [place] % (Auto) Eos % (Auto) Lymph # Seg Neutrophils % Seg Neutrophils # D-Dimer POC ABG pO2 Potassium 3.5 L Glucose 139 H POC Glucose 133 H 214 H Lactic Acid Calcium 8.3 L Alkaline Phosphatase 177 H CK-MB (CK-2) Rel Index Troponin T C-Reactive Protein NT-Pro-B Natriuret Pep Total Protein 6.1 L Albumin 2.8 L HDL Cholesterol 07/28/18 07/28/18 07/29/18 18:32 23:30 05:15 WBC RBC RDW Lymph % (Auto) [place] % (Auto) Eos % (Auto) Lymph # Seg Neutrophils % Seg Neutrophils # D-Dimer POC ABG pO2 Potassium Glucose POC Glucose 120 H 160 H 127 H Lactic Acid Calcium Alkaline Phosphatase CK-MB (CK-2) Rel Index Troponin T C-Reactive Protein NT-Pro-B Natriuret Pep Total Protein Albumin HDL Cholesterol 07/29/18 11:32 WBC RBC RDW Lymph % (Auto) [place] % (Auto) Eos % (Auto) Lymph # Seg Neutrophils % Seg Neutrophils # D-Dimer POC ABG pO2 Potassium Glucose POC Glucose 203 H Lactic Acid Calcium Alkaline Phosphatase CK-MB (CK-2) Rel Index Troponin T C-Reactive Protein NT-Pro-B Natriuret Pep Total Protein Albumin HDL Cholesterol Allied health notes reviewed: RT
--- NOTE | 2018-07-29 13:15 | XRay Report ---
AP CHEST: HISTORY: Pulmonary edema Mild cardiomegaly. Mild improvement in pulmonary venous congestion is demonstrated since 07/26/18. Small right pleural effusion has nearly resolved. The lungs are generally clear. A feeding tube is in position. IMPRESSION: Improvement in pulmonary venous congestion and small right pleural effusion since 07/26/18.
--- NOTE | 2018-07-29 14:09 | Progress Note ---
Assessment and Plan Respiratory failure secondary hypoxemia Pneumonia Atrial fibrillation with rapid ventricle response --> SR Non-ST elevation [place] type II Dementia Hypertension urgency Acute systolic heart failure Plan: continue Lovenox 1 mg/kg every 12. unclear if patient is a candidate for long- term systemic AC given history of dementia. convert IV lasix to PO lasix. Cont all other present cardiac management. The patient has been seen in conjunction with Dr. Salena Parham who agrees with the assessment and plan of care. - Patient Problems (1) Acute systolic heart failure Current Visit: Yes Status: Acute (2) NSTEMI (non-ST elevated myocardial infarction) Current Visit: Yes Status: Acute (3) Atrial fibrillation Current Visit: No Status: Acute (4) CAD (coronary artery disease) Current Visit: No Status: Chronic (5) Diabetes mellitus Current Visit: No Status: Chronic (6) Hx of CABG Current Visit: No Status: Chronic (7) Hypertension Current Visit: No Status: Chronic Subjective Date of service: 07/29/18 Principal diagnosis: AFib Interval history: pt resting in bed, no apparent distress. in AFib with CVR on telemetry. Objective Last Vital Signs Temp 96.7 F L 07/29/18 08:00 Pulse 74 07/29/18 11:30 Resp 15 07/29/18 11:30 BP 127/76 07/29/18 11:30 Pulse Ox 98 07/29/18 11:43 - Physical Examination General: No Apparent Distress HEENT: Positive: PERRL, EOMI Neck: Positive: neck supple Cardiac: Positive: irregularly irregular, S1/S2 Lungs: Positive: Decreased Breath Sounds Neuro: Positive: Other (lethargic) Abdomen: Positive: Soft Extremities: Present: normal, edema (swelling ) - Imaging and Cardiology Echo: report reviewed (quadrant over dysfunction 30 to 35% severe palmar hypertension RVSP 60 mmHg mild RV dysfunction) - Allied health notes Allied health notes reviewed: RT
--- NOTE | 2018-07-29 15:45 | Consultation ---
History of Present Illness - Reason for Consult Consult date: 07/29/18 HCAP Requesting physician: MONO RODRIGUEZ - History of Present Illness The patient is a 68-year-old female with diabetes, hypertension, atrial fibrillation, coronary artery disease, CKD, seizure disorder, CVA, severe dementia who is a shelter resident was brought to the emergency room on 07/26/2018 with complaints of respiratory distress. In the ER, due to significant hypoxia, she needed bag valve ventilation followed by continuous BiPAP. Chest x-ray showed bilateral pulmonary opacities concerning for pulmonary edema versus hospital-acquired pneumonia. Patient was empirically started on diuretics as well as antibiotics. Infectious diseases was consulted for antibiotic recommendations. Patient is nonverbal at baseline, unable to provide any history. History was obtained by chart review and by talking to the patient's nurse at bedside. Patient was weaned off BiPAP this morning and is doing well. She's had no fever throughout the hospitalization. She had a Mata catheter placed for close I/O monitoring. Review of Systems: Unable to obtain due to dementia. Medications and Allergies Allergies Allergy/AdvReac Type Severity Reaction Status Date / Time lisinopril Allergy Unknown Verified 06/23/18 23:57 Home Medications Medication Instructions Recorded Confirmed Last Taken Type AtorvaSTATin [Lipitor] 40 mg PO DAILY 08/06/16 07/26/18 Unknown History Carvedilol [Coreg] 25 mg PO BID tablet 08/09/16 07/26/18 Unknown Rx Acetaminophen [Acetaminophen TAB] 650 mg PO Q6HR PRN 05/22/18 07/26/18 Unknown History Amlodipine Besylate [Norvasc] 10 mg PO QDAY 05/22/18 07/26/18 Unknown History Cholecalciferol (Vitamin D3) 2,000 unit PO DAILY 05/22/18 07/26/18 Unknown History [Vitamin D3] Folic Acid 0.4 mg PO QDAY 05/22/18 07/26/18 Unknown History Hydralazine HCl 50 mg PO BID 05/22/18 07/26/18 Unknown History Insulin Detemir [Levemir VIAL] 20 units SUB-Q QHS 05/22/18 07/26/18 Unknown History Insulin NPH Hum/Reg Insulin Hm 5 units SUB-Q DAILY@1130 05/22/18 07/26/18 Unknown History [HumuLIN 70-30 Vial] Insulin Regular, Human [HumuLIN R] See Protocol SUB-Q ACHS 05/22/18 07/26/18 Unknown History Melatonin [Melatin] 3 mg PO HS 05/22/18 07/26/18 Unknown History Multivitamin Tab W-MINERAL 1 each PO QDAY 05/22/18 07/26/18 Unknown History [Multiple Vitamin/Mineral (Theragran M)] Ranitidine HCl [Zantac 150 MG TAB] 150 mg PO BID 05/22/18 07/26/18 Unknown History hydrOXYzine HCl [Hydroxyzine HCl] 25 mg PO Q12H 05/22/18 07/26/[address] [Depakorebecca Lopez] 125 mg PO BID 06/24/18 07/26/18 Unknown History carBAMazepine [TEGretol] 200 mg PO BID 06/24/18 07/26/18 Unknown History Active Meds: Active Medications Acetaminophen (Tylenol) 650 mg PO Q4H PRN PRN Reason: Pain MILD(1-3)/Fever >100.5/YOUSIF Lipase/Protease/Amylase (Olivia Lopez 10,500 Unit) 1 each FEEDTUBE PRN PRN PRN Reason: For Clogged Feeding Tube Atorvastatin Calcium (Lipitor) 40 mg PO QHS [facility] Last Admin: 07/28/18 21:12 Dose: 40 mg Documented by: Carbamazepine (Tegretol) 200 mg PO BID [facility] Last Admin: 07/29/18 10:58 Dose: 200 mg Documented by: Enoxaparin Sodium (Lovenox) 80 mg 1 mg/kg (80 mg) SUB-Q Q12HR [facility] Last Admin: 07/29/18 10:57 Dose: 80 mg Documented by: Furosemide (Lasix) 40 mg PO DAILY [facility] Hydralazine HCl (Apresoline) 50 mg PO TID [facility] Last Admin: 07/29/18 08:53 Dose: 50 mg Documented by: Cefepime HCl (Maxipime/Ns 2 Gm/100 Ml) 2 gm in 100 mls @ 200 mls/hr IV Q8HR [facility]; Protocol Last Admin: 07/29/18 13:40 Dose: 200 mls/hr Documented by: Insulin Human Isoph/Insulin Regular (Humulin 70/30) 5 unit SUB-Q DAILY@1130 [facility] Last Admin: 07/29/18 12:20 Dose: 5 unit Documented by: Insulin Human Lispro (Humalog) 0 unit SUB-Q Q6HR [facility]; Protocol Last Admin: 07/29/18 12:20 Dose: 3 unit Documented by: Isosorbide Dinitrate (Isordil Titradose) 10 mg PO Q8HR [facility] Losartan Potassium (Cozaar) 50 mg PO QDAY [facility] Last Admin: 07/29/18 10:56 Dose: 50 mg Documented by: Metoprolol Tartrate (Lopressor) 50 mg PO Q6HR [facility] Last Admin: 07/29/18 06:22 Dose: 50 mg Documented by: Ondansetron HCl (Zofran) 4 mg IV Q8H PRN PRN Reason: Nausea And Vomiting Simple Syrup (Simple Syrup) 15 ml FEEDTUBE PRN PRN PRN Reason: Hypoglycemia Simple Syrup (Simple Syrup) 30 ml FEEDTUBE PRN PRN PRN Reason: Hypoglycemia Sodium Bicarbonate (Sodium Bicarbonate) 325 mg FEEDTUBE PRN PRN PRN Reason: For Clogged Feeding Tube Sodium Chloride (Sodium Chloride Flush Syringe 10 Ml) 10 ml IV BID [facility] Last Admin: 07/29/18 10:58 Dose: 10 ml Documented by: Sodium Chloride (Sodium Chloride Flush Syringe 10 Ml) 10 ml IV PRN PRN PRN Reason: LINE FLUSH Valproic Acid (Depakene Liq) 125 mg PO BID [facility] Last Admin: 07/29/18 10:57 Dose: 125 mg Documented by: Physical Examination - Physical Exam Narrative exam: Physical Exam: Constitutional: Calm, eyes closed. No acute distress Head, Ears, Nose: Normocephalic, atraumatic. External ears, nose normal Eyes: eyes shut. No icterus. Neck: Supple, no meningeal signs Oral: mouth shut, unable to examine Cardiovascular: S1, S2 normal. Respiratory: Good air entry, clear to auscultation bilaterally GI: Soft, non-tender; bowel sounds normal. No peritoneal signs Musculoskeletal: No pedal edema, no cyanosis. Skin: No rash or abscess Hem/Lymphatic: No palpable cervical or supraclavicular nodes. No lymphangitis Psych: calm, no agitation Neurological: demented, non verbal - Constitutional Vitals: Vital Signs Temp Pulse Resp BP Pulse Ox 96.7 F L 74 15 127/76 99 07/29/18 08:00 07/29/18 11:30 07/29/18 11:30 07/29/18 11:30 07/29/18 15:24 Temperature -Last 24 Hours Temperature 96.7 F Temperature 97.9 F Temperature 97.1 F Temperature 97.1 F Temperature 97.6 F Results - Labs CBC & Chem 7: 07/28/18 04:48 07/28/18 04:48 Labs: Abnormal lab results 07/28/18 07/28/18 07/29/18 Range/Units 18:32 23:30 05:15 POC Glucose 120 H 160 H 127 H (70-105) 07/29/18 Range/Units 11:32 POC Glucose 203 H (70-105) - Imaging and Cardiology Chest x-ray: report reviewed, image reviewed (b/l pulmonary edema.) CT scan - chest: report reviewed, image reviewed (b/l pleural effusions, small right upper lobe opacity, no air bronchograms) Assessment and Plan Cultures: 07/26/2018 blood cultures: No growth A/P: 68-year-old female with diabetes, hypertension, atrial fibrillation, coronary artery disease, CKD, seizure disorder, CVA, severe dementia who is a shelter resident admitted with: #1 Acute hypoxic respiratory failure: Likely multifactorial from pulmonary edema, congestive heart failure and possibly HCAP. No fever or leucocytosis. CT shows small right upper lobe opacity ?aspiration pneumonitis v/s fluid. BNP and troponins elevated on admission. Responding well to current therapy: diuretics and abx. Overall clinical suspicion for infectious etiology is low. Completed 3 days of Cefepime, can stop. #2 Acute systolic congestive heart failure with atrial fibrillation with rapid ventricular rate: Cardiology following. On anticoagulation and rate control medications. Also had significant BNP elevation along with troponin elevation. #3 Dementia: Appears to be at baseline Recs: - continue diuretics - stopped Cefepime, low suspicion for HCAP - remove Mata catheter when feasible D/W Dr. Rodriguez from ICU. MD [facility] C: [phone] O: [phone] F: [phone]
[2018-07-29] MEDS: ISORDIL TITRADOSE PO SCH ×2 (17:10→22:13)
--- NOTE | 2018-07-29 17:44 | Progress Note ---
Assessment and Plan Assessment and plan: --Hypokalemia: replenish per protocol,monitor levels --Acute hypoxic respiratory failure; Requiring continuous BiPAP, patient is off BiPAP on nasal cannula oxygen continue nebulizers, IV steroids, IV antibiotics, supportive care, pulmonary critical following --Right-sided pneumonia; hospital-acquired pneumonia Current antibiotics, follow cultures, supportive care ID evaluation if needed --A. fib with rapid ventricle rate; now rate controlled, continue beta blockers --Chronic anticoagulation with full dose Lovenox --Non-ST elevation ND; probably type II, Cardiology following --Acute systolic congestive heart failure; ejection fraction 30-35% Anti-failure medications, diuretics, beta blockers, estephania inhibitors, low sodium diet --Hypertension; moderate control, continue current antihypertensives When necessary medications --Type 2 diabetes mellitus; Accu-Chek sliding scale coverage tube feeding, long-acting insulin --History of seizure disorder; continue antiepileptic medications, seizure precautions, supportive care --Legally blind; supportive care --Dementia; supportive care --Severe malnutrition; hypoproteinemia, nutrition supplements Nutrition consult, tube feeding protocol --DVT prophylaxis; Lovenox Critical care time 33 minutes The high probability of a clinically significant, sudden or life threatening deterioration of the [cardiac, respiratory , neuro] system(s) required my full and direct attention, intervent ion and personal management. The aggregate critical care time was [33] minutes. This time is in addition to time spent performing reported procedures but includes the following: [x] Data Review and interpretation [x] Patient assessment and monitoring of vital signs [x] Documentation [x] Medication orders and management History Interval history: Patient seen and examined medical records reviewed Patient is off BiPAP, on nasal cannula oxygen, saturating 95-98% Noncommunicative, not in acute distress Vital signs noted Hospitalist Physical - Constitutional Vitals: Temp Pulse Resp BP Pulse Ox 96.7 F L 74 15 127/76 99 07/29/18 08:00 07/29/18 11:30 07/29/18 11:30 07/29/18 11:30 07/29/18 15:24 General appearance: Present: no acute distress, well-nourished, obese - EENT Eyes: Present: PERRL, EOM intact - Neck Neck: Present: supple, normal ROM - Respiratory Respiratory effort: normal Respiratory: bilateral: diminished, rales, negative: rhonchi, wheezing - Cardiovascular Rhythm: regular Heart Sounds: Present: S1 & S2 - Extremities Extremities: no ischemia, No edema - Abdominal General gastrointestinal: soft, non-tender, non-distended, normal bowel sounds - Integumentary Integumentary: Present: clear, warm - Psychiatric Psychiatric: other (noncommunicative) - Neurologic Neurologic: other (noncommunicative) Results - Labs CBC & Chem 7: 07/28/18 04:48 07/28/18 04:48 Labs: Laboratory Last Values WBC 4.2 K/mm3 (4.5-11.0) L 07/28/18 04:48 RBC 3.56 M/mm3 (3.65-5.03) L 07/28/18 04:48 Hgb 10.3 gm/dl (10.1-14.3) 07/28/18 04:48 Hct 32.8 % (30.3-42.9) 07/28/18 04:48 MCV 92 fl (79-97) 07/28/18 04:48 MCH 29 pg (28-32) 07/28/18 04:48 MCHC 32 % (30-34) 07/28/18 04:48 RDW 16.3 % (13.2-15.2) H 07/28/18 04:48 Plt Count 203 K/mm3 (140-440) 07/28/18 04:48 Lymph % (Auto) 21.7 % (13.4-35.0) 07/28/18 04:48 Mccormick % (Auto) 9.8 % (0.0-7.3) H 07/28/18 04:48 Eos % (Auto) 5.2 % (0.0-4.3) H 07/28/18 04:48 Baso % (Auto) 0.8 % (0.0-1.8) 07/28/18 04:48 Lymph # 0.9 K/mm3 (1.2-5.4) L 07/28/18 04:48 Mccormick # 0.4 K/mm3 (0.0-0.8) 07/28/18 04:48 Eos # 0.2 K/mm3 (0.0-0.4) 07/28/18 04:48 Baso # 0.0 K/mm3 (0.0-0.1) 07/28/18 04:48 Seg Neutrophils % 62.5 % (40.0-70.0) 07/28/18 04:48 Seg Neutrophils # 2.6 K/mm3 (1.8-7.7) 07/28/18 04:48 PT 14.9 Sec. (12.2-14.9) 07/26/18 05:15 INR 1.13 (0.87-1.13) 07/26/18 05:15 APTT 29.8 Sec. (24.2-36.6) 07/26/18 05:15 D-Dimer 2370.66 ng/mlDDU (0-234) H 07/26/18 05:15 POC ABG pH 7.371 (7.35-7.45) 07/26/18 05:37 POC ABG pCO2 43.8 (35-45) 07/26/18 05:37 POC ABG pO2 69 (80-105) L 07/26/18 05:37 POC ABG HCO3 25.3 07/26/18 05:37 POC ABG Total CO2 27 07/26/18 05:37 POC ABG O2 Sat 93 07/26/18 05:37 POC ABG Base Excess 0 07/26/18 05:37 FiO2 35 % 07/26/18 05:37 Sodium 141 mmol/L (137-145) 07/28/18 04:48 Potassium 3.5 mmol/L (3.6-5.0) L 07/28/18 04:48 Chloride 103.9 mmol/L (98-107) 07/28/18 04:48 Carbon Dioxide 24 mmol/L (22-30) 07/28/18 04:48 Anion Gap 17 mmol/L 07/28/18 04:48 BUN 13 mg/dL (7-17) 07/28/18 04:48 Creatinine 0.9 mg/dL (0.7-1.2) 07/28/18 04:48 Estimated GFR > 60 ml/min 07/28/18 04:48 BUN/Creatinine Ratio 14 % 07/28/18 04:48 Glucose 139 mg/dL (65-100) H 07/28/18 04:48 POC Glucose 203 (70-105) H 07/29/18 11:32 Lactic Acid 1.90 mmol/L (0.7-2.0) 07/27/18 04:23 Calcium 8.3 mg/dL (8.4-10.2) L 07/28/18 04:48 Phosphorus 3.00 mg/dL (2.5-4.5) 07/28/18 04:48 Magnesium 1.90 mg/dL (1.7-2.3) 07/28/18 04:48 Total Bilirubin 0.30 mg/dL (0.1-1.2) 07/28/18 04:48 AST 39 units/L (5-40) 07/28/18 04:48 ALT 19 units/L (7-56) 07/28/18 04:48 Alkaline Phosphatase 177 units/L (35-129) H 07/28/18 04:48 Total Creatine Kinase 42 units/L (30-135) 07/26/18 12:39 CK-MB (CK-2) 1.8 ng/mL (0.0-4.0) 07/26/18 12:39 CK-MB (CK-2) Rel Index 4.2 (0-4) H 07/26/18 12:39 Troponin T 0.045 ng/mL (0.00-0.029) H D 07/26/18 12:39 C-Reactive Protein 2.90 mg/dL (0.00-1.30) H 07/26/18 15:42 NT-Pro-B Natriuret Pep 7314 pg/mL (0-900) H 07/26/18 05:15 Total Protein 6.1 g/dL (6.3-8.2) L 07/28/18 04:48 Albumin 2.8 g/dL (3.9-5) L 07/28/18 04:48 Albumin/Globulin Ratio 0.8 % 07/28/18 04:48 Triglycerides 120 mg/dL (2-149) 07/26/18 05:15 Cholesterol 111 mg/dL (50-199) 07/26/18 05:15 LDL Cholesterol Direct 70 mg/dL (50-130) 07/26/18 05:15 HDL Cholesterol 30 mg/dL (40-59) L 07/26/18 05:15 Cholesterol/HDL Ratio 3.70 % 07/26/18 05:15 Urine Color Yellow (Yellow) 07/26/18 05:55 Urine Turbidity Clear (Clear) 07/26/18 05:55 Urine pH 6.0 (5.0-7.0) 07/26/18 05:55 Ur Specific [place] 1.006 (1.003-1.030) 07/26/18 05:55 Urine Protein 100 mg/dl mg/dL (Negative) 07/26/18 05:55 Urine Glucose (UA) 50 mg/dL (Negative) 07/26/18 05:55 Urine Ketones Tr mg/dL (Negative) 07/26/18 05:55 Urine Blood Neg (Negative) 07/26/18 05:55 Urine Nitrite Neg (Negative) 07/26/18 05:55 Urine Bilirubin Neg (Negative) 07/26/18 05:55 Urine Urobilinogen < 2.0 mg/dL (<2.0) 07/26/18 05:55 Ur Leukocyte Esterase Neg (Negative) 07/26/18 05:55 Urine WBC (Auto) 2.0 /HPF (0.0-6.0) 07/26/18 05:55 Urine RBC (Auto) 4.0 /HPF (0.0-6.0) 07/26/18 05:55 U Epithel Cells (Auto) < 1.0 /HPF (0-13.0) 07/26/18 05:55 Urine Bacteria (Auto) 1+ /HPF (Negative) 07/26/18 05:55 Urine Mucus Few /HPF 07/26/18 05:55 Nutrition/Malnutrition Assess - Dietary Evaluation Nutrition/Malnutrition Findings: Nutrition Notes Start: 07/26/18 13:42 Freq: Status: Active Protocol: Document 07/29/18 14:32 [facility] (Rec: 07/29/18 14:40 [facility] [id number]) Nutrition Notes Initial or Follow up Reassessment Current Diagnosis Diabetes Hypertension Other Pertinent Diagnosis Pneu, Dementia Current Diet TF - Vital AF 1.2 at 50ml/hr Labs/Tests Reviewed Pertinent Medications Reviewed Height 5 ft 2 in Weight 80.2 kg [place] Body Weight (kg) 50.00 BMI 32.3 Weight change and time frame Current wt obtained from bed scale Subjective/Other Information Pt tolerating TF at goal rate. Percent of energy/protein needs met: 92% energy 90% pro Burn Absent Trauma Absent #1 Nutrition Diagnosis Predicted suboptimal energy intake Inadequate oral intake Comments: CHANGED Etiology resp failure As Evidenced by Signs and Symptoms pt requires EN support to meet nutrient needs Is patient on ventilator? No Is Patient Ambulatory and/or Out of Bed No REE-([facility]-confined to bed) [phone] Kcal/Kg value to use for calculation 15 Approximate Energy Requirements Using 1203 kcal/Kg Additional Notes Pro needs 2g/kg IBW: 100g/day Fluid needs 1ml/kcal Nutrition Intervention Nutrition Support: Vital AF 1.2 at 50mL/hr with 80mL flush q4h Kcal 1,440 Protein (gm) 90 Fluid (mL) 876 Goal #1 TF tolerance Goal #2 TF to meet at least 80% energy and pro needs Follow-Up By: 08/06/18 Additional Comments F/U: stable TF, wt
[2018-07-30] MEDS: HumaLOG SUB-Q SCH ×4 (00:32→18:02)
[2018-07-30] MEDS: LOPRESSOR PO SCH ×3 (00:33→12:30)
[2018-07-30 04:59] LABS: Basophils % (Auto) 0.7 % (0.0-1.8); Eosinophils # (Auto) 0.2 K/mm3 (0.0-0.4); Eosinophils % (Auto) 3.8 % (0.0-4.3); Hematocrit 33.4 % (30.3-42.9); Hemoglobin 10.5 gm/dl (10.1-14.3); Lymphocytes # (Auto) 0.8 K/mm3 (1.2-5.4); Lymphocytes % (Auto) 16.6 % (13.4-35.0); Mean Corpuscular HGB Conc 32 % (30-34); Mean Corpuscular Volume 93 fl (79-97); Monocytes # (Auto) 0.6 K/mm3 (0.0-0.8); Monocytes % (Auto) 11.5 % (0.0-7.3); Platelet Count 224 K/mm3 (140-440); Red Blood Count 3.61 M/mm3 (3.65-5.03); Red Cell Distribution Width 16.3 % (13.2-15.2)
[2018-07-30 05:16] LABS: Alanine Aminotransferase 15 units/L (7-56); Albumin 2.8 g/dL (3.9-5); BUN/Creatinine Ratio 15; Blood Urea Nitrogen 15 mg/dL (7-17); Calcium 8.2 mg/dL (8.4-10.2); Hemolysis Index 23
[2018-07-30] MEDS: ISORDIL TITRADOSE PO SCH ×3 (05:38→22:18)
[2018-07-30] MEDS: APRESOLINE PO SCH ×3 (08:22→21:33)
--- NOTE | 2018-07-30 09:41 | Cat Scan Report ---
CT HEAD WITHOUT CONTRAST: HISTORY: Acute on chronic encephalopathy. TECHNIQUE: Sequential CT images without contrast. FINDINGS: Mild diffuse volume loss and chronic white matter changes are stable. Large areas of chronic encephalomalacia are again identified in the bilateral parietal and occipital regions. Chronic focal infarcts in the bilateral basal ganglia and bilateral cerebellar hemispheres are also unchanged. There is no evidence for hemorrhage, mass effect or new large area of acute ischemia on noncontrast CT. Ventricular size is stable and within normal limits. The calvarium, sinuses and mastoid air cells are unremarkable. IMPRESSION: Limited exam secondary to motion. Multiple chronic infarcts are identified which appear stable since 08/06/16. No new acute process is appreciated.
[2018-07-30] MEDS: LASIX PO SCH (09:53)
[2018-07-30] MEDS: LOVENOX SUB-Q SCH (09:53)
[2018-07-30] MEDS: COZAAR PO SCH (09:53)
[2018-07-30] MEDS: DepaKENE Liq PO SCH ×2 (09:53→22:17)
[2018-07-30] MEDS: SODIUM CHLORIDE FLUSH SYRINGE 10 ML IV SCH ×2 (09:54→22:19)
[2018-07-30] MEDS ORDERED: POTASSIUM CHLORIDE FEEDTUBE ONE (11:00)
--- NOTE | 2018-07-30 11:19 | Progress Note ---
Assessment and Plan Assessment and plan: --Hypokalemia: replenish per protocol,monitor levels --Acute hypoxic respiratory failure; Requiring continuous BiPAP, patient is off BiPAP on nasal cannula oxygen continue nebulizers, IV steroids, IV antibiotics, supportive care, pulmonary critical following --Right-sided pneumonia; hospital-acquired pneumonia Current antibiotics, follow cultures, supportive care ID evaluation if needed --A. fib with rapid ventricle rate; now rate controlled, continue beta blockers --Chronic anticoagulation with full dose Lovenox --Non-ST elevation RI; probably type II, Cardiology following --Acute systolic congestive heart failure; ejection fraction 30-35% Anti-failure medications, diuretics, beta blockers, estephania inhibitors, low sodium diet --Hypertension; moderate control, continue current antihypertensives When necessary medications --Type 2 diabetes mellitus; Accu-Chek sliding scale coverage tube feeding, long-acting insulin --History of seizure disorder; continue antiepileptic medications, seizure precautions, supportive care --Legally blind; supportive care --Dementia; supportive care --Severe malnutrition; hypoproteinemia, nutrition supplements Nutrition consult, tube feeding protocol --DVT prophylaxis; Lovenox Critical care time 33 minutes The high probability of a clinically significant, sudden or life threatening deterioration of the [cardiac, respiratory , neuro] system(s) required my full and direct attention, intervent ion and personal management. The aggregate critical care time was [33] minutes. This time is in addition to time spent performing reported procedures but includes the following: [x] Data Review and interpretation [x] Patient assessment and monitoring of vital signs [x] Documentation [x] Medication orders and management Transfer patient to telemetry History Interval history: Patient seen and examined medical records reviewed Patient feels slightly better Noncommunicative No new events reported by the nursing Vital signs reviewed Hospitalist Physical - Constitutional Vitals: Temp Pulse Resp BP Pulse Ox 97.9 F 77 13 130/73 96 07/30/18 08:00 07/30/18 10:01 07/30/18 10:01 07/30/18 10:07/30/18 10:01 General appearance: Present: no acute distress, well-nourished, obese - EENT Eyes: Present: PERRL, EOM intact - Neck Neck: Present: supple, normal ROM - Respiratory Respiratory effort: normal Respiratory: bilateral: diminished, rhonchi, negative: rales, wheezing - Cardiovascular Rhythm: regular Heart Sounds: Present: S1 & S2 - Extremities Extremities: no ischemia, No edema - Abdominal General gastrointestinal: soft, non-tender, non-distended, normal bowel sounds - Integumentary Integumentary: Present: clear, warm - Psychiatric Psychiatric: appropriate mood/affect - Neurologic Neurologic: moves all extremities Results - Labs CBC & Chem 7: 07/30/18 04:32 07/30/18 04:32 Labs: Laboratory Last Values WBC 4.9 K/mm3 (4.5-11.0) 07/30/18 04:32 RBC 3.61 M/mm3 (3.65-5.03) L 07/30/18 04:32 Hgb 10.5 gm/dl (10.1-14.3) 07/30/18 04:32 Hct 33.4 % (30.3-42.9) 07/30/18 04:32 MCV 93 fl (79-97) 07/30/18 04:32 MCH 29 pg (28-32) 07/30/18 04:32 MCHC 32 % (30-34) 07/30/18 04:32 RDW 16.3 % (13.2-15.2) H 07/30/18 04:32 Plt Count 224 K/mm3 (140-440) 07/30/18 04:32 Lymph % (Auto) 16.6 % (13.4-35.0) 07/30/18 04:32 Rains % (Auto) 11.5 % (0.0-7.3) H 07/30/18 04:32 Eos % (Auto) 3.8 % (0.0-4.3) 07/30/18 04:32 Baso % (Auto) 0.7 % (0.0-1.8) 07/30/18 04:32 Lymph # 0.8 K/mm3 (1.2-5.4) L 07/30/18 04:32 Rains # 0.6 K/mm3 (0.0-0.8) 07/30/18 04:32 Eos # 0.2 K/mm3 (0.0-0.4) 07/30/18 04:32 Baso # 0.0 K/mm3 (0.0-0.1) 07/30/18 04:32 Seg Neutrophils % 67.4 % (40.0-70.0) 07/30/18 04:32 Seg Neutrophils # 3.3 K/mm3 (1.8-7.7) 07/30/18 04:32 PT 14.9 Sec. (12.2-14.9) 07/26/18 05:15 INR 1.13 (0.87-1.13) 07/26/18 05:15 APTT 29.8 Sec. (24.2-36.6) 07/26/18 05:15 D-Dimer 2370.66 ng/mlDDU (0-234) H 07/26/18 05:15 POC ABG pH 7.458 (7.35-7.45) H 07/29/18 19:04 POC ABG pCO2 43.4 (35-45) 07/29/18 19:04 POC ABG pO2 103 (80-105) 07/29/18 19:04 POC ABG HCO3 30.7 07/29/18 19:04 POC ABG Total CO2 32 07/29/18 19:04 POC ABG O2 Sat 98 07/29/18 19:04 POC ABG Base Excess 7 07/29/18 19:04 FiO2 28 % 07/29/18 19:04 Sodium 137 mmol/L (137-145) 07/30/18 04:32 Potassium 3.2 mmol/L (3.6-5.0) L 07/30/18 04:32 Chloride 100.4 mmol/L (98-107) 07/30/18 04:32 Carbon Dioxide 25 mmol/L (22-30) 07/30/18 04:32 Anion Gap 15 mmol/L 07/30/18 04:32 BUN 15 mg/dL (7-17) 07/30/18 04:32 Creatinine 1.0 mg/dL (0.7-1.2) 07/30/18 04:32 Estimated GFR > 60 ml/min 07/30/18 04:32 BUN/Creatinine Ratio 15 % 07/30/18 04:32 Glucose 157 mg/dL (65-100) H 07/30/18 04:32 POC Glucose 157 (70-105) H 07/30/18 05:12 Lactic Acid 1.90 mmol/L (0.7-2.0) 07/27/18 04:23 Calcium 8.2 mg/dL (8.4-10.2) L 07/30/18 04:32 Phosphorus 3.00 mg/dL (2.5-4.5) 07/28/18 04:48 Magnesium 1.90 mg/dL (1.7-2.3) 07/30/18 04:32 Total Bilirubin 0.20 mg/dL (0.1-1.2) 07/30/18 04:32 AST 27 units/L (5-40) 07/30/18 04:32 ALT 15 units/L (7-56) 07/30/18 04:32 Alkaline Phosphatase 199 units/L (35-129) H 07/30/18 04:32 Total Creatine Kinase 42 units/L (30-135) 07/26/18 12:39 CK-MB (CK-2) 1.8 ng/mL (0.0-4.0) 07/26/18 12:39 CK-MB (CK-2) Rel Index 4.2 (0-4) H 07/26/18 12:39 Troponin T 0.045 ng/mL (0.00-0.029) H D 07/26/18 12:39 C-Reactive Protein 2.90 mg/dL (0.00-1.30) H 07/26/18 15:42 NT-Pro-B Natriuret Pep 7314 pg/mL (0-900) H 07/26/18 05:15 Total Protein 6.3 g/dL (6.3-8.2) 07/30/18 04:32 Albumin 2.8 g/dL (3.9-5) L 07/30/18 04:32 Albumin/Globulin Ratio 0.8 % 07/30/18 04:32 Triglycerides 120 mg/dL (2-149) 07/26/18 05:15 Cholesterol 111 mg/dL (50-199) 07/26/18 05:15 LDL Cholesterol Direct 70 mg/dL (50-130) 07/26/18 05:15 HDL Cholesterol 30 mg/dL (40-59) L 07/26/18 05:15 Cholesterol/HDL Ratio 3.70 % 07/26/18 05:15 Urine Color Yellow (Yellow) 07/26/18 05:55 Urine Turbidity Clear (Clear) 07/26/18 05:55 Urine pH 6.0 (5.0-7.0) 07/26/18 05:55 Ur Specific [place] 1.006 (1.003-1.030) 07/26/18 05:55 Urine Protein 100 mg/dl mg/dL (Negative) 07/26/18 05:55 Urine Glucose (UA) 50 mg/dL (Negative) 07/26/18 05:55 Urine Ketones Tr mg/dL (Negative) 07/26/18 05:55 Urine Blood Neg (Negative) 07/26/18 05:55 Urine Nitrite Neg (Negative) 07/26/18 05:55 Urine Bilirubin Neg (Negative) 07/26/18 05:55 Urine Urobilinogen < 2.0 mg/dL (<2.0) 07/26/18 05:55 Ur Leukocyte Esterase Neg (Negative) 07/26/18 05:55 Urine WBC (Auto) 2.0 /HPF (0.0-6.0) 07/26/18 05:55 Urine RBC (Auto) 4.0 /HPF (0.0-6.0) 07/26/18 05:55 U Epithel Cells (Auto) < 1.0 /HPF (0-13.0) 07/26/18 05:55 Urine Bacteria (Auto) 1+ /HPF (Negative) 07/26/18 05:55 Urine Mucus Few /HPF 07/26/18 05:55 C. difficile Tox (PCR) Negative (Negative) 07/27/18 Unknown Nutrition/Malnutrition Assess - Dietary Evaluation Nutrition/Malnutrition Findings: Nutrition Notes Start: 07/26/18 13:42 Freq: Status: Active Protocol: Document 07/29/18 14:32 [facility] (Rec: 07/29/18 14:40 [facility] [id number] 1) Nutrition Notes Initial or Follow up Reassessment Current Diagnosis Diabetes Hypertension Other Pertinent Diagnosis Pneu, Dementia Current Diet TF - Vital AF 1.2 at 50ml/hr Labs/Tests Reviewed Pertinent Medications Reviewed Height 5 ft 2 in Weight 80.2 kg [place] Body Weight (kg) 50.00 BMI 32.3 Weight change and time frame Current wt obtained from bed scale Subjective/Other Information Pt tolerating TF at goal rate. Percent of energy/protein needs met: 92% energy 90% pro Burn Absent Trauma Absent #1 Nutrition Diagnosis Predicted suboptimal energy intake Inadequate oral intake Comments: CHANGED Etiology resp failure As Evidenced by Signs and Symptoms pt requires EN support to meet nutrient needs Is patient on ventilator? No Is Patient Ambulatory and/or Out of Bed No REE-([facility]-confined to bed) 1559.676 Kcal/Kg value to use for calculation 15 Approximate Energy Requirements Using 1203 kcal/Kg Additional Notes Pro needs 2g/kg IBW: 100g/day Fluid needs 1ml/kcal Nutrition Intervention Nutrition Support: Vital AF 1.2 at 50mL/hr with 80mL flush q4h Kcal 1,440 Protein (gm) 90 Fluid (mL) 876 Goal #1 TF tolerance Goal #2 TF to meet at least 80% energy and pro needs Follow-Up By: 08/06/18 Additional Comments F/U: stable TF, wt
--- NOTE | 2018-07-30 13:12 | Progress Note ---
Assessment and Plan Cultures: 07/26/2018 blood cultures: No growth A/P: 68-year-old female with diabetes, hypertension, atrial fibrillation, coronary artery disease, CKD, seizure disorder, CVA, severe dementia who is a shelter resident admitted with: #1 Acute hypoxic respiratory failure: Likely multifactorial from pulmonary edema, congestive heart failure and possibly HCAP. No fever or leucocytosis. CT shows small right upper lobe opacity ?aspiration pneumonitis v/s fluid. BNP and troponins elevated on admission. Responding well to current therapy: diuretics and abx. Overall clinical suspicion for infectious etiology is low. Completed 3 days of Cefepime, stable off antibiotics. #2 Acute systolic congestive heart failure with atrial fibrillation with rapid ventricular rate: Cardiology following. On anticoagulation and rate control medications. Also had significant BNP elevation along with troponin elevation. #3 Dementia: Appears to be at baseline. Recs: - continue off antibiotics. Yadi Steve MD [facility] C: [phone] O: [phone] F: [phone] Subjective Date of service: 07/30/18 Principal diagnosis: Acute hypoxemic Resp failure; Pneumonia (HAP); Tod Pleural effusions; A-Fib Interval history: Remains stable. No fever. 2 watery BMs, C.diff came back negative. No SOB. No rash. Objective - Exam Narrative Exam: Physical Exam: Constitutional: Calm, eyes shut. No acute distress Head, Ears, Nose: Normocephalic, atraumatic. External ears, nose normal Eyes: eyes shut. No icterus. Neck: Supple, no meningeal signs Oral: mouth shut, unable to examine Cardiovascular: S1, S2 normal. Respiratory: Good air entry, clear to auscultation bilaterally GI: Soft, non-tender; bowel sounds normal. No peritoneal signs Musculoskeletal: No pedal edema, no cyanosis. Skin: No rash or abscess Hem/Lymphatic: No palpable cervical or supraclavicular nodes. No lymphangitis Psych: calm, no agitation Neurological: demented, non verbal - Constitutional Vitals: Vital Signs Temp Pulse Resp BP Pulse Ox 98.0 F 91 H 22 137/90 97 07/30/18 12:00 07/30/18 12:30 07/30/18 12:30 07/30/18 12:30 07/30/18 12:30 Temperature -Last 24 Hours Temperature 98.0 F Temperature 97.9 F Temperature 97.9 F Temperature 98.9 F Temperature 99.4 F Temperature 99.8 F Temperature 99.5 F Temperature 97.8 F - Labs CBC & Chem 7: 07/30/18 04:32 07/30/18 04:32 Labs: Abnormal lab results 07/29/18 07/29/18 07/30/18 Range/Units 18:49 19:04 00:16 RBC (3.65-5.03) M/mm3 RDW (13.2-15.2) % Holmes % (Auto) (0.0-7.3) % Lymph # (1.2-5.4) K/mm3 POC ABG pH 7.458 H (7.35-7.45) Potassium (3.6-5.0) mmol/L Glucose (65-100) mg/dL POC Glucose 168 H 186 H (70-105) Calcium (8.4-10.2) mg/dL Alkaline Phosphatase (35-129) units/L Albumin (3.9-5) g/dL 07/30/18 07/30/18 07/30/18 Range/Units 04:32 04:32 05:12 RBC 3.61 L (3.65-5.03) M/mm3 RDW 16.3 H (13.2-15.2) % Holmes % (Auto) 11.5 H (0.0-7.3) % Lymph # 0.8 L (1.2-5.4) K/mm3 POC ABG pH (7.35-7.45) Potassium 3.2 L (3.6-5.0) mmol/L Glucose 157 H (65-100) mg/dL POC Glucose 157 H (70-105) Calcium 8.2 L (8.4-10.2) mg/dL Alkaline Phosphatase 199 H (35-129) units/L Albumin 2.8 L (3.9-5) g/dL 07/30/18 Range/Units 12:13 RBC (3.65-5.03) M/mm3 RDW (13.2-15.2) % Holmes % (Auto) (0.0-7.3) % Lymph # (1.2-5.4) K/mm3 POC ABG pH (7.35-7.45) Potassium (3.6-5.0) mmol/L Glucose (65-100) mg/dL POC Glucose 177 H (70-105) Calcium (8.4-10.2) mg/dL Alkaline Phosphatase (35-129) units/L Albumin (3.9-5) g/dL
--- NOTE | 2018-07-30 13:55 | Progress Note ---
Assessment and Plan Respiratory failure secondary hypoxemia Pneumonia Atrial fibrillation with rapid ventricle response --> SR Non-ST elevation NV type II Dementia Hypertension urgency Acute systolic heart failure Plan: Pt does not appear to be a candidate for exterminator systemic AC due to advanced dementia. convert full dosage lovenox to DVT prophylaxis lovenox dosing. cont all other present cardiac management. Will follow on as needed basis. The patient has been seen in conjunction with Dr. LIBBY Parham who agrees with the assessment and plan of care. - Patient Problems (1) Acute systolic heart failure Current Visit: Yes Status: Acute (2) NSTEMI (non-ST elevated myocardial infarction) Current Visit: Yes Status: Acute (3) Atrial fibrillation Current Visit: No Status: Acute (4) CAD (coronary artery disease) Current Visit: No Status: Chronic (5) Diabetes mellitus Current Visit: No Status: Chronic (6) Hx of CABG Current Visit: No Status: Chronic (7) Hypertension Current Visit: No Status: Chronic Subjective Date of service: 07/30/18 Principal diagnosis: Acute hypoxemic Resp failure; Pneumonia (HAP); Tod Pleural effusions; A-Fib Interval history: pt resting in bed, no apparent distress. in AFib with CVR on telemetry. Objective Last Vital Signs Temp 98.0 F 07/30/18 12:00 Pulse 82 07/30/18 13:38 Resp 15 07/30/18 13:00 BP 137/89 07/30/18 13:38 Pulse Ox 98 07/30/18 13:00 - Physical Examination General: No Apparent Distress HEENT: Positive: PERRL, EOMI Neck: Positive: neck supple Cardiac: Positive: irregularly irregular, S1/S2 Lungs: Positive: Decreased Breath Sounds Neuro: Positive: Other (lethargic) Abdomen: Positive: Soft Extremities: Present: normal, edema (swelling ) - Labs and Meds Cardiac Enzymes 07/30/18 Range/Units 04:32 AST 27 (5-40) units/L CBC 07/30/18 Range/Units 04:32 WBC 4.9 (4.5-11.0) K/mm3 RBC 3.61 L (3.65-5.03) M/mm3 Hgb 10.5 (10.1-14.3) gm/dl Hct 33.4 (30.3-42.9) % Plt Count 224 (140-440) K/mm3 Lymph # 0.8 L (1.2-5.4) K/mm3 [place] # 0.6 (0.0-0.8) K/mm3 Eos # 0.2 (0.0-0.4) K/mm3 Baso # 0.0 (0.0-0.1) K/mm3 Comprehensive Metabolic Panel 07/30/18 Range/Units 04:32 Sodium 137 (137-145) mmol/L Potassium 3.2 L (3.6-5.0) mmol/L Chloride 100.4 (98-107) mmol/L Carbon Dioxide 25 (22-30) mmol/L BUN 15 (7-17) mg/dL Creatinine 1.0 (0.7-1.2) mg/dL Glucose 157 H (65-100) mg/dL Calcium 8.2 L (8.4-10.2) mg/dL AST 27 (5-40) units/L ALT 15 (7-56) units/L Alkaline Phosphatase 199 H (35-129) units/L Total Protein 6.3 (6.3-8.2) g/dL Albumin 2.8 L (3.9-5) g/dL - Imaging and Cardiology Echo: report reviewed (quadrant over dysfunction 30 to 35% severe palmar hypertension RVSP 60 mmHg mild RV dysfunction) - Allied health notes Allied health notes reviewed: RT
--- NOTE | 2018-07-30 15:00 | Progress Note ---
Assessment and Plan Acute hypoxemic respiratory failure, on mechanical ventilatory support. Pneumonia, right upper lobe, healthcare-associated pneumonia. Mild congestive heart failure exacerbation. Bilateral pleural effusions. Atrial fibrillation with a rapid ventricular response. Acute on Chronic Encephalopathy Diabetes type 2. History of hypertension. Seizure disorder. History of cerebrovascular accident. Coronary artery disease with elevated serum troponins. Anxiety disorder. Dementia. She is legally blind - CT head negative for acute process - continue to give daytime breaks off BIPAP as tolerated - continue to wean oxygen to keep O2 sats > 90% - follow clinically off AB's - appreciate ID input - continue bronchodilators with pulmonary hygiene per RT - ABG prn at this point - continue oral lasix - advance diet per ST rec's - hold on thoracentesis acutely - continue tube feeding as tolerated - VTE prophylaxis (anticoagulated) - continue asspiration precautions - continue mobility protocol for pressure ulcer prophylaxis - PT/OT as tolerated - discontinued oliver catheter - continue accuchecks with glycemic control per SSI for target blood glucose < 180 mg/dL. - Monitor for hypoglycemia - continue other care per attending / other consultants .....OK to transfer to telemetry with close observation overnight then can down grade ... re-evaluate in am & prn Subjective Date of service: 07/30/18 Principal diagnosis: Acute hypoxemic Resp failure; Pneumonia (HAP); Tod Pleural effusions; A-Fib Interval history: Patient is seen today for: Acute hypoxemic Resp failure; Pneumonia (RUL HAP); Mild congestive heart failure exacerbation; Bilateral pleural effusions; Atrial fibrillation with a rapid ventricular response; Diabetes type 2. Seen and examined at bedside; 24hour events reviewed; nursing and respiratory care staff consulted; no adverse overnight events reported to me; tolerating time off BIPAP now; able to tolerate oral meals but vomited after receiving potassium supplement earlier; remains on supplemental oxygen; lethargic overall still Objective Vital Signs - 12hr 07/30/18 07/30/18 07/30/18 03:00 03:30 03:36 Temperature 99.4 F Pulse Rate 82 77 Pulse Rate [ From Monitor] Respiratory 17 19 Rate Blood Pressure 126/76 107/81 O2 Sat by Pulse 97 Oximetry 07/30/18 07/30/18 07/30/18 04:00 04:30 05:00 Temperature Pulse Rate 81 80 84 Pulse Rate [ From Monitor] Respiratory 17 15 16 Rate Blood Pressure 101/80 101/80 106/73 O2 Sat by Pulse 95 96 95 Oximetry 07/30/18 07/30/18 07/30/18 05:26 05:30 05:38 Temperature 98.9 F Pulse Rate 79 84 Pulse Rate [ From Monitor] Respiratory 21 Rate Blood Pressure 135/77 135/77 O2 Sat by Pulse Oximetry 07/30/18 07/30/18 07/30/18 05:39 06:00 06:30 Temperature Pulse Rate 83 77 84 Pulse Rate [ From Monitor] Respiratory 21 13 Rate Blood Pressure 135/77 125/67 120/72 O2 Sat by Pulse 93 94 Oximetry 07/30/18 07/30/18 07/30/18 07:10 07:30 08:00 Temperature 97.9 F Pulse Rate 75 87 Pulse Rate [ 79 From Monitor] Respiratory 21 14 11 L Rate Blood Pressure 126/86 O2 Sat by Pulse 100 98 98 Oximetry 07/30/18 07/30/18 07/30/18 08:01 08:22 08:30 Temperature Pulse Rate 88 80 76 Pulse Rate [ From Monitor] Respiratory 11 L 19 Rate Blood Pressure 130/83 130/83 133/77 O2 Sat by Pulse 96 96 Oximetry 07/30/18 07/30/18 07/30/18 09:00 09:31 09:53 Temperature Pulse Rate 82 76 Pulse Rate [ From Monitor] Respiratory 16 Rate Blood Pressure 133/77 134/81 134/81 O2 Sat by Pulse 94 Oximetry 07/30/18 07/30/18 07/30/18 10:00 10:01 10:31 Temperature Pulse Rate 73 77 79 Pulse Rate [ From Monitor] Respiratory 13 22 Rate Blood Pressure 130/73 130/73 O2 Sat by Pulse 96 97 Oximetry 07/30/18 07/30/18 07/30/18 11:00 11:30 12:00 Temperature 98.0 F Pulse Rate 81 81 Pulse Rate [ 79 From Monitor] Respiratory 24 16 12 Rate Blood Pressure 132/76 141/85 O2 Sat by Pulse 97 97 100 Oximetry 07/30/18 07/30/18 07/30/18 12:01 12:30 13:00 Temperature Pulse Rate 84 91 H 90 Pulse Rate [ From Monitor] Respiratory 20 22 15 Rate Blood Pressure 131/76 137/90 136/94 O2 Sat by Pulse 97 97 98 Oximetry 07/30/18 13:38 Temperature Pulse Rate 82 Pulse Rate [ From Monitor] Respiratory Rate Blood Pressure 137/89 O2 Sat by Pulse Oximetry Constitutional: no acute distress, appears uncomfortable, other (elderly looking obese AAF; normocephalic and atraumatic with mildly increased respiratory effort at rest) Eyes: non-icteric ENT: oropharynx moist Neck: supple, no lymphadenopathy, no JVD, other (no thyromegaly) Effort: mildly labored Ascultation: Bilateral: diminished breath sounds, rhonchi Percussion: Bilateral: not dull Cardiovascular: regular rate and rhythm, murmur noted (systolic) Gastrointestinal: normoactive bowel sounds, soft, non-tender, non-distended Integumentary: other (poor turgor) Extremities: no cyanosis, pulses normal, no ischemia or petechiae, edema (trace) Neurologic: pupils equal and round, unable to assess Psychiatric: other (unable to assess) CBC and BMP: 07/30/18 04:32 07/30/18 04:32 ABG, PT/INR, D-dimer: ABG POC ABG pH 7.458 (7.35-7.45) H 07/29/18 19:04 POC ABG pCO2 43.4 (35-45) 07/29/18 19:04 POC ABG pO2 103 (80-105) 07/29/18 19:04 POC ABG HCO3 30.7 07/29/18 19:04 POC ABG Total CO2 32 07/29/18 19:04 POC ABG O2 Sat 98 07/29/18 19:04 PT/INR, D-dimer PT 14.9 Sec. (12.2-14.9) 07/26/18 05:15 INR 1.13 (0.87-1.13) 07/26/18 05:15 D-Dimer 2370.66 ng/mlDDU (0-234) H 07/26/18 05:15 Abnormal lab findings: Abnormal Labs 07/26/18 07/26/18 07/26/18 05:15 05:15 05:15 WBC RBC RDW 16.4 H Lymph % (Auto) 6.1 L [place] % (Auto) 8.4 H Eos % (Auto) Lymph # 0.6 L Seg Neutrophils % 84.5 H Seg Neutrophils # 7.9 H D-Dimer 2370.66 H POC ABG pH POC ABG pO2 Potassium Glucose POC Glucose Lactic Acid Calcium Alkaline Phosphatase CK-MB (CK-2) Rel Index Troponin T 0.036 H C-Reactive Protein NT-Pro-B Natriuret Pep Total Protein Albumin HDL Cholesterol 30 L 07/26/18 07/26/18 07/26/18 05:15 05:15 05:37 WBC RBC RDW Lymph % (Auto) [place] % (Auto) Eos % (Auto) Lymph # Seg Neutrophils % Seg Neutrophils # D-Dimer POC ABG pH POC ABG pO2 69 L Potassium Glucose 224 H POC Glucose Lactic Acid 2.90 H* Calcium 8.3 L Alkaline Phosphatase 251 H CK-MB (CK-2) Rel Index Troponin T C-Reactive Protein NT-Pro-B Natriuret Pep 7314 H Total Protein Albumin 3.3 L HDL Cholesterol 07/26/18 07/26/18 07/26/18 06:35 06:49 09:26 WBC RBC RDW Lymph % (Auto) [place] % (Auto) Eos % (Auto) Lymph # Seg Neutrophils % Seg Neutrophils # D-Dimer POC ABG pH POC ABG pO2 Potassium Glucose POC Glucose 195 H Lactic Acid 2.20 H* Calcium Alkaline Phosphatase CK-MB (CK-2) Rel Index Troponin T 0.034 H C-Reactive Protein NT-Pro-B Natriuret Pep Total Protein Albumin HDL Cholesterol 07/26/18 07/26/18 07/26/18 12:25 12:39 15:42 WBC RBC RDW Lymph % (Auto) [place] % (Auto) Eos % (Auto) Lymph # Seg Neutrophils % Seg Neutrophils # D-Dimer POC ABG pH POC ABG pO2 Potassium Glucose POC Glucose 171 H Lactic Acid Calcium Alkaline Phosphatase CK-MB (CK-2) Rel Index 4.2 H Troponin T 0.045 H D C-Reactive Protein 2.90 H NT-Pro-B Natriuret Pep Total Protein Albumin HDL Cholesterol 07/26/18 07/27/18 07/27/18 16:32 00:08 04:23 WBC RBC RDW 16.3 H Lymph % (Auto) [place] % (Auto) 14.5 H Eos % (Auto) Lymph # 0.8 L Seg Neutrophils % Seg Neutrophils # D-Dimer POC ABG pH POC ABG pO2 Potassium Glucose POC Glucose 140 H 148 H Lactic Acid Calcium Alkaline Phosphatase CK-MB (CK-2) Rel Index Troponin T C-Reactive Protein NT-Pro-B Natriuret Pep Total Protein Albumin HDL Cholesterol 07/27/18 07/27/18 07/27/18 04:23 05:13 11:44 WBC RBC RDW Lymph % (Auto) [place] % (Auto) Eos % (Auto) Lymph # Seg Neutrophils % Seg Neutrophils # D-Dimer POC ABG pH POC ABG pO2 Potassium Glucose 158 H POC Glucose 176 H 161 H Lactic Acid Calcium Alkaline Phosphatase CK-MB (CK-2) Rel Index Troponin T C-Reactive Protein NT-Pro-B Natriuret Pep Total Protein Albumin HDL Cholesterol 07/27/18 07/27/18 07/28/18 18:22 23:33 04:48 WBC 4.2 L RBC 3.56 L RDW 16.3 H Lymph % (Auto) [place] % (Auto) 9.8 H Eos % (Auto) 5.2 H Lymph # 0.9 L Seg Neutrophils % Seg Neutrophils # D-Dimer POC ABG pH POC ABG pO2 Potassium Glucose POC Glucose 190 H 121 H Lactic Acid Calcium Alkaline Phosphatase CK-MB (CK-2) Rel Index Troponin T C-Reactive Protein NT-Pro-B Natriuret Pep Total Protein Albumin HDL Cholesterol 07/28/18 07/28/18 07/28/18 04:48 05:56 11:49 WBC RBC RDW Lymph % (Auto) [place] % (Auto) Eos % (Auto) Lymph # Seg Neutrophils % Seg Neutrophils # D-Dimer POC ABG pH POC ABG pO2 Potassium 3.5 L Glucose 139 H POC Glucose 133 H 214 H Lactic Acid Calcium 8.3 L Alkaline Phosphatase 177 H CK-MB (CK-2) Rel Index Troponin T C-Reactive Protein NT-Pro-B Natriuret Pep Total Protein 6.1 L Albumin 2.8 L HDL Cholesterol 07/28/18 07/28/18 07/29/18 18:32 23:30 05:15 WBC RBC RDW Lymph % (Auto) [place] % (Auto) Eos % (Auto) Lymph # Seg Neutrophils % Seg Neutrophils # D-Dimer POC ABG pH POC ABG pO2 Potassium Glucose POC Glucose 120 H 160 H 127 H Lactic Acid Calcium Alkaline Phosphatase CK-MB (CK-2) Rel Index Troponin T C-Reactive Protein NT-Pro-B Natriuret Pep Total Protein Albumin HDL Cholesterol 02/05/0607/29/18 07/29/18 11:32 18:49 19:04 WBC RBC RDW Lymph % (Auto) [place] % (Auto) Eos % (Auto) Lymph # Seg Neutrophils % Seg Neutrophils # D-Dimer POC ABG pH 7.458 H POC ABG pO2 Potassium Glucose POC Glucose 203 H 168 H Lactic Acid Calcium Alkaline Phosphatase CK-MB (CK-2) Rel Index Troponin T C-Reactive Protein NT-Pro-B Natriuret Pep Total Protein Albumin HDL Cholesterol 07/30/18 07/30/18 07/30/18 00:16 04:32 04:32 WBC RBC 3.61 L RDW 16.3 H Lymph % (Auto) [place] % (Auto) 11.5 H Eos % (Auto) Lymph # 0.8 L Seg Neutrophils % Seg Neutrophils # D-Dimer POC ABG pH POC ABG pO2 Potassium 3.2 L Glucose 157 H POC Glucose 186 H Lactic Acid Calcium 8.2 L Alkaline Phosphatase 199 H CK-MB (CK-2) Rel Index Troponin T C-Reactive Protein NT-Pro-B Natriuret Pep Total Protein Albumin 2.8 L HDL Cholesterol 07/30/18 07/30/18 05:12 12:13 WBC RBC RDW Lymph % (Auto) [place] % (Auto) Eos % (Auto) Lymph # Seg Neutrophils % Seg Neutrophils # D-Dimer POC ABG pH POC ABG pO2 Potassium Glucose POC Glucose 157 H 177 H Lactic Acid Calcium Alkaline Phosphatase CK-MB (CK-2) Rel Index Troponin T C-Reactive Protein NT-Pro-B Natriuret Pep Total Protein Albumin HDL Cholesterol Allied health notes reviewed: RT
[2018-07-31] MEDS: LOPRESSOR PO SCH ×5 (03:29→18:38)
[2018-07-31] MEDS: HumaLOG SUB-Q SCH ×3 (03:30→18:38)
[2018-07-31] MEDS: ISORDIL TITRADOSE PO SCH ×3 (05:48→22:48)
[2018-07-31 06:27] LABS: Eosinophils # (Auto) 0.2 K/mm3 (0.0-0.4); Eosinophils % (Auto) 4.4 % (0.0-4.3); Hemoglobin 10.3 gm/dl (10.1-14.3); Lymphocytes # (Auto) 0.9 K/mm3 (1.2-5.4); Lymphocytes % (Auto) 20.2 % (13.4-35.0); Mean Corpuscular HGB Conc 32 % (30-34); Mean Corpuscular Volume 92 fl (79-97); Monocytes # (Auto) 0.5 K/mm3 (0.0-0.8); Monocytes % (Auto) 11.6 % (0.0-7.3); Platelet Count 243 K/mm3 (140-440); Red Blood Count 3.48 M/mm3 (3.65-5.03); Red Cell Distribution Width 15.9 % (13.2-15.2)
[2018-07-31 06:57] LABS: Alanine Aminotransferase 13 units/L (7-56); Albumin 2.8 g/dL (3.9-5); BUN/Creatinine Ratio 13; Blood Urea Nitrogen 13 mg/dL (7-17); Calcium 8.4 mg/dL (8.4-10.2); Hemolysis Index 4
[2018-07-31] MEDS: DepaKENE Liq PO SCH ×2 (10:03→22:48)
[2018-07-31] MEDS: APRESOLINE PO SCH ×3 (10:04→23:07)
[2018-07-31] MEDS: LASIX PO SCH (10:10)
[2018-07-31] MEDS: COZAAR PO SCH (10:10)
[2018-07-31] MEDS: SODIUM CHLORIDE FLUSH SYRINGE 10 ML IV SCH ×2 (10:11→22:49)
--- NOTE | 2018-07-31 11:08 | XRay Report ---
AP CHEST: HISTORY: Dyspnea Mild cardiomegaly, mild pulmonary venous congestion and trace right pleural effusion are identified which have not significantly changed since 07/29/18. The feeding tube remains in similar position. No new acute process. IMPRESSION: No change.
--- NOTE | 2018-07-31 11:21 | Progress Note ---
Assessment and Plan A/P: 68-year-old female with diabetes, hypertension, atrial fibrillation, coronary artery disease, CKD, seizure disorder, CVA, severe dementia who is a skilled nursing resident admitted with: #1 Acute hypoxic respiratory failure: Likely multifactorial from pulmonary edema, congestive heart failure and possibly HCAP. No fever or leucocytosis. CT shows small right upper lobe opacity ?aspiration pneumonitis v/s fluid. BNP and troponins elevated on admission. Responding well to current therapy: diuretics and abx. Overall clinical suspicion for infectious etiology is low. Completed 3 days of Cefepime, stable off antibiotics. #2 Acute systolic congestive heart failure with atrial fibrillation with rapid ventricular rate: Cardiology following. On anticoagulation and rate control medications. Also had significant BNP elevation along with troponin elevation. #3 Dementia: Appears to be at baseline. Recs: - continue off antibiotics. [facility] M: [phone] O:[phone] Subjective Date of service: 07/31/18 Principal diagnosis: Acute hypoxemic Resp failure; Pneumonia (HAP); Tod Pleural effusions; A-Fib Interval history: Patient seen and examined. Nonverbal , difficult to arouse, somnolent. Family at bedside. Objective - Exam Narrative Exam: Constitutional: Calm, eyes shut, difficult to arouse. No acute distress Head, Ears, Nose: Normocephalic, atraumatic. External ears, nose normal Eyes: eyes shut. No icterus. Neck: Supple, no meningeal signs Oral: mouth shut, unable to examine Cardiovascular: S1, S2 normal. Respiratory: Good air entry, clear to auscultation bilaterally GI: Soft, non-tender; bowel sounds normal. No peritoneal signs Musculoskeletal: No pedal edema, no cyanosis. Skin: No rash or abscess Hem/Lymphatic: No palpable cervical or supraclavicular nodes. No lymphangitis Psych: calm, no agitation Neurological: demented, non verbal - Constitutional Vitals: Vital Signs Temp Pulse Resp BP Pulse Ox 98.8 F 79 18 153/86 100 07/31/18 04:38 07/31/18 10:10 07/31/18 04:38 07/31/18 10:10 07/31/18 10:48 Temperature -Last 24 Hours Temperature 98.8 F Temperature 98.5 F Temperature 98.5 F Temperature 98.7 F Temperature 98.0 F - Labs CBC & Chem 7: 07/31/18 05:32 07/31/18 05:32 Labs: Abnormal lab results 07/30/18 07/31/18 07/31/18 Range/Units 12:13 05:32 05:32 RBC 3.48 L (3.65-5.03) M/mm3 RDW 15.9 H (13.2-15.2) % [place] % (Auto) 11.6 H (0.0-7.3) % Eos % (Auto) 4.4 H (0.0-4.3) % Lymph # 0.9 L (1.2-5.4) K/mm3 Potassium 3.1 L (3.6-5.0) mmol/L POC Glucose 177 H (70-105) Alkaline Phosphatase 180 H (35-129) units/L Total Protein 6.2 L (6.3-8.2) g/dL Albumin 2.8 L (3.9-5) g/dL
--- NOTE | 2018-07-31 12:33 | Progress Note ---
Assessment and Plan Respiratory failure secondary hypoxemia Pneumonia Atrial fibrillation with rapid ventricle response --> CVR Non-ST elevation ID type II Dementia Hypertension urgency Acute systolic heart failure Plan: Pt obtunded this AM, required BiPAP overnight. Obtain ABGs. Consider tx to CCU or IMCU. D/w Dr. Batista. The patient has been seen in conjunction with Dr. Salena Parham who agrees with the assessment and plan of care. - Patient Problems (1) Acute systolic heart failure Current Visit: Yes Status: Acute (2) NSTEMI (non-ST elevated myocardial infarction) Current Visit: Yes Status: Acute (3) Atrial fibrillation Current Visit: No Status: Acute (4) CAD (coronary artery disease) Current Visit: No Status: Chronic (5) Diabetes mellitus Current Visit: No Status: Chronic (6) Hx of CABG Current Visit: No Status: Chronic (7) Hypertension Current Visit: No Status: Chronic Subjective Date of service: 07/31/18 Principal diagnosis: Acute hypoxemic Resp failure; Pneumonia (HAP); Tod Pleural effusions; A-Fib Interval history: pt obtunded, on BiPAP overnight. in AFib with CVR on telemetry. Objective Last Vital Signs Temp 98.8 F 07/31/18 04:38 Pulse 79 07/31/18 10:10 Resp 18 07/31/18 08:07 BP 153/86 07/31/18 10:10 Pulse Ox 100 07/31/18 10:48 - Physical Examination General: Other (obtunded) Neck: Positive: neck supple Cardiac: Positive: irregularly irregular, S1/S2 Neuro: Positive: Other (obtunded) Abdomen: Positive: Soft Extremities: Present: normal, edema (swelling ) - Labs and Meds Cardiac Enzymes 07/31/18 Range/Units 05:32 AST 23 (5-40) units/L CBC 07/31/18 Range/Units 05:32 WBC 4.5 (4.5-11.0) K/mm3 RBC 3.48 L (3.65-5.03) M/mm3 Hgb 10.3 (10.1-14.3) gm/dl Hct 32.0 (30.3-42.9) % Plt Count 243 (140-440) K/mm3 Lymph # 0.9 L (1.2-5.4) K/mm3 [place] # 0.5 (0.0-0.8) K/mm3 Eos # 0.2 (0.0-0.4) K/mm3 Baso # 0.0 (0.0-0.1) K/mm3 Comprehensive Metabolic Panel 07/31/18 Range/Units 05:32 Sodium 141 (137-145) mmol/L Potassium 3.1 L (3.6-5.0) mmol/L Chloride 100.6 (98-107) mmol/L Carbon Dioxide 27 (22-30) mmol/L BUN 13 (7-17) mg/dL Creatinine 1.0 (0.7-1.2) mg/dL Glucose 90 (65-100) mg/dL Calcium 8.4 (8.4-10.2) mg/dL AST 23 (5-40) units/L ALT 13 (7-56) units/L Alkaline Phosphatase 180 H (35-129) units/L Total Protein 6.2 L (6.3-8.2) g/dL Albumin 2.8 L (3.9-5) g/dL - Imaging and Cardiology Echo: report reviewed (quadrant over dysfunction 30 to 35% severe palmar hypertension RVSP 60 mmHg mild RV dysfunction) - Allied health notes Allied health notes reviewed: RT
--- NOTE | 2018-07-31 18:30 | Progress Note ---
Assessment and Plan Patient not responding to verbal stimuli. Sleeping at this time. On venturi mask FIO2 40% and O2 saturation 97%.No acute respiratory distress.Patient afebrile. No leukocytosis. - Patient Problems (1) Acute respiratory failure with hypoxia Current Visit: Yes Status: Acute Plan to address problem: Continue o2 supplementation, Venturi mask, FIO2 40%. Albuterol/atrovent aerosol treatments q 6 hours. Continue S/C Lovenox. Recommend GI prophylaxis. (2) Acute exacerbation of CHF (congestive heart failure) Current Visit: Yes Status: Acute Plan to address problem: Management as per cardiology (3) Acute metabolic encephalopathy Current Visit: Yes Status: Acute Plan to address problem: Management as per primary care, (4) Atrial fibrillation with rapid ventricular response Current Visit: Yes Status: Acute Plan to address problem: Management as per cardiology. (5) NSTEMI (non-ST elevated myocardial infarction) Current Visit: Yes Status: Acute Plan to address problem: Management as per primary care and cardiology. (6) Acute ischemic stroke Current Visit: No Status: Acute Plan to address problem: Management as per neurology. (7) Acute renal failure Current Visit: No Status: Acute Plan to address problem: Management as per nephrology. (8) Type 2 diabetes mellitus with diabetic chronic kidney disease Current Visit: No Status: Acute Plan to address problem: Management as per primary care. (9) Hypertension Current Visit: No Status: Chronic Plan to address problem: Management as per primary care. Subjective Date of service: 07/31/18 Principal diagnosis: Acute hypoxemic Resp failure; Pneumonia (HAP); Tod Pleural effusions; A-Fib Interval history: Patient not responding to verbal stimuli. Sleeping at this time. On venturi mask FIO2 40% and O2 saturation 97%.No acute respiratory distress.Patient afebrile. No leukocytosis. Objective Vital Signs - 12hr 07/31/18 07/31/18 07/31/18 08:07 10:04 10:10 Temperature Pulse Rate 79 79 Respiratory 18 Rate Blood Pressure 151/92 153/86 153/86 O2 Sat by Pulse Oximetry 07/31/18 07/31/18 07/31/18 10:48 12:43 12:55 Temperature 98.2 F Pulse Rate Respiratory 16 Rate Blood Pressure 154/82 O2 Sat by Pulse 100 97 Oximetry Constitutional: no acute distress, lethargic, asleep Eyes: non-icteric ENT: oropharynx moist Neck: supple, no lymphadenopathy, no JVD, other (no thyromegaly) Effort: mildly labored Ascultation: Bilateral: diminished breath sounds, rhonchi Percussion: Bilateral: not dull Cardiovascular: regular rate and rhythm, murmur noted (systolic) Gastrointestinal: normoactive bowel sounds, soft, non-tender, non-distended Integumentary: other (poor turgor) Extremities: no cyanosis, pulses normal, no ischemia or petechiae, edema (trace) Neurologic: pupils equal and round, unable to assess Psychiatric: other (unable to assess) CBC and BMP: 07/31/18 05:32 07/31/18 05:32 ABG, PT/INR, D-dimer: ABG POC ABG pH 7.458 (7.35-7.45) H 07/29/18 19:04 POC ABG pCO2 43.4 (35-45) 07/29/18 19:04 POC ABG pO2 103 (80-105) 07/29/18 19:04 POC ABG HCO3 30.7 07/29/18 19:04 POC ABG Total CO2 32 07/29/18 19:04 POC ABG O2 Sat 98 07/29/18 19:04 PT/INR, D-dimer PT 14.9 Sec. (12.2-14.9) 07/26/18 05:15 INR 1.13 (0.87-1.13) 07/26/18 05:15 D-Dimer 2370.66 ng/mlDDU (0-234) H 07/26/18 05:15 Abnormal lab findings: Abnormal Labs 07/26/18 07/26/18 07/26/18 05:15 05:15 05:15 WBC RBC RDW 16.4 H Lymph % (Auto) 6.1 L [place] % (Auto) 8.4 H Eos % (Auto) Lymph # 0.6 L Seg Neutrophils % 84.5 H Seg Neutrophils # 7.9 H D-Dimer 2370.66 H POC ABG pH POC ABG pO2 Potassium Glucose POC Glucose Lactic Acid Calcium Alkaline Phosphatase CK-MB (CK-2) Rel Index Troponin T 0.036 H C-Reactive Protein NT-Pro-B Natriuret Pep Total Protein Albumin HDL Cholesterol 30 L 07/26/18 07/26/18 07/26/18 05:15 05:15 05:37 WBC RBC RDW Lymph % (Auto) [place] % (Auto) Eos % (Auto) Lymph # Seg Neutrophils % Seg Neutrophils # D-Dimer POC ABG pH POC ABG pO2 69 L Potassium Glucose 224 H POC Glucose Lactic Acid 2.90 H* Calcium 8.3 L Alkaline Phosphatase 251 H CK-MB (CK-2) Rel Index Troponin T C-Reactive Protein NT-Pro-B Natriuret Pep 7314 H Total Protein Albumin 3.3 L HDL Cholesterol 07/26/18 07/26/18 07/26/18 06:35 06:49 09:26 WBC RBC RDW Lymph % (Auto) [place] % (Auto) Eos % (Auto) Lymph # Seg Neutrophils % Seg Neutrophils # D-Dimer POC ABG pH POC ABG pO2 Potassium Glucose POC Glucose 195 H Lactic Acid 2.20 H* Calcium Alkaline Phosphatase CK-MB (CK-2) Rel Index Troponin T 0.034 H C-Reactive Protein NT-Pro-B Natriuret Pep Total Protein Albumin HDL Cholesterol 07/26/18 07/26/18 07/26/18 12:25 12:39 15:42 WBC RBC RDW Lymph % (Auto) [place] % (Auto) Eos % (Auto) Lymph # Seg Neutrophils % Seg Neutrophils # D-Dimer POC ABG pH POC ABG pO2 Potassium Glucose POC Glucose 171 H Lactic Acid Calcium Alkaline Phosphatase CK-MB (CK-2) Rel Index 4.2 H Troponin T 0.045 H D C-Reactive Protein 2.90 H NT-Pro-B Natriuret Pep Total Protein Albumin HDL Cholesterol 07/26/18 07/27/18 07/27/18 16:32 00:08 04:23 WBC RBC RDW 16.3 H Lymph % (Auto) [place] % (Auto) 14.5 H Eos % (Auto) Lymph # 0.8 L Seg Neutrophils % Seg Neutrophils # D-Dimer POC ABG pH POC ABG pO2 Potassium Glucose POC Glucose 140 H 148 H Lactic Acid Calcium Alkaline Phosphatase CK-MB (CK-2) Rel Index Troponin T C-Reactive Protein NT-Pro-B Natriuret Pep Total Protein Albumin HDL Cholesterol 07/27/18 07/27/18 07/27/18 04:23 05:13 11:44 WBC RBC RDW Lymph % (Auto) [place] % (Auto) Eos % (Auto) Lymph # Seg Neutrophils % Seg Neutrophils # D-Dimer POC ABG pH POC ABG pO2 Potassium Glucose 158 H POC Glucose 176 H 161 H Lactic Acid Calcium Alkaline Phosphatase CK-MB (CK-2) Rel Index Troponin T C-Reactive Protein NT-Pro-B Natriuret Pep Total Protein Albumin HDL Cholesterol 07/27/18 07/27/18 07/28/18 18:22 23:33 04:48 WBC 4.2 L RBC 3.56 L RDW 16.3 H Lymph % (Auto) [place] % (Auto) 9.8 H Eos % (Auto) 5.2 H Lymph # 0.9 L Seg Neutrophils % Seg Neutrophils # D-Dimer POC ABG pH POC ABG pO2 Potassium Glucose POC Glucose 190 H 121 H Lactic Acid Calcium Alkaline Phosphatase CK-MB (CK-2) Rel Index Troponin T C-Reactive Protein NT-Pro-B Natriuret Pep Total Protein Albumin HDL Cholesterol 07/28/18 07/28/18 07/28/18 04:48 05:56 11:49 WBC RBC RDW Lymph % (Auto) [place] % (Auto) Eos % (Auto) Lymph # Seg Neutrophils % Seg Neutrophils # D-Dimer POC ABG pH POC ABG pO2 Potassium 3.5 L Glucose 139 H POC Glucose 133 H 214 H Lactic Acid Calcium 8.3 L Alkaline Phosphatase 177 H CK-MB (CK-2) Rel Index Troponin T C-Reactive Protein NT-Pro-B Natriuret Pep Total Protein 6.1 L Albumin 2.8 L HDL Cholesterol 07/28/18 07/28/18 07/29/18 18:32 23:30 05:15 WBC RBC RDW Lymph % (Auto) [place] % (Auto) Eos % (Auto) Lymph # Seg Neutrophils % Seg Neutrophils # D-Dimer POC ABG pH POC ABG pO2 Potassium Glucose POC Glucose 120 H 160 H 127 H Lactic Acid Calcium Alkaline Phosphatase CK-MB (CK-2) Rel Index Troponin T C-Reactive Protein NT-Pro-B Natriuret Pep Total Protein Albumin HDL Cholesterol 07/29/18 07/29/18 07/29/18 11:32 18:49 19:04 WBC RBC RDW Lymph % (Auto) [place] % (Auto) Eos % (Auto) Lymph # Seg Neutrophils % Seg Neutrophils # D-Dimer POC ABG pH 7.458 H POC ABG pO2 Potassium Glucose POC Glucose 203 H 168 H Lactic Acid Calcium Alkaline Phosphatase CK-MB (CK-2) Rel Index Troponin T C-Reactive Protein NT-Pro-B Natriuret Pep Total Protein Albumin HDL Cholesterol 07/30/18 07/30/18 07/30/18 00:16 04:32 04:32 WBC RBC 3.61 L RDW 16.3 H Lymph % (Auto) [place] % (Auto) 11.5 H Eos % (Auto) Lymph # 0.8 L Seg Neutrophils % Seg Neutrophils # D-Dimer POC ABG pH POC ABG pO2 Potassium 3.2 L Glucose 157 H POC Glucose 186 H Lactic Acid Calcium 8.2 L Alkaline Phosphatase 199 H CK-MB (CK-2) Rel Index Troponin T C-Reactive Protein NT-Pro-B Natriuret Pep Total Protein Albumin 2.8 L HDL Cholesterol 07/30/18 07/30/18 07/31/18 05:12 12:13 05:32 WBC RBC 3.48 L RDW 15.9 H Lymph % (Auto) [place] % (Auto) 11.6 H Eos % (Auto) 4.4 H Lymph # 0.9 L Seg Neutrophils % Seg Neutrophils # D-Dimer POC ABG pH POC ABG pO2 Potassium Glucose POC Glucose 157 H 177 H Lactic Acid Calcium Alkaline Phosphatase CK-MB (CK-2) Rel Index Troponin T C-Reactive Protein NT-Pro-B Natriuret Pep Total Protein Albumin HDL Cholesterol 07/31/18 07/31/18 05:32 12:12 WBC RBC RDW Lymph % (Auto) [place] % (Auto) Eos % (Auto) Lymph # Seg Neutrophils % Seg Neutrophils # D-Dimer POC ABG pH POC ABG pO2 Potassium 3.1 L Glucose POC Glucose 141 H Lactic Acid Calcium Alkaline Phosphatase 180 H CK-MB (CK-2) Rel Index Troponin T C-Reactive Protein NT-Pro-B Natriuret Pep Total Protein 6.2 L Albumin 2.8 L HDL Cholesterol Chest x-ray: report reviewed (Mild cardiomegaly, mild pulmonary vascular congestion.Small right pleural effusion.), image reviewed CT scan - chest: report reviewed, image reviewed (Angio CT, No Pulmonary embolism, right upper lobe air space disease.) Allied health notes reviewed: RT
--- NOTE | 2018-07-31 19:55 | Progress Note ---
Assessment and Plan Assessment and plan: --Metabolic encephalopathy; nurse is concerned about aspiration as patient is on tube feeding O2 sats, stable on Ventimask, nasal cannula oxygen Obtain chest x-ray, check ABG, follow pulmonary recommendations. --Tube feeding/due to encephalopathy; I discussed with the sister Recommend PEG placement, she would discuss with the family members Possible PICC placement and DC planning when stable --Hypokalemia: replenish per protocol,monitor levels --Acute hypoxic respiratory failure; Requiring continuous BiPAP, patient is off BiPAP on nasal cannula oxygen continue nebulizers, IV steroids, IV antibiotics, supportive care, pulmonary critical following --Right-sided pneumonia; hospital-acquired pneumonia monitor off antibiotics, per ID following --A. fib with rapid ventricle rate; now rate controlled, continue beta blockers --Chronic anticoagulation with full dose Lovenox --Non-ST elevation NV; probably type II, Cardiology following --Acute systolic congestive heart failure; ejection fraction 30-35% Anti-failure medications, diuretics, beta blockers, estephania inhibitors, low sodium diet --Hypertension; moderate control, continue current antihypertensives When necessary medications --Type 2 diabetes mellitus; Accu-Chek sliding scale coverage tube feeding, long-acting insulin --History of seizure disorder; continue antiepileptic medications, seizure precautions, supportive care --Legally blind; supportive care --Dementia; supportive care --Severe malnutrition; hypoproteinemia, nutrition supplements Nutrition consult, tube feeding protocol --DVT prophylaxis; Lovenox Consults and recommendations noted and appreciated Disposition; possible PEG placement, and discharge to SNF and medically stable History Interval history: Nurse called and informed me that patient is obtunded noncommunicative Patient has been noncommunicative for the last 5 days[since admission] patient's sister reports that, she has been noncommunicative and not opening eyes For the last 4 weeks, was recently admitted in our hospital for sepsis When I evaluated the patient patient is noncommunicative, responds only to deep stimuli On BiPAP, saturating 100%, not in acute distress On tube feeding, Vital signs reviewed stable Hospitalist Physical - Constitutional Vitals: Temp Pulse Resp BP Pulse Ox 98.2 F 82 16 159/85 97 07/31/18 12:43 07/31/18 18:26 07/31/18 12:43 07/31/18 18:26 07/31/18 18:26 General appearance: Present: no acute distress, well-nourished, obese - EENT Eyes: Present: PERRL, EOM intact - Neck Neck: Present: supple, normal ROM - Respiratory Respiratory effort: normal Respiratory: bilateral: diminished, rhonchi, negative: rales, wheezing - Cardiovascular Rhythm: regular Heart Sounds: Present: S1 & S2 - Extremities Extremities: no ischemia, No edema - Abdominal General gastrointestinal: soft, non-tender, non-distended, normal bowel sounds - Integumentary Integumentary: Present: clear, warm - Psychiatric Psychiatric: other (noncommunicative) - Neurologic Neurologic: other (noncommunicative, responsive only to deep stimuli) Results - Labs CBC & Chem 7: 07/31/18 05:32 07/31/18 05:32 Labs: Laboratory Last Values WBC 4.5 K/mm3 (4.5-11.0) 07/31/18 05:32 RBC 3.48 M/mm3 (3.65-5.03) L 07/31/18 05:32 Hgb 10.3 gm/dl (10.1-14.3) 07/31/18 05:32 Hct 32.0 % (30.3-42.9) 07/31/18 05:32 MCV 92 fl (79-97) 07/31/18 05:32 MCH 30 pg (28-32) 07/31/18 05:32 MCHC 32 % (30-34) 07/31/18 05:32 RDW 15.9 % (13.2-15.2) H 07/31/18 05:32 Plt Count 243 K/mm3 (140-440) 07/31/18 05:32 Lymph % (Auto) 20.2 % (13.4-35.0) 07/31/18 05:32 [place] % (Auto) 11.6 % (0.0-7.3) H 07/31/18 05:32 Eos % (Auto) 4.4 % (0.0-4.3) H 07/31/18 05:32 Baso % (Auto) 1.0 % (0.0-1.8) 07/31/18 05:32 Lymph # 0.9 K/mm3 (1.2-5.4) L 07/31/18 05:32 [place] # 0.5 K/mm3 (0.0-0.8) 07/31/18 05:32 Eos # 0.2 K/mm3 (0.0-0.4) 07/31/18 05:32 Baso # 0.0 K/mm3 (0.0-0.1) 07/31/18 05:32 Seg Neutrophils % 62.8 % (40.0-70.0) 07/31/18 05:32 Seg Neutrophils # 2.8 K/mm3 (1.8-7.7) 07/31/18 05:32 PT 14.9 Sec. (12.2-14.9) 07/26/18 05:15 INR 1.13 (0.87-1.13) 07/26/18 05:15 APTT 29.8 Sec. (24.2-36.6) 07/26/18 05:15 D-Dimer 2370.66 ng/mlDDU (0-234) H 07/26/18 05:15 POC ABG pH 7.458 (7.35-7.45) H 07/29/18 19:04 POC ABG pCO2 43.4 (35-45) 07/29/18 19:04 POC ABG pO2 103 (80-105) 07/29/18 19:04 POC ABG HCO3 30.7 07/29/18 19:04 POC ABG Total CO2 32 07/29/18 19:04 POC ABG O2 Sat 98 07/29/18 19:04 POC ABG Base Excess 7 07/29/18 19:04 FiO2 28 % 07/29/18 19:04 Sodium 141 mmol/L (137-145) 07/31/18 05:32 Potassium 3.1 mmol/L (3.6-5.0) L 07/31/18 05:32 Chloride 100.6 mmol/L (98-107) 07/31/18 05:32 Carbon Dioxide 27 mmol/L (22-30) 07/31/18 05:32 Anion Gap 17 mmol/L 07/31/18 05:32 BUN 13 mg/dL (7-17) 07/31/18 05:32 Creatinine 1.0 mg/dL (0.7-1.2) 07/31/18 05:32 Estimated GFR > 60 ml/min 07/31/18 05:32 BUN/Creatinine Ratio 13 % 07/31/18 05:32 Glucose 90 mg/dL (65-100) 07/31/18 05:32 POC Glucose 82 (70-105) 07/31/18 17:09 Lactic Acid 1.90 mmol/L (0.7-2.0) 07/27/18 04:23 Calcium 8.4 mg/dL (8.4-10.2) 07/31/18 05:32 Phosphorus 3.00 mg/dL (2.5-4.5) 07/28/18 04:48 Magnesium 1.90 mg/dL (1.7-2.3) 07/31/18 05:32 Total Bilirubin 0.30 mg/dL (0.1-1.2) 07/31/18 05:32 AST 23 units/L (5-40) 07/31/18 05:32 ALT 13 units/L (7-56) 07/31/18 05:32 Alkaline Phosphatase 180 units/L (35-129) H 07/31/18 05:32 Total Creatine Kinase 42 units/L (30-135) 07/26/18 12:39 CK-MB (CK-2) 1.8 ng/mL (0.0-4.0) 07/26/18 12:39 CK-MB (CK-2) Rel Index 4.2 (0-4) H 07/26/18 12:39 Troponin T 0.045 ng/mL (0.00-0.029) H D 07/26/18 12:39 C-Reactive Protein 2.90 mg/dL (0.00-1.30) H 07/26/18 15:42 NT-Pro-B Natriuret Pep 7314 pg/mL (0-900) H 07/26/18 05:15 Total Protein 6.2 g/dL (6.3-8.2) L 07/31/18 05:32 Albumin 2.8 g/dL (3.9-5) L 07/31/18 05:32 Albumin/Globulin Ratio 0.8 % 07/31/18 05:32 Triglycerides 120 mg/dL (2-149) 07/26/18 05:15 Cholesterol 111 mg/dL (50-199) 07/26/18 05:15 LDL Cholesterol Direct 70 mg/dL (50-130) 07/26/18 05:15 HDL Cholesterol 30 mg/dL (40-59) L 07/26/18 05:15 Cholesterol/HDL Ratio 3.70 % 07/26/18 05:15 Urine Color Yellow (Yellow) 07/26/18 05:55 Urine Turbidity Clear (Clear) 07/26/18 05:55 Urine pH 6.0 (5.0-7.0) 07/26/18 05:55 Ur Specific [place] 1.006 (1.003-1.030) 07/26/18 05:55 Urine Protein 100 mg/dl mg/dL (Negative) 07/26/18 05:55 Urine Glucose (UA) 50 mg/dL (Negative) 07/26/18 05:55 Urine Ketones Tr mg/dL (Negative) 07/26/18 05:55 Urine Blood Neg (Negative) 07/26/18 05:55 Urine Nitrite Neg (Negative) 07/26/18 05:55 Urine Bilirubin Neg (Negative) 07/26/18 05:55 Urine Urobilinogen < 2.0 mg/dL (<2.0) 07/26/18 05:55 Ur Leukocyte Esterase Neg (Negative) 07/26/18 05:55 Urine WBC (Auto) 2.0 /HPF (0.0-6.0) 07/26/18 05:55 Urine RBC (Auto) 4.0 /HPF (0.0-6.0) 07/26/18 05:55 U Epithel Cells (Auto) < 1.0 /HPF (0-13.0) 07/26/18 05:55 Urine Bacteria (Auto) 1+ /HPF (Negative) 07/26/18 05:55 Urine Mucus Few /HPF 07/26/18 05:55 C. difficile Tox (PCR) Negative (Negative) 07/27/18 Unknown Nutrition/Malnutrition Assess - Dietary Evaluation Nutrition/Malnutrition Findings: Nutrition Notes Start: 07/26/18 13:42 Freq: Status: Active Protocol: Document 07/29/18 14:32 JOSUE (Rec: 07/29/18 14:40 [email or web address]) Nutrition Notes Initial or Follow up Reassessment Current Diagnosis Diabetes Hypertension Other Pertinent Diagnosis Pneu, Dementia Current Diet TF - Vital AF 1.2 at 50ml/hr Labs/Tests Reviewed Pertinent Medications Reviewed Height 5 ft 2 in Weight 80.2 kg [place] Body Weight (kg) 50.00 BMI 32.3 Weight change and time frame Current wt obtained from bed scale Subjective/Other Information Pt tolerating TF at goal rate. Percent of energy/protein needs met: 92% energy 90% pro Burn Absent Trauma Absent #1 Nutrition Diagnosis Predicted suboptimal energy intake Inadequate oral intake Comments: CHANGED Etiology resp failure As Evidenced by Signs and Symptoms pt requires EN support to meet nutrient needs Is patient on ventilator? No Is Patient Ambulatory and/or Out of Bed No REE-([facility]-confined to bed) 1559.676 Kcal/Kg value to use for calculation 15 Approximate Energy Requirements Using 1203 kcal/Kg Additional Notes Pro needs 2g/kg IBW: 100g/day Fluid needs 1ml/kcal Nutrition Intervention Nutrition Support: Vital AF 1.2 at 50mL/hr with 80mL flush q4h Kcal 1,440 Protein (gm) 90 Fluid (mL) 876 Goal #1 TF tolerance Goal #2 TF to meet at least 80% energy and pro needs Follow-Up By: 08/06/18 Additional Comments F/U: stable TF, wt
[2018-07-31] MEDS ORDERED: POTASSIUM CHLORIDE FEEDTUBE ONE (20:51)
[2018-07-31] MEDS: LOVENOX SUB-Q SCH (22:46)
[2018-08-01] MEDS: HumaLOG SUB-Q SCH ×5 (00:51→17:34)
[2018-08-01] MEDS: LOPRESSOR PO SCH ×5 (00:57→17:46)
[2018-08-01] MEDS: ISORDIL TITRADOSE PO SCH ×3 (06:11→21:39)
[2018-08-01] MEDS: COZAAR PO SCH (10:15)
[2018-08-01] MEDS: APRESOLINE PO SCH ×3 (10:17→20:36)
[2018-08-01] MEDS: LASIX PO SCH (10:17)
[2018-08-01] MEDS: POTASSIUM CHLORIDE FEEDTUBE SCH (10:17)
[2018-08-01] MEDS: DepaKENE Liq PO SCH ×2 (10:18→21:38)
[2018-08-01] MEDS: SODIUM CHLORIDE FLUSH SYRINGE 10 ML IV SCH ×2 (10:19→21:39)
[2018-08-01] MEDS ORDERED: DUONEB *Not for PRN Use IH ONE (10:23)
[2018-08-01] MEDS ORDERED: PROVENTIL IH PRN (10:25)
[2018-08-01] MEDS ORDERED: PANCREAZE DR 10,500 UNIT FEEDTUBE PRN ×2 (12:33→13:30)
[2018-08-01] MEDS ORDERED: SODIUM BICARBONATE FEEDTUBE PRN ×2 (12:33→13:30)
[2018-08-01] MEDS ORDERED: SIMPLE SYRUP FEEDTUBE PRN ×4 (12:33→13:30)
[2018-08-01] MEDS: DUONEB *Not for PRN Use IH SCH ×2 (13:51→21:18)
--- NOTE | 2018-08-01 14:57 | Progress Note ---
Assessment and Plan Acute hypoxemic respiratory failure on NIPPV HAP Right pleural effusion Acute encephalopathy( toxic, metabolic) NSTEMI, type 2 ischaemia h/o CAD Atrial fibrillation h/o CVA h/o HTN -Antibiotics for HAP to complete course -Continue with NIPPV qhs and prn -Bronchodilators -Supplemental oxygen to keep O2 sats>90% -ABG and CXR prn -Continue tube feeding -VTE prophylaxis (anticoagulated) -Aspiration precautions -Mobility for pressure ulcer prevention, PT/OT -Accucheck with glycemic control, target blood glucose <180mg/dL. -Monitor for hypoglycemia Continue all supportive care for now. Has a small bowel feeding tube, needs placement of PEG tube to facilitate discharge planning CONDITION: POOR PROGNOSIS: GUARDED CODE STATUS: FULL CODE Subjective Date of service: 08/01/18 Principal diagnosis: Acute hypoxemic Resp failure; Pneumonia (HAP); Tod Pleural effusions; A-Fib Interval history: Follow up: Acute hypoxemic resp failure on NIPPV; HAP; Acute encephaloapthy; Right pleural effusions: NSTEMI Patient seen and examined. 24 hour events reviewed. No new events reported by RT assistant professor of geography. On supplemental oxygen via a Venturi mask; No fevers or vomiting. Remains encephalopathic, cries out on and off. Vitals, labs, medications, chart and imaging reviewed Objective Vital Signs - 12hr 08/01/18 08/01/18 08/01/18 03:37 04:49 07:56 Temperature 98.0 F Pulse Rate 87 74 75 Pulse Rate [ Anterior Bilateral Throughout] Pulse Rate [ Apical] Pulse Rate [ Left Dorsalis Pedis] Pulse Rate [ Left Radial] Pulse Rate [ Posterior Bilateral Throughout] Pulse Rate [ Right Dorsalis Pedis] Pulse Rate [ Right Radial] Respiratory 20 18 Rate Respiratory Rate [Anterior Bilateral Throughout] Respiratory Rate [Posterior Bilateral Throughout] Blood Pressure 139/74 153/95 O2 Sat by Pulse 100 100 98 Oximetry 08/01/18 08/01/18 08/01/18 07:57 08:14 08:25 Temperature 97.3 F L Pulse Rate 78 75 Pulse Rate [ Anterior Bilateral Throughout] Pulse Rate [ Apical] Pulse Rate [ Left Dorsalis Pedis] Pulse Rate [ Left Radial] Pulse Rate [ Posterior Bilateral Throughout] Pulse Rate [ Right Dorsalis Pedis] Pulse Rate [ Right Radial] Respiratory 20 Rate Respiratory Rate [Anterior Bilateral Throughout] Respiratory Rate [Posterior Bilateral Throughout] Blood Pressure 144/84 O2 Sat by Pulse 99 99 100 Oximetry 08/01/18 08/01/18 08/01/18 09:59 10:00 10:15 Temperature Pulse Rate 74 Pulse Rate [ Anterior Bilateral Throughout] Pulse Rate [ 88 Apical] Pulse Rate [ 88 Left Dorsalis Pedis] Pulse Rate [ 88 Left Radial] Pulse Rate [ Posterior Bilateral Throughout] Pulse Rate [ 88 Right Dorsalis Pedis] Pulse Rate [ 88 Right Radial] Respiratory 21 Rate Respiratory Rate [Anterior Bilateral Throughout] Respiratory Rate [Posterior Bilateral Throughout] Blood Pressure 148/88 148/88 O2 Sat by Pulse 97 Oximetry 08/01/18 08/01/18 08/01/18 10:17 11:45 13:51 Temperature Pulse Rate 74 88 Pulse Rate [ 84 Anterior Bilateral Throughout] Pulse Rate [ Apical] Pulse Rate [ Left Dorsalis Pedis] Pulse Rate [ Left Radial] Pulse Rate [ 90 Posterior Bilateral Throughout] Pulse Rate [ Right Dorsalis Pedis] Pulse Rate [ Right Radial] Respiratory Rate Respiratory 16 Rate [Anterior Bilateral Throughout] Respiratory 16 Rate [Posterior Bilateral Throughout] Blood Pressure 148/88 154/79 O2 Sat by Pulse 100 Oximetry 08/01/18 08/01/18 14:54 14:55 Temperature Pulse Rate 88 88 Pulse Rate [ Anterior Bilateral Throughout] Pulse Rate [ Apical] Pulse Rate [ Left Dorsalis Pedis] Pulse Rate [ Left Radial] Pulse Rate [ Posterior Bilateral Throughout] Pulse Rate [ Right Dorsalis Pedis] Pulse Rate [ Right Radial] Respiratory Rate Respiratory Rate [Anterior Bilateral Throughout] Respiratory Rate [Posterior Bilateral Throughout] Blood Pressure 154/79 154/79 O2 Sat by Pulse Oximetry Constitutional: no acute distress, alert Eyes: non-icteric ENT: oropharynx moist Neck: supple, no lymphadenopathy, no JVD, other (no thyromegaly) Effort: mildly labored Ascultation: Bilateral: diminished breath sounds, rhonchi Percussion: Bilateral: not dull Cardiovascular: regular rate and rhythm, murmur noted (systolic) Gastrointestinal: normoactive bowel sounds, soft, non-tender, non-distended Integumentary: other (poor turgor) Extremities: no cyanosis, pulses normal, no ischemia or petechiae, edema (trace) Neurologic: pupils equal and round, unable to assess Psychiatric: other (unable to assess) CBC and BMP: 07/31/18 05:32 07/31/18 05:32 ABG, PT/INR, D-dimer: ABG POC ABG pH 7.458 (7.35-7.45) H 07/29/18 19:04 POC ABG pCO2 43.4 (35-45) 07/29/18 19:04 POC ABG pO2 103 (80-105) 07/29/18 19:04 POC ABG HCO3 30.7 07/29/18 19:04 POC ABG Total CO2 32 07/29/18 19:04 POC ABG O2 Sat 98 07/29/18 19:04 PT/INR, D-dimer PT 14.9 Sec. (12.2-14.9) 07/26/18 05:15 INR 1.13 (0.87-1.13) 07/26/18 05:15 D-Dimer 2370.66 ng/mlDDU (0-234) H 07/26/18 05:15 Abnormal lab findings: Abnormal Labs 07/26/18 07/26/18 07/26/18 05:15 05:15 05:15 WBC RBC RDW 16.4 H Lymph % (Auto) 6.1 L [place] % (Auto) 8.4 H Eos % (Auto) Lymph # 0.6 L Seg Neutrophils % 84.5 H Seg Neutrophils # 7.9 H D-Dimer 2370.66 H POC ABG pH POC ABG pO2 Potassium Glucose POC Glucose Lactic Acid Calcium Alkaline Phosphatase CK-MB (CK-2) Rel Index Troponin T 0.036 H C-Reactive Protein NT-Pro-B Natriuret Pep Total Protein Albumin HDL Cholesterol 30 L 07/26/18 07/26/18 07/26/18 05:15 05:15 05:37 WBC RBC RDW Lymph % (Auto) [place] % (Auto) Eos % (Auto) Lymph # Seg Neutrophils % Seg Neutrophils # D-Dimer POC ABG pH POC ABG pO2 69 L Potassium Glucose 224 H POC Glucose Lactic Acid 2.90 H* Calcium 8.3 L Alkaline Phosphatase 251 H CK-MB (CK-2) Rel Index Troponin T C-Reactive Protein NT-Pro-B Natriuret Pep 7314 H Total Protein Albumin 3.3 L HDL Cholesterol 07/26/18 07/26/18 07/26/18 06:35 06:49 09:26 WBC RBC RDW Lymph % (Auto) [place] % (Auto) Eos % (Auto) Lymph # Seg Neutrophils % Seg Neutrophils # D-Dimer POC ABG pH POC ABG pO2 Potassium Glucose POC Glucose 195 H Lactic Acid 2.20 H* Calcium Alkaline Phosphatase CK-MB (CK-2) Rel Index Troponin T 0.034 H C-Reactive Protein NT-Pro-B Natriuret Pep Total Protein Albumin HDL Cholesterol 07/26/18 07/26/18 07/26/18 12:25 12:39 15:42 WBC RBC RDW Lymph % (Auto) [place] % (Auto) Eos % (Auto) Lymph # Seg Neutrophils % Seg Neutrophils # D-Dimer POC ABG pH POC ABG pO2 Potassium Glucose POC Glucose 171 H Lactic Acid Calcium Alkaline Phosphatase CK-MB (CK-2) Rel Index 4.2 H Troponin T 0.045 H D C-Reactive Protein 2.90 H NT-Pro-B Natriuret Pep Total Protein Albumin HDL Cholesterol 07/26/18 07/27/18 07/27/18 16:32 00:08 04:23 WBC RBC RDW 16.3 H Lymph % (Auto) [place] % (Auto) 14.5 H Eos % (Auto) Lymph # 0.8 L Seg Neutrophils % Seg Neutrophils # D-Dimer POC ABG pH POC ABG pO2 Potassium Glucose POC Glucose 140 H 148 H Lactic Acid Calcium Alkaline Phosphatase CK-MB (CK-2) Rel Index Troponin T C-Reactive Protein NT-Pro-B Natriuret Pep Total Protein Albumin HDL Cholesterol 07/27/18 07/27/18 07/27/18 04:23 05:13 11:44 WBC RBC RDW Lymph % (Auto) [place] % (Auto) Eos % (Auto) Lymph # Seg Neutrophils % Seg Neutrophils # D-Dimer POC ABG pH POC ABG pO2 Potassium Glucose 158 H POC Glucose 176 H 161 H Lactic Acid Calcium Alkaline Phosphatase CK-MB (CK-2) Rel Index Troponin T C-Reactive Protein NT-Pro-B Natriuret Pep Total Protein Albumin HDL Cholesterol 07/27/18 07/27/18 07/28/18 18:22 23:33 04:48 WBC 4.2 L RBC 3.56 L RDW 16.3 H Lymph % (Auto) [place] % (Auto) 9.8 H Eos % (Auto) 5.2 H Lymph # 0.9 L Seg Neutrophils % Seg Neutrophils # D-Dimer POC ABG pH POC ABG pO2 Potassium Glucose POC Glucose 190 H 121 H Lactic Acid Calcium Alkaline Phosphatase CK-MB (CK-2) Rel Index Troponin T C-Reactive Protein NT-Pro-B Natriuret Pep Total Protein Albumin HDL Cholesterol 07/28/18 07/28/18 07/28/18 04:48 05:56 11:49 WBC RBC RDW Lymph % (Auto) [place] % (Auto) Eos % (Auto) Lymph # Seg Neutrophils % Seg Neutrophils # D-Dimer POC ABG pH POC ABG pO2 Potassium 3.5 L Glucose 139 H POC Glucose 133 H 214 H Lactic Acid Calcium 8.3 L Alkaline Phosphatase 177 H CK-MB (CK-2) Rel Index Troponin T C-Reactive Protein NT-Pro-B Natriuret Pep Total Protein 6.1 L Albumin 2.8 L HDL Cholesterol 07/28/18 07/28/18 07/29/18 18:32 23:30 05:15 WBC RBC RDW Lymph % (Auto) [place] % (Auto) Eos % (Auto) Lymph # Seg Neutrophils % Seg Neutrophils # D-Dimer POC ABG pH POC ABG pO2 Potassium Glucose POC Glucose 120 H 160 H 127 H Lactic Acid Calcium Alkaline Phosphatase CK-MB (CK-2) Rel Index Troponin T C-Reactive Protein NT-Pro-B Natriuret Pep Total Protein Albumin HDL Cholesterol 07/29/18 07/29/18 07/29/18 11:32 18:49 19:04 WBC RBC RDW Lymph % (Auto) [place] % (Auto) Eos % (Auto) Lymph # Seg Neutrophils % Seg Neutrophils # D-Dimer POC ABG pH 7.458 H POC ABG pO2 Potassium Glucose POC Glucose 203 H 168 H Lactic Acid Calcium Alkaline Phosphatase CK-MB (CK-2) Rel Index Troponin T C-Reactive Protein NT-Pro-B Natriuret Pep Total Protein Albumin HDL Cholesterol 07/30/18 07/30/18 07/30/18 00:16 04:32 04:32 WBC RBC 3.61 L RDW 16.3 H Lymph % (Auto) [place] % (Auto) 11.5 H Eos % (Auto) Lymph # 0.8 L Seg Neutrophils % Seg Neutrophils # D-Dimer POC ABG pH POC ABG pO2 Potassium 3.2 L Glucose 157 H POC Glucose 186 H Lactic Acid Calcium 8.2 L Alkaline Phosphatase 199 H CK-MB (CK-2) Rel Index Troponin T C-Reactive Protein NT-Pro-B Natriuret Pep Total Protein Albumin 2.8 L HDL Cholesterol 07/30/18 07/30/18 07/31/18 05:12 12:13 05:32 WBC RBC 3.48 L RDW 15.9 H Lymph % (Auto) [place] % (Auto) 11.6 H Eos % (Auto) 4.4 H Lymph # 0.9 L Seg Neutrophils % Seg Neutrophils # D-Dimer POC ABG pH POC ABG pO2 Potassium Glucose POC Glucose 157 H 177 H Lactic Acid Calcium Alkaline Phosphatase CK-MB (CK-2) Rel Index Troponin T C-Reactive Protein NT-Pro-B Natriuret Pep Total Protein Albumin HDL Cholesterol 07/31/18 07/31/18 07/31/18 05:32 12:12 20:42 WBC RBC RDW Lymph % (Auto) [place] % (Auto) Eos % (Auto) Lymph # Seg Neutrophils % Seg Neutrophils # D-Dimer POC ABG pH POC ABG pO2 Potassium 3.1 L Glucose POC Glucose 141 H 155 H Lactic Acid Calcium Alkaline Phosphatase 180 H CK-MB (CK-2) Rel Index Troponin T C-Reactive Protein NT-Pro-B Natriuret Pep Total Protein 6.2 L Albumin 2.8 L HDL Cholesterol 08/01/18 05:07 WBC RBC RDW Lymph % (Auto) [place] % (Auto) Eos % (Auto) Lymph # Seg Neutrophils % Seg Neutrophils # D-Dimer POC ABG pH POC ABG pO2 Potassium Glucose POC Glucose 108 H Lactic Acid Calcium Alkaline Phosphatase CK-MB (CK-2) Rel Index Troponin T C-Reactive Protein NT-Pro-B Natriuret Pep Total Protein Albumin HDL Cholesterol Allied health notes reviewed: RT
--- NOTE | 2018-08-01 15:22 | Progress Note ---
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 cont present cardiac management. Will follow on as needed basis. The patient has been seen in conjunction with Dr. Salena Parham who agrees with the assessment and plan of care. - Patient Problems (1) Acute systolic heart failure Current Visit: Yes Status: Acute (2) NSTEMI (non-ST elevated myocardial infarction) Current Visit: Yes Status: Acute (3) Atrial fibrillation Current Visit: No Status: Acute (4) CAD (coronary artery disease) Current Visit: No Status: Chronic (5) Diabetes mellitus Current Visit: No Status: Chronic (6) Hx of CABG Current Visit: No Status: Chronic (7) Hypertension Current Visit: No Status: Chronic Subjective Date of service: 08/01/18 Principal diagnosis: Acute hypoxemic Resp failure; Pneumonia (HAP); Tod Pleural effusions; A-Fib Interval history: pt nonverbal, no apparent distress. in AFib with CVR on telemetry. Objective Last Vital Signs Temp 97.3 F L 08/01/18 08:14 Pulse 88 08/01/18 14:56 Resp 16 08/01/18 13:51 BP 154/79 08/01/18 14:56 Pulse Ox 100 08/01/18 11:45 - Physical Examination General: No Apparent Distress HEENT: Positive: PERRL, EOMI Neck: Positive: neck supple Cardiac: Positive: irregularly irregular, S1/S2 Lungs: Positive: Decreased Breath Sounds Abdomen: Positive: Soft Extremities: Present: normal, edema (swelling ) - Imaging and Cardiology Echo: report reviewed (quadrant over dysfunction 30 to 35% severe palmar hypertension RVSP 60 mmHg mild RV dysfunction) - Allied health notes Allied health notes reviewed: RT
--- NOTE | 2018-08-01 16:16 | Progress Note ---
Assessment and Plan A/P: 68-year-old female with diabetes, hypertension, atrial fibrillation, coronary artery disease, CKD, seizure disorder, CVA, severe dementia who is a long-term resident admitted with: #1 Acute hypoxic respiratory failure: Likely multifactorial from pulmonary edema, congestive heart failure and possibly HCAP. No fever or leucocytosis. CT shows small right upper lobe opacity ?aspiration pneumonitis v/s fluid. BNP and troponins elevated on admission. Responding well to current therapy: diuretics and abx. Overall clinical suspicion for infectious etiology is low. Completed 3 days of Cefepime, stable off antibiotics. #2 Acute systolic congestive heart failure with atrial fibrillation with rapid ventricular rate: Cardiology following. On anticoagulation and rate control medications. Also had significant BNP elevation along with troponin elevation. #3 Dementia: Appears to be at baseline. Recs: - continue off antibiotics. -Clinically stable, ID is signing off [facility] M: [phone] O:[phone] Subjective Date of service: 08/01/18 Principal diagnosis: Acute hypoxemic Resp failure; Pneumonia (HAP); Tod Pleural effusions; A-Fib Interval history: Patient seen and examined. Nonverbal , difficult to arouse, somnolent. No family at bedside. Objective - Exam Narrative Exam: Constitutional: Calm, eyes shut, difficult to arouse. No acute distress Head, Ears, Nose: Normocephalic, atraumatic. External ears, nose normal Eyes: eyes shut. No icterus. Neck: Supple, no meningeal signs Oral: mouth shut, unable to examine Cardiovascular: S1, S2 normal. Respiratory: Good air entry, clear to auscultation bilaterally GI: Soft, non-tender; bowel sounds normal. No peritoneal signs Musculoskeletal: No pedal edema, no cyanosis. Skin: No rash or abscess Hem/Lymphatic: No palpable cervical or supraclavicular nodes. No lymphangitis Psych: calm, no agitation Neurological: demented, non verbal - Constitutional Vitals: Vital Signs Temp Pulse Resp BP Pulse Ox 97.3 F L 88 16 154/79 100 08/01/18 08:14 08/01/18 14:56 08/01/18 13:51 08/01/18 14:56 08/01/18 11:45 Temperature -Last 24 Hours Temperature 97.3 F Temperature 98.0 F Temperature 98.3 F Temperature 97.9 F - Labs CBC & Chem 7: 07/31/18 05:32 07/31/18 05:32 Labs: Abnormal lab results 07/31/18 08/01/18 Range/Units 20:42 05:07 POC Glucose 155 H 108 H (70-105)
--- NOTE | 2018-08-01 17:27 | Progress Note ---
Assessment and Plan Assessment and plan: --Metabolic encephalopathy; Patient noncommunicative, responds only to deep stimuli Does not open eyes, not in acute distress --Tube feeding/due to encephalopathy; I discussed with the sister Recommend PEG placement, she would discuss with the family members --Hypokalemia: replenish per protocol,monitor levels --Acute hypoxic respiratory failure; Requiring continuous BiPAP, patient is off BiPAP on nasal cannula oxygen continue nebulizers, IV steroids, IV antibiotics, supportive care, pulmonary critical following --Right-sided pneumonia; hospital-acquired pneumonia monitor off antibiotics, per ID following --A. fib with rapid ventricle rate; now rate controlled, continue beta blockers --Chronic anticoagulation with full dose Lovenox --Non-ST elevation MD; probably type II, Cardiology following --Acute systolic congestive heart failure; ejection fraction 30-35% Anti-failure medications, diuretics, beta blockers, estephania inhibitors, low sodium diet --Hypertension; moderate control, continue current antihypertensives When necessary medications --Type 2 diabetes mellitus; Accu-Chek sliding scale coverage tube feeding, long-acting insulin --History of seizure disorder; continue antiepileptic medications, seizure precautions, supportive care --Legally blind; supportive care --Dementia; supportive care --Severe malnutrition; hypoproteinemia, nutrition supplements Nutrition consult, tube feeding protocol --DVT prophylaxis; Lovenox Consults and recommendations noted and appreciated Disposition; possible PEG placement, and discharge to SNF and medically stable History Interval history: Patient seen and examined medical records reviewed Patient is noncommunicative and not opening eyes probably a baseline Saturating well on nasal cannula oxygen, on [place] feedings Vital signs noted No new events reported by the nursing Hospitalist Physical - Constitutional Vitals: Temp Pulse Resp BP Pulse Ox 98.1 F 65 20 146/86 97 08/01/18 16:16 08/01/18 16:16 08/01/18 16:16 08/01/18 16:16 08/01/18 16:16 General appearance: Present: no acute distress, well-nourished, obese - EENT Eyes: Present: PERRL, EOM intact - Neck Neck: Present: supple, normal ROM - Respiratory Respiratory effort: normal Respiratory: bilateral: diminished, negative: rales, rhonchi, wheezing - Cardiovascular Rhythm: regular Heart Sounds: Present: S1 & S2 - Extremities Extremities: no ischemia - Abdominal General gastrointestinal: soft, non-tender, non-distended, normal bowel sounds - Integumentary Integumentary: Present: clear, warm - Psychiatric Psychiatric: other (noncommunicative) - Neurologic Neurologic: other (noncommunicative) Results - Labs CBC & Chem 7: 07/31/18 05:32 07/31/18 05:32 Labs: Laboratory Last Values WBC 4.5 K/mm3 (4.5-11.0) 07/31/18 05:32 RBC 3.48 M/mm3 (3.65-5.03) L 07/31/18 05:32 Hgb 10.3 gm/dl (10.1-14.3) 07/31/18 05:32 Hct 32.0 % (30.3-42.9) 07/31/18 05:32 MCV 92 fl (79-97) 07/31/18 05:32 MCH 30 pg (28-32) 07/31/18 05:32 MCHC 32 % (30-34) 07/31/18 05:32 RDW 15.9 % (13.2-15.2) H 07/31/18 05:32 Plt Count 243 K/mm3 (140-440) 07/31/18 05:32 Lymph % (Auto) 20.2 % (13.4-35.0) 07/31/18 05:32 [place] % (Auto) 11.6 % (0.0-7.3) H 07/31/18 05:32 Eos % (Auto) 4.4 % (0.0-4.3) H 07/31/18 05:32 Baso % (Auto) 1.0 % (0.0-1.8) 07/31/18 05:32 Lymph # 0.9 K/mm3 (1.2-5.4) L 07/31/18 05:32 [place] # 0.5 K/mm3 (0.0-0.8) 07/31/18 05:32 Eos # 0.2 K/mm3 (0.0-0.4) 07/31/18 05:32 Baso # 0.0 K/mm3 (0.0-0.1) 07/31/18 05:32 Seg Neutrophils % 62.8 % (40.0-70.0) 07/31/18 05:32 Seg Neutrophils # 2.8 K/mm3 (1.8-7.7) 07/31/18 05:32 PT 14.9 Sec. (12.2-14.9) 07/26/18 05:15 INR 1.13 (0.87-1.13) 07/26/18 05:15 APTT 29.8 Sec. (24.2-36.6) 07/26/18 05:15 D-Dimer 2370.66 ng/mlDDU (0-234) H 07/26/18 05:15 POC ABG pH 7.458 (7.35-7.45) H 07/29/18 19:04 POC ABG pCO2 43.4 (35-45) 07/29/18 19:04 POC ABG pO2 103 (80-105) 07/29/18 19:04 POC ABG HCO3 30.7 07/29/18 19:04 POC ABG Total CO2 32 07/29/18 19:04 POC ABG O2 Sat 98 07/29/18 19:04 POC ABG Base Excess 7 07/29/18 19:04 FiO2 28 % 07/29/18 19:04 Sodium 141 mmol/L (137-145) 07/31/18 05:32 Potassium 3.1 mmol/L (3.6-5.0) L 07/31/18 05:32 Chloride 100.6 mmol/L (98-107) 07/31/18 05:32 Carbon Dioxide 27 mmol/L (22-30) 07/31/18 05:32 Anion Gap 17 mmol/L 07/31/18 05:32 BUN 13 mg/dL (7-17) 07/31/18 05:32 Creatinine 1.0 mg/dL (0.7-1.2) 07/31/18 05:32 Estimated GFR > 60 ml/min 07/31/18 05:32 BUN/Creatinine Ratio 13 % 07/31/18 05:32 Glucose 90 mg/dL (65-100) 07/31/18 05:32 POC Glucose 138 (70-105) H 08/01/18 16:23 Lactic Acid 1.90 mmol/L (0.7-2.0) 07/27/18 04:23 Calcium 8.4 mg/dL (8.4-10.2) 07/31/18 05:32 Phosphorus 3.00 mg/dL (2.5-4.5) 07/28/18 04:48 Magnesium 1.90 mg/dL (1.7-2.3) 07/31/18 05:32 Total Bilirubin 0.30 mg/dL (0.1-1.2) 07/31/18 05:32 AST 23 units/L (5-40) 07/31/18 05:32 ALT 13 units/L (7-56) 07/31/18 05:32 Alkaline Phosphatase 180 units/L (35-129) H 07/31/18 05:32 Total Creatine Kinase 42 units/L (30-135) 07/26/18 12:39 CK-MB (CK-2) 1.8 ng/mL (0.0-4.0) 07/26/18 12:39 CK-MB (CK-2) Rel Index 4.2 (0-4) H 07/26/18 12:39 Troponin T 0.045 ng/mL (0.00-0.029) H D 07/26/18 12:39 C-Reactive Protein 2.90 mg/dL (0.00-1.30) H 07/26/18 15:42 NT-Pro-B Natriuret Pep 7314 pg/mL (0-900) H 07/26/18 05:15 Total Protein 6.2 g/dL (6.3-8.2) L 07/31/18 05:32 Albumin 2.8 g/dL (3.9-5) L 07/31/18 05:32 Albumin/Globulin Ratio 0.8 % 07/31/18 05:32 Triglycerides 120 mg/dL (2-149) 07/26/18 05:15 Cholesterol 111 mg/dL (50-199) 07/26/18 05:15 LDL Cholesterol Direct 70 mg/dL (50-130) 07/26/18 05:15 HDL Cholesterol 30 mg/dL (40-59) L 07/26/18 05:15 Cholesterol/HDL Ratio 3.70 % 07/26/18 05:15 Urine Color Yellow (Yellow) 07/26/18 05:55 Urine Turbidity Clear (Clear) 07/26/18 05:55 Urine pH 6.0 (5.0-7.0) 07/26/18 05:55 Ur Specific [place] 1.006 (1.003-1.030) 07/26/18 05:55 Urine Protein 100 mg/dl mg/dL (Negative) 07/26/18 05:55 Urine Glucose (UA) 50 mg/dL (Negative) 07/26/18 05:55 Urine Ketones Tr mg/dL (Negative) 07/26/18 05:55 Urine Blood Neg (Negative) 07/26/18 05:55 Urine Nitrite Neg (Negative) 07/26/18 05:55 Urine Bilirubin Neg (Negative) 07/26/18 05:55 Urine Urobilinogen < 2.0 mg/dL (<2.0) 07/26/18 05:55 Ur Leukocyte Esterase Neg (Negative) 07/26/18 05:55 Urine WBC (Auto) 2.0 /HPF (0.0-6.0) 07/26/18 05:55 Urine RBC (Auto) 4.0 /HPF (0.0-6.0) 07/26/18 05:55 U Epithel Cells (Auto) < 1.0 /HPF (0-13.0) 07/26/18 05:55 Urine Bacteria (Auto) 1+ /HPF (Negative) 07/26/18 05:55 Urine Mucus Few /HPF 07/26/18 05:55 C. difficile Tox (PCR) Negative (Negative) 07/27/18 Unknown Nutrition/Malnutrition Assess - Dietary Evaluation Nutrition/Malnutrition Findings: Nutrition Notes Start: 07/26/18 13:42 Freq: Status: Active Protocol: Document 08/01/18 13:12 ER (Rec: 08/01/18 13:30 ER [id number]) Co-Sign 08/01/18 13:12 OL Nutrition Notes Need for Assessment generated from: MD Order Initial or Follow up Reassessment Current Diagnosis Coronary Artery Disease Diabetes Hypertension Heart Failure Stroke Other Pertinent Diagnosis Pneu, Dementia Current Diet TF Labs/Tests Reviewed Pertinent Medications Reviewed Height 5 ft 2 in Weight 81.6 kg [place] Body Weight (kg) 50.00 BMI 32.8 Subjective/Other Information MD consult for write/manage TF . Pt. transfered to floor. TF was on hold. Per ST note, pt. is safe to have pureed foods and thin liquids for pleasure, but recommends continuing TF. Percent of energy/protein needs met: 0% Burn Absent Trauma Absent #1 Nutrition Diagnosis Predicted suboptimal energy intake Inadequate oral intake Diagnosis Progress(for reassessment Continues documentation) Is patient on ventilator? No Is Patient Ambulatory and/or Out of Bed No REE-([facility]-confined to bed) 1576.202 Calculation Used for Recommendations [facility] Additional Notes PRO needs: 50-60g (1-1.2g/kg IBW) Fluid needs: 1 mL/kcal Nutrition Intervention Change Diet Order: Glucerna 1.2 Nutrition Support: Glucerna 1.2 at 50 mL/hr w/ 80mL flush q4h Kcal 1,440 Protein (gm) 72 Fluid (mL) 966 Goal #1 TF tolerance Goal #2 TF to meet at least 80% energy and pro needs Anticipated Discharge Needs: Unable to determine at this time Follow-Up By: 08/02/18 Additional Comments F/U: New TF
[2018-08-01] MEDS ORDERED: PROVENTIL IH SCH (21:00)
[2018-08-01] MEDS ORDERED: ATROVENT IH SCH (21:00)
[2018-08-01] MEDS: LOVENOX SUB-Q SCH (21:39)
[2018-08-02] MEDS: HumaLOG SUB-Q SCH ×5 (00:42→20:30)
[2018-08-02] MEDS: LOPRESSOR PO SCH ×4 (00:43→18:12)
[2018-08-02] MEDS: DUONEB *Not for PRN Use IH SCH ×4 (01:33→21:24)
[2018-08-02] MEDS: ISORDIL TITRADOSE PO SCH ×3 (06:06→22:23)
[2018-08-02] MEDS: POTASSIUM CHLORIDE FEEDTUBE SCH (10:50)
[2018-08-02] MEDS: COZAAR PO SCH (10:51)
[2018-08-02] MEDS: APRESOLINE PO SCH ×3 (10:52→20:51)
[2018-08-02] MEDS: DepaKENE Liq PO SCH ×2 (10:53→22:12)
[2018-08-02] MEDS: SODIUM CHLORIDE FLUSH SYRINGE 10 ML IV SCH ×2 (10:54→22:06)
[2018-08-02] MEDS: LASIX PO SCH (10:54)
--- NOTE | 2018-08-02 10:54 | Progress Note ---
Assessment and Plan Acute hypoxemic respiratory failure on NIPPV HAP Right pleural effusion Acute encephalopathy( toxic, metabolic) NSTEMI, type 2 ischaemia h/o CAD Atrial fibrillation h/o CVA h/o HTN -Antibiotics for HAP to complete course -Continue with NIPPV qhs and prn -Bronchodilators -Supplemental oxygen to keep O2 sats>90% -ABG and CXR prn -Continue tube feeding -VTE prophylaxis (anticoagulated) -Aspiration precautions -Mobility for pressure ulcer prevention, PT/OT -Accucheck with glycemic control, target blood glucose <180mg/dL. -Monitor for hypoglycemia Continue all supportive care for now. Has a small bowel feeding tube, needs placement of PEG tube to facilitate discharge planning Subjective Date of service: 08/02/18 Principal diagnosis: Acute hypoxemic Resp failure; Pneumonia (HAP); Tod Pleural effusions; A-Fib Interval history: Follow up: Acute hypoxemic resp failure on NIPPV; HAP; Acute encephaloapthy; Right pleural effusions: NSTEMI Patient seen and examined. 24 hour events reviewed. 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 On supplemental oxygen via a Venturi mask; No fevers or vomiting. Remains encephalopathic, cries out on and off. Vitals, labs, medications, chart and imaging reviewed Objective Vital Signs - 12hr 08/01/18 08/01/18 08/02/18 23:00 23:16 00:01 Temperature 98.3 F Pulse Rate 90 78 93 H Pulse Rate [ Anterior Bilateral Throughout] Respiratory 20 26 H Rate Respiratory Rate [Anterior Bilateral Throughout] Blood Pressure Blood Pressure 162/90 [Right] O2 Sat by Pulse 100 98 100 Oximetry 08/02/18 08/02/18 08/02/18 00:43 01:33 01:40 Temperature Pulse Rate 89 Pulse Rate [ 77 81 Anterior Bilateral Throughout] Respiratory Rate Respiratory 16 18 Rate [Anterior Bilateral Throughout] Blood Pressure 162/90 Blood Pressure [Right] O2 Sat by Pulse Oximetry 08/02/18 08/02/18 08/02/18 02:06 04:40 04:55 Temperature 98.7 F Pulse Rate 77 89 80 Pulse Rate [ Anterior Bilateral Throughout] Respiratory 16 20 Rate Respiratory Rate [Anterior Bilateral Throughout] Blood Pressure 150/87 Blood Pressure [Right] O2 Sat by Pulse 100 100 Oximetry 08/02/18 08/02/18 08/02/18 06:04 06:06 08:00 Temperature 97.8 F Pulse Rate 77 77 86 Pulse Rate [ Anterior Bilateral Throughout] Respiratory 19 Rate Respiratory Rate [Anterior Bilateral Throughout] Blood Pressure 150/87 150/87 Blood Pressure 145/86 [Right] O2 Sat by Pulse Oximetry 08/02/18 08/02/18 08/02/18 09:54 09:55 10:04 Temperature Pulse Rate Pulse Rate [ 82 83 Anterior Bilateral Throughout] Respiratory Rate Respiratory 18 18 Rate [Anterior Bilateral Throughout] Blood Pressure Blood Pressure [Right] O2 Sat by Pulse 98 Oximetry 08/02/18 08/02/18 10:51 10:52 Temperature Pulse Rate 86 86 Pulse Rate [ Anterior Bilateral Throughout] Respiratory Rate Respiratory Rate [Anterior Bilateral Throughout] Blood Pressure 145/86 145/86 Blood Pressure [Right] O2 Sat by Pulse Oximetry Constitutional: no acute distress, alert Eyes: non-icteric ENT: oropharynx moist Neck: supple, no lymphadenopathy, no JVD, other (no thyromegaly) Effort: mildly labored Ascultation: Bilateral: diminished breath sounds, rhonchi Percussion: Bilateral: not dull Cardiovascular: regular rate and rhythm, murmur noted (systolic) Gastrointestinal: normoactive bowel sounds, soft, non-tender, non-distended Integumentary: other (poor turgor) Extremities: no cyanosis, pulses normal, no ischemia or petechiae, edema (trace) Neurologic: pupils equal and round, unable to assess Psychiatric: other (unable to assess) CBC and BMP: 08/05/18 03:31 08/05/18 03:31 ABG, PT/INR, D-dimer: ABG POC ABG pH 7.458 (7.35-7.45) H 07/29/18 19:04 POC ABG pCO2 43.4 (35-45) 07/29/18 19:04 POC ABG pO2 103 (80-105) 07/29/18 19:04 POC ABG HCO3 30.7 07/29/18 19:04 POC ABG Total CO2 32 07/29/18 19:04 POC ABG O2 Sat 98 07/29/18 19:04 PT/INR, D-dimer PT 14.9 Sec. (12.2-14.9) 07/26/18 05:15 INR 1.13 (0.87-1.13) 07/26/18 05:15 D-Dimer 2370.66 ng/mlDDU (0-234) H 07/26/18 05:15 Abnormal lab findings: Abnormal Labs 07/26/18 07/26/18 07/26/18 05:15 05:15 05:15 WBC RBC RDW 16.4 H Lymph % (Auto) 6.1 L [place] % (Auto) 8.4 H Eos % (Auto) Lymph # 0.6 L Seg Neutrophils % 84.5 H Seg Neutrophils # 7.9 H D-Dimer 2370.66 H POC ABG pH POC ABG pO2 Potassium Glucose POC Glucose Lactic Acid Calcium Alkaline Phosphatase CK-MB (CK-2) Rel Index Troponin T 0.036 H C-Reactive Protein NT-Pro-B Natriuret Pep Total Protein Albumin HDL Cholesterol 30 L 07/26/18 07/26/18 07/26/18 05:15 05:15 05:37 WBC RBC RDW Lymph % (Auto) [place] % (Auto) Eos % (Auto) Lymph # Seg Neutrophils % Seg Neutrophils # D-Dimer POC ABG pH POC ABG pO2 69 L Potassium Glucose 224 H POC Glucose Lactic Acid 2.90 H* Calcium 8.3 L Alkaline Phosphatase 251 H CK-MB (CK-2) Rel Index Troponin T C-Reactive Protein NT-Pro-B Natriuret Pep 7314 H Total Protein Albumin 3.3 L HDL Cholesterol 07/26/18 07/26/18 07/26/18 06:35 06:49 09:26 WBC RBC RDW Lymph % (Auto) [place] % (Auto) Eos % (Auto) Lymph # Seg Neutrophils % Seg Neutrophils # D-Dimer POC ABG pH POC ABG pO2 Potassium Glucose POC Glucose 195 H Lactic Acid 2.20 H* Calcium Alkaline Phosphatase CK-MB (CK-2) Rel Index Troponin T 0.034 H C-Reactive Protein NT-Pro-B Natriuret Pep Total Protein Albumin HDL Cholesterol 07/26/18 07/26/18 07/26/18 12:25 12:39 15:42 WBC RBC RDW Lymph % (Auto) [place] % (Auto) Eos % (Auto) Lymph # Seg Neutrophils % Seg Neutrophils # D-Dimer POC ABG pH POC ABG pO2 Potassium Glucose POC Glucose 171 H Lactic Acid Calcium Alkaline Phosphatase CK-MB (CK-2) Rel Index 4.2 H Troponin T 0.045 H D C-Reactive Protein 2.90 H NT-Pro-B Natriuret Pep Total Protein Albumin HDL Cholesterol 07/26/18 07/27/18 07/27/18 16:32 00:08 04:23 WBC RBC RDW 16.3 H Lymph % (Auto) [place] % (Auto) 14.5 H Eos % (Auto) Lymph # 0.8 L Seg Neutrophils % Seg Neutrophils # D-Dimer POC ABG pH POC ABG pO2 Potassium Glucose POC Glucose 140 H 148 H Lactic Acid Calcium Alkaline Phosphatase CK-MB (CK-2) Rel Index Troponin T C-Reactive Protein NT-Pro-B Natriuret Pep Total Protein Albumin HDL Cholesterol 07/27/18 07/27/18 07/27/18 04:23 05:13 11:44 WBC RBC RDW Lymph % (Auto) [place] % (Auto) Eos % (Auto) Lymph # Seg Neutrophils % Seg Neutrophils # D-Dimer POC ABG pH POC ABG pO2 Potassium Glucose 158 H POC Glucose 176 H 161 H Lactic Acid Calcium Alkaline Phosphatase CK-MB (CK-2) Rel Index Troponin T C-Reactive Protein NT-Pro-B Natriuret Pep Total Protein Albumin HDL Cholesterol 07/27/18 07/27/18 07/28/18 18:22 23:33 04:48 WBC 4.2 L RBC 3.56 L RDW 16.3 H Lymph % (Auto) [place] % (Auto) 9.8 H Eos % (Auto) 5.2 H Lymph # 0.9 L Seg Neutrophils % Seg Neutrophils # D-Dimer POC ABG pH POC ABG pO2 Potassium Glucose POC Glucose 190 H 121 H Lactic Acid Calcium Alkaline Phosphatase CK-MB (CK-2) Rel Index Troponin T C-Reactive Protein NT-Pro-B Natriuret Pep Total Protein Albumin HDL Cholesterol 07/28/18 07/28/18 07/28/18 04:48 05:56 11:49 WBC RBC RDW Lymph % (Auto) [place] % (Auto) Eos % (Auto) Lymph # Seg Neutrophils % Seg Neutrophils # D-Dimer POC ABG pH POC ABG pO2 Potassium 3.5 L Glucose 139 H POC Glucose 133 H 214 H Lactic Acid Calcium 8.3 L Alkaline Phosphatase 177 H CK-MB (CK-2) Rel Index Troponin T C-Reactive Protein NT-Pro-B Natriuret Pep Total Protein 6.1 L Albumin 2.8 L HDL Cholesterol 07/28/18 07/28/18 07/29/18 18:32 23:30 05:15 WBC RBC RDW Lymph % (Auto) [place] % (Auto) Eos % (Auto) Lymph # Seg Neutrophils % Seg Neutrophils # D-Dimer POC ABG pH POC ABG pO2 Potassium Glucose POC Glucose 120 H 160 H 127 H Lactic Acid Calcium Alkaline Phosphatase CK-MB (CK-2) Rel Index Troponin T C-Reactive Protein NT-Pro-B Natriuret Pep Total Protein Albumin HDL Cholesterol 07/29/18 07/29/18 07/29/18 11:32 18:49 19:04 WBC RBC RDW Lymph % (Auto) [place] % (Auto) Eos % (Auto) Lymph # Seg Neutrophils % Seg Neutrophils # D-Dimer POC ABG pH 7.458 H POC ABG pO2 Potassium Glucose POC Glucose 203 H 168 H Lactic Acid Calcium Alkaline Phosphatase CK-MB (CK-2) Rel Index Troponin T C-Reactive Protein NT-Pro-B Natriuret Pep Total Protein Albumin HDL Cholesterol 07/30/18 07/30/18 07/30/18 00:16 04:32 04:32 WBC RBC 3.61 L RDW 16.3 H Lymph % (Auto) [place] % (Auto) 11.5 H Eos % (Auto) Lymph # 0.8 L Seg Neutrophils % Seg Neutrophils # D-Dimer POC ABG pH POC ABG pO2 Potassium 3.2 L Glucose 157 H POC Glucose 186 H Lactic Acid Calcium 8.2 L Alkaline Phosphatase 199 H CK-MB (CK-2) Rel Index Troponin T C-Reactive Protein NT-Pro-B Natriuret Pep Total Protein Albumin 2.8 L HDL Cholesterol 07/30/18 07/30/18 07/31/18 05:12 12:13 05:32 WBC RBC 3.48 L RDW 15.9 H Lymph % (Auto) [place] % (Auto) 11.6 H Eos % (Auto) 4.4 H Lymph # 0.9 L Seg Neutrophils % Seg Neutrophils # D-Dimer POC ABG pH POC ABG pO2 Potassium Glucose POC Glucose 157 H 177 H Lactic Acid Calcium Alkaline Phosphatase CK-MB (CK-2) Rel Index Troponin T C-Reactive Protein NT-Pro-B Natriuret Pep Total Protein Albumin HDL Cholesterol 07/31/18 07/31/18 07/31/18 05:32 12:12 20:42 WBC RBC RDW Lymph % (Auto) [place] % (Auto) Eos % (Auto) Lymph # Seg Neutrophils % Seg Neutrophils # D-Dimer POC ABG pH POC ABG pO2 Potassium 3.1 L Glucose POC Glucose 141 H 155 H Lactic Acid Calcium Alkaline Phosphatase 180 H CK-MB (CK-2) Rel Index Troponin T C-Reactive Protein NT-Pro-B Natriuret Pep Total Protein 6.2 L Albumin 2.8 L HDL Cholesterol 08/01/18 08/01/18 08/01/18 05:07 12:01 16:23 WBC RBC RDW Lymph % (Auto) [place] % (Auto) Eos % (Auto) Lymph # Seg Neutrophils % Seg Neutrophils # D-Dimer POC ABG pH POC ABG pO2 Potassium Glucose POC Glucose 108 H 178 H 138 H Lactic Acid Calcium Alkaline Phosphatase CK-MB (CK-2) Rel Index Troponin T C-Reactive Protein NT-Pro-B Natriuret Pep Total Protein Albumin HDL Cholesterol 08/02/18 08/02/18 00:39 05:42 WBC RBC RDW Lymph % (Auto) [place] % (Auto) Eos % (Auto) Lymph # Seg Neutrophils % Seg Neutrophils # D-Dimer POC ABG pH POC ABG pO2 Potassium Glucose POC Glucose 109 H 143 H Lactic Acid Calcium Alkaline Phosphatase CK-MB (CK-2) Rel Index Troponin T C-Reactive Protein NT-Pro-B Natriuret Pep Total Protein Albumin HDL Cholesterol Allied health notes reviewed: RT
--- NOTE | 2018-08-02 11:14 | Progress Note ---
Assessment and Plan A/P: 68-year-old female with diabetes, hypertension, atrial fibrillation, coronary artery disease, CKD, seizure disorder, CVA, severe dementia who is a skilled nursing resident admitted with: #1 Acute hypoxic respiratory failure: Likely multifactorial from pulmonary edema, congestive heart failure and possibly HCAP. No fever or leucocytosis. CT shows small right upper lobe opacity ?aspiration pneumonitis v/s fluid. BNP and troponins elevated on admission. Responding well to current therapy: diuretics and abx. Overall clinical suspicion for infectious etiology is low. Completed 3 days of Cefepime, stable off antibiotics. #2 Acute systolic congestive heart failure with atrial fibrillation with rapid ventricular rate: Cardiology following. On anticoagulation and rate control medications. Also had significant BNP elevation along with troponin elevation. #3 Dementia: Appears to be at baseline. Recs: - continue off antibiotics. -Clinically stable, ID is signing off [facility] M: [id number] O:[phone] Subjective Date of service: 08/02/18 Principal diagnosis: Acute hypoxemic Resp failure; Pneumonia (HAP); Tod Pleural effusions; A-Fib Objective - Constitutional Vitals: Vital Signs Temp Pulse Resp BP Pulse Ox 97.8 F 86 18 145/86 98 08/02/18 08:00 08/02/18 10:52 08/02/18 10:04 08/02/18 10:52 08/02/18 09:55 Temperature -Last 24 Hours Temperature 97.8 F Temperature 98.7 F Temperature 98.3 F Temperature 98.5 F Temperature 98.1 F - Labs CBC & Chem 7: 07/31/18 05:32 07/31/18 05:32 Labs: Abnormal lab results 08/01/18 08/01/18 08/02/18 Range/Units 12:01 16:23 00:39 POC Glucose 178 H 138 H 109 H (70-105) 08/02/18 Range/Units 05:42 POC Glucose 143 H (70-105)
--- NOTE | 2018-08-02 11:32 | Progress Note ---
Assessment and Plan Assessment and plan: --Metabolic encephalopathy; the last 4 weeks[reported by the sister and son] Patient noncommunicative, responds only to deep stimuli Does not open eyes, not in acute distress --Tube feeding/due to encephalopathy; I discussed with the sister and the patient's son Recommend PEG placement, agreed with the plan consult GI --Acute hypoxic respiratory failure; Requiring continuous BiPAP, patient is off BiPAP on nasal cannula oxygen continue nebulizers, IV steroids, IV antibiotics, supportive care, pulmonary critical following --Right-sided pneumonia; hospital-acquired pneumonia monitor off antibiotics, per ID following --A. fib with rapid ventricle rate; now rate controlled, continue beta blockers, Not a candidate for chronic anticoagulation --Non-ST elevation NE; probably type II, Cardiology following --Acute systolic congestive heart failure; ejection fraction 30-35% Anti-failure medications, diuretics, beta blockers, estephania inhibitors, low sodium diet --Hypertension; moderate control, continue current antihypertensives When necessary medications --Type 2 diabetes mellitus; Accu-Chek sliding scale coverage tube feeding, long-acting insulin --History of seizure disorder; continue antiepileptic medications, seizure precautions, --Legally blind; supportive care --Dementia; supportive care --Severe malnutrition; hypoproteinemia, nutrition supplements Nutrition consult, tube feeding protocol --DVT prophylaxis; Lovenox Consults and recommendations noted and appreciated Disposition; possible PEG placement, and transfer back to [facility] History Interval history: Patient seen and examined medical records reviewed The patient is severely encephalopathy Noncommunicative Does not open eyes, legally blind On [place] feeds for the last 7 days. No new events reported by the nursing Vital signs reviewed Hospitalist Physical - Constitutional Vitals: Temp Pulse Resp BP Pulse Ox 97.8 F 86 18 145/86 98 08/02/18 08:00 08/02/18 10:52 08/02/18 10:04 08/02/18 10:52 08/02/18 09:55 General appearance: Present: no acute distress, well-nourished, obese - EENT Eyes: Present: PERRL, EOM intact - Neck Neck: Present: supple, normal ROM - Respiratory Respiratory effort: normal Respiratory: bilateral: diminished, negative: rales, rhonchi, wheezing - Cardiovascular Rhythm: regular Heart Sounds: Present: S1 & S2 - Extremities Extremities: no ischemia, pulses intact - Abdominal General gastrointestinal: soft, non-tender, non-distended, normal bowel sounds - Integumentary Integumentary: Present: clear, warm - Psychiatric Psychiatric: other (noncommunicative) - Neurologic Neurologic: other (dementia) Results - Labs CBC & Chem 7: 07/31/18 05:32 07/31/18 05:32 Labs: Laboratory Last Values WBC 4.5 K/mm3 (4.5-11.0) 07/31/18 05:32 RBC 3.48 M/mm3 (3.65-5.03) L 07/31/18 05:32 Hgb 10.3 gm/dl (10.1-14.3) 07/31/18 05:32 Hct 32.0 % (30.3-42.9) 07/31/18 05:32 MCV 92 fl (79-97) 07/31/18 05:32 MCH 30 pg (28-32) 07/31/18 05:32 MCHC 32 % (30-34) 07/31/18 05:32 RDW 15.9 % (13.2-15.2) H 07/31/18 05:32 Plt Count 243 K/mm3 (140-440) 07/31/18 05:32 Lymph % (Auto) 20.2 % (13.4-35.0) 07/31/18 05:32 [place] % (Auto) 11.6 % (0.0-7.3) H 07/31/18 05:32 Eos % (Auto) 4.4 % (0.0-4.3) H 07/31/18 05:32 Baso % (Auto) 1.0 % (0.0-1.8) 07/31/18 05:32 Lymph # 0.9 K/mm3 (1.2-5.4) L 07/31/18 05:32 [place] # 0.5 K/mm3 (0.0-0.8) 07/31/18 05:32 Eos # 0.2 K/mm3 (0.0-0.4) 07/31/18 05:32 Baso # 0.0 K/mm3 (0.0-0.1) 07/31/18 05:32 Seg Neutrophils % 62.8 % (40.0-70.0) 07/31/18 05:32 Seg Neutrophils # 2.8 K/mm3 (1.8-7.7) 07/31/18 05:32 PT 14.9 Sec. (12.2-14.9) 07/26/18 05:15 INR 1.13 (0.87-1.13) 07/26/18 05:15 APTT 29.8 Sec. (24.2-36.6) 07/26/18 05:15 D-Dimer 2370.66 ng/mlDDU (0-234) H 07/26/18 05:15 POC ABG pH 7.458 (7.35-7.45) H 07/29/18 19:04 POC ABG pCO2 43.4 (35-45) 07/29/18 19:04 POC ABG pO2 103 (80-105) 07/29/18 19:04 POC ABG HCO3 30.7 07/29/18 19:04 POC ABG Total CO2 32 07/29/18 19:04 POC ABG O2 Sat 98 07/29/18 19:04 POC ABG Base Excess 7 07/29/18 19:04 FiO2 28 % 07/29/18 19:04 Sodium 141 mmol/L (137-145) 07/31/18 05:32 Potassium 3.1 mmol/L (3.6-5.0) L 07/31/18 05:32 Chloride 100.6 mmol/L (98-107) 07/31/18 05:32 Carbon Dioxide 27 mmol/L (22-30) 07/31/18 05:32 Anion Gap 17 mmol/L 07/31/18 05:32 BUN 13 mg/dL (7-17) 07/31/18 05:32 Creatinine 1.0 mg/dL (0.7-1.2) 07/31/18 05:32 Estimated GFR > 60 ml/min 07/31/18 05:32 BUN/Creatinine Ratio 13 % 07/31/18 05:32 Glucose 90 mg/dL (65-100) 07/31/18 05:32 POC Glucose 143 (70-105) H 08/02/18 05:42 Lactic Acid 1.90 mmol/L (0.7-2.0) 07/27/18 04:23 Calcium 8.4 mg/dL (8.4-10.2) 07/31/18 05:32 Phosphorus 3.00 mg/dL (2.5-4.5) 07/28/18 04:48 Magnesium 1.90 mg/dL (1.7-2.3) 07/31/18 05:32 Total Bilirubin 0.30 mg/dL (0.1-1.2) 07/31/18 05:32 AST 23 units/L (5-40) 07/31/18 05:32 ALT 13 units/L (7-56) 07/31/18 05:32 Alkaline Phosphatase 180 units/L (35-129) H 07/31/18 05:32 Total Creatine Kinase 42 units/L (30-135) 07/26/18 12:39 CK-MB (CK-2) 1.8 ng/mL (0.0-4.0) 07/26/18 12:39 CK-MB (CK-2) Rel Index 4.2 (0-4) H 07/26/18 12:39 Troponin T 0.045 ng/mL (0.00-0.029) H D 07/26/18 12:39 C-Reactive Protein 2.90 mg/dL (0.00-1.30) H 07/26/18 15:42 NT-Pro-B Natriuret Pep 7314 pg/mL (0-900) H 07/26/18 05:15 Total Protein 6.2 g/dL (6.3-8.2) L 07/31/18 05:32 Albumin 2.8 g/dL (3.9-5) L 07/31/18 05:32 Albumin/Globulin Ratio 0.8 % 07/31/18 05:32 Triglycerides 120 mg/dL (2-149) 07/26/18 05:15 Cholesterol 111 mg/dL (50-199) 07/26/18 05:15 LDL Cholesterol Direct 70 mg/dL (50-130) 07/26/18 05:15 HDL Cholesterol 30 mg/dL (40-59) L 07/26/18 05:15 Cholesterol/HDL Ratio 3.70 % 07/26/18 05:15 Urine Color Yellow (Yellow) 07/26/18 05:55 Urine Turbidity Clear (Clear) 07/26/18 05:55 Urine pH 6.0 (5.0-7.0) 07/26/18 05:55 Ur Specific [place] 1.006 (1.003-1.030) 07/26/18 05:55 Urine Protein 100 mg/dl mg/dL (Negative) 07/26/18 05:55 Urine Glucose (UA) 50 mg/dL (Negative) 07/26/18 05:55 Urine Ketones Tr mg/dL (Negative) 07/26/18 05:55 Urine Blood Neg (Negative) 07/26/18 05:55 Urine Nitrite Neg (Negative) 07/26/18 05:55 Urine Bilirubin Neg (Negative) 07/26/18 05:55 Urine Urobilinogen < 2.0 mg/dL (<2.0) 07/26/18 05:55 Ur Leukocyte Esterase Neg (Negative) 07/26/18 05:55 Urine WBC (Auto) 2.0 /HPF (0.0-6.0) 07/26/18 05:55 Urine RBC (Auto) 4.0 /HPF (0.0-6.0) 07/26/18 05:55 U Epithel Cells (Auto) < 1.0 /HPF (0-13.0) 07/26/18 05:55 Urine Bacteria (Auto) 1+ /HPF (Negative) 07/26/18 05:55 Urine Mucus Few /HPF 07/26/18 05:55 C. difficile Tox (PCR) Negative (Negative) 07/27/18 Unknown Nutrition/Malnutrition Assess - Dietary Evaluation Nutrition/Malnutrition Findings: Nutrition Notes Start: 07/26/18 13:42 Freq: Status: Active Protocol: Document 08/02/18 11:24 ER (Rec: 08/02/18 11:28 ER [id number]) Co-Sign 08/02/18 11:24 LP Nutrition Notes Initial or Follow up Reassessment Current Diagnosis Coronary Artery Disease Diabetes Hypertension Heart Failure Stroke Other Pertinent Diagnosis Pneu, Dementia Current Diet Glucerna 1.2 at 50mL/hr Labs/Tests Reviewed Pertinent Medications Lasix Height 5 ft 2 in Weight 81.6 kg [place] Body Weight (kg) 50.00 BMI 32.8 Subjective/Other Information Glucerna 1.2 infusing at 50 mL /hr. Pt. tolerating TF Percent of energy/protein needs met: 91%/100% Burn Absent Trauma Absent #1 Nutrition Diagnosis Predicted suboptimal energy intake Inadequate oral intake As Evidenced by Signs and Symptoms Pt. tolerating TF, TF meeting at least 90% of energy and protein needs. Diagnosis Progress(for reassessment Improved documentation) Is patient on ventilator? No Is Patient Ambulatory and/or Out of Bed No REE-([facility]-confined to bed) [phone] Calculation Used for Recommendations [facility] Additional Notes PRO needs: 50-60g (1-1.2g/kg IBW) Fluid needs: 1 mL/kcal Nutrition Intervention Change Diet Order: Continue TF Nutrition Support: Glucerna 1.2 at 50 mL/hr w/ 80mL flush q4h Kcal 1,440 Protein (gm) 72 Fluid (mL) 966 Goal #1 TF tolerance Goal #2 TF to meet at least 80% energy and pro needs Anticipated Discharge Needs: Unable to determine at this time Follow-Up By: 08/08/18 Additional Comments F/U: Stable TF
[2018-08-02] MEDS: LOVENOX SUB-Q SCH (22:13)
[2018-08-03] MEDS: LOPRESSOR PO SCH ×4 (00:55→17:37)
[2018-08-03] MEDS: HumaLOG SUB-Q SCH ×4 (00:57→17:45)
[2018-08-03] MEDS: ISORDIL TITRADOSE PO SCH ×3 (05:58→21:19)
[2018-08-03 06:13] LABS: Basophils % (Auto) 0.7 % (0.0-1.8); Eosinophils # (Auto) 0.2 K/mm3 (0.0-0.4); Eosinophils % (Auto) 4.3 % (0.0-4.3); Hematocrit 35.3 % (30.3-42.9); Hemoglobin 11.5 gm/dl (10.1-14.3); Lymphocytes # (Auto) 0.9 K/mm3 (1.2-5.4); Lymphocytes % (Auto) 16.7 % (13.4-35.0); Mean Corpuscular HGB Conc 33 % (30-34); Mean Corpuscular Volume 91 fl (79-97); Monocytes # (Auto) 0.7 K/mm3 (0.0-0.8); Monocytes % (Auto) 13.7 % (0.0-7.3); Platelet Count 271 K/mm3 (140-440); Red Blood Count 3.87 M/mm3 (3.65-5.03)
[2018-08-03 06:18] LABS: INR 1.05 (0.87-1.13)
[2018-08-03 06:19] LABS: Partial Thromboplastin Time 32.1 Sec. (24.2-36.6)
[2018-08-03 07:04] LABS: BUN/Creatinine Ratio 14; Blood Urea Nitrogen 15 mg/dL (7-17); Calcium 8.7 mg/dL (8.4-10.2); Hemolysis Index 36
--- NOTE | 2018-08-03 07:32 | Progress Note ---
Assessment and Plan Assessment and plan: --Severe Encephalopathy; the last 4 weeks[reported by the sister and son] Patient noncommunicative, responds only to deep stimuli. Does not open eyes, --Tube feeding/due to encephalopathy;discussed with the sister and the patient's son Recommend PEG placement, agreed with the plan,PEG on Sunday per GI --Acute hypoxic respiratory failure; s/p BiPAP, on nasal cannula/Ventimask nebulizers, pulmonary following --Right-sided pneumonia; hospital-acquired pneumonia treated, monitor off antibiotics, per ID --A. fib with rapid ventricle rate; now rate controlled, continue beta blockers, Not a candidate for chronic anticoagulation --Non-ST elevation HI; probably type II, medical management --Acute systolic congestive heart failure; ejection fraction 30-35% Anti-failure medications, diuretics, beta blockers, estephania inhibitors, low sodium diet --Hypertension; stable, on current antihypertensives --Type 2 diabetes mellitus; Accu-Chek sliding scale coverage tube feeding, long-acting insulin --History of seizure disorder; seizure precautions ,antiepileptic medications, --Legally blind; supportive care --Dementia; supportive care --Severe malnutrition; hypoproteinemia, nutrition supplements Nutrition consult, tube feeding protocol/PEG placement --DVT prophylaxis; Lovenox Disposition; possible PEG placement on Sunday, and transfer back to [facility] History Interval history: Patient seen and examined medical records reviewed Clinically no change Comfortable noncommunicative closing eyes Receiving tube feeding Vital signs noted Hospitalist Physical - Constitutional Vitals: Temp Pulse Resp BP Pulse Ox 98.1 F 80 18 137/82 97 08/03/18 02:57 08/03/18 05:58 08/03/18 02:57 08/03/18 05:58 08/03/18 00:37 General appearance: Present: no acute distress, well-nourished, obese - EENT Eyes: Present: PERRL, EOM intact - Neck Neck: Present: supple, normal ROM - Respiratory Respiratory effort: normal Respiratory: bilateral: diminished, negative: rales, rhonchi, wheezing - Cardiovascular Rhythm: regular Heart Sounds: Present: S1 & S2 - Extremities Extremities: no ischemia, No edema - Abdominal General gastrointestinal: soft, non-tender, non-distended, normal bowel sounds - Integumentary Integumentary: Present: clear, warm - Psychiatric Psychiatric: other (noncommunicative) - Neurologic Neurologic: other (noncommunicative) Results - Labs CBC & Chem 7: 08/03/18 05:14 08/03/18 05:14 Labs: Laboratory Last Values WBC 5.1 K/mm3 (4.5-11.0) 08/03/18 05:14 RBC 3.87 M/mm3 (3.65-5.03) 08/03/18 05:14 Hgb 11.5 gm/dl (10.1-14.3) 08/03/18 05:14 Hct 35.3 % (30.3-42.9) 08/03/18 05:14 MCV 91 fl (79-97) 08/03/18 05:14 MCH 30 pg (28-32) 08/03/18 05:14 MCHC 33 % (30-34) 08/03/18 05:14 RDW 16.0 % (13.2-15.2) H 08/03/18 05:14 Plt Count 271 K/mm3 (140-440) 08/03/18 05:14 Lymph % (Auto) 16.7 % (13.4-35.0) 08/03/18 05:14 [place] % (Auto) 13.7 % (0.0-7.3) H 08/03/18 05:14 Eos % (Auto) 4.3 % (0.0-4.3) 08/03/18 05:14 Baso % (Auto) 0.7 % (0.0-1.8) 08/03/18 05:14 Lymph # 0.9 K/mm3 (1.2-5.4) L 08/03/18 05:14 [place] # 0.7 K/mm3 (0.0-0.8) 08/03/18 05:14 Eos # 0.2 K/mm3 (0.0-0.4) 08/03/18 05:14 Baso # 0.0 K/mm3 (0.0-0.1) 08/03/18 05:14 Seg Neutrophils % 64.6 % (40.0-70.0) 08/03/18 05:14 Seg Neutrophils # 3.3 K/mm3 (1.8-7.7) 08/03/18 05:14 PT 14.3 Sec. (12.2-14.9) 08/03/18 05:14 INR 1.05 (0.87-1.13) 08/03/18 05:14 APTT 32.1 Sec. (24.2-36.6) 08/03/18 05:14 D-Dimer 2370.66 ng/mlDDU (0-234) H 07/26/18 05:15 POC ABG pH 7.458 (7.35-7.45) H 07/29/18 19:04 POC ABG pCO2 43.4 (35-45) 07/29/18 19:04 POC ABG pO2 103 (80-105) 07/29/18 19:04 POC ABG HCO3 30.7 07/29/18 19:04 POC ABG Total CO2 32 07/29/18 19:04 POC ABG O2 Sat 98 07/29/18 19:04 POC ABG Base Excess 7 07/29/18 19:04 FiO2 28 % 07/29/18 19:04 Sodium 139 mmol/L (137-145) 08/03/18 05:14 Potassium 4.3 mmol/L (3.6-5.0) D 08/03/18 05:14 Chloride 99.0 mmol/L (98-107) 08/03/18 05:14 Carbon Dioxide 26 mmol/L (22-30) 08/03/18 05:14 Anion Gap 18 mmol/L 08/03/18 05:14 BUN 15 mg/dL (7-17) 08/03/18 05:14 Creatinine 1.1 mg/dL (0.7-1.2) 08/03/18 05:14 Estimated GFR > 60 ml/min 08/03/18 05:14 BUN/Creatinine Ratio 14 % 08/03/18 05:14 Glucose 117 mg/dL (65-100) H 08/03/18 05:14 POC Glucose 148 (70-105) H 08/03/18 05:59 Lactic Acid 1.90 mmol/L (0.7-2.0) 07/27/18 04:23 Calcium 8.7 mg/dL (8.4-10.2) 08/03/18 05:14 Phosphorus 3.00 mg/dL (2.5-4.5) 07/28/18 04:48 Magnesium 1.90 mg/dL (1.7-2.3) 07/31/18 05:32 Total Bilirubin 0.30 mg/dL (0.1-1.2) 07/31/18 05:32 AST 23 units/L (5-40) 07/31/18 05:32 ALT 13 units/L (7-56) 07/31/18 05:32 Alkaline Phosphatase 180 units/L (35-129) H 07/31/18 05:32 Total Creatine Kinase 42 units/L (30-135) 07/26/18 12:39 CK-MB (CK-2) 1.8 ng/mL (0.0-4.0) 07/26/18 12:39 CK-MB (CK-2) Rel Index 4.2 (0-4) H 07/26/18 12:39 Troponin T 0.045 ng/mL (0.00-0.029) H D 07/26/18 12:39 C-Reactive Protein 2.90 mg/dL (0.00-1.30) H 07/26/18 15:42 NT-Pro-B Natriuret Pep 7314 pg/mL (0-900) H 07/26/18 05:15 Total Protein 6.2 g/dL (6.3-8.2) L 07/31/18 05:32 Albumin 2.8 g/dL (3.9-5) L 07/31/18 05:32 Albumin/Globulin Ratio 0.8 % 07/31/18 05:32 Triglycerides 120 mg/dL (2-149) 07/26/18 05:15 Cholesterol 111 mg/dL (50-199) 07/26/18 05:15 LDL Cholesterol Direct 70 mg/dL (50-130) 07/26/18 05:15 HDL Cholesterol 30 mg/dL (40-59) L 07/26/18 05:15 Cholesterol/HDL Ratio 3.70 % 07/26/18 05:15 Urine Color Yellow (Yellow) 07/26/18 05:55 Urine Turbidity Clear (Clear) 07/26/18 05:55 Urine pH 6.0 (5.0-7.0) 07/26/18 05:55 Ur Specific [place] 1.006 (1.003-1.030) 07/26/18 05:55 Urine Protein 100 mg/dl mg/dL (Negative) 07/26/18 05:55 Urine Glucose (UA) 50 mg/dL (Negative) 07/26/18 05:55 Urine Ketones Tr mg/dL (Negative) 07/26/18 05:55 Urine Blood Neg (Negative) 07/26/18 05:55 Urine Nitrite Neg (Negative) 07/26/18 05:55 Urine Bilirubin Neg (Negative) 07/26/18 05:55 Urine Urobilinogen < 2.0 mg/dL (<2.0) 07/26/18 05:55 Ur Leukocyte Esterase Neg (Negative) 07/26/18 05:55 Urine WBC (Auto) 2.0 /HPF (0.0-6.0) 07/26/18 05:55 Urine RBC (Auto) 4.0 /HPF (0.0-6.0) 07/26/18 05:55 U Epithel Cells (Auto) < 1.0 /HPF (0-13.0) 07/26/18 05:55 Urine Bacteria (Auto) 1+ /HPF (Negative) 07/26/18 05:55 Urine Mucus Few /HPF 07/26/18 05:55 C. difficile Tox (PCR) Negative (Negative) 07/27/18 Unknown Nutrition/Malnutrition Assess - Dietary Evaluation Nutrition/Malnutrition Findings: Nutrition Notes Start: 07/26/18 13:42 Freq: Status: Active Protocol: Document 08/02/18 11:24 ER (Rec: 08/02/18 11:28 ER [id number]) Co-Sign 08/02/18 11:24 LP Nutrition Notes Initial or Follow up Reassessment Current Diagnosis Coronary Artery Disease Diabetes Hypertension Heart Failure Stroke Other Pertinent Diagnosis Pneu, Dementia Current Diet Glucerna 1.2 at 50mL/hr Labs/Tests Reviewed Pertinent Medications Lasix Height 5 ft 2 in Weight 81.6 kg [place] Body Weight (kg) 50.00 BMI 32.8 Subjective/Other Information Glucerna 1.2 infusing at 50 mL /hr. Pt. tolerating TF Percent of energy/protein needs met: 91%/100% Burn Absent Trauma Absent #1 Nutrition Diagnosis Predicted suboptimal energy intake Inadequate oral intake As Evidenced by Signs and Symptoms Pt. tolerating TF, TF meeting at least 90% of energy and protein needs. Diagnosis Progress(for reassessment Improved documentation) Is patient on ventilator? No Is Patient Ambulatory and/or Out of Bed No REE-([place]-St. Jeor-confined to bed) 9466.452 Calculation Used for Recommendations [place]-St Jeor Additional Notes PRO needs: 50-60g (1-1.2g/kg IBW) Fluid needs: 1 mL/kcal Nutrition Intervention Change Diet Order: Continue TF Nutrition Support: Glucerna 1.2 at 50 mL/hr w/ 80mL flush q4h Kcal 1,440 Protein (gm) 72 Fluid (mL) 966 Goal #1 TF tolerance Goal #2 TF to meet at least 80% energy and pro needs Anticipated Discharge Needs: Unable to determine at this time Follow-Up By: 08/07/18 Additional Comments F/U: Stable TF
[2018-08-03] MEDS: DUONEB *Not for PRN Use IH SCH ×3 (08:26→20:13)
--- NOTE | 2018-08-03 10:14 | Gastroenterology Consultation ---
History of Present Illness - Reason for Consult Consult date: 08/03/18 PEG placement Requesting physician: OSCAR ENGLISH - History of Present Illness This is a 68 yo AAF with pmh of Afib, CHF, severe dementia (bed ridden from shelter), HTN, DM, seizure, legally blind, and malnutrition admitted for respiratory failure due to HCAP, heart failure requiring BiPap. Hospital stay complicated with metabolic encephalopathy in the setting of severe dementia. Currently receiving tube feeds through feeding tube. Patient not communicative and responds to only deep stimuli. GI consulted for placement of PEG tube for nutrition. Spoke with patient's son, Reece Miranda on the phone. Past History Past Medical History: atrial fib, diabetes, heart failure, hypertension Social history: other (shelter resident) Family history: other (unable to obtain ) Medications and Allergies Allergies Allergy/AdvReac Type Severity Reaction Status Date / Time lisinopril Allergy Unknown Verified 06/23/18 23:57 Home Medications Medication Instructions Recorded Confirmed Last Taken Type AtorvaSTATin [Lipitor] 40 mg PO DAILY 08/06/16 07/26/18 Unknown History Carvedilol [Coreg] 25 mg PO BID tablet 08/09/16 07/26/18 Unknown Rx Acetaminophen [Acetaminophen TAB] 650 mg PO Q6HR PRN 05/22/18 07/26/18 Unknown History Amlodipine Besylate [Norvasc] 10 mg PO QDAY 05/22/18 07/26/18 Unknown History Cholecalciferol (Vitamin D3) 2,000 unit PO DAILY 05/22/18 07/26/18 Unknown History [Vitamin D3] Folic Acid 0.4 mg PO QDAY 05/22/18 07/26/18 Unknown History Hydralazine HCl 50 mg PO BID 05/22/18 07/26/18 Unknown History Insulin Detemir [Levemir VIAL] 20 units SUB-Q QHS 05/22/18 07/26/18 Unknown History Insulin NPH Hum/Reg Insulin Hm 5 units SUB-Q DAILY@1130 05/22/18 07/26/18 Unknown History [HumuLIN 70-30 Vial] Insulin Regular, Human [HumuLIN R] See Protocol SUB-Q ACHS 05/22/18 07/26/18 Unknown History Melatonin [Melatin] 3 mg PO HS 05/22/18 07/26/18 Unknown History Multivitamin Tab W-MINERAL 1 each PO QDAY 05/22/18 07/26/18 Unknown History [Multiple Vitamin/Mineral (Theragran M)] Ranitidine HCl [Zantac 150 MG TAB] 150 mg PO BID 05/22/18 07/26/18 Unknown History hydrOXYzine HCl [Hydroxyzine HCl] 25 mg PO Q12H 05/22/18 07/26/18 Unknown History Divalproex [Adrienne Lopez] 125 mg PO BID 06/24/18 07/26/18 Unknown History carBAMazepine [TEGretol] 200 mg PO BID 06/24/18 07/26/18 Unknown History Active Meds: Active Medications Acetaminophen (Tylenol) 650 mg PO Q4H PRN PRN Reason: Pain MILD(1-3)/Fever >100.5/YOUSIF Albuterol (Proventil) 2.5 mg IH Q6HRT PRN PRN Reason: Shortness Of Breath Albuterol/Ipratropium (Duoneb *Not For Prn Use*) 1 ampul IH TIDRT [facility] Last Admin: 08/03/18 08:26 Dose: 1 ampul Documented by: Lipase/Protease/Amylase (Olivia Lopez 10,500 Unit) 1 each FEEDTUBE PRN PRN PRN Reason: For Clogged Feeding Tube Atorvastatin Calcium (Lipitor) 40 mg PO QHS [facility] Last Admin: 08/02/18 22:13 Dose: 40 mg Documented by: Carbamazepine (Tegretol) 200 mg PO BID [facility] Last Admin: 08/02/18 22:24 Dose: 200 mg Documented by: Enoxaparin Sodium (Lovenox) 40 mg SUB-Q QDAY@2200 [facility] Last Admin: 08/02/18 22:13 Dose: 40 mg Documented by: Furosemide (Lasix) 40 mg PO DAILY [facility] Last Admin: 08/02/18 10:54 Dose: 40 mg Documented by: Hydralazine HCl (Apresoline) 50 mg PO TID [facility] Last Admin: 08/02/18 20:51 Dose: 50 mg Documented by: Insulin Human Isoph/Insulin Regular (Humulin 70/30) 5 unit SUB-Q DAILY@1130 [facility] Last Admin: 08/02/18 12:24 Dose: 5 unit Documented by: Insulin Human Lispro (Humalog) 0 unit SUB-Q Q6HR [facility]; Protocol Last Admin: 08/03/18 05:57 Dose: Not Given Documented by: Isosorbide Dinitrate (Isordil Titradose) 10 mg PO Q8HR [facility] Last Admin: 08/03/18 05:58 Dose: 10 mg Documented by: Losartan Potassium (Cozaar) 50 mg PO QDAY [facility] Last Admin: 08/02/18 10:51 Dose: 50 mg Documented by: Metoprolol Tartrate (Lopressor) 50 mg PO Q6HR [facility] Last Admin: 08/03/18 05:58 Dose: 50 mg Documented by: Ondansetron HCl (Zofran) 4 mg IV Q8H PRN PRN Reason: Nausea And Vomiting Potassium Chloride (Potassium Chloride) 20 meq FEEDTUBE QDAY [facility] Last Admin: 08/02/18 10:50 Dose: 20 meq Documented by: Simple Syrup (Simple Syrup) 15 ml FEEDTUBE PRN PRN PRN Reason: Hypoglycemia Simple Syrup (Simple Syrup) 30 ml FEEDTUBE PRN PRN PRN Reason: Hypoglycemia Sodium Bicarbonate (Sodium Bicarbonate) 325 mg FEEDTUBE PRN PRN PRN Reason: For Clogged Feeding Tube Sodium Chloride (Sodium Chloride Flush Syringe 10 Ml) 10 ml IV BID [facility] Last Admin: 08/02/18 22:06 Dose: 10 ml Documented by: Sodium Chloride (Sodium Chloride Flush Syringe 10 Ml) 10 ml IV PRN PRN PRN Reason: LINE FLUSH Valproic Acid (Depakene Liq) 125 mg PO BID [facility] Last Admin: 08/02/18 22:12 Dose: 125 mg Documented by: Review of Systems - Review of Systems ROS unobtainable: due to mental status Exam - Exam Narrative Exam: Constitutional: Calm, eyes shut, difficult to arouse. No acute distress Head, Ears, Nose: Normocephalic, atraumatic. External ears, nose normal Eyes: eyes shut. No icterus. Neck: Supple, no meningeal signs Oral: mouth shut, unable to examine Cardiovascular: S1, S2 normal. Respiratory: with face mask, clear to auscultation bilaterally GI: Soft, non-tender; bowel sounds normal. No peritoneal signs Musculoskeletal: No pedal edema, no cyanosis. Skin: No rash or abscess Psych: calm, no agitation Neurological: demented, non verbal - Constitutional Vital Signs: Temp Pulse Resp BP Pulse Ox 97.9 F 82 18 124/69 100 08/03/18 07:11 08/03/18 08:54 08/03/18 08:54 08/03/18 07:11 08/03/18 08:54 - Labs CBC & Chem 7: 08/03/18 05:14 08/03/18 05:14 Lab Results: Laboratory Results - last 24 hr 08/02/18 08/02/18 08/02/18 11:53 18:15 23:48 WBC RBC Hgb Hct MCV MCH MCHC RDW Plt Count Lymph % (Auto) [place] % (Auto) Eos % (Auto) Baso % (Auto) Lymph # [place] # Eos # Baso # Seg Neutrophils % Seg Neutrophils # PT INR APTT Sodium Potassium Chloride Carbon Dioxide Anion Gap BUN Creatinine Estimated GFR BUN/Creatinine Ratio Glucose POC Glucose 188 H 112 H 157 H Calcium 08/03/18 08/03/18 08/03/18 05:14 05:14 05:14 WBC 5.1 RBC 3.87 Hgb 11.5 Hct 35.3 MCV 91 MCH 30 MCHC 33 RDW 16.0 H Plt Count 271 Lymph % (Auto) 16.7 [place] % (Auto) 13.7 H Eos % (Auto) 4.3 Baso % (Auto) 0.7 Lymph # 0.9 L [place] # 0.7 Eos # 0.2 Baso # 0.0 Seg Neutrophils % 64.6 Seg Neutrophils # 3.3 PT 14.3 INR 1.05 APTT 32.1 Sodium 139 Potassium 4.3 D Chloride 99.0 Carbon Dioxide 26 Anion Gap 18 BUN 15 Creatinine 1.1 Estimated GFR > 60 BUN/Creatinine Ratio 14 Glucose 117 H POC Glucose Calcium 8.7 08/03/18 05:59 WBC RBC Hgb Hct MCV MCH MCHC RDW Plt Count Lymph % (Auto) [place] % (Auto) Eos % (Auto) Baso % (Auto) Lymph # [place] # Eos # Baso # Seg Neutrophils % Seg Neutrophils # PT INR APTT Sodium Potassium Chloride Carbon Dioxide Anion Gap BUN Creatinine Estimated GFR BUN/Creatinine Ratio Glucose POC Glucose 148 H Calcium Assessment and Plan This is a 68 yo AAF with pmh of Afib, CHF, severe dementia (bed ridden from shelter), HTN, DM, seizure, legally blind, and malnutrition admitted for respiratory failure due to HCAP, heart failure requiring BiPap. # PEG placement for metabolic encephalopathy in the setting of severe dementia. - per patient's son, she has not been communicative and bed bound for some time. Not eating much at shelter prior to admission. - had a discussion over the phone with the son regarding PEG tube, the nature of the procedure and risks of potential complications including but not limited to bleeding, infection, perforation, bowel injury, and complications with anesthe arianne as well as that the nutrition through the PEG tube is unlikely to improve her mental status given underlying dementia and this does not prevent aspiration risks. Son expressed understanding and wished to continue with PEG placement. - will need clearance from cardiology and pulmonary prior to proceeding with the procedure given multiple comorbidities and respiratory failure this admission. - will tentatively plan for EGD/PEG placement on 08/05/2018 if cleared by cardiology and pulmonary. - please call with questions. - Patient Problems (1) Acute metabolic encephalopathy Current Visit: Yes Status: Acute
[2018-08-03] MEDS ORDERED: PANCREAZE DR 10,500 UNIT FEEDTUBE PRN ×2 (10:36→16:20)
[2018-08-03] MEDS ORDERED: SODIUM BICARBONATE FEEDTUBE PRN ×2 (10:36→16:20)
[2018-08-03] MEDS ORDERED: SIMPLE SYRUP FEEDTUBE PRN ×4 (10:36→16:20)
[2018-08-03] MEDS: DepaKENE Liq PO SCH ×2 (10:57→21:18)
[2018-08-03] MEDS: POTASSIUM CHLORIDE FEEDTUBE SCH (10:58)
[2018-08-03] MEDS: APRESOLINE PO SCH ×3 (10:58→20:07)
[2018-08-03] MEDS: COZAAR PO SCH (10:59)
[2018-08-03] MEDS: LASIX PO SCH (10:59)
[2018-08-03] MEDS: SODIUM CHLORIDE FLUSH SYRINGE 10 ML IV SCH ×2 (11:00→21:19)
--- NOTE | 2018-08-03 13:53 | Progress Note ---
Assessment and Plan Acute hypoxemic respiratory failure, on mechanical ventilatory support. Pneumonia, right upper lobe, healthcare-associated pneumonia. Mild congestive heart failure exacerbation. Bilateral pleural effusions. Atrial fibrillation with a rapid ventricular response. Acute on Chronic Encephalopathy Diabetes type 2. History of hypertension. Seizure disorder. History of cerebrovascular accident. Coronary artery disease with elevated serum troponins. Anxiety disorder. Dementia. She is legally blind - continue supplemental oxygen to keep O2 sats > 90% - continue BIPAP qhs for pre-load issues and possible DAVIS - appreciate ID input (following clinically off AB's) - continue bronchodilators with pulmonary hygiene per RT - ABG prn at this point - continue lopressor for rate control - continue oral lasix (40mg p.o. qd) - advance diet per ST rec's (She will need a PEG) - continue AED (tegretol) for seizures - medical management for NSTEMI - no acute indication for thoracentesis at this point - continue tube feeding as tolerated - continue GI & VTE prophylaxis - continue aspiration precautions - continue mobility protocol for pressure ulcer prophylaxis - PT/OT as tolerated - discontinued oliver catheter - continue accuchecks with glycemic control per SSI for target blood glucose < 180 mg/dL. - Monitor for hypoglycemia - continue other care per attending / other consultants ... re-evaluate in am & prn Subjective Date of service: 08/03/18 Principal diagnosis: Acute hypoxemic Resp failure; Pneumonia (HAP); Tod Pleural effusions; A-Fib Interval history: Patient is seen today for: Acute hypoxemic Resp failure; Pneumonia (RUL HAP); Mild congestive heart failure exacerbation; Bilateral pleural effusions; Atrial fibrillation with a rapid ventricular response; Diabetes type 2. Seen and examined at bedside; 24hour events reviewed; nursing and respiratory care staff consulted; no adverse overnight events reported to me; resting peacefully in bed; remains encephalopathic; remains on supplemental oxygen at 3L NC; No emesis or overt aspiration Objective Vital Signs - 12hr 08/03/18 08/03/18 08/03/18 02:57 05:58 07:11 Temperature 98.1 F 97.9 F Pulse Rate 80 72 Pulse Rate [ Anterior Bilateral Throughout] Pulse Rate [ From Monitor] Respiratory 18 22 Rate Respiratory Rate [Anterior Bilateral Throughout] Blood Pressure 137/82 137/82 124/69 O2 Sat by Pulse 100 Oximetry 08/03/18 08/03/1808/03/19 08:26 08:27 08:36 Temperature Pulse Rate 82 Pulse Rate [ 78 80 Anterior Bilateral Throughout] Pulse Rate [ From Monitor] Respiratory 20 Rate Respiratory 20 20 Rate [Anterior Bilateral Throughout] Blood Pressure O2 Sat by Pulse 100 100 Oximetry 08/03/18 08/03/18 08/03/18 08:54 10:00 10:58 Temperature Pulse Rate 82 Pulse Rate [ Anterior Bilateral Throughout] Pulse Rate [ 82 From Monitor] Respiratory 18 Rate Respiratory Rate [Anterior Bilateral Throughout] Blood Pressure 136/77 O2 Sat by Pulse 100 Oximetry 08/03/18 08/03/18 08/03/18 10:59 13:26 13:27 Temperature Pulse Rate Pulse Rate [ Anterior Bilateral Throughout] Pulse Rate [ From Monitor] Respiratory Rate Respiratory Rate [Anterior Bilateral Throughout] Blood Pressure 136/77 134/84 134/81 O2 Sat by Pulse Oximetry Constitutional: no acute distress, lethargic, other (elderly looking obese AAF, normocephalic and atraumatic with mildly increased work of breathing at rest) Eyes: non-icteric ENT: oropharynx moist Neck: supple, no lymphadenopathy, no JVD, other (no thyromegaly) Effort: mildly labored Ascultation: Bilateral: clear, diminished breath sounds Percussion: Bilateral: not dull Cardiovascular: regular rate and rhythm, murmur noted (systolic) Gastrointestinal: normoactive bowel sounds, soft, non-tender, non-distended Integumentary: other (poor turgor) Extremities: no cyanosis, pulses normal, no ischemia or petechiae, edema (trace) Neurologic: pupils equal and round, unable to assess Psychiatric: other (unable to assess) CBC and BMP: 08/03/18 05:14 08/03/18 05:14 ABG, PT/INR, D-dimer: ABG POC ABG pH 7.458 (7.35-7.45) H 07/29/18 19:04 POC ABG pCO2 43.4 (35-45) 07/29/18 19:04 POC ABG pO2 103 (80-105) 07/29/18 19:04 POC ABG HCO3 30.7 07/29/18 19:04 POC ABG Total CO2 32 07/29/18 19:04 POC ABG O2 Sat 98 07/29/18 19:04 PT/INR, D-dimer PT 14.3 Sec. (12.2-14.9) 08/03/18 05:14 INR 1.05 (0.87-1.13) 08/03/18 05:14 D-Dimer 2370.66 ng/mlDDU (0-234) H 07/26/18 05:15 Abnormal lab findings: Abnormal Labs 07/26/18 07/26/18 07/26/18 05:15 05:15 05:15 WBC RBC RDW 16.4 H Lymph % (Auto) 6.1 L [place] % (Auto) 8.4 H Eos % (Auto) Lymph # 0.6 L Seg Neutrophils % 84.5 H Seg Neutrophils # 7.9 H D-Dimer 2370.66 H POC ABG pH POC ABG pO2 Potassium Glucose POC Glucose Lactic Acid Calcium Alkaline Phosphatase CK-MB (CK-2) Rel Index Troponin T 0.036 H C-Reactive Protein NT-Pro-B Natriuret Pep Total Protein Albumin HDL Cholesterol 30 L 07/26/18 07/26/18 07/26/18 05:15 05:15 05:37 WBC RBC RDW Lymph % (Auto) [place] % (Auto) Eos % (Auto) Lymph # Seg Neutrophils % Seg Neutrophils # D-Dimer POC ABG pH POC ABG pO2 69 L Potassium Glucose 224 H POC Glucose Lactic Acid 2.90 H* Calcium 8.3 L Alkaline Phosphatase 251 H CK-MB (CK-2) Rel Index Troponin T C-Reactive Protein NT-Pro-B Natriuret Pep 7314 H Total Protein Albumin 3.3 L HDL Cholesterol 07/26/18 07/26/18 07/26/18 06:35 06:49 09:26 WBC RBC RDW Lymph % (Auto) [place] % (Auto) Eos % (Auto) Lymph # Seg Neutrophils % Seg Neutrophils # D-Dimer POC ABG pH POC ABG pO2 Potassium Glucose POC Glucose 195 H Lactic Acid 2.20 H* Calcium Alkaline Phosphatase CK-MB (CK-2) Rel Index Troponin T 0.034 H C-Reactive Protein NT-Pro-B Natriuret Pep Total Protein Albumin HDL Cholesterol 07/26/18 07/26/18 07/26/18 12:25 12:39 15:42 WBC RBC RDW Lymph % (Auto) [place] % (Auto) Eos % (Auto) Lymph # Seg Neutrophils % Seg Neutrophils # D-Dimer POC ABG pH POC ABG pO2 Potassium Glucose POC Glucose 171 H Lactic Acid Calcium Alkaline Phosphatase CK-MB (CK-2) Rel Index 4.2 H Troponin T 0.045 H D C-Reactive Protein 2.90 H NT-Pro-B Natriuret Pep Total Protein Albumin HDL Cholesterol 07/26/18 07/27/18 07/27/18 16:32 00:08 04:23 WBC RBC RDW 16.3 H Lymph % (Auto) [place] % (Auto) 14.5 H Eos % (Auto) Lymph # 0.8 L Seg Neutrophils % Seg Neutrophils # D-Dimer POC ABG pH POC ABG pO2 Potassium Glucose POC Glucose 140 H 148 H Lactic Acid Calcium Alkaline Phosphatase CK-MB (CK-2) Rel Index Troponin T C-Reactive Protein NT-Pro-B Natriuret Pep Total Protein Albumin HDL Cholesterol 07/27/18 07/27/18 07/27/18 04:23 05:13 11:44 WBC RBC RDW Lymph % (Auto) [place] % (Auto) Eos % (Auto) Lymph # Seg Neutrophils % Seg Neutrophils # D-Dimer POC ABG pH POC ABG pO2 Potassium Glucose 158 H POC Glucose 176 H 161 H Lactic Acid Calcium Alkaline Phosphatase CK-MB (CK-2) Rel Index Troponin T C-Reactive Protein NT-Pro-B Natriuret Pep Total Protein Albumin HDL Cholesterol 07/27/18 07/27/18 07/28/18 18:22 23:33 04:48 WBC 4.2 L RBC 3.56 L RDW 16.3 H Lymph % (Auto) [place] % (Auto) 9.8 H Eos % (Auto) 5.2 H Lymph # 0.9 L Seg Neutrophils % Seg Neutrophils # D-Dimer POC ABG pH POC ABG pO2 Potassium Glucose POC Glucose 190 H 121 H Lactic Acid Calcium Alkaline Phosphatase CK-MB (CK-2) Rel Index Troponin T C-Reactive Protein NT-Pro-B Natriuret Pep Total Protein Albumin HDL Cholesterol 07/28/18 07/28/18 07/28/18 04:48 05:56 11:49 WBC RBC RDW Lymph % (Auto) [place] % (Auto) Eos % (Auto) Lymph # Seg Neutrophils % Seg Neutrophils # D-Dimer POC ABG pH POC ABG pO2 Potassium 3.5 L Glucose 139 H POC Glucose 133 H 214 H Lactic Acid Calcium 8.3 L Alkaline Phosphatase 177 H CK-MB (CK-2) Rel Index Troponin T C-Reactive Protein NT-Pro-B Natriuret Pep Total Protein 6.1 L Albumin 2.8 L HDL Cholesterol 07/28/18 07/28/18 07/29/18 18:32 23:30 05:15 WBC RBC RDW Lymph % (Auto) [place] % (Auto) Eos % (Auto) Lymph # Seg Neutrophils % Seg Neutrophils # D-Dimer POC ABG pH POC ABG pO2 Potassium Glucose POC Glucose 120 H 160 H 127 H Lactic Acid Calcium Alkaline Phosphatase CK-MB (CK-2) Rel Index Troponin T C-Reactive Protein NT-Pro-B Natriuret Pep Total Protein Albumin HDL Cholesterol 07/29/18 07/29/18 07/29/18 11:32 18:49 19:04 WBC RBC RDW Lymph % (Auto) [place] % (Auto) Eos % (Auto) Lymph # Seg Neutrophils % Seg Neutrophils # D-Dimer POC ABG pH 7.458 H POC ABG pO2 Potassium Glucose POC Glucose 203 H 168 H Lactic Acid Calcium Alkaline Phosphatase CK-MB (CK-2) Rel Index Troponin T C-Reactive Protein NT-Pro-B Natriuret Pep Total Protein Albumin HDL Cholesterol 07/30/18 07/30/18 07/30/18 00:16 04:32 04:32 WBC RBC 3.61 L RDW 16.3 H Lymph % (Auto) [place] % (Auto) 11.5 H Eos % (Auto) Lymph # 0.8 L Seg Neutrophils % Seg Neutrophils # D-Dimer POC ABG pH POC ABG pO2 Potassium 3.2 L Glucose 157 H POC Glucose 186 H Lactic Acid Calcium 8.2 L Alkaline Phosphatase 199 H CK-MB (CK-2) Rel Index Troponin T C-Reactive Protein NT-Pro-B Natriuret Pep Total Protein Albumin 2.8 L HDL Cholesterol 07/30/18 07/30/18 07/31/18 05:12 12:13 05:32 WBC RBC 3.48 L RDW 15.9 H Lymph % (Auto) [place] % (Auto) 11.6 H Eos % (Auto) 4.4 H Lymph # 0.9 L Seg Neutrophils % Seg Neutrophils # D-Dimer POC ABG pH POC ABG pO2 Potassium Glucose POC Glucose 157 H 177 H Lactic Acid Calcium Alkaline Phosphatase CK-MB (CK-2) Rel Index Troponin T C-Reactive Protein NT-Pro-B Natriuret Pep Total Protein Albumin HDL Cholesterol 07/31/18 07/31/18 07/31/18 05:32 12:12 20:42 WBC RBC RDW Lymph % (Auto) [place] % (Auto) Eos % (Auto) Lymph # Seg Neutrophils % Seg Neutrophils # D-Dimer POC ABG pH POC ABG pO2 Potassium 3.1 L Glucose POC Glucose 141 H 155 H Lactic Acid Calcium Alkaline Phosphatase 180 H CK-MB (CK-2) Rel Index Troponin T C-Reactive Protein NT-Pro-B Natriuret Pep Total Protein 6.2 L Albumin 2.8 L HDL Cholesterol 08/01/18 08/01/18 08/01/18 05:07 12:01 16:23 WBC RBC RDW Lymph % (Auto) [place] % (Auto) Eos % (Auto) Lymph # Seg Neutrophils % Seg Neutrophils # D-Dimer POC ABG pH POC ABG pO2 Potassium Glucose POC Glucose 108 H 178 H 138 H Lactic Acid Calcium Alkaline Phosphatase CK-MB (CK-2) Rel Index Troponin T C-Reactive Protein NT-Pro-B Natriuret Pep Total Protein Albumin HDL Cholesterol 08/02/18 08/02/18 08/02/18 00:39 05:42 11:53 WBC RBC RDW Lymph % (Auto) [place] % (Auto) Eos % (Auto) Lymph # Seg Neutrophils % Seg Neutrophils # D-Dimer POC ABG pH POC ABG pO2 Potassium Glucose POC Glucose 109 H 143 H 188 H Lactic Acid Calcium Alkaline Phosphatase CK-MB (CK-2) Rel Index Troponin T C-Reactive Protein NT-Pro-B Natriuret Pep Total Protein Albumin HDL Cholesterol 08/02/18 08/02/18 08/03/18 18:15 23:48 05:14 WBC RBC RDW 16.0 H Lymph % (Auto) [place] % (Auto) 13.7 H Eos % (Auto) Lymph # 0.9 L Seg Neutrophils % Seg Neutrophils # D-Dimer POC ABG pH POC ABG pO2 Potassium Glucose POC Glucose 112 H 157 H Lactic Acid Calcium Alkaline Phosphatase CK-MB (CK-2) Rel Index Troponin T C-Reactive Protein NT-Pro-B Natriuret Pep Total Protein Albumin HDL Cholesterol 08/03/18 08/03/18 08/03/18 05:14 05:59 11:44 WBC RBC RDW Lymph % (Auto) [place] % (Auto) Eos % (Auto) Lymph # Seg Neutrophils % Seg Neutrophils # D-Dimer POC ABG pH POC ABG pO2 Potassium Glucose 117 H POC Glucose 148 H 175 H Lactic Acid Calcium Alkaline Phosphatase CK-MB (CK-2) Rel Index Troponin T C-Reactive Protein NT-Pro-B Natriuret Pep Total Protein Albumin HDL Cholesterol Chest x-ray: image reviewed (persistent but improved interstitial edema) Allied health notes reviewed: RT
[2018-08-03] MEDS: LOVENOX SUB-Q SCH (21:18)
[2018-08-04] MEDS: HumaLOG SUB-Q SCH ×4 (00:05→17:59)
[2018-08-04] MEDS: LOPRESSOR PO SCH ×4 (00:50→17:58)
[2018-08-04] MEDS: ISORDIL TITRADOSE PO SCH ×3 (05:15→22:28)
--- NOTE | 2018-08-04 08:06 | Progress Note ---
Assessment and Plan Assessment and plan: --Dysphagia on Tube feeding/due to encephalopathy;discussed with the sister and the patient's son Recommend PEG placement,Both agreed with the plan,PEG placement tomorrow per GI --Encephalopathy; the last 4 weeks[reported by the sister and son] Patient noncommunicative, responds only to deep stimuli. Does not open eyes, --Acute hypoxic respiratory failure; s/p BiPAP, on nasal cannula/Ventimask nebulizers, pulmonary following --Right-sided pneumonia; hospital-acquired pneumonia treated, monitor off antibiotics, per ID --A. fib with rapid ventricle rate; now rate controlled, continue beta blockers, Not a candidate for chronic anticoagulation --Non-ST elevation MD; probably type II, medical management --Acute systolic congestive heart failure; ejection fraction 30-35% Anti-failure medications, diuretics, beta blockers, estephania inhibitors, low sodium diet --Hypertension; stable, on current antihypertensives --Type 2 diabetes mellitus; Accu-Chek sliding scale coverage tube feeding, long-acting insulin --History of seizure disorder; seizure precautions ,antiepileptic medications, --Legally blind; supportive care --Dementia; supportive care --Severe malnutrition; hypoproteinemia, nutrition supplements Nutrition consult, tube feeding protocol/PEG placement --DVT prophylaxis; Lovenox Disposition; possible PEG placement tomorrow, and transfer back to SNF Plan of care reviewed with the the nurse History Interval history: Patient seen and examined, No new events reported by the nursing Vital signs reviewed Hospitalist Physical - Constitutional Vitals: Temp Pulse Resp BP Pulse Ox 98.3 F 82 20 138/76 100 08/03/18 20:15 08/04/18 04:15 08/04/18 04:15 08/03/18 20:15 08/04/18 04:15 General appearance: Present: no acute distress, well-nourished, obese, other (noncommunicative) - EENT Eyes: Present: PERRL - Neck Neck: Present: supple - Respiratory Respiratory effort: normal Respiratory: bilateral: diminished, negative: rales, rhonchi, wheezing - Cardiovascular Rhythm: regular Heart Sounds: Present: S1 & S2 - Extremities Extremities: no ischemia, No edema - Psychiatric Psychiatric: other (non communicative) - Neurologic Neurologic: other (residual weakness, legally blind,non communicative) Results - Labs CBC & Chem 7: 08/03/18 05:14 08/03/18 05:14 Labs: Laboratory Last Values WBC 5.1 K/mm3 (4.5-11.0) 08/03/18 05:14 RBC 3.87 M/mm3 (3.65-5.03) 08/03/18 05:14 Hgb 11.5 gm/dl (10.1-14.3) 08/03/18 05:14 Hct 35.3 % (30.3-42.9) 08/03/18 05:14 MCV 91 fl (79-97) 08/03/18 05:14 MCH 30 pg (28-32) 08/03/18 05:14 MCHC 33 % (30-34) 08/03/18 05:14 RDW 16.0 % (13.2-15.2) H 08/03/18 05:14 Plt Count 271 K/mm3 (140-440) 08/03/18 05:14 Lymph % (Auto) 16.7 % (13.4-35.0) 08/03/18 05:14 [place] % (Auto) 13.7 % (0.0-7.3) H 08/03/18 05:14 Eos % (Auto) 4.3 % (0.0-4.3) 08/03/18 05:14 Baso % (Auto) 0.7 % (0.0-1.8) 08/03/18 05:14 Lymph # 0.9 K/mm3 (1.2-5.4) L 08/03/18 05:14 [place] # 0.7 K/mm3 (0.0-0.8) 08/03/18 05:14 Eos # 0.2 K/mm3 (0.0-0.4) 08/03/18 05:14 Baso # 0.0 K/mm3 (0.0-0.1) 08/03/18 05:14 Seg Neutrophils % 64.6 % (40.0-70.0) 08/03/18 05:14 Seg Neutrophils # 3.3 K/mm3 (1.8-7.7) 08/03/18 05:14 PT 14.3 Sec. (12.2-14.9) 08/03/18 05:14 INR 1.05 (0.87-1.13) 08/03/18 05:14 APTT 32.1 Sec. (24.2-36.6) 08/03/18 05:14 D-Dimer 2370.66 ng/mlDDU (0-234) H 07/26/18 05:15 POC ABG pH 7.458 (7.35-7.45) H 07/29/18 19:04 POC ABG pCO2 43.4 (35-45) 07/29/18 19:04 POC ABG pO2 103 (80-105) 07/29/18 19:04 POC ABG HCO3 30.7 07/29/18 19:04 POC ABG Total CO2 32 07/29/18 19:04 POC ABG O2 Sat 98 07/29/18 19:04 POC ABG Base Excess 7 07/29/18 19:04 FiO2 28 % 07/29/18 19:04 Sodium 139 mmol/L (137-145) 08/03/18 05:14 Potassium 4.3 mmol/L (3.6-5.0) D 08/03/18 05:14 Chloride 99.0 mmol/L (98-107) 08/03/18 05:14 Carbon Dioxide 26 mmol/L (22-30) 08/03/18 05:14 Anion Gap 18 mmol/L 08/03/18 05:14 BUN 15 mg/dL (7-17) 08/03/18 05:14 Creatinine 1.1 mg/dL (0.7-1.2) 08/03/18 05:14 Estimated GFR > 60 ml/min 08/03/18 05:14 BUN/Creatinine Ratio 14 % 08/03/18 05:14 Glucose 117 mg/dL (65-100) H 08/03/18 05:14 POC Glucose 141 (70-105) H 08/04/18 05:40 Lactic Acid 1.90 mmol/L (0.7-2.0) 07/27/18 04:23 Calcium 8.7 mg/dL (8.4-10.2) 08/03/18 05:14 Phosphorus 3.00 mg/dL (2.5-4.5) 07/28/18 04:48 Magnesium 1.90 mg/dL (1.7-2.3) 07/31/18 05:32 Total Bilirubin 0.30 mg/dL (0.1-1.2) 07/31/18 05:32 AST 23 units/L (5-40) 07/31/18 05:32 ALT 13 units/L (7-56) 07/31/18 05:32 Alkaline Phosphatase 180 units/L (35-129) H 07/31/18 05:32 Total Creatine Kinase 42 units/L (30-135) 07/26/18 12:39 CK-MB (CK-2) 1.8 ng/mL (0.0-4.0) 07/26/18 12:39 CK-MB (CK-2) Rel Index 4.2 (0-4) H 07/26/18 12:39 Troponin T 0.045 ng/mL (0.00-0.029) H D 07/26/18 12:39 C-Reactive Protein 2.90 mg/dL (0.00-1.30) H 07/26/18 15:42 NT-Pro-B Natriuret Pep 7314 pg/mL (0-900) H 07/26/18 05:15 Total Protein 6.2 g/dL (6.3-8.2) L 07/31/18 05:32 Albumin 2.8 g/dL (3.9-5) L 07/31/18 05:32 Albumin/Globulin Ratio 0.8 % 07/31/18 05:32 Triglycerides 120 mg/dL (2-149) 07/26/18 05:15 Cholesterol 111 mg/dL (50-199) 07/26/18 05:15 LDL Cholesterol Direct 70 mg/dL (50-130) 07/26/18 05:15 HDL Cholesterol 30 mg/dL (40-59) L 07/26/18 05:15 Cholesterol/HDL Ratio 3.70 % 07/26/18 05:15 Urine Color Yellow (Yellow) 07/26/18 05:55 Urine Turbidity Clear (Clear) 07/26/18 05:55 Urine pH 6.0 (5.0-7.0) 07/26/18 05:55 Ur Specific [place] 1.006 (1.003-1.030) 07/26/18 05:55 Urine Protein 100 mg/dl mg/dL (Negative) 07/26/18 05:55 Urine Glucose (UA) 50 mg/dL (Negative) 07/26/18 05:55 Urine Ketones Tr mg/dL (Negative) 07/26/18 05:55 Urine Blood Neg (Negative) 07/26/18 05:55 Urine Nitrite Neg (Negative) 07/26/18 05:55 Urine Bilirubin Neg (Negative) 07/26/18 05:55 Urine Urobilinogen < 2.0 mg/dL (<2.0) 07/26/18 05:55 Ur Leukocyte Esterase Neg (Negative) 07/26/18 05:55 Urine WBC (Auto) 2.0 /HPF (0.0-6.0) 07/26/18 05:55 Urine RBC (Auto) 4.0 /HPF (0.0-6.0) 07/26/18 05:55 U Epithel Cells (Auto) < 1.0 /HPF (0-13.0) 07/26/18 05:55 Urine Bacteria (Auto) 1+ /HPF (Negative) 07/26/18 05:55 Urine Mucus Few /HPF 07/26/18 05:55 C. difficile Tox (PCR) Negative (Negative) 07/27/18 Unknown Nutrition/Malnutrition Assess - Dietary Evaluation Nutrition/Malnutrition Findings: Nutrition Notes Start: 07/26/18 13:42 Freq: Status: Active Protocol: Document 08/03/18 16:11 RM (Rec: 08/03/18 16:21 RM [id number]) Nutrition Notes Initial or Follow up Reassessment Current Diagnosis Coronary Artery Disease Diabetes Hypertension Heart Failure Stroke Other Pertinent Diagnosis Pneu, Dementia, Legally blind Current Diet TF(no formula type or instructions) Labs/Tests Reviewed Pertinent Medications Reviewed Height 5 ft 2 in Weight 83.2 kg [place] Body Weight (kg) 50.00 BMI 33.5 Subjective/Other Information Consulted for TF recommendation. ordered blank TF diet with no formula or instructions in preparation for PEG. PEG planned for Sunday per GI consultation note 08/03/18. Observed Glucerna 1.2 infusing at goal. Per nurse pt is tolerating TF. Percent of energy/protein needs met: 90%/100% Burn Absent Trauma Absent #1 Nutrition Diagnosis Predicted suboptimal energy intake Diagnosis Progress(for reassessment Continues documentation) Is patient on ventilator? No Is Patient Ambulatory and/or Out of Bed No REE-([facility]-confined to bed) 1594.640 Calculation Used for Recommendations Linda Ramirez Additional Notes PRO needs: 50-60g (1-1.2g/kg IBW) Fluid needs: 1 mL/kcal Nutrition Intervention Nutrition Support: Continue Glucerna 1.2 at 50 mL /hr w/80mL flush q4h Kcal 1,440 Protein (gm) 72 Fluid (mL) 966 Goal #1 TF tolerance Goal #2 TF to continue to meet at least 80% energy and pro needs Anticipated Discharge Needs: Unable to determine at this time Follow-Up By: 07/31/18 Additional Comments Follow for stable TF
[2018-08-04] MEDS: DUONEB *Not for PRN Use IH SCH ×3 (08:07→21:11)
[2018-08-04] MEDS: LASIX PO SCH (09:50)
[2018-08-04] MEDS: COZAAR PO SCH (09:50)
[2018-08-04] MEDS: POTASSIUM CHLORIDE FEEDTUBE SCH (09:50)
[2018-08-04] MEDS: APRESOLINE PO SCH ×3 (09:50→22:27)
[2018-08-04] MEDS: SODIUM CHLORIDE FLUSH SYRINGE 10 ML IV SCH ×2 (09:51→22:26)
[2018-08-04] MEDS: DepaKENE Liq PO SCH ×2 (09:51→22:26)
--- NOTE | 2018-08-04 14:27 | Progress Note ---
Assessment and Plan Acute hypoxemic respiratory failure, on mechanical ventilatory support. Pneumonia, right upper lobe, healthcare-associated pneumonia. Mild congestive heart failure exacerbation. Bilateral pleural effusions. Atrial fibrillation with a rapid ventricular response. Acute on Chronic Encephalopathy Diabetes type 2. History of hypertension. Seizure disorder. History of cerebrovascular accident. Coronary artery disease with elevated serum troponins. Anxiety disorder. Dementia. She is legally blind (She will likely be at least a mild risk for coleen-operative pulmonary complications but ok to proceed with PEG placement; avoid general anesthesia if possible, early extubation if used and early ambulation) - continue supplemental oxygen to keep O2 sats > 90% - continue BIPAP qhs for pre-load issues and possible DAVIS - appreciate ID input (following clinically off AB's) - continue bronchodilators with pulmonary hygiene per RT - ABG prn at this point - continue lopressor for rate control - continue oral lasix (40mg p.o. qd) - advance diet per ST rec's (She will need a PEG) - continue AED (tegretol) for seizures - medical management for NSTEMI - no acute indication for thoracentesis at this point - continue tube feeding as tolerated - continue GI & VTE prophylaxis - continue aspiration precautions - continue mobility protocol for pressure ulcer prophylaxis - PT/OT as tolerated - discontinued oliver catheter - continue accuchecks with glycemic control per SSI for target blood glucose < 180 mg/dL. - Monitor for hypoglycemia - continue other care per attending / other consultants ... re-evaluate in am & prn Subjective Date of service: 08/04/18 Principal diagnosis: Acute hypoxemic Resp failure; Pneumonia (HAP); Tod Pleural effusions; A-Fib Interval history: Patient is seen today for: Acute hypoxemic Resp failure; Pneumonia (RUL HAP); Mild congestive heart failure exacerbation; Bilateral pleural effusions; Atrial fibrillation with a rapid ventricular response; Diabetes type 2. Seen and examined at bedside; 24hour events reviewed; nursing and respiratory care staff consulted; no adverse overnight events reported to me; resting peacefully in bed; remains encephalopathic; remains on supplemental oxygen at 3L NC; No emesis or overt aspiration; tentatively for PEG in am Objective Vital Signs - 12hr 08/04/18 08/04/18 08/04/18 03:05 04:15 08:07 Temperature 98.7 F Pulse Rate 97 H 82 Pulse Rate [ 74 Anterior Bilateral Throughout] Respiratory 20 20 Rate Respiratory 18 Rate [Anterior Bilateral Throughout] Blood Pressure 141/89 O2 Sat by Pulse 100 100 Oximetry 08/04/18 08/04/18 08/04/18 08:15 08:17 08:27 Temperature 98.3 F Pulse Rate 98 H Pulse Rate [ 79 Anterior Bilateral Throughout] Respiratory 20 Rate Respiratory 18 Rate [Anterior Bilateral Throughout] Blood Pressure 140/77 O2 Sat by Pulse 96 99 Oximetry 08/04/18 08/04/18 08/04/18 09:04 09:50 13:23 Temperature Pulse Rate Pulse Rate [ Anterior Bilateral Throughout] Respiratory 18 Rate Respiratory Rate [Anterior Bilateral Throughout] Blood Pressure 140/77 127/72 O2 Sat by Pulse Oximetry 08/04/18 08/04/18 13:27 13:28 Temperature Pulse Rate Pulse Rate [ Anterior Bilateral Throughout] Respiratory Rate Respiratory Rate [Anterior Bilateral Throughout] Blood Pressure 127/72 127/72 O2 Sat by Pulse Oximetry Constitutional: no acute distress, lethargic, other (elderly looking obese AAF, normocephalic and atraumatic with mildly increased work of breathing at rest) Eyes: non-icteric ENT: oropharynx moist Neck: supple, no lymphadenopathy, no JVD, other (no thyromegaly) Effort: mildly labored Ascultation: Bilateral: clear, diminished breath sounds Percussion: Bilateral: not dull Cardiovascular: regular rate and rhythm, murmur noted (systolic) Gastrointestinal: normoactive bowel sounds, soft, non-tender, non-distended Integumentary: other (poor turgor) Extremities: no cyanosis, pulses normal, no ischemia or petechiae, edema (trace) Neurologic: pupils equal and round, unable to assess Psychiatric: other (unable to assess) CBC and BMP: 08/03/18 05:14 08/03/18 05:14 ABG, PT/INR, D-dimer: ABG POC ABG pH 7.458 (7.35-7.45) H 07/29/18 19:04 POC ABG pCO2 43.4 (35-45) 07/29/18 19:04 POC ABG pO2 103 (80-105) 07/29/18 19:04 POC ABG HCO3 30.7 07/29/18 19:04 POC ABG Total CO2 32 07/29/18 19:04 POC ABG O2 Sat 98 07/29/18 19:04 PT/INR, D-dimer PT 14.3 Sec. (12.2-14.9) 08/03/18 05:14 INR 1.05 (0.87-1.13) 08/03/18 05:14 D-Dimer 2370.66 ng/mlDDU (0-234) H 07/26/18 05:15 Abnormal lab findings: Abnormal Labs 07/26/18 07/26/18 07/26/18 05:15 05:15 05:15 WBC RBC RDW 16.4 H Lymph % (Auto) 6.[address] [facility] % (Auto) 8.4 H Eos % (Auto) Lymph # 0.6 L Seg Neutrophils % 84.5 H Seg Neutrophils # 7.9 H D-Dimer 2370.66 H POC ABG pH POC ABG pO2 Potassium Glucose POC Glucose Lactic Acid Calcium Alkaline Phosphatase CK-MB (CK-2) Rel Index Troponin T 0.036 H C-Reactive Protein NT-Pro-B Natriuret Pep Total Protein Albumin HDL Cholesterol 30 L 07/26/18 07/26/18 07/26/18 05:15 05:15 05:37 WBC RBC RDW Lymph % (Auto) [facility] % (Auto) Eos % (Auto) Lymph # Seg Neutrophils % Seg Neutrophils # D-Dimer POC ABG pH POC ABG pO2 69 L Potassium Glucose 224 H POC Glucose Lactic Acid 2.90 H* Calcium 8.3 L Alkaline Phosphatase 251 H CK-MB (CK-2) Rel Index Troponin T C-Reactive Protein NT-Pro-B Natriuret Pep 7314 H Total Protein Albumin 3.3 L HDL Cholesterol 07/26/18 07/26/18 07/26/18 06:35 06:49 09:26 WBC RBC RDW Lymph % (Auto) [facility] % (Auto) Eos % (Auto) Lymph # Seg Neutrophils % Seg Neutrophils # D-Dimer POC ABG pH POC ABG pO2 Potassium Glucose POC Glucose 195 H Lactic Acid 2.20 H* Calcium Alkaline Phosphatase CK-MB (CK-2) Rel Index Troponin T 0.034 H C-Reactive Protein NT-Pro-B Natriuret Pep Total Protein Albumin HDL Cholesterol 07/26/18 07/26/18 07/26/18 12:25 12:39 15:42 WBC RBC RDW Lymph % (Auto) [facility] % (Auto) Eos % (Auto) Lymph # Seg Neutrophils % Seg Neutrophils # D-Dimer POC ABG pH POC ABG pO2 Potassium Glucose POC Glucose 171 H Lactic Acid Calcium Alkaline Phosphatase CK-MB (CK-2) Rel Index 4.2 H Troponin T 0.045 H D C-Reactive Protein 2.90 H NT-Pro-B Natriuret Pep Total Protein Albumin HDL Cholesterol 07/26/18 07/27/18 07/27/18 16:32 00:08 04:23 WBC RBC RDW 16.3 H Lymph % (Auto) [facility] % (Auto) 14.5 H Eos % (Auto) Lymph # 0.8 L Seg Neutrophils % Seg Neutrophils # D-Dimer POC ABG pH POC ABG pO2 Potassium Glucose POC Glucose 140 H 148 H Lactic Acid Calcium Alkaline Phosphatase CK-MB (CK-2) Rel Index Troponin T C-Reactive Protein NT-Pro-B Natriuret Pep Total Protein Albumin HDL Cholesterol 07/27/18 07/27/18 07/27/18 04:23 05:13 11:44 WBC RBC RDW Lymph % (Auto) [facility] % (Auto) Eos % (Auto) Lymph # Seg Neutrophils % Seg Neutrophils # D-Dimer POC ABG pH POC ABG pO2 Potassium Glucose 158 H POC Glucose 176 H 161 H Lactic Acid Calcium Alkaline Phosphatase CK-MB (CK-2) Rel Index Troponin T C-Reactive Protein NT-Pro-B Natriuret Pep Total Protein Albumin HDL Cholesterol 07/27/18 07/27/18 07/28/18 18:22 23:33 04:48 WBC 4.2 L RBC 3.56 L RDW 16.3 H Lymph % (Auto) [facility] % (Auto) 9.8 H Eos % (Auto) 5.2 H Lymph # 0.9 L Seg Neutrophils % Seg Neutrophils # D-Dimer POC ABG pH POC ABG pO2 Potassium Glucose POC Glucose 190 H 121 H Lactic Acid Calcium Alkaline Phosphatase CK-MB (CK-2) Rel Index Troponin T C-Reactive Protein NT-Pro-B Natriuret Pep Total Protein Albumin HDL Cholesterol 07/28/18 07/28/18 07/28/18 04:48 05:56 11:49 WBC RBC RDW Lymph % (Auto) [facility] % (Auto) Eos % (Auto) Lymph # Seg Neutrophils % Seg Neutrophils # D-Dimer POC ABG pH POC ABG pO2 Potassium 3.5 L Glucose 139 H POC Glucose 133 H 214 H Lactic Acid Calcium 8.3 L Alkaline Phosphatase 177 H CK-MB (CK-2) Rel Index Troponin T C-Reactive Protein NT-Pro-B Natriuret Pep Total Protein 6.1 L Albumin 2.8 L HDL Cholesterol 07/28/18 07/28/18 07/29/18 18:32 23:30 05:15 WBC RBC RDW Lymph % (Auto) [facility] % (Auto) Eos % (Auto) Lymph # Seg Neutrophils % Seg Neutrophils # D-Dimer POC ABG pH POC ABG pO2 Potassium Glucose POC Glucose 120 H 160 H 127 H Lactic Acid Calcium Alkaline Phosphatase CK-MB (CK-2) Rel Index Troponin T C-Reactive Protein NT-Pro-B Natriuret Pep Total Protein Albumin HDL Cholesterol 07/29/18 07/29/18 07/29/18 11:32 18:49 19:04 WBC RBC RDW Lymph % (Auto) [facility] % (Auto) Eos % (Auto) Lymph # Seg Neutrophils % Seg Neutrophils # D-Dimer POC ABG pH 7.458 H POC ABG pO2 Potassium Glucose POC Glucose 203 H 168 H Lactic Acid Calcium Alkaline Phosphatase CK-MB (CK-2) Rel Index Troponin T C-Reactive Protein NT-Pro-B Natriuret Pep Total Protein Albumin HDL Cholesterol 07/30/18 07/30/18 07/30/18 00:16 04:32 04:32 WBC RBC 3.61 L RDW 16.3 H Lymph % (Auto) [facility] % (Auto) 11.5 H Eos % (Auto) Lymph # 0.8 L Seg Neutrophils % Seg Neutrophils # D-Dimer POC ABG pH POC ABG pO2 Potassium 3.2 L Glucose 157 H POC Glucose 186 H Lactic Acid Calcium 8.2 L Alkaline Phosphatase 199 H CK-MB (CK-2) Rel Index Troponin T C-Reactive Protein NT-Pro-B Natriuret Pep Total Protein Albumin 2.8 L HDL Cholesterol 07/30/18 07/30/18 07/31/18 05:12 12:13 05:32 WBC RBC 3.48 L RDW 15.9 H Lymph % (Auto) [facility] % (Auto) 11.6 H Eos % (Auto) 4.4 H Lymph # 0.9 L Seg Neutrophils % Seg Neutrophils # D-Dimer POC ABG pH POC ABG pO2 Potassium Glucose POC Glucose 157 H 177 H Lactic Acid Calcium Alkaline Phosphatase CK-MB (CK-2) Rel Index Troponin T C-Reactive Protein NT-Pro-B Natriuret Pep Total Protein Albumin HDL Cholesterol 07/31/18 07/31/18 07/31/18 05:32 12:12 20:42 WBC RBC RDW Lymph % (Auto) [facility] % (Auto) Eos % (Auto) Lymph # Seg Neutrophils % Seg Neutrophils # D-Dimer POC ABG pH POC ABG pO2 Potassium 3.1 L Glucose POC Glucose 141 H 155 H Lactic Acid Calcium Alkaline Phosphatase 180 H CK-MB (CK-2) Rel Index Troponin T C-Reactive Protein NT-Pro-B Natriuret Pep Total Protein 6.2 L Albumin 2.8 L HDL Cholesterol 08/01/18 08/01/18 08/01/18 05:07 12:01 16:23 WBC RBC RDW Lymph % (Auto) [facility] % (Auto) Eos % (Auto) Lymph # Seg Neutrophils % Seg Neutrophils # D-Dimer POC ABG pH POC ABG pO2 Potassium Glucose POC Glucose 108 H 178 H 138 H Lactic Acid Calcium Alkaline Phosphatase CK-MB (CK-2) Rel Index Troponin T C-Reactive Protein NT-Pro-B Natriuret Pep Total Protein Albumin HDL Cholesterol 08/02/18 08/02/18 08/02/18 00:39 05:42 11:53 WBC RBC RDW Lymph % (Auto) [facility] % (Auto) Eos % (Auto) Lymph # Seg Neutrophils % Seg Neutrophils # D-Dimer POC ABG pH POC ABG pO2 Potassium Glucose POC Glucose 109 H 143 H 188 H Lactic Acid Calcium Alkaline Phosphatase CK-MB (CK-2) Rel Index Troponin T C-Reactive Protein NT-Pro-B Natriuret Pep Total Protein Albumin HDL Cholesterol 08/02/18 08/02/18 08/03/18 18:15 23:48 05:14 WBC RBC RDW 16.0 H Lymph % (Auto) [facility] % (Auto) 13.7 H Eos % (Auto) Lymph # 0.9 L Seg Neutrophils % Seg Neutrophils # D-Dimer POC ABG pH POC ABG pO2 Potassium Glucose POC Glucose 112 H 157 H Lactic Acid Calcium Alkaline Phosphatase CK-MB (CK-2) Rel Index Troponin T C-Reactive Protein NT-Pro-B Natriuret Pep Total Protein Albumin HDL Cholesterol 08/03/18 08/03/18 08/03/18 05:14 05:59 11:44 WBC RBC RDW Lymph % (Auto) [facility] % (Auto) Eos % (Auto) Lymph # Seg Neutrophils % Seg Neutrophils # D-Dimer POC ABG pH POC ABG pO2 Potassium Glucose 117 H POC Glucose 148 H 175 H Lactic Acid Calcium Alkaline Phosphatase CK-MB (CK-2) Rel Index Troponin T C-Reactive Protein NT-Pro-B Natriuret Pep Total Protein Albumin HDL Cholesterol 08/03/18 08/03/18 08/04/18 17:39 21:55 05:40 WBC RBC RDW Lymph % (Auto) [facility] % (Auto) Eos % (Auto) Lymph # Seg Neutrophils % Seg Neutrophils # D-Dimer POC ABG pH POC ABG pO2 Potassium Glucose POC Glucose 120 H 147 H 141 H Lactic Acid Calcium Alkaline Phosphatase CK-MB (CK-2) Rel Index Troponin T C-Reactive Protein NT-Pro-B Natriuret Pep Total Protein Albumin HDL Cholesterol Allied health notes reviewed: RT
[2018-08-04] MEDS: LOVENOX SUB-Q SCH (22:28)
[2018-08-05] MEDS: HumaLOG SUB-Q SCH ×4 (00:20→18:41)
[2018-08-05] MEDS: LOPRESSOR PO SCH ×4 (00:22→18:45)
[2018-08-05 04:25] LABS: Basophils % (Auto) 0.8 % (0.0-1.8); Eosinophils # (Auto) 0.3 K/mm3 (0.0-0.4); Eosinophils % (Auto) 5.3 % (0.0-4.3); Hemoglobin 10.7 gm/dl (10.1-14.3); Lymphocytes % (Auto) 18.4 % (13.4-35.0); Mean Corpuscular HGB Conc 33 % (30-34); Mean Corpuscular Volume 92 fl (79-97); Monocytes # (Auto) 0.6 K/mm3 (0.0-0.8); Monocytes % (Auto) 11.7 % (0.0-7.3); Platelet Count 269 K/mm3 (140-440); Red Cell Distribution Width 16.3 % (13.2-15.2)
[2018-08-05 04:33] LABS: BUN/Creatinine Ratio 15; Blood Urea Nitrogen 16 mg/dL (7-17); Calcium 8.7 mg/dL (8.4-10.2); Hemolysis Index 9
[2018-08-05] MEDS: ISORDIL TITRADOSE PO SCH ×3 (05:37→21:14)
[2018-08-05] MEDS: DUONEB *Not for PRN Use IH SCH ×2 (07:37→14:29)
[2018-08-05] MEDS ORDERED: DIPRIVAN 10 MG/ML IV ONE (08:56)
[2018-08-05] MEDS ORDERED: ANCEF/STERILE WATER 2 GM/20 ML 2 GM/20 ML SYRINGE IV NR (09:00)
[2018-08-05] MEDS ORDERED: AMIDATE IV ONE (09:08)
[2018-08-05] MEDS: APRESOLINE PO SCH ×3 (09:22→21:13)
[2018-08-05] MEDS: DepaKENE Liq PO SCH ×2 (09:23→21:12)
[2018-08-05] MEDS: POTASSIUM CHLORIDE FEEDTUBE SCH (09:23)
[2018-08-05] MEDS: LASIX PO SCH (09:23)
[2018-08-05] MEDS: COZAAR PO SCH (09:23)
--- NOTE | 2018-08-05 09:48 | Event Note ---
Date: 08/05/18 Patient brought down to Endoscopy unit and noted to be in Afib with RVR and low O2 sat. Anesthesia evaluated the patient and patient not stable for the sedation for the procedure. Will cancel the procedure today and have patient be evaluated by cardiology and pulmonary again. Please call us back when patient is more stable enough for the procedure and sedation. Discussed with hospitalist.
--- NOTE | 2018-08-05 12:40 | Progress Note ---
Assessment and Plan Acute hypoxemic respiratory failure, on mechanical ventilatory support. Pneumonia, right upper lobe, healthcare-associated pneumonia. Mild congestive heart failure exacerbation. Bilateral pleural effusions. Atrial fibrillation with a rapid ventricular response. Acute on Chronic Encephalopathy Diabetes type 2. History of hypertension. Seizure disorder. History of cerebrovascular accident. Coronary artery disease with elevated serum troponins. Anxiety disorder. Dementia. She is legally blind (She will likely be at least a mild risk for coleen-operative pulmonary complications but ok to proceed with PEG placement; avoid general anesthesia if possible, early extubation if used and early ambulation) - cardiolohy evaluation - placed on telemetry monitoring - continue supplemental oxygen to keep O2 sats > 90% - continue BIPAP qhs for pre-load issues and possible DAVIS - appreciate ID input (following clinically off AB's) - continue bronchodilators with pulmonary hygiene per RT - ABG prn at this point - continue lopressor for rate control - continue oral lasix (40mg p.o. qd) - advance diet per ST rec's (She will need a PEG) - continue AED (tegretol) for seizures - medical management for NSTEMI - no acute indication for thoracentesis at this point - continue tube feeding as tolerated - continue GI & VTE prophylaxis - continue aspiration precautions - continue mobility protocol for pressure ulcer prophylaxis - PT/OT as tolerated - discontinued oliver catheter - continue accuchecks with glycemic control per SSI for target blood glucose < 180 mg/dL. - Monitor for hypoglycemia - continue other care per attending / other consultants ... re-evaluate in am & prn .... discussed with attending Subjective Date of service: 08/05/18 Principal diagnosis: Acute hypoxemic Resp failure; Pneumonia (HAP); Tod Pleural effusions; A-Fib Interval history: Patient is seen today for: Acute hypoxemic Resp failure; Pneumonia (RUL HAP); Mild congestive heart failure exacerbation; Bilateral pleural effusions; Atrial fibrillation with a rapid ventricular response; Diabetes type 2. Seen and examined at bedside; 24hour events reviewed; nursing and respiratory care staff consulted; no adverse overnight events reported to me; resting peacefully in bed; PEG procedure discontinued secondary to arrythmia's; remains on supplemental oxygen; AMS is persistent Objective Vital Signs - 12hr 08/05/18 08/05/18 08/05/18 01:37 07:37 07:38 Temperature 98.6 F Pulse Rate 68 Pulse Rate [ 137 H 114 H Anterior Bilateral Throughout] Respiratory 24 Rate Respiratory 18 18 Rate [Anterior Bilateral Throughout] Blood Pressure 146/80 O2 Sat by Pulse 98 99 Oximetry 08/05/18 08/05/18 08/05/18 07:42 09:15 10:00 Temperature 98.8 F 100.9 F H Pulse Rate 136 H 114 H 125 H Pulse Rate [ Anterior Bilateral Throughout] Respiratory 20 15 Rate Respiratory Rate [Anterior Bilateral Throughout] Blood Pressure 173/73 174/92 O2 Sat by Pulse 93 94 Oximetry Constitutional: no acute distress, lethargic, other (elderly looking obese AAF, normocephalic and atraumatic with mildly increased work of breathing at rest) Eyes: non-icteric ENT: oropharynx moist Neck: supple, no lymphadenopathy, no JVD, other (no thyromegaly) Effort: mildly labored Ascultation: Bilateral: diminished breath sounds, rhonchi Percussion: Bilateral: not dull Cardiovascular: regular rate and rhythm, murmur noted (systolic) Gastrointestinal: normoactive bowel sounds, soft, non-tender, non-distended Integumentary: other (poor turgor) Extremities: no cyanosis, pulses normal, no ischemia or petechiae, edema (trace) Neurologic: pupils equal and round, unable to assess Psychiatric: other (unable to assess) CBC and BMP: 08/05/18 03:31 08/05/18 03:31 ABG, PT/INR, D-dimer: ABG POC ABG pH 7.458 (7.35-7.45) H 07/29/18 19:04 POC ABG pCO2 43.4 (35-45) 07/29/18 19:04 POC ABG pO2 103 (80-105) 07/29/18 19:04 POC ABG HCO3 30.7 07/29/18 19:04 POC ABG Total CO2 32 07/29/18 19:04 POC ABG O2 Sat 98 07/29/18 19:04 PT/INR, D-dimer PT 14.3 Sec. (12.2-14.9) 08/03/18 05:14 INR 1.05 (0.87-1.13) 08/03/18 05:14 D-Dimer 2370.66 ng/mlDDU (0-234) H 07/26/18 05:15 Abnormal lab findings: Abnormal Labs 07/26/18 07/26/18 07/26/18 05:15 05:15 05:15 WBC RBC RDW 16.4 H Lymph % (Auto) 6.1 L Barton % (Auto) 8.4 H Eos % (Auto) Lymph # 0.6 L Seg Neutrophils % 84.5 H Seg Neutrophils # 7.9 H D-Dimer 2370.66 H POC ABG pH POC ABG pO2 Potassium Chloride Carbon Dioxide Glucose POC Glucose Lactic Acid Calcium Alkaline Phosphatase CK-MB (CK-2) Rel Index Troponin T 0.036 H C-Reactive Protein NT-Pro-B Natriuret Pep Total Protein Albumin HDL Cholesterol 30 L 07/26/18 07/26/18 07/26/18 05:15 05:15 05:37 WBC RBC RDW Lymph % (Auto) Barton % (Auto) Eos % (Auto) Lymph # Seg Neutrophils % Seg Neutrophils # D-Dimer POC ABG pH POC ABG pO2 69 L Potassium Chloride Carbon Dioxide Glucose 224 H POC Glucose Lactic Acid 2.90 H* Calcium 8.3 L Alkaline Phosphatase 251 H CK-MB (CK-2) Rel Index Troponin T C-Reactive Protein NT-Pro-B Natriuret Pep 7314 H Total Protein Albumin 3.3 L HDL Cholesterol 07/26/18 07/26/18 07/26/18 06:35 06:49 09:26 WBC RBC RDW Lymph % (Auto) Barton % (Auto) Eos % (Auto) Lymph # Seg Neutrophils % Seg Neutrophils # D-Dimer POC ABG pH POC ABG pO2 Potassium Chloride Carbon Dioxide Glucose POC Glucose 195 H Lactic Acid 2.20 H* Calcium Alkaline Phosphatase CK-MB (CK-2) Rel Index Troponin T 0.034 H C-Reactive Protein NT-Pro-B Natriuret Pep Total Protein Albumin HDL Cholesterol 07/26/18 07/26/18 07/26/18 12:25 12:39 15:42 WBC RBC RDW Lymph % (Auto) Barton % (Auto) Eos % (Auto) Lymph # Seg Neutrophils % Seg Neutrophils # D-Dimer POC ABG pH POC ABG pO2 Potassium Chloride Carbon Dioxide Glucose POC Glucose 171 H Lactic Acid Calcium Alkaline Phosphatase CK-MB (CK-2) Rel Index 4.2 H Troponin T 0.045 H D C-Reactive Protein 2.90 H NT-Pro-B Natriuret Pep Total Protein Albumin HDL Cholesterol 07/26/18 07/27/18 07/27/18 16:32 00:08 04:23 WBC RBC RDW 16.3 H Lymph % (Auto) Barton % (Auto) 14.5 H Eos % (Auto) Lymph # 0.8 L Seg Neutrophils % Seg Neutrophils # D-Dimer POC ABG pH POC ABG pO2 Potassium Chloride Carbon Dioxide Glucose POC Glucose 140 H 148 H Lactic Acid Calcium Alkaline Phosphatase CK-MB (CK-2) Rel Index Troponin T C-Reactive Protein NT-Pro-B Natriuret Pep Total Protein Albumin HDL Cholesterol 07/27/18 07/27/18 07/27/18 04:23 05:13 11:44 WBC RBC RDW Lymph % (Auto) Barton % (Auto) Eos % (Auto) Lymph # Seg Neutrophils % Seg Neutrophils # D-Dimer POC ABG pH POC ABG pO2 Potassium Chloride Carbon Dioxide Glucose 158 H POC Glucose 176 H 161 H Lactic Acid Calcium Alkaline Phosphatase CK-MB (CK-2) Rel Index Troponin T C-Reactive Protein NT-Pro-B Natriuret Pep Total Protein Albumin HDL Cholesterol 07/27/18 07/27/18 07/28/18 18:22 23:33 04:48 WBC 4.2 L RBC 3.56 L RDW 16.3 H Lymph % (Auto) Barton % (Auto) 9.8 H Eos % (Auto) 5.2 H Lymph # 0.9 L Seg Neutrophils % Seg Neutrophils # D-Dimer POC ABG pH POC ABG pO2 Potassium Chloride Carbon Dioxide Glucose POC Glucose 190 H 121 H Lactic Acid Calcium Alkaline Phosphatase CK-MB (CK-2) Rel Index Troponin T C-Reactive Protein NT-Pro-B Natriuret Pep Total Protein Albumin HDL Cholesterol 07/28/18 07/28/18 07/28/18 04:48 05:56 11:49 WBC RBC RDW Lymph % (Auto) Barton % (Auto) Eos % (Auto) Lymph # Seg Neutrophils % Seg Neutrophils # D-Dimer POC ABG pH POC ABG pO2 Potassium 3.5 L Chloride Carbon Dioxide Glucose 139 H POC Glucose 133 H 214 H Lactic Acid Calcium 8.3 L Alkaline Phosphatase 177 H CK-MB (CK-2) Rel Index Troponin T C-Reactive Protein NT-Pro-B Natriuret Pep Total Protein 6.1 L Albumin 2.8 L HDL Cholesterol 07/28/18 07/28/18 07/29/18 18:32 23:30 05:15 WBC RBC RDW Lymph % (Auto) Barton % (Auto) Eos % (Auto) Lymph # Seg Neutrophils % Seg Neutrophils # D-Dimer POC ABG pH POC ABG pO2 Potassium Chloride Carbon Dioxide Glucose POC Glucose 120 H 160 H 127 H Lactic Acid Calcium Alkaline Phosphatase CK-MB (CK-2) Rel Index Troponin T C-Reactive Protein NT-Pro-B Natriuret Pep Total Protein Albumin HDL Cholesterol 07/29/18 07/29/18 07/29/18 11:32 18:49 19:04 WBC RBC RDW Lymph % (Auto) Barton % (Auto) Eos % (Auto) Lymph # Seg Neutrophils % Seg Neutrophils # D-Dimer POC ABG pH 7.458 H POC ABG pO2 Potassium Chloride Carbon Dioxide Glucose POC Glucose 203 H 168 H Lactic Acid Calcium Alkaline Phosphatase CK-MB (CK-2) Rel Index Troponin T C-Reactive Protein NT-Pro-B Natriuret Pep Total Protein Albumin HDL Cholesterol 07/30/18 07/30/18 07/30/18 00:16 04:32 04:32 WBC RBC 3.61 L RDW 16.3 H Lymph % (Auto) Barton % (Auto) 11.5 H Eos % (Auto) Lymph # 0.8 L Seg Neutrophils % Seg Neutrophils # D-Dimer POC ABG pH POC ABG pO2 Potassium 3.2 L Chloride Carbon Dioxide Glucose 157 H POC Glucose 186 H Lactic Acid Calcium 8.2 L Alkaline Phosphatase 199 H CK-MB (CK-2) Rel Index Troponin T C-Reactive Protein NT-Pro-B Natriuret Pep Total Protein Albumin 2.8 L HDL Cholesterol 07/30/18 07/30/18 07/31/18 05:12 12:13 05:32 WBC RBC 3.48 L RDW 15.9 H Lymph % (Auto) Barton % (Auto) 11.6 H Eos % (Auto) 4.4 H Lymph # 0.9 L Seg Neutrophils % Seg Neutrophils # D-Dimer POC ABG pH POC ABG pO2 Potassium Chloride Carbon Dioxide Glucose POC Glucose 157 H 177 H Lactic Acid Calcium Alkaline Phosphatase CK-MB (CK-2) Rel Index Troponin T C-Reactive Protein NT-Pro-B Natriuret Pep Total Protein Albumin HDL Cholesterol 07/31/18 07/31/18 07/31/18 05:32 12:12 20:42 WBC RBC RDW Lymph % (Auto) Barton % (Auto) Eos % (Auto) Lymph # Seg Neutrophils % Seg Neutrophils # D-Dimer POC ABG pH POC ABG pO2 Potassium 3.1 L Chloride Carbon Dioxide Glucose POC Glucose 141 H 155 H Lactic Acid Calcium Alkaline Phosphatase 180 H CK-MB (CK-2) Rel Index Troponin T C-Reactive Protein NT-Pro-B Natriuret Pep Total Protein 6.2 L Albumin 2.8 L HDL Cholesterol 08/01/18 08/01/18 08/01/18 05:07 12:01 16:23 WBC RBC RDW Lymph % (Auto) Barton % (Auto) Eos % (Auto) Lymph # Seg Neutrophils % Seg Neutrophils # D-Dimer POC ABG pH POC ABG pO2 Potassium Chloride Carbon Dioxide Glucose POC Glucose 108 H 178 H 138 H Lactic Acid Calcium Alkaline Phosphatase CK-MB (CK-2) Rel Index Troponin T C-Reactive Protein NT-Pro-B Natriuret Pep Total Protein Albumin HDL Cholesterol 08/02/18 08/02/18 08/02/18 00:39 05:42 11:53 WBC RBC RDW Lymph % (Auto) Barton % (Auto) Eos % (Auto) Lymph # Seg Neutrophils % Seg Neutrophils # D-Dimer POC ABG pH POC ABG pO2 Potassium Chloride Carbon Dioxide Glucose POC Glucose 109 H 143 H 188 H Lactic Acid Calcium Alkaline Phosphatase CK-MB (CK-2) Rel Index Troponin T C-Reactive Protein NT-Pro-B Natriuret Pep Total Protein Albumin HDL Cholesterol 08/02/18 08/02/18 08/03/18 18:15 23:48 05:14 WBC RBC RDW 16.0 H Lymph % (Auto) Barton % (Auto) 13.7 H Eos % (Auto) Lymph # 0.9 L Seg Neutrophils % Seg Neutrophils # D-Dimer POC ABG pH POC ABG pO2 Potassium Chloride Carbon Dioxide Glucose POC Glucose 112 H 157 H Lactic Acid Calcium Alkaline Phosphatase CK-MB (CK-2) Rel Index Troponin T C-Reactive Protein NT-Pro-B Natriuret Pep Total Protein Albumin HDL Cholesterol 08/03/18 08/03/18 08/03/18 05:14 05:59 11:44 WBC RBC RDW Lymph % (Auto) Barton % (Auto) Eos % (Auto) Lymph # Seg Neutrophils % Seg Neutrophils # D-Dimer POC ABG pH POC ABG pO2 Potassium Chloride Carbon Dioxide Glucose 117 H POC Glucose 148 H 175 H Lactic Acid Calcium Alkaline Phosphatase CK-MB (CK-2) Rel Index Troponin T C-Reactive Protein NT-Pro-B Natriuret Pep Total Protein Albumin HDL Cholesterol 08/03/18 08/03/18 08/04/18 17:39 21:55 05:40 WBC RBC RDW Lymph % (Auto) Barton % (Auto) Eos % (Auto) Lymph # Seg Neutrophils % Seg Neutrophils # D-Dimer POC ABG pH POC ABG pO2 Potassium Chloride Carbon Dioxide Glucose POC Glucose 120 H 147 H 141 H Lactic Acid Calcium Alkaline Phosphatase CK-MB (CK-2) Rel Index Troponin T C-Reactive Protein NT-Pro-B Natriuret Pep Total Protein Albumin HDL Cholesterol 08/04/18 08/04/18 08/05/18 13:16 18:02 00:07 WBC RBC RDW Lymph % (Auto) Barton % (Auto) Eos % (Auto) Lymph # Seg Neutrophils % Seg Neutrophils # D-Dimer POC ABG pH POC ABG pO2 Potassium Chloride Carbon Dioxide Glucose POC Glucose 177 H 133 H 167 H Lactic Acid Calcium Alkaline Phosphatase CK-MB (CK-2) Rel Index Troponin T C-Reactive Protein NT-Pro-B Natriuret Pep Total Protein Albumin HDL Cholesterol 08/05/18 08/05/18 08/05/18 03:31 03:31 05:41 WBC RBC 3.60 L RDW 16.3 H Lymph % (Auto) Barton % (Auto) 11.7 H Eos % (Auto) 5.3 H Lymph # 1.0 L Seg Neutrophils % Seg Neutrophils # D-Dimer POC ABG pH POC ABG pO2 Potassium Chloride 97.6 L Carbon Dioxide 31 H Glucose 106 H POC Glucose 112 H Lactic Acid Calcium Alkaline Phosphatase CK-MB (CK-2) Rel Index Troponin T C-Reactive Protein NT-Pro-B Natriuret Pep Total Protein Albumin HDL Cholesterol 08/05/18 11:28 WBC RBC RDW Lymph % (Auto) Barton % (Auto) Eos % (Auto) Lymph # Seg Neutrophils % Seg Neutrophils # D-Dimer POC ABG pH POC ABG pO2 Potassium Chloride Carbon Dioxide Glucose POC Glucose 151 H Lactic Acid Calcium Alkaline Phosphatase CK-MB (CK-2) Rel Index Troponin T C-Reactive Protein NT-Pro-B Natriuret Pep Total Protein Albumin HDL Cholesterol Allied health notes reviewed: RT
[2018-08-05] MEDS: SODIUM CHLORIDE FLUSH SYRINGE 10 ML IV SCH ×2 (13:05→21:16)
--- NOTE | 2018-08-05 13:08 | Progress Note ---
Assessment and Plan Assessment and plan: --Dysphagia on Tube feeding/due to encephalopathy; PEG tube placement was scheduled for today, however due to tachycardia A. fib feeding off Cancelled to be rescheduled when patient is more stable Recommend PEG placement,Both agreed with the plan,PEG placement tomorrow per GI --Encephalopathy; for the last 4 -5 weeks[reported by the sister and son] Patient noncommunicative, responds only to deep stimuli. Does not open eyes, --Acute hypoxic respiratory failure; s/p BiPAP, on nasal cannula/Ventimask nebulizers, pulmonary following --Right-sided pneumonia; hospital-acquired pneumonia treated, monitor off antibiotics, per ID --A. fib with rapid ventricle rate; now rate controlled, continue beta blockers, Not a candidate for chronic anticoagulation --Non-ST elevation VT; probably type II, medical management --Acute systolic congestive heart failure; ejection fraction 30-35% Anti-failure medications, diuretics, beta blockers, estephania inhibitors, low sodium diet --Hypertension; stable, on current antihypertensives --Type 2 diabetes mellitus; Accu-Chek sliding scale coverage tube feeding, long-acting insulin --History of seizure disorder; seizure precautions ,antiepileptic medications, --Legally blind; supportive care --Dementia; supportive care --Severe malnutrition; hypoproteinemia, nutrition supplements Nutrition consult, tube feeding protocol/PEG placement --DVT prophylaxis; Lovenox Disposition; possible PEG placement, and transfer back to SNF Plan of care reviewed with the the nurse History Interval history: Patient was scheduled for PEG placement this morning However had to cancel because of tachycardia The patient had low-grade fever this morning A. fib now, patient is comfortable Noncommunicative Vital signs reviewed Hospitalist Physical - Constitutional Vitals: Temp Pulse Resp BP Pulse Ox 100.9 F H 125 H 15 174/92 94 08/05/18 09:15 08/05/18 10:00 08/05/18 09:15 08/05/18 09:15 08/05/18 09:15 General appearance: Present: no acute distress, well-nourished, obese, other (noncommunicative) - EENT Eyes: Present: PERRL, EOM intact - Neck Neck: Present: supple, normal ROM - Respiratory Respiratory effort: normal Respiratory: bilateral: diminished, negative: rales, rhonchi, wheezing - Cardiovascular Rhythm: regular Heart Sounds: Present: S1 & S2 - Extremities Extremities: no ischemia, No edema - Abdominal General gastrointestinal: soft, non-tender, non-distended, normal bowel sounds - Integumentary Integumentary: Present: clear, warm - Psychiatric Psychiatric: other (minimally communicative) - Neurologic Neurologic: other (legally blind, encephalopathy) Results - Labs CBC & Chem 7: 08/05/18 03:31 08/05/18 03:31 Labs: Laboratory Last Values WBC 5.4 K/mm3 (4.5-11.0) 08/05/18 03:31 RBC 3.60 M/mm3 (3.65-5.03) L 08/05/18 03:31 Hgb 10.7 gm/dl (10.1-14.3) 08/05/18 03:31 Hct 33.0 % (30.3-42.9) 08/05/18 03:31 MCV 92 fl (79-97) 08/05/18 03:31 MCH 30 pg (28-32) 08/05/18 03:31 MCHC 33 % (30-34) 08/05/18 03:31 RDW 16.3 % (13.2-15.2) H 08/05/18 03:31 Plt Count 269 K/mm3 (140-440) 08/05/18 03:31 Lymph % (Auto) 18.4 % (13.4-35.0) 08/05/18 03:31 Edmunds % (Auto) 11.7 % (0.0-7.3) H 08/05/18 03:31 Eos % (Auto) 5.3 % (0.0-4.3) H 08/05/18 03:31 Baso % (Auto) 0.8 % (0.0-1.8) 08/05/18 03:31 Lymph # 1.0 K/mm3 (1.2-5.4) L 08/05/18 03:31 Edmunds # 0.6 K/mm3 (0.0-0.8) 08/05/18 03:31 Eos # 0.3 K/mm3 (0.0-0.4) 08/05/18 03:31 Baso # 0.0 K/mm3 (0.0-0.1) 08/05/18 03:31 Seg Neutrophils % 63.8 % (40.0-70.0) 08/05/18 03:31 Seg Neutrophils # 3.4 K/mm3 (1.8-7.7) 08/05/18 03:31 PT 14.3 Sec. (12.2-14.9) 08/03/18 05:14 INR 1.05 (0.87-1.13) 08/03/18 05:14 APTT 32.1 Sec. (24.2-36.6) 08/03/18 05:14 D-Dimer 2370.66 ng/mlDDU (0-234) H 07/26/18 05:15 POC ABG pH 7.458 (7.35-7.45) H 07/29/18 19:04 POC ABG pCO2 43.4 (35-45) 07/29/18 19:04 POC ABG pO2 103 (80-105) 07/29/18 19:04 POC ABG HCO3 30.7 07/29/18 19:04 POC ABG Total CO2 32 07/29/18 19:04 POC ABG O2 Sat 98 07/29/18 19:04 POC ABG Base Excess 7 07/29/18 19:04 FiO2 28 % 07/29/18 19:04 Sodium 139 mmol/L (137-145) 08/05/18 03:31 Potassium 4.1 mmol/L (3.6-5.0) 08/05/18 03:31 Chloride 97.6 mmol/L (98-107) L 08/05/18 03:31 Carbon Dioxide 31 mmol/L (22-30) H 08/05/18 03:31 Anion Gap 15 mmol/L 08/05/18 03:31 BUN 16 mg/dL (7-17) 08/05/18 03:31 Creatinine 1.1 mg/dL (0.7-1.2) 08/05/18 03:31 Estimated GFR > 60 ml/min 08/05/18 03:31 BUN/Creatinine Ratio 15 % 08/05/18 03:31 Glucose 106 mg/dL (65-100) H 08/05/18 03:31 POC Glucose 151 (70-105) H 08/05/18 11:28 Lactic Acid 1.90 mmol/L (0.7-2.0) 07/27/18 04:23 Calcium 8.7 mg/dL (8.4-10.2) 08/05/18 03:31 Phosphorus 3.00 mg/dL (2.5-4.5) 07/28/18 04:48 Magnesium 1.90 mg/dL (1.7-2.3) 07/31/18 05:32 Total Bilirubin 0.30 mg/dL (0.1-1.2) 07/31/18 05:32 AST 23 units/L (5-40) 07/31/18 05:32 ALT 13 units/L (7-56) 07/31/18 05:32 Alkaline Phosphatase 180 units/L (35-129) H 07/31/18 05:32 Total Creatine Kinase 42 units/L (30-135) 07/26/18 12:39 CK-MB (CK-2) 1.8 ng/mL (0.0-4.0) 07/26/18 12:39 CK-MB (CK-2) Rel Index 4.2 (0-4) H 07/26/18 12:39 Troponin T 0.045 ng/mL (0.00-0.029) H D 07/26/18 12:39 C-Reactive Protein 2.90 mg/dL (0.00-1.30) H 07/26/18 15:42 NT-Pro-B Natriuret Pep 7314 pg/mL (0-900) H 07/26/18 05:15 Total Protein 6.2 g/dL (6.3-8.2) L 07/31/18 05:32 Albumin 2.8 g/dL (3.9-5) L 07/31/18 05:32 Albumin/Globulin Ratio 0.8 % 07/31/18 05:32 Triglycerides 120 mg/dL (2-149) 07/26/18 05:15 Cholesterol 111 mg/dL (50-199) 07/26/18 05:15 LDL Cholesterol Direct 70 mg/dL (50-130) 07/26/18 05:15 HDL Cholesterol 30 mg/dL (40-59) L 07/26/18 05:15 Cholesterol/HDL Ratio 3.70 % 07/26/18 05:15 Urine Color Yellow (Yellow) 07/26/18 05:55 Urine Turbidity Clear (Clear) 07/26/18 05:55 Urine pH 6.0 (5.0-7.0) 07/26/18 05:55 Ur Specific [place] 1.006 (1.003-1.030) 07/26/18 05:55 Urine Protein 100 mg/dl mg/dL (Negative) 07/26/18 05:55 Urine Glucose (UA) 50 mg/dL (Negative) 07/26/18 05:55 Urine Ketones Tr mg/dL (Negative) 07/26/18 05:55 Urine Blood Neg (Negative) 07/26/18 05:55 Urine Nitrite Neg (Negative) 07/26/18 05:55 Urine Bilirubin Neg (Negative) 07/26/18 05:55 Urine Urobilinogen < 2.0 mg/dL (<2.0) 07/26/18 05:55 Ur Leukocyte Esterase Neg (Negative) 07/26/18 05:55 Urine WBC (Auto) 2.0 /HPF (0.0-6.0) 07/26/18 05:55 Urine RBC (Auto) 4.0 /HPF (0.0-6.0) 07/26/18 05:55 U Epithel Cells (Auto) < 1.0 /HPF (0-13.0) 07/26/18 05:55 Urine Bacteria (Auto) 1+ /HPF (Negative) 07/26/18 05:55 Urine Mucus Few /HPF 07/26/18 05:55 C. difficile Tox (PCR) Negative (Negative) 07/27/18 Unknown Nutrition/Malnutrition Assess - Dietary Evaluation Nutrition/Malnutrition Findings: Nutrition Notes Start: 07/26/18 13:42 Freq: Status: Active Protocol: Document 08/03/18 16:11 RM (Rec: 08/03/18 16:21 [email or web address]) Nutrition Notes Initial or Follow up Reassessment Current Diagnosis Coronary Artery Disease Diabetes Hypertension Heart Failure Stroke Other Pertinent Diagnosis Pneu, Dementia, Legally blind Current Diet TF(no formula type or instructions) Labs/Tests Reviewed Pertinent Medications Reviewed Height 5 ft 2 in Weight 83.2 kg [place] Body Weight (kg) 50.00 BMI 33.5 Subjective/Other Information Consulted for TF recommendation. MD ordered blank TF diet with no formula or instructions in preparation for PEG. PEG planned for Sunday per GI consultation note 08/03/18. Observed Glucerna 1.2 infusing at goal. Per nurse pt is tolerating TF. Percent of energy/protein needs met: 90%/100% Burn Absent Trauma Absent #1 Nutrition Diagnosis Predicted suboptimal energy intake Diagnosis Progress(for reassessment Continues documentation) Is patient on ventilator? No Is Patient Ambulatory and/or Out of Bed No REE-([facility]-confined to bed) [phone] Calculation Used for Recommendations [facility] Additional Notes PRO needs: 50-60g (1-1.2g/kg IBW) Fluid needs: 1 mL/kcal Nutrition Intervention Nutrition Support: Continue Glucerna 1.2 at 50 mL /hr w/80mL flush q4h Kcal 1,440 Protein (gm) 72 Fluid (mL) 966 Goal #1 TF tolerance Goal #2 TF to continue to meet at least 80% energy and pro needs Anticipated Discharge Needs: Unable to determine at this time Follow-Up By: 07/31/18 Additional Comments Follow for stable TF
[2018-08-05] MEDS: LOVENOX SUB-Q SCH (21:13)
[2018-08-06] MEDS: LOPRESSOR PO SCH ×4 (00:36→17:54)
[2018-08-06] MEDS: HumaLOG SUB-Q SCH ×4 (00:37→17:53)
[2018-08-06] MEDS: DUONEB *Not for PRN Use IH SCH ×4 (02:12→20:20)
[2018-08-06] MEDS: ISORDIL TITRADOSE PO SCH ×3 (06:58→21:20)
[2018-08-06] MEDS: APRESOLINE PO SCH ×3 (08:55→21:19)
[2018-08-06] MEDS: COZAAR PO SCH (10:18)
[2018-08-06] MEDS: DepaKENE Liq PO SCH ×2 (10:19→21:18)
[2018-08-06] MEDS: POTASSIUM CHLORIDE FEEDTUBE SCH (10:19)
[2018-08-06] MEDS: LASIX PO SCH (10:20)
[2018-08-06] MEDS: SODIUM CHLORIDE FLUSH SYRINGE 10 ML IV SCH ×2 (10:20→21:39)
--- NOTE | 2018-08-06 10:37 | Progress Note ---
Assessment and Plan Respiratory failure secondary hypoxemia Pneumonia Atrial fibrillation and atrial flutter with rapid ventricle response Non-ST elevation [place] type II Dementia Hypertension urgency Acute systolic heart failure Plan: Pt in AFib with HR 110s. Optimize HR - initiate PO amio. Cont lopressor. Pt does not appear to be a candidate for senior care systemic AC due to advanced dementia. Pt for PEG placement per GI team. No apparent cardiac contraindication to proceeding with PEG at this time. The patient has been seen in conjunction with Dr. Aburto who agrees with the assessment and plan of care. - Patient Problems (1) Acute systolic heart failure Current Visit: Yes Status: Acute (2) NSTEMI (non-ST elevated myocardial infarction) Current Visit: Yes Status: Acute (3) Atrial fibrillation Current Visit: No Status: Acute (4) CAD (coronary artery disease) Current Visit: No Status: Chronic (5) Diabetes mellitus Current Visit: No Status: Chronic (6) Hx of CABG Current Visit: No Status: Chronic (7) Hypertension Current Visit: No Status: Chronic Subjective Date of service: 08/06/18 Principal diagnosis: Acute hypoxemic Resp failure; Pneumonia (HAP); Tod Pleural effusions; A-Fib Interval history: pt nonverbal, no apparent distress. in AFib/AFlutter with HR 110s on telemetry. Objective Last Vital Signs Temp 98.6 F 08/06/18 07:47 Pulse 89 08/06/18 10:18 Resp 18 08/06/18 10:00 BP 131/81 08/06/18 10:18 Pulse Ox 98 08/06/18 10:00 - Physical Examination General: No Apparent Distress HEENT: Positive: PERRL, EOMI Neck: Positive: neck supple Cardiac: Positive: irregularly irregular, S1/S2, Tachycardia Lungs: Positive: Decreased Breath Sounds Neuro: Positive: Other (obtunded) Abdomen: Positive: Soft Extremities: Present: normal, edema (swelling ) - Imaging and Cardiology Echo: report reviewed (quadrant over dysfunction 30 to 35% severe palmar hypertension RVSP 60 mmHg mild RV dysfunction) - Allied health notes Allied health notes reviewed: RT
[2018-08-06] MEDS: CORDARONE PO SCH ×2 (11:35→21:21)
--- NOTE | 2018-08-06 12:59 | Gastroenterology Progress Note ---
Addendum entered and electronically signed by MEAGAN DOUGLASS MD 08/06/18 15:41: Patient seen and examined on 08/06/2018. Patient re-evaluated by cardiology today and started on PO amio. Will plan for EGD/PEG tomorrow. Hold tube feeds at midnight. Original Note: Assessment and Plan This is a 68 yo AAF with pmh of Afib, CHF, severe dementia (bed ridden from correction), HTN, DM, seizure, legally blind, and malnutrition admitted for respiratory failure due to HCAP, heart failure requiring BiPap. 1.PEG placement for metabolic encephalopathy in the setting of severe dementia. - per patient's son, she has not been communicative and bed bound for some time. Not eating much at correction prior to admission. - had a discussion over the phone with the son regarding PEG tube, the nature of the procedure and risks of potential complications including but not limited to bleeding, infection, perforation, bowel injury, and complications with anesthesia as well as that the nutrition through the PEG tube is unlikely to improve her mental status given underlying dementia and this does not prevent aspiration risks. Son expressed understanding and wished to continue with PEG placement. - PEG attempted yesterday however, procedure cancelled by anesthesia due to Afib with RVR and low O2 -patient was re-evaluated by cardiology today and started on PO amio with clearance given to proceed with PEG -will tentatively reschedule EGD/PEG for tomorrow -NPO after MN -INR in am -continue supportive care -will follow Subjective Date of service: 08/06/18 Principal diagnosis: PEG Interval history: No acute distress. Tolerating TFs w/o evidence of abd pain or N/V. Objective - Constitutional Vitals: Temp Pulse Resp BP Pulse Ox 98.6 F 99 H 18 118/64 98 08/06/18 07:47 08/06/18 11:35 08/06/18 10:00 08/06/18 11:35 08/06/18 10:00 General appearance: no acute distress, other (nonverbal) - Respiratory Respiratory: bilateral: CTA (anterior) - Cardiovascular Rhythm: other (irregular) - Gastrointestinal General gastrointestinal: Present: soft, non-distended, normal bowel sounds - Labs CBC & Chem 7: 08/05/18 03:31 08/05/18 03:31 Labs: Laboratory Results - last 24 hr 08/05/18 08/06/18 08/06/18 18:22 00:32 05:56 POC Glucose 150 H 147 H 114 H 08/06/18 11:29 POC Glucose 208 H
--- NOTE | 2018-08-06 17:54 | Progress Note ---
Assessment and Plan Acute hypoxemic respiratory failure, on mechanical ventilatory support. Pneumonia, right upper lobe, healthcare-associated pneumonia. Mild congestive heart failure exacerbation. Bilateral pleural effusions. Atrial fibrillation with a rapid ventricular response. Acute on Chronic Encephalopathy Diabetes type 2. History of hypertension. Seizure disorder. History of cerebrovascular accident. Coronary artery disease with elevated serum troponins. Anxiety disorder. Dementia. She is legally blind (She will likely be at least a mild risk for coleen-operative pulmonary complications but ok to proceed with PEG placement; avoid general anesthesia if possible, early extubation if used and early ambulation) - s/p cardiology evaluation - PEG in am - continue telemetry monitoring - continue supplemental oxygen to keep O2 sats > 90% - continue BIPAP qhs for pre-load issues and possible DAVIS - appreciate ID input (following clinically off AB's) - continue bronchodilators with pulmonary hygiene per RT - ABG prn at this point - continue lopressor for rate control - continue oral lasix (40mg p.o. qd) - advance diet per ST rec's (She will need a PEG) - continue AED (tegretol) for seizures - medical management for NSTEMI - no acute indication for thoracentesis at this point - continue tube feeding as tolerated - continue GI & VTE prophylaxis - continue aspiration precautions - continue mobility protocol for pressure ulcer prophylaxis - PT/OT as tolerated - discontinued oliver catheter - continue accuchecks with glycemic control per SSI for target blood glucose < 180 mg/dL. - Monitor for hypoglycemia - continue other care per attending / other consultants ... re-evaluate in am & prn .... discussed with attending Subjective Date of service: 08/06/18 Principal diagnosis: Acute hypoxemic Resp failure; Pneumonia (HAP); Tod Pleural effusions; A-Fib Interval history: Patient is seen today for: Acute hypoxemic Resp failure; Pneumonia (RUL HAP); Mild congestive heart failure exacerbation; Bilateral pleural effusions; Atrial fibrillation with a rapid ventricular response; Diabetes type 2. Seen and examined at bedside; 24hour events reviewed; nursing and respiratory care staff consulted; no adverse overnight events reported to me; resting peacefully in bed; tentatively scheduled for PEG tomorrow; seen by cardiology team Objective Vital Signs - 12hr 08/06/18 08/06/18 08/06/18 06:58 07:47 08:55 Temperature 98.6 F Pulse Rate 91 H 85 85 Pulse Rate [ Apical] Pulse Rate [ From Monitor] Respiratory 18 Rate Blood Pressure 129/67 113/56 113/56 O2 Sat by Pulse 98 Oximetry 08/06/18 08/06/18 08/06/18 10:00 10:18 10:20 Temperature Pulse Rate 98 H 89 Pulse Rate [ 85 Apical] Pulse Rate [ 98 H From Monitor] Respiratory 18 Rate Blood Pressure 131/81 131/81 O2 Sat by Pulse 98 Oximetry 08/06/18 08/06/18 08/06/18 11:35 13:22 13:35 Temperature 99.8 F H Pulse Rate 99 H 70 70 Pulse Rate [ Apical] Pulse Rate [ From Monitor] Respiratory 18 Rate Blood Pressure 118/64 135/88 135/88 O2 Sat by Pulse 96 Oximetry Constitutional: no acute distress, lethargic, other (elderly looking obese AAF, normocephalic and atraumatic with mildly increased work of breathing at rest) Eyes: non-icteric ENT: oropharynx moist Neck: supple, no lymphadenopathy, no JVD, other (no thyromegaly) Effort: mildly labored Ascultation: Bilateral: clear, diminished breath sounds Percussion: Bilateral: not dull Cardiovascular: regular rate and rhythm, murmur noted (systolic) Gastrointestinal: normoactive bowel sounds, soft, non-tender, non-distended Integumentary: other (poor turgor) Extremities: no cyanosis, pulses normal, no ischemia or petechiae, edema (trace) Neurologic: pupils equal and round, unable to assess Psychiatric: other (unable to assess) CBC and BMP: 08/05/18 03:31 08/05/18 03:31 ABG, PT/INR, D-dimer: ABG POC ABG pH 7.458 (7.35-7.45) H 07/29/18 19:04 POC ABG pCO2 43.4 (35-45) 07/29/18 19:04 POC ABG pO2 103 (80-105) 07/29/18 19:04 POC ABG HCO3 30.7 07/29/18 19:04 POC ABG Total CO2 32 07/29/18 19:04 POC ABG O2 Sat 98 07/29/18 19:04 PT/INR, D-dimer PT 14.3 Sec. (12.2-14.9) 08/03/18 05:14 INR 1.05 (0.87-1.13) 08/03/18 05:14 D-Dimer 2370.66 ng/mlDDU (0-234) H 07/26/18 05:15 Abnormal lab findings: Abnormal Labs 07/26/18 07/26/18 07/26/18 05:15 05:15 05:15 WBC RBC RDW 16.4 H Lymph % (Auto) 6.1 L Charles % (Auto) 8.4 H Eos % (Auto) Lymph # 0.6 L Seg Neutrophils % 84.5 H Seg Neutrophils # 7.9 H D-Dimer 2370.66 H POC ABG pH POC ABG pO2 Potassium Chloride Carbon Dioxide Glucose POC Glucose Lactic Acid Calcium Alkaline Phosphatase CK-MB (CK-2) Rel Index Troponin T 0.036 H C-Reactive Protein NT-Pro-B Natriuret Pep Total Protein Albumin HDL Cholesterol 30 L 07/26/18 07/26/18 07/26/18 05:15 05:15 05:37 WBC RBC RDW Lymph % (Auto) Charles % (Auto) Eos % (Auto) Lymph # Seg Neutrophils % Seg Neutrophils # D-Dimer POC ABG pH POC ABG pO2 69 L Potassium Chloride Carbon Dioxide Glucose 224 H POC Glucose Lactic Acid 2.90 H* Calcium 8.3 L Alkaline Phosphatase 251 H CK-MB (CK-2) Rel Index Troponin T C-Reactive Protein NT-Pro-B Natriuret Pep 7314 H Total Protein Albumin 3.3 L HDL Cholesterol 07/26/18 07/26/18 07/26/18 06:35 06:49 09:26 WBC RBC RDW Lymph % (Auto) Charles % (Auto) Eos % (Auto) Lymph # Seg Neutrophils % Seg Neutrophils # D-Dimer POC ABG pH POC ABG pO2 Potassium Chloride Carbon Dioxide Glucose POC Glucose 195 H Lactic Acid 2.20 H* Calcium Alkaline Phosphatase CK-MB (CK-2) Rel Index Troponin T 0.034 H C-Reactive Protein NT-Pro-B Natriuret Pep Total Protein Albumin HDL Cholesterol 07/26/18 07/26/18 07/26/18 12:25 12:39 15:42 WBC RBC RDW Lymph % (Auto) Charles % (Auto) Eos % (Auto) Lymph # Seg Neutrophils % Seg Neutrophils # D-Dimer POC ABG pH POC ABG pO2 Potassium Chloride Carbon Dioxide Glucose POC Glucose 171 H Lactic Acid Calcium Alkaline Phosphatase CK-MB (CK-2) Rel Index 4.2 H Troponin T 0.045 H D C-Reactive Protein 2.90 H NT-Pro-B Natriuret Pep Total Protein Albumin HDL Cholesterol 07/26/18 07/27/18 07/27/18 16:32 00:08 04:23 WBC RBC RDW 16.3 H Lymph % (Auto) Charles % (Auto) 14.5 H Eos % (Auto) Lymph # 0.8 L Seg Neutrophils % Seg Neutrophils # D-Dimer POC ABG pH POC ABG pO2 Potassium Chloride Carbon Dioxide Glucose POC Glucose 140 H 148 H Lactic Acid Calcium Alkaline Phosphatase CK-MB (CK-2) Rel Index Troponin T C-Reactive Protein NT-Pro-B Natriuret Pep Total Protein Albumin HDL Cholesterol 07/27/18 07/27/18 07/27/18 04:23 05:13 11:44 WBC RBC RDW Lymph % (Auto) Charles % (Auto) Eos % (Auto) Lymph # Seg Neutrophils % Seg Neutrophils # D-Dimer POC ABG pH POC ABG pO2 Potassium Chloride Carbon Dioxide Glucose 158 H POC Glucose 176 H 161 H Lactic Acid Calcium Alkaline Phosphatase CK-MB (CK-2) Rel Index Troponin T C-Reactive Protein NT-Pro-B Natriuret Pep Total Protein Albumin HDL Cholesterol 07/27/18 07/27/18 07/28/18 18:22 23:33 04:48 WBC 4.2 L RBC 3.56 L RDW 16.3 H Lymph % (Auto) Charles % (Auto) 9.8 H Eos % (Auto) 5.2 H Lymph # 0.9 L Seg Neutrophils % Seg Neutrophils # D-Dimer POC ABG pH POC ABG pO2 Potassium Chloride Carbon Dioxide Glucose POC Glucose 190 H 121 H Lactic Acid Calcium Alkaline Phosphatase CK-MB (CK-2) Rel Index Troponin T C-Reactive Protein NT-Pro-B Natriuret Pep Total Protein Albumin HDL Cholesterol 07/28/18 07/28/18 07/28/18 04:48 05:56 11:49 WBC RBC RDW Lymph % (Auto) Charles % (Auto) Eos % (Auto) Lymph # Seg Neutrophils % Seg Neutrophils # D-Dimer POC ABG pH POC ABG pO2 Potassium 3.5 L Chloride Carbon Dioxide Glucose 139 H POC Glucose 133 H 214 H Lactic Acid Calcium 8.3 L Alkaline Phosphatase 177 H CK-MB (CK-2) Rel Index Troponin T C-Reactive Protein NT-Pro-B Natriuret Pep Total Protein 6.1 L Albumin 2.8 L HDL Cholesterol 07/28/18 07/28/18 07/29/18 18:32 23:30 05:15 WBC RBC RDW Lymph % (Auto) Charles % (Auto) Eos % (Auto) Lymph # Seg Neutrophils % Seg Neutrophils # D-Dimer POC ABG pH POC ABG pO2 Potassium Chloride Carbon Dioxide Glucose POC Glucose 120 H 160 H 127 H Lactic Acid Calcium Alkaline Phosphatase CK-MB (CK-2) Rel Index Troponin T C-Reactive Protein NT-Pro-B Natriuret Pep Total Protein Albumin HDL Cholesterol 07/29/18 07/29/18 07/29/18 11:32 18:49 19:04 WBC RBC RDW Lymph % (Auto) Charles % (Auto) Eos % (Auto) Lymph # Seg Neutrophils % Seg Neutrophils # D-Dimer POC ABG pH 7.458 H POC ABG pO2 Potassium Chloride Carbon Dioxide Glucose POC Glucose 203 H 168 H Lactic Acid Calcium Alkaline Phosphatase CK-MB (CK-2) Rel Index Troponin T C-Reactive Protein NT-Pro-B Natriuret Pep Total Protein Albumin HDL Cholesterol 07/30/18 07/30/18 07/30/18 00:16 04:32 04:32 WBC RBC 3.61 L RDW 16.3 H Lymph % (Auto) Charles % (Auto) 11.5 H Eos % (Auto) Lymph # 0.8 L Seg Neutrophils % Seg Neutrophils # D-Dimer POC ABG pH POC ABG pO2 Potassium 3.2 L Chloride Carbon Dioxide Glucose 157 H POC Glucose 186 H Lactic Acid Calcium 8.2 L Alkaline Phosphatase 199 H CK-MB (CK-2) Rel Index Troponin T C-Reactive Protein NT-Pro-B Natriuret Pep Total Protein Albumin 2.8 L HDL Cholesterol 07/30/18 07/30/18 07/31/18 05:12 12:13 05:32 WBC RBC 3.48 L RDW 15.9 H Lymph % (Auto) Charles % (Auto) 11.6 H Eos % (Auto) 4.4 H Lymph # 0.9 L Seg Neutrophils % Seg Neutrophils # D-Dimer POC ABG pH POC ABG pO2 Potassium Chloride Carbon Dioxide Glucose POC Glucose 157 H 177 H Lactic Acid Calcium Alkaline Phosphatase CK-MB (CK-2) Rel Index Troponin T C-Reactive Protein NT-Pro-B Natriuret Pep Total Protein Albumin HDL Cholesterol 07/31/18 07/31/18 07/31/18 05:32 12:12 20:42 WBC RBC RDW Lymph % (Auto) Charles % (Auto) Eos % (Auto) Lymph # Seg Neutrophils % Seg Neutrophils # D-Dimer POC ABG pH POC ABG pO2 Potassium 3.1 L Chloride Carbon Dioxide Glucose POC Glucose 141 H 155 H Lactic Acid Calcium Alkaline Phosphatase 180 H CK-MB (CK-2) Rel Index Troponin T C-Reactive Protein NT-Pro-B Natriuret Pep Total Protein 6.2 L Albumin 2.8 L HDL Cholesterol 08/01/18 08/01/18 08/01/18 05:07 12:01 16:23 WBC RBC RDW Lymph % (Auto) Charles % (Auto) Eos % (Auto) Lymph # Seg Neutrophils % Seg Neutrophils # D-Dimer POC ABG pH POC ABG pO2 Potassium Chloride Carbon Dioxide Glucose POC Glucose 108 H 178 H 138 H Lactic Acid Calcium Alkaline Phosphatase CK-MB (CK-2) Rel Index Troponin T C-Reactive Protein NT-Pro-B Natriuret Pep Total Protein Albumin HDL Cholesterol 08/02/18 08/02/18 08/02/18 00:39 05:42 11:53 WBC RBC RDW Lymph % (Auto) Charles % (Auto) Eos % (Auto) Lymph # Seg Neutrophils % Seg Neutrophils # D-Dimer POC ABG pH POC ABG pO2 Potassium Chloride Carbon Dioxide Glucose POC Glucose 109 H 143 H 188 H Lactic Acid Calcium Alkaline Phosphatase CK-MB (CK-2) Rel Index Troponin T C-Reactive Protein NT-Pro-B Natriuret Pep Total Protein Albumin HDL Cholesterol 08/02/18 08/02/18 08/03/18 18:15 23:48 05:14 WBC RBC RDW 16.0 H Lymph % (Auto) Charles % (Auto) 13.7 H Eos % (Auto) Lymph # 0.9 L Seg Neutrophils % Seg Neutrophils # D-Dimer POC ABG pH POC ABG pO2 Potassium Chloride Carbon Dioxide Glucose POC Glucose 112 H 157 H Lactic Acid Calcium Alkaline Phosphatase CK-MB (CK-2) Rel Index Troponin T C-Reactive Protein NT-Pro-B Natriuret Pep Total Protein Albumin HDL Cholesterol 08/03/18 08/03/18 08/03/18 05:14 05:59 11:44 WBC RBC RDW Lymph % (Auto) Charles % (Auto) Eos % (Auto) Lymph # Seg Neutrophils % Seg Neutrophils # D-Dimer POC ABG pH POC ABG pO2 Potassium Chloride Carbon Dioxide Glucose 117 H POC Glucose 148 H 175 H Lactic Acid Calcium Alkaline Phosphatase CK-MB (CK-2) Rel Index Troponin T C-Reactive Protein NT-Pro-B Natriuret Pep Total Protein Albumin HDL Cholesterol 08/03/18 08/03/18 08/04/18 17:39 21:55 05:40 WBC RBC RDW Lymph % (Auto) Charles % (Auto) Eos % (Auto) Lymph # Seg Neutrophils % Seg Neutrophils # D-Dimer POC ABG pH POC ABG pO2 Potassium Chloride Carbon Dioxide Glucose POC Glucose 120 H 147 H 141 H Lactic Acid Calcium Alkaline Phosphatase CK-MB (CK-2) Rel Index Troponin T C-Reactive Protein NT-Pro-B Natriuret Pep Total Protein Albumin HDL Cholesterol 08/04/18 08/04/18 08/05/18 13:16 18:02 00:07 WBC RBC RDW Lymph % (Auto) Charles % (Auto) Eos % (Auto) Lymph # Seg Neutrophils % Seg Neutrophils # D-Dimer POC ABG pH POC ABG pO2 Potassium Chloride Carbon Dioxide Glucose POC Glucose 177 H 133 H 167 H Lactic Acid Calcium Alkaline Phosphatase CK-MB (CK-2) Rel Index Troponin T C-Reactive Protein NT-Pro-B Natriuret Pep Total Protein Albumin HDL Cholesterol 08/05/18 08/05/18 08/05/18 03:31 03:31 05:41 WBC RBC 3.60 L RDW 16.3 H Lymph % (Auto) Charles % (Auto) 11.7 H Eos % (Auto) 5.3 H Lymph # 1.0 L Seg Neutrophils % Seg Neutrophils # D-Dimer POC ABG pH POC ABG pO2 Potassium Chloride 97.6 L Carbon Dioxide 31 H Glucose 106 H POC Glucose 112 H Lactic Acid Calcium Alkaline Phosphatase CK-MB (CK-2) Rel Index Troponin T C-Reactive Protein NT-Pro-B Natriuret Pep Total Protein Albumin HDL Cholesterol 08/05/18 08/05/18 08/06/18 11:28 18:22 00:32 WBC RBC RDW Lymph % (Auto) Charles % (Auto) Eos % (Auto) Lymph # Seg Neutrophils % Seg Neutrophils # D-Dimer POC ABG pH POC ABG pO2 Potassium Chloride Carbon Dioxide Glucose POC Glucose 151 H 150 H 147 H Lactic Acid Calcium Alkaline Phosphatase CK-MB (CK-2) Rel Index Troponin T C-Reactive Protein NT-Pro-B Natriuret Pep Total Protein Albumin HDL Cholesterol 08/06/18 08/06/18 05:56 11:29 WBC RBC RDW Lymph % (Auto) Charles % (Auto) Eos % (Auto) Lymph # Seg Neutrophils % Seg Neutrophils # D-Dimer POC ABG pH POC ABG pO2 Potassium Chloride Carbon Dioxide Glucose POC Glucose 114 H 208 H Lactic Acid Calcium Alkaline Phosphatase CK-MB (CK-2) Rel Index Troponin T C-Reactive Protein NT-Pro-B Natriuret Pep Total Protein Albumin HDL Cholesterol Allied health notes reviewed: RT
--- NOTE | 2018-08-06 18:40 | Progress Note ---
Assessment and Plan Assessment and plan: --Dysphagia on tube feeding due to encephalopathy: PEG tube placement scheduled for 08/05/18 ,cancelled due to tachycardia/afib rvr Pt did not get her am metoprolol.as NPO GI requests cardiology clearance for the procedure.Cards cleared PEG tomorrow --Encephalopathy; for the last 4 -5 weeks[reported by the sister and son] Patient noncommunicative, responds only to deep stimuli. Does not open eyes, --Acute hypoxic respiratory failure; s/p BiPAP, on nasal cannula/Ventimask nebulizers, pulmonary following --Right-sided pneumonia; hospital-acquired pneumonia treated, monitor off antibiotics, per ID --A. fib with rapid ventricle rate; now rate controlled, continue beta blockers, Not a candidate for chronic anticoagulation --Non-ST elevation NM; probably type II, medical management --Acute systolic congestive heart failure; ejection fraction 30-35% Anti-failure medications, diuretics, beta blockers, estephania inhibitors, low sodium diet --Hypertension; stable, on current antihypertensives --Type 2 diabetes mellitus; Accu-Chek sliding scale coverage tube feeding, long-acting insulin --History of seizure disorder; seizure precautions ,antiepileptic medications, --Legally blind; supportive care --Dementia; supportive care --Severe malnutrition; hypoproteinemia, nutrition supplements Nutrition consult, tube feeding protocol/PEG placement --DVT prophylaxis; Lovenox Disposition; possible PEG placement, and transfer back to SNF Plan of care reviewed with the the nurse History Interval history: Patient has no new complaints Vital signs reviewed Hospitalist Physical - Constitutional Vitals: Temp Pulse Resp BP Pulse Ox 99.8 F H 83 18 125/71 96 08/06/18 13:22 08/06/18 17:54 08/06/18 13:22 08/06/18 17:54 08/06/18 13:22 General appearance: Present: no acute distress, well-nourished, obese, other (noncommunicative) - EENT Eyes: Present: PERRL, EOM intact - Neck Neck: Present: supple, normal ROM - Respiratory Respiratory effort: normal Respiratory: bilateral: diminished, negative: rales, rhonchi, wheezing - Cardiovascular Rhythm: regular Heart Sounds: Present: S1 & S2 - Extremities Extremities: no ischemia, No edema - Abdominal General gastrointestinal: soft, non-tender, non-distended, normal bowel sounds - Integumentary Integumentary: Present: clear, warm - Psychiatric Psychiatric: other (unresponsive) - Neurologic Neurologic: other (noncommunicative) Results - Labs CBC & Chem 7: 08/05/18 03:31 08/05/18 03:31 Labs: Laboratory Last Values WBC 5.4 K/mm3 (4.5-11.0) 08/05/18 03:31 RBC 3.60 M/mm3 (3.65-5.03) L 08/05/18 03:31 Hgb 10.7 gm/dl (10.1-14.3) 08/05/18 03:31 Hct 33.0 % (30.3-42.9) 08/05/18 03:31 MCV 92 fl (79-97) 08/05/18 03:31 MCH 30 pg (28-32) 08/05/18 03:31 MCHC 33 % (30-34) 08/05/18 03:31 RDW 16.3 % (13.2-15.2) H 08/05/18 03:31 Plt Count 269 K/mm3 (140-440) 08/05/18 03:31 Lymph % (Auto) 18.4 % (13.4-35.0) 08/05/18 03:31 Grand % (Auto) 11.7 % (0.0-7.3) H 08/05/18 03:31 Eos % (Auto) 5.3 % (0.0-4.3) H 08/05/18 03:31 Baso % (Auto) 0.8 % (0.0-1.8) 08/05/18 03:31 Lymph # 1.0 K/mm3 (1.2-5.4) L 08/05/18 03:31 Grand # 0.6 K/mm3 (0.0-0.8) 08/05/18 03:31 Eos # 0.3 K/mm3 (0.0-0.4) 08/05/18 03:31 Baso # 0.0 K/mm3 (0.0-0.1) 08/05/18 03:31 Seg Neutrophils % 63.8 % (40.0-70.0) 08/05/18 03:31 Seg Neutrophils # 3.4 K/mm3 (1.8-7.7) 08/05/18 03:31 PT 14.3 Sec. (12.2-14.9) 08/03/18 05:14 INR 1.05 (0.87-1.13) 08/03/18 05:14 APTT 32.1 Sec. (24.2-36.6) 08/03/18 05:14 D-Dimer 2370.66 ng/mlDDU (0-234) H 07/26/18 05:15 POC ABG pH 7.458 (7.35-7.45) H 07/29/18 19:04 POC ABG pCO2 43.4 (35-45) 07/29/18 19:04 POC ABG pO2 103 (80-105) 07/29/18 19:04 POC ABG HCO3 30.7 07/29/18 19:04 POC ABG Total CO2 32 07/29/18 19:04 POC ABG O2 Sat 98 07/29/18 19:04 POC ABG Base Excess 7 07/29/18 19:04 FiO2 28 % 07/29/18 19:04 Sodium 139 mmol/L (137-145) 08/05/18 03:31 Potassium 4.1 mmol/L (3.6-5.0) 08/05/18 03:31 Chloride 97.6 mmol/L (98-107) L 08/05/18 03:31 Carbon Dioxide 31 mmol/L (22-30) H 08/05/18 03:31 Anion Gap 15 mmol/L 08/05/18 03:31 BUN 16 mg/dL (7-17) 08/05/18 03:31 Creatinine 1.1 mg/dL (0.7-1.2) 08/05/18 03:31 Estimated GFR > 60 ml/min 08/05/18 03:31 BUN/Creatinine Ratio 15 % 08/05/18 03:31 Glucose 106 mg/dL (65-100) H 08/05/18 03:31 POC Glucose 140 (70-105) H 08/06/18 17:50 Lactic Acid 1.90 mmol/L (0.7-2.0) 07/27/18 04:23 Calcium 8.7 mg/dL (8.4-10.2) 08/05/18 03:31 Phosphorus 3.00 mg/dL (2.5-4.5) 07/28/18 04:48 Magnesium 1.90 mg/dL (1.7-2.3) 07/31/18 05:32 Total Bilirubin 0.30 mg/dL (0.1-1.2) 07/31/18 05:32 AST 23 units/L (5-40) 07/31/18 05:32 ALT 13 units/L (7-56) 07/31/18 05:32 Alkaline Phosphatase 180 units/L (35-129) H 07/31/18 05:32 Total Creatine Kinase 42 units/L (30-135) 07/26/18 12:39 CK-MB (CK-2) 1.8 ng/mL (0.0-4.0) 07/26/18 12:39 CK-MB (CK-2) Rel Index 4.2 (0-4) H 07/26/18 12:39 Troponin T 0.045 ng/mL (0.00-0.029) H D 07/26/18 12:39 C-Reactive Protein 2.90 mg/dL (0.00-1.30) H 07/26/18 15:42 NT-Pro-B Natriuret Pep 7314 pg/mL (0-900) H 07/26/18 05:15 Total Protein 6.2 g/dL (6.3-8.2) L 07/31/18 05:32 Albumin 2.8 g/dL (3.9-5) L 07/31/18 05:32 Albumin/Globulin Ratio 0.8 % 07/31/18 05:32 Triglycerides 120 mg/dL (2-149) 07/26/18 05:15 Cholesterol 111 mg/dL (50-199) 07/26/18 05:15 LDL Cholesterol Direct 70 mg/dL (50-130) 07/26/18 05:15 HDL Cholesterol 30 mg/dL (40-59) L 07/26/18 05:15 Cholesterol/HDL Ratio 3.70 % 07/26/18 05:15 Urine Color Yellow (Yellow) 07/26/18 05:55 Urine Turbidity Clear (Clear) 07/26/18 05:55 Urine pH 6.0 (5.0-7.0) 07/26/18 05:55 Ur Specific [place] 1.006 (1.003-1.030) 07/26/18 05:55 Urine Protein 100 mg/dl mg/dL (Negative) 07/26/18 05:55 Urine Glucose (UA) 50 mg/dL (Negative) 07/26/18 05:55 Urine Ketones Tr mg/dL (Negative) 07/26/18 05:55 Urine Blood Neg (Negative) 07/26/18 05:55 Urine Nitrite Neg (Negative) 07/26/18 05:55 Urine Bilirubin Neg (Negative) 07/26/18 05:55 Urine Urobilinogen < 2.0 mg/dL (<2.0) 07/26/18 05:55 Ur Leukocyte Esterase Neg (Negative) 07/26/18 05:55 Urine WBC (Auto) 2.0 /HPF (0.0-6.0) 07/26/18 05:55 Urine RBC (Auto) 4.0 /HPF (0.0-6.0) 07/26/18 05:55 U Epithel Cells (Auto) < 1.0 /HPF (0-13.0) 07/26/18 05:55 Urine Bacteria (Auto) 1+ /HPF (Negative) 07/26/18 05:55 Urine Mucus Few /HPF 07/26/18 05:55 C. difficile Tox (PCR) Negative (Negative) 07/27/18 Unknown Nutrition/Malnutrition Assess - Dietary Evaluation Nutrition/Malnutrition Findings: Nutrition Notes Start: 07/26/18 13:42 Freq: Status: Active Protocol: Document 08/03/18 16:11 RM (Rec: 08/03/18 16:21 RM [id number]) Nutrition Notes Initial or Follow up Reassessment Current Diagnosis Coronary Artery Disease Diabetes Hypertension Heart Failure Stroke Other Pertinent Diagnosis Pneu, Dementia, Legally blind Current Diet TF(no formula type or instructions) Labs/Tests Reviewed Pertinent Medications Reviewed Height 5 ft 2 in Weight 83.2 kg Crystal Body Weight (kg) 50.00 BMI 33.5 Subjective/Other Information Consulted for TF recommendation. ordered blank TF diet with no formula or instructions in preparation for PEG. PEG planned for Sunday per GI consultation note 08/03/18. Observed Glucerna 1.2 infusing at goal. Per nurse pt is tolerating TF. Percent of energy/protein needs met: 90%/100% Burn Absent Trauma Absent #1 Nutrition Diagnosis Predicted suboptimal energy intake Diagnosis Progress(for reassessment Continues documentation) Is patient on ventilator? No Is Patient Ambulatory and/or Out of Bed No REE-([facility]-confined to bed) [phone] Calculation Used for Recommendations [facility] Additional Notes PRO needs: 50-60g (1-1.2g/kg IBW) Fluid needs: 1 mL/kcal Nutrition Intervention Nutrition Support: Continue Glucerna 1.2 at 50 mL /hr w/80mL flush q4h Kcal 1,440 Protein (gm) 72 Fluid (mL) 966 Goal #1 TF tolerance Goal #2 TF to continue to meet at least 80% energy and pro needs Anticipated Discharge Needs: Unable to determine at this time Follow-Up By: 07/31/18 Additional Comments Follow for stable TF
[2018-08-06] MEDS: LOVENOX SUB-Q SCH (21:18)
[2018-08-06] MEDS: NACL 0.9% 1000 ML 1,000 ML IV SCH (22:22)
[2018-08-07] MEDS: HumaLOG SUB-Q SCH ×4 (00:35→17:26)
[2018-08-07] MEDS: LOPRESSOR PO SCH ×2 (00:35→05:22)
[2018-08-07] MEDS: ISORDIL TITRADOSE PO SCH ×3 (05:21→23:35)
[2018-08-07] MEDS ORDERED: TYLENOL FEEDTUBE PRN (05:53)
[2018-08-07 06:27] LABS: INR 1.03 (0.87-1.13)
[2018-08-07] MEDS: APRESOLINE FEEDTUBE SCH ×2 (07:37→15:02)
[2018-08-07] MEDS: LOPRESSOR FEEDTUBE SCH ×4 (07:38→23:35)
[2018-08-07] MEDS ORDERED: WATER FOR IRRIG STERILE IR ONE (07:43)
[2018-08-07] MEDS ORDERED: ANCEF/STERILE WATER 2 GM/20 ML 2 GM/20 ML SYRINGE IV NR (08:00)
[2018-08-07] MEDS ORDERED: NACL 0.9% 1000 ML 1,000 ML IV SCH (08:00)
[2018-08-07] MEDS ORDERED: ANCEF/STERILE WATER 2 GM/20 ML 2 GM/20 ML SYRINGE IV ONE (08:30)
[2018-08-07] MEDS: NACL 0.9% 1000 ML 1,000 ML IV SCH (08:43)
--- NOTE | 2018-08-07 09:49 | Anesthesia Consultation ---
Anesthesia Consult and Med Hx Date of service: 08/07/18 - Airway Anesthetic Teeth Evaluation: Edentulous ROM Head & Neck: Adequate Mental/Hyoid Distance: Adequate Mallampati Class: Class II - Pre-Operative Health Status ASA Pre-Surgery Classification: ASA4 Proposed Anesthetic Plan: MAC - Pulmonary Hx Smoking: Yes Hx Asthma: No COPD: No Hx Pneumonia: No - Cardiovascular System Hx Hypertension: Yes Hx Coronary Artery Disease: Yes (CABG; acute CHF due to severe anemia) Hx Heart Attack/AMI: Yes Hx Cardia Arrhythmia: Yes (h/o atrial fibrilation with embolic event) Hx Pacemaker: No Hx Internal Defibrillator: No - Central Nervous System Hx Seizures: Yes CVA: Yes Hx Psychiatric Problems: No - Endocrine Hx Renal Disease: Yes (ARF) Hx End Stage Renal Disease: No Hx Insulin Dependent Diabetes: Yes (uncontrolled IDDM, present with metabolic acidosis) - Hematic Hx Anemia: Yes (severe anemia, was tranfused 3 units of RBCs on 07/20/13) - Other Systems Hx Alcohol Use: Yes Hx Cancer: No - Additional Comments Anesthesia Medical History Comments: Patient with slightly elevated of troponin has been optimuized by cardiac team for EGD/PEG placement. While cardiology deemed it appropriate to proceed with placement under conscious sedation, pulmonology recommends against GA. Clarfication between NSTEMI type II and mild elevation in tropnins determines that this patient likely did not sustain a cardiac event in the last 30 days as previously stated.
--- NOTE | 2018-08-07 09:50 | Anesthesia Day of Surgery ---
Anesthesia Day of Surgery - Day of Surgery Patient Examined: Yes Patient H&P Reviewed: Yes Patient is NPO: Yes Beta Blockers: Yes Cardiac Clearance: Yes Pulmonary Clearance: Yes
[2018-08-07] MEDS: POTASSIUM CHLORIDE FEEDTUBE SCH (10:00)
[2018-08-07] MEDS: LASIX FEEDTUBE SCH (10:00)
[2018-08-07] MEDS: DepaKENE Liq FEEDTUBE SCH ×2 (10:00→23:55)
[2018-08-07] MEDS: COZAAR FEEDTUBE SCH (10:00)
[2018-08-07] MEDS: CORDARONE FEEDTUBE SCH ×2 (10:00→23:35)
[2018-08-07] MEDS: SODIUM CHLORIDE FLUSH SYRINGE 10 ML IV SCH ×2 (10:00→23:59)
[2018-08-07] MEDS ORDERED: DIPRIVAN 10 MG/ML IV ONE (10:03)
--- NOTE | 2018-08-07 10:30 | Operative Report ---
Operative Report Operative Report: Date of procedure: 08/07/2018 Preprocedure diagnosis: dysphagia, h/o CVA Postprocedure diagnosis: antral ulcer, successful placement of PEG tube Endoscopist: Andrzej Monreal M.D. Procedure: Percutaneous Endoscopic Gastrostomy Medications: Propofol per anesthesia. See separate records for details. Ancef 2 g IV prior to procedure. Estimated blood loss: 0 After careful discussion of the nature and purpose of the procedure as well as details of the technique, risks, benefits, and alternatives consent was obtained from the patient's family. The patient was placed in the supine position and medicated per anesthesia. The tip of the Facio 570 EQ videoscope was carefully passed for him under direct vision into the esophagus and advanced into the stomach. The scope was then advanced to the pylorus into the duodenum. The descending duodenum duodenal bulb and pylorus were normal. The scope was then withdrawn into the antrum and the stomach insufflated with air. The antrum showed erythematous mucosa and a small superficial nonbleeding ulcer. The scope was then retroflexed and partially withdrawn. The cardia, fundus,and body were normal. After further insufflation of the stomach, a suitable gastrostomy site was selected by transillumination of the stomach, percutaneous compression and demonstration of good opposition of the stomach and abdominal wall. The abdomen was prepped and draped in sterile fashion. The needle and catheter were then inserted percutaneously into the stomach without difficulty under endoscopic observation. The needle was withdrawn followed by insertion of the guidewire through the catheter. The guidewire was grasped with the snare in position by total withdrawal of the endoscope. An EndoVive pull gastrostomy, 20 gauge, was pulled into place from the abdominal side of the wire to a snug fit at 2 cm at the abdominal skin. The external bumper was applied. The site was again dressed in sterile fashion and the procedure completed. The procedures was well-tolerated Conclusions: Antral gastritis and nonbleeding antral ulcer, Status post percuta neous endoscopic gastrostomy Plan: Can start tube feeds after 4 hours per nutrition recommendations. Keep Head of bed elevated. Start protonix bid.
[2018-08-07] MEDS: DUONEB *Not for PRN Use IH SCH ×3 (10:50→21:07)
[2018-08-07] MEDS ORDERED: SIMPLE SYRUP FEEDTUBE PRN ×2 (10:58)
[2018-08-07] MEDS ORDERED: PANCREAZE DR 10,500 UNIT FEEDTUBE PRN (10:58)
[2018-08-07] MEDS: PROTONIX PO SCH (11:00)
--- NOTE | 2018-08-07 12:37 | Progress Note ---
Assessment and Plan Respiratory failure secondary hypoxemia Pneumonia Atrial fibrillation and atrial flutter with rapid ventricle response Non-ST elevation ME type II Dementia Hypertension urgency Acute systolic heart failure Plan: S/p PEG placement this AM. Cont present cardiac management. Pt does not appear to be a candidate for termite treater systemic AC due to advanced dementia. The patient has been seen in conjunction with Dr. Aburto who agrees with the assessment and plan of care. - Patient Problems (1) Acute systolic heart failure Current Visit: Yes Status: Acute (2) NSTEMI (non-ST elevated myocardial infarction) Current Visit: Yes Status: Acute (3) Atrial fibrillation Current Visit: No Status: Acute (4) CAD (coronary artery disease) Current Visit: No Status: Chronic (5) Diabetes mellitus Current Visit: No Status: Chronic (6) Hx of CABG Current Visit: No Status: Chronic (7) Hypertension Current Visit: No Status: Chronic Subjective Date of service: 08/07/18 Principal diagnosis: Acute hypoxemic Resp failure; Pneumonia (HAP); Tod Pleural effusions; A-Fib Interval history: pt nonverbal, no apparent distress. in AFib/AFlutter with CVR, some bouts of RVR HR 120s overnight. seen s/p PEG. Objective Last Vital Signs Temp 98.7 F 08/07/18 11:13 Pulse 118 H 08/07/18 11:37 Resp 20 08/07/18 11:13 BP 177/109 08/07/18 11:13 Pulse Ox 97 08/07/18 11:13 - Physical Examination General: No Apparent Distress HEENT: Positive: PERRL, EOMI Neck: Positive: neck supple Cardiac: Positive: irregularly irregular, S1/S2 Lungs: Positive: Decreased Breath Sounds Neuro: Positive: Other (obtunded) Abdomen: Positive: Soft Extremities: Present: normal, edema (swelling ) - Labs and Meds Coagulation 08/07/18 Range/Units 05:49 PT 14.1 (12.2-14.9) Sec. INR 1.03 (0.87-1.13) - Imaging and Cardiology Echo: report reviewed (quadrant over dysfunction 30 to 35% severe palmar hypertension RVSP 60 mmHg mild RV dysfunction) - Allied health notes Allied health notes reviewed: RT
--- NOTE | 2018-08-07 15:45 | Progress Note ---
Assessment and Plan Acute hypoxemic respiratory failure, on mechanical ventilatory support. Pneumonia, right upper lobe, healthcare-associated pneumonia. Mild congestive heart failure exacerbation. Bilateral pleural effusions. Atrial fibrillation with a rapid ventricular response. Acute on Chronic Encephalopathy Diabetes type 2. History of hypertension. Seizure disorder. History of cerebrovascular accident. Coronary artery disease with elevated serum troponins. Anxiety disorder. Dementia. She is legally blind (She will likely be at least a mild risk for coleen-operative pulmonary complications but ok to proceed with PEG placement; avoid general anesthesia if possible, early extubation if used and early ambulation) - s/p cardiology evaluation - PEG in am - continue telemetry monitoring - continue supplemental oxygen to keep O2 sats > 90% - continue BIPAP qhs for pre-load issues and possible DAVIS - appreciate ID input (following clinically off AB's) - continue bronchodilators with pulmonary hygiene per RT - ABG prn at this point - continue lopressor for rate control - continue oral lasix (40mg p.o. qd) - advance diet per ST rec's (She will need a PEG) - continue AED (tegretol) for seizures - medical management for NSTEMI - no acute indication for thoracentesis at this point - continue tube feeding as tolerated - continue GI & VTE prophylaxis - continue aspiration precautions - continue mobility protocol for pressure ulcer prophylaxis - PT/OT as tolerated - discontinued oliver catheter - continue accuchecks with glycemic control per SSI for target blood glucose < 180 mg/dL. - Monitor for hypoglycemia - continue other care per attending / other consultants ... re-evaluate in am & prn .... discussed with attending Subjective Date of service: 08/07/18 Principal diagnosis: Acute hypoxemic Resp failure; Pneumonia (HAP); Tod Pleural effusions; A-Fib Interval history: Patient is seen today for: Acute hypoxemic Resp failure; Pneumonia (RUL HAP); Mild congestive heart failure exacerbation; Bilateral pleural effusions; Atrial fibrillation with a rapid ventricular response; Diabetes type 2. Seen and examined at bedside; 24hour events reviewed; nursing and respiratory care staff consulted; no adverse overnight events reported to me; resting peacefully in bed; for PEG today; AMS is persistent; remains on supplemental oxygen; no new issues otherwise Objective Vital Signs - 12hr 08/07/18 08/07/18 08/07/18 07:27 07:37 08:28 Temperature 98.2 F 98.4 F Pulse Rate 95 H 95 H 100 H Pulse Rate [ Apical] Pulse Rate [ From Monitor] Respiratory 20 14 Rate Blood Pressure 138/81 138/81 142/74 O2 Sat by Pulse 96 97 Oximetry 08/07/18 08/07/18 08/07/18 08:33 10:00 10:29 Temperature 98.4 F 98.4 F Pulse Rate 100 H 100 H Pulse Rate [ 95 H Apical] Pulse Rate [ 118 H From Monitor] Respiratory 14 20 16 Rate Blood Pressure 142/74 168/102 O2 Sat by Pulse 97 96 100 Oximetry 08/07/18 08/07/18 08/07/18 10:44 11:13 11:37 Temperature 98.7 F Pulse Rate 105 H 108 H 118 H Pulse Rate [ Apical] Pulse Rate [ From Monitor] Respiratory 24 20 Rate Blood Pressure 177/99 177/109 O2 Sat by Pulse 100 97 Oximetry 08/07/18 08/07/18 08/07/18 13:12 14:23 15:02 Temperature 99.2 F Pulse Rate 104 H 105 H 134 H Pulse Rate [ Apical] Pulse Rate [ From Monitor] Respiratory 22 Rate Blood Pressure 181/99 170/88 170/88 O2 Sat by Pulse 96 97 Oximetry 08/07/18 15:06 Temperature Pulse Rate 134 H Pulse Rate [ Apical] Pulse Rate [ From Monitor] Respiratory Rate Blood Pressure 170/88 O2 Sat by Pulse Oximetry Constitutional: no acute distress, lethargic, other (elderly looking obese AAF, normocephalic and atraumatic with mildly increased work of breathing at rest) Eyes: non-icteric ENT: oropharynx moist Neck: supple, no lymphadenopathy, no JVD, other (no thyromegaly) Effort: mildly labored Ascultation: Bilateral: clear, diminished breath sounds, rhonchi Percussion: Bilateral: not dull Cardiovascular: regular rate and rhythm, murmur noted (systolic) Gastrointestinal: normoactive bowel sounds, soft, non-tender, non-distended Integumentary: other (poor turgor) Extremities: no cyanosis, pulses normal, no ischemia or petechiae, edema (trace) Neurologic: pupils equal and round, unable to assess Psychiatric: other (unable to assess) CBC and BMP: 08/05/18 03:31 08/05/18 03:31 ABG, PT/INR, D-dimer: ABG POC ABG pH 7.458 (7.35-7.45) H 07/29/18 19:04 POC ABG pCO2 43.4 (35-45) 07/29/18 19:04 POC ABG pO2 103 (80-105) 07/29/18 19:04 POC ABG HCO3 30.7 07/29/18 19:04 POC ABG Total CO2 32 07/29/18 19:04 POC ABG O2 Sat 98 07/29/18 19:04 PT/INR, D-dimer PT 14.1 Sec. (12.2-14.9) 08/07/18 05:49 INR 1.03 (0.87-1.13) 08/07/18 05:49 D-Dimer 2370.66 ng/mlDDU (0-234) H 07/26/18 05:15 Abnormal lab findings: Abnormal Labs 07/26/18 07/26/18 07/26/18 05:15 05:15 05:15 WBC RBC RDW 16.4 H Lymph % (Auto) 6.1 L [place] % (Auto) 8.4 H Eos % (Auto) Lymph # 0.6 L Seg Neutrophils % 84.5 H Seg Neutrophils # 7.9 H D-Dimer 2370.66 H POC ABG pH POC ABG pO2 Potassium Chloride Carbon Dioxide Glucose POC Glucose Lactic Acid Calcium Alkaline Phosphatase CK-MB (CK-2) Rel Index Troponin T 0.036 H C-Reactive Protein NT-Pro-B Natriuret Pep Total Protein Albumin HDL Cholesterol 30 L 07/26/18 07/26/18 07/26/18 05:15 05:15 05:37 WBC RBC RDW Lymph % (Auto) G[place]rie % (Auto) Eos % (Auto) Lymph # Seg Neutrophils % Seg Neutrophils # D-Dimer POC ABG pH POC ABG pO2 69 L Potassium Chloride Carbon Dioxide Glucose 224 H POC Glucose Lactic Acid 2.90 H* Calcium 8.3 L Alkaline Phosphatase 251 H CK-MB (CK-2) Rel Index Troponin T C-Reactive Protein NT-Pro-B Natriuret Pep 7314 H Total Protein Albumin 3.3 L HDL Cholesterol 07/26/18 07/26/18 07/26/18 06:35 06:49 09:26 WBC RBC RDW Lymph % (Auto) [place]rie % (Auto) Eos % (Auto) Lymph # Seg Neutrophils % Seg Neutrophils # D-Dimer POC ABG pH POC ABG pO2 Potassium Chloride Carbon Dioxide Glucose POC Glucose 195 H Lactic Acid 2.20 H* Calcium Alkaline Phosphatase CK-MB (CK-2) Rel Index Troponin T 0.034 H C-Reactive Protein NT-Pro-B Natriuret Pep Total Protein Albumin HDL Cholesterol 07/26/18 07/26/18 07/26/18 12:25 12:39 15:42 WBC RBC RDW Lymph % (Auto) [place] % (Auto) Eos % (Auto) Lymph # Seg Neutrophils % Seg Neutrophils # D-Dimer POC ABG pH POC ABG pO2 Potassium Chloride Carbon Dioxide Glucose POC Glucose 171 H Lactic Acid Calcium Alkaline Phosphatase CK-MB (CK-2) Rel Index 4.2 H Troponin T 0.045 H D C-Reactive Protein 2.90 H NT-Pro-B Natriuret Pep Total Protein Albumin HDL Cholesterol 07/26/18 07/27/18 07/27/18 16:32 00:08 04:23 WBC RBC RDW 16.3 H Lymph % (Auto) [place]rie % (Auto) 14.5 H Eos % (Auto) Lymph # 0.8 L Seg Neutrophils % Seg Neutrophils # D-Dimer POC ABG pH POC ABG pO2 Potassium Chloride Carbon Dioxide Glucose POC Glucose 140 H 148 H Lactic Acid Calcium Alkaline Phosphatase CK-MB (CK-2) Rel Index Troponin T C-Reactive Protein NT-Pro-B Natriuret Pep Total Protein Albumin HDL Cholesterol 07/27/18 07/27/18 07/27/18 04:23 05:13 11:44 WBC RBC RDW Lymph % (Auto) [place]rie % (Auto) Eos % (Auto) Lymph # Seg Neutrophils % Seg Neutrophils # D-Dimer POC ABG pH POC ABG pO2 Potassium Chloride Carbon Dioxide Glucose 158 H POC Glucose 176 H 161 H Lactic Acid Calcium Alkaline Phosphatase CK-MB (CK-2) Rel Index Troponin T C-Reactive Protein NT-Pro-B Natriuret Pep Total Protein Albumin HDL Cholesterol 07/27/18 07/27/18 07/28/18 18:22 23:33 04:48 WBC 4.2 L RBC 3.56 L RDW 16.3 H Lymph % (Auto) G[place]rie % (Auto) 9.8 H Eos % (Auto) 5.2 H Lymph # 0.9 L Seg Neutrophils % Seg Neutrophils # D-Dimer POC ABG pH POC ABG pO2 Potassium Chloride Carbon Dioxide Glucose POC Glucose 190 H 121 H Lactic Acid Calcium Alkaline Phosphatase CK-MB (CK-2) Rel Index Troponin T C-Reactive Protein NT-Pro-B Natriuret Pep Total Protein Albumin HDL Cholesterol 07/28/18 07/28/18 07/28/18 04:48 05:56 11:49 WBC RBC RDW Lymph % (Auto) [place]rie % (Auto) Eos % (Auto) Lymph # Seg Neutrophils % Seg Neutrophils # D-Dimer POC ABG pH POC ABG pO2 Potassium 3.5 L Chloride Carbon Dioxide Glucose 139 H POC Glucose 133 H 214 H Lactic Acid Calcium 8.3 L Alkaline Phosphatase 177 H CK-MB (CK-2) Rel Index Troponin T C-Reactive Protein NT-Pro-B Natriuret Pep Total Protein 6.1 L Albumin 2.8 L HDL Cholesterol 07/28/18 07/28/18 07/29/18 18:32 23:30 05:15 WBC RBC RDW Lymph % (Auto) [place]rie % (Auto) Eos % (Auto) Lymph # Seg Neutrophils % Seg Neutrophils # D-Dimer POC ABG pH POC ABG pO2 Potassium Chloride Carbon Dioxide Glucose POC Glucose 120 H 160 H 127 H Lactic Acid Calcium Alkaline Phosphatase CK-MB (CK-2) Rel Index Troponin T C-Reactive Protein NT-Pro-B Natriuret Pep Total Protein Albumin HDL Cholesterol 07/29/18 07/29/18 07/29/18 11:32 18:49 19:04 WBC RBC RDW Lymph % (Auto) [place]rie % (Auto) Eos % (Auto) Lymph # Seg Neutrophils % Seg Neutrophils # D-Dimer POC ABG pH 7.458 H POC ABG pO2 Potassium Chloride Carbon Dioxide Glucose POC Glucose 203 H 168 H Lactic Acid Calcium Alkaline Phosphatase CK-MB (CK-2) Rel Index Troponin T C-Reactive Protein NT-Pro-B Natriuret Pep Total Protein Albumin HDL Cholesterol 07/30/18 07/30/18 07/30/18 00:16 04:32 04:32 WBC RBC 3.61 L RDW 16.3 H Lymph % (Auto) [place]rie % (Auto) 11.5 H Eos % (Auto) Lymph # 0.8 L Seg Neutrophils % Seg Neutrophils # D-Dimer POC ABG pH POC ABG pO2 Potassium 3.2 L Chloride Carbon Dioxide Glucose 157 H POC Glucose 186 H Lactic Acid Calcium 8.2 L Alkaline Phosphatase 199 H CK-MB (CK-2) Rel Index Troponin T C-Reactive Protein NT-Pro-B Natriuret Pep Total Protein Albumin 2.8 L HDL Cholesterol 07/30/18 07/30/18 07/31/18 05:12 12:13 05:32 WBC RBC 3.48 L RDW 15.9 H Lymph % (Auto) [place]rie % (Auto) 11.6 H Eos % (Auto) 4.4 H Lymph # 0.9 L Seg Neutrophils % Seg Neutrophils # D-Dimer POC ABG pH POC ABG pO2 Potassium Chloride Carbon Dioxide Glucose POC Glucose 157 H 177 H Lactic Acid Calcium Alkaline Phosphatase CK-MB (CK-2) Rel Index Troponin T C-Reactive Protein NT-Pro-B Natriuret Pep Total Protein Albumin HDL Cholesterol 07/31/18 07/31/18 07/31/18 05:32 12:12 20:42 WBC RBC RDW Lymph % (Auto) [place]rie % (Auto) Eos % (Auto) Lymph # Seg Neutrophils % Seg Neutrophils # D-Dimer POC ABG pH POC ABG pO2 Potassium 3.1 L Chloride Carbon Dioxide Glucose POC Glucose 141 H 155 H Lactic Acid Calcium Alkaline Phosphatase 180 H CK-MB (CK-2) Rel Index Troponin T C-Reactive Protein NT-Pro-B Natriuret Pep Total Protein 6.2 L Albumin 2.8 L HDL Cholesterol 08/01/18 08/01/18 08/01/18 05:07 12:01 16:23 WBC RBC RDW Lymph % (Auto) [place] % (Auto) Eos % (Auto) Lymph # Seg Neutrophils % Seg Neutrophils # D-Dimer POC ABG pH POC ABG pO2 Potassium Chloride Carbon Dioxide Glucose POC Glucose 108 H 178 H 138 H Lactic Acid Calcium Alkaline Phosphatase CK-MB (CK-2) Rel Index Troponin T C-Reactive Protein NT-Pro-B Natriuret Pep Total Protein Albumin HDL Cholesterol 08/02/18 08/02/18 08/02/18 00:39 05:42 11:53 WBC RBC RDW Lymph % (Auto) [place] % (Auto) Eos % (Auto) Lymph # Seg Neutrophils % Seg Neutrophils # D-Dimer POC ABG pH POC ABG pO2 Potassium Chloride Carbon Dioxide Glucose POC Glucose 109 H 143 H 188 H Lactic Acid Calcium Alkaline Phosphatase CK-MB (CK-2) Rel Index Troponin T C-Reactive Protein NT-Pro-B Natriuret Pep Total Protein Albumin HDL Cholesterol 08/02/18 08/02/18 08/03/18 18:15 23:48 05:14 WBC RBC RDW 16.0 H Lymph % (Auto) [place] % (Auto) 13.7 H Eos % (Auto) Lymph # 0.9 L Seg Neutrophils % Seg Neutrophils # D-Dimer POC ABG pH POC ABG pO2 Potassium Chloride Carbon Dioxide Glucose POC Glucose 112 H 157 H Lactic Acid Calcium Alkaline Phosphatase CK-MB (CK-2) Rel Index Troponin T C-Reactive Protein NT-Pro-B Natriuret Pep Total Protein Albumin HDL Cholesterol 08/03/18 08/03/18 08/03/18 05:14 05:59 11:44 WBC RBC RDW Lymph % (Auto) [place] % (Auto) Eos % (Auto) Lymph # Seg Neutrophils % Seg Neutrophils # D-Dimer POC ABG pH POC ABG pO2 Potassium Chloride Carbon Dioxide Glucose 117 H POC Glucose 148 H 175 H Lactic Acid Calcium Alkaline Phosphatase CK-MB (CK-2) Rel Index Troponin T C-Reactive Protein NT-Pro-B Natriuret Pep Total Protein Albumin HDL Cholesterol 08/03/18 08/03/18 08/04/18 17:39 21:55 05:40 WBC RBC RDW Lymph % (Auto) [place] % (Auto) Eos % (Auto) Lymph # Seg Neutrophils % Seg Neutrophils # D-Dimer POC ABG pH POC ABG pO2 Potassium Chloride Carbon Dioxide Glucose POC Glucose 120 H 147 H 141 H Lactic Acid Calcium Alkaline Phosphatase CK-MB (CK-2) Rel Index Troponin T C-Reactive Protein NT-Pro-B Natriuret Pep Total Protein Albumin HDL Cholesterol 08/04/18 08/04/18 08/05/18 13:16 18:02 00:07 WBC RBC RDW Lymph % (Auto) [place] % (Auto) Eos % (Auto) Lymph # Seg Neutrophils % Seg Neutrophils # D-Dimer POC ABG pH POC ABG pO2 Potassium Chloride Carbon Dioxide Glucose POC Glucose 177 H 133 H 167 H Lactic Acid Calcium Alkaline Phosphatase CK-MB (CK-2) Rel Index Troponin T C-Reactive Protein NT-Pro-B Natriuret Pep Total Protein Albumin HDL Cholesterol 08/05/18 08/05/18 08/05/18 03:31 03:31 05:41 WBC RBC 3.60 L RDW 16.3 H Lymph % (Auto) [place] % (Auto) 11.7 H Eos % (Auto) 5.3 H Lymph # 1.0 L Seg Neutrophils % Seg Neutrophils # D-Dimer POC ABG pH POC ABG pO2 Potassium Chloride 97.6 L Carbon Dioxide 31 H Glucose 106 H POC Glucose 112 H Lactic Acid Calcium Alkaline Phosphatase CK-MB (CK-2) Rel Index Troponin T C-Reactive Protein NT-Pro-B Natriuret Pep Total Protein Albumin HDL Cholesterol 08/05/18 08/05/18 08/06/18 11:28 18:22 00:32 WBC RBC RDW Lymph % (Auto) [place] % (Auto) Eos % (Auto) Lymph # Seg Neutrophils % Seg Neutrophils # D-Dimer POC ABG pH POC ABG pO2 Potassium Chloride Carbon Dioxide Glucose POC Glucose 151 H 150 H 147 H Lactic Acid Calcium Alkaline Phosphatase CK-MB (CK-2) Rel Index Troponin T C-Reactive Protein NT-Pro-B Natriuret Pep Total Protein Albumin HDL Cholesterol 08/06/18 08/06/18 08/06/18 05:56 11:29 17:50 WBC RBC RDW Lymph % (Auto) [place] % (Auto) Eos % (Auto) Lymph # Seg Neutrophils % Seg Neutrophils # D-Dimer POC ABG pH POC ABG pO2 Potassium Chloride Carbon Dioxide Glucose POC Glucose 114 H 208 H 140 H Lactic Acid Calcium Alkaline Phosphatase CK-MB (CK-2) Rel Index Troponin T C-Reactive Protein NT-Pro-B Natriuret Pep Total Protein Albumin HDL Cholesterol 08/06/18 08/07/18 08/07/18 22:59 05:48 11:33 WBC RBC RDW Lymph % (Auto) [place] % (Auto) Eos % (Auto) Lymph # Seg Neutrophils % Seg Neutrophils # D-Dimer POC ABG pH POC ABG pO2 Potassium Chloride Carbon Dioxide Glucose POC Glucose 146 H 124 H 150 H Lactic Acid Calcium Alkaline Phosphatase CK-MB (CK-2) Rel Index Troponin T C-Reactive Protein NT-Pro-B Natriuret Pep Total Protein Albumin HDL Cholesterol Allied health notes reviewed: RT
--- NOTE | 2018-08-07 18:08 | Progress Note ---
Assessment and Plan Assessment and plan: --Dysphagia /dementia /encephalopathy: s/p PEG tube placement today , start tube feeding per protocol --Encephalopathy; for the last 4 -5 weeks[reported by the sister and son] Patient noncommunicative, responds only to deep stimuli. Does not open eyes, --Acute hypoxic respiratory failure; s/p BiPAP, on nasal cannula/Ventimask Supportive care --Right-sided pneumonia; hospital-acquired pneumonia Received full treatment --A. fib with rapid ventricle rate; now rate controlled, beta blockers, Not a candidate for chronic anticoagulation --Non-ST elevation [place]; probably type II, medical management --Acute systolic congestive heart failure; ejection fraction 30-35% Anti-failure medications, diuretics, beta blockers, estephania inhibitors, low sodium diet --Hypertension; stable, on current antihypertensives --Type 2 diabetes mellitus; Accu-Chek sliding scale coverage tube feeding, long-acting insulin --History of seizure disorder; seizure precautions ,antiepileptic medications, --Legally blind; supportive care --Dementia; supportive care --Severe malnutrition; hypoproteinemia, nutrition supplements Nutrition consult, tube feeding protocol/PEG placement --DVT prophylaxis; Lovenox Disposition; penicillin transfer back to SNF tomorrow if stable Plan of care reviewed with the the nurse History Interval history: S/P PEG placement today Started tube feeding No new complaints Vital signs reviewed Hospitalist Physical - Constitutional Vitals: Temp Pulse Resp BP Pulse Ox 99.2 F 142 H 22 140/93 97 08/07/18 13:12 08/07/18 17:10 08/07/18 13:12 08/07/18 17:10 08/07/18 14:23 General appearance: Present: no acute distress, well-nourished, obese, other (noncommunicative) - EENT Eyes: Present: PERRL, EOM intact - Neck Neck: Present: supple, normal ROM - Respiratory Respiratory effort: normal Respiratory: bilateral: diminished, negative: rales, rhonchi, wheezing - Cardiovascular Rhythm: regular Heart Sounds: Present: S1 & S2 - Extremities Extremities: no ischemia, No edema - Abdominal General gastrointestinal: soft, non-tender, non-distended, normal bowel sounds, other (PEG in place) - Integumentary Integumentary: Present: clear, warm - Psychiatric Psychiatric: other (noncommunicative) - Neurologic Neurologic: other (noncommunicative) Results - Labs CBC & Chem 7: 08/05/18 03:31 08/05/18 03:31 Labs: Laboratory Last Values WBC 5.4 K/mm3 (4.5-11.0) 08/05/18 03:31 RBC 3.60 M/mm3 (3.65-5.03) L 08/05/18 03:31 Hgb 10.7 gm/dl (10.1-14.3) 08/05/18 03:31 Hct 33.0 % (30.3-42.9) 08/05/18 03:31 MCV 92 fl (79-97) 08/05/18 03:31 MCH 30 pg (28-32) 08/05/18 03:31 MCHC 33 % (30-34) 08/05/18 03:31 RDW 16.3 % (13.2-15.2) H 08/05/18 03:31 Plt Count 269 K/mm3 (140-440) 08/05/18 03:31 Lymph % (Auto) 18.4 % (13.4-35.0) 08/05/18 03:31 [place] % (Auto) 11.7 % (0.0-7.3) H 08/05/18 03:31 Eos % (Auto) 5.3 % (0.0-4.3) H 08/05/18 03:31 Baso % (Auto) 0.8 % (0.0-1.8) 08/05/18 03:31 Lymph # 1.0 K/mm3 (1.2-5.4) L 08/05/18 03:31 [place]lier # 0.6 K/mm3 (0.0-0.8) 08/05/18 03:31 Eos # 0.3 K/mm3 (0.0-0.4) 08/05/18 03:31 Baso # 0.0 K/mm3 (0.0-0.1) 08/05/18 03:31 Seg Neutrophils % 63.8 % (40.0-70.0) 08/05/18 03:31 Seg Neutrophils # 3.4 K/mm3 (1.8-7.7) 08/05/18 03:31 PT 14.1 Sec. (12.2-14.9) 08/07/18 05:49 INR 1.03 (0.87-1.13) 08/07/18 05:49 APTT 32.1 Sec. (24.2-36.6) 08/03/18 05:14 D-Dimer 2370.66 ng/mlDDU (0-234) H 07/26/18 05:15 POC ABG pH 7.458 (7.35-7.45) H 07/29/18 19:04 POC ABG pCO2 43.4 (35-45) 07/29/18 19:04 POC ABG pO2 103 (80-105) 07/29/18 19:04 POC ABG HCO3 30.7 07/29/18 19:04 POC ABG Total CO2 32 07/29/18 19:04 POC ABG O2 Sat 98 07/29/18 19:04 POC ABG Base Excess 7 07/29/18 19:04 FiO2 28 % 07/29/18 19:04 Sodium 139 mmol/L (137-145) 08/05/18 03:31 Potassium 4.1 mmol/L (3.6-5.0) 08/05/18 03:31 Chloride 97.6 mmol/L (98-107) L 08/05/18 03:31 Carbon Dioxide 31 mmol/L (22-30) H 08/05/18 03:31 Anion Gap 15 mmol/L 08/05/18 03:31 BUN 16 mg/dL (7-17) 08/05/18 03:31 Creatinine 1.1 mg/dL (0.7-1.2) 08/05/18 03:31 Estimated GFR > 60 ml/min 08/05/18 03:31 BUN/Creatinine Ratio 15 % 08/05/18 03:31 Glucose 106 mg/dL (65-100) H 08/05/18 03:31 POC Glucose 168 (70-105) H 08/07/18 17:18 Lactic Acid 1.90 mmol/L (0.7-2.0) 07/27/18 04:23 Calcium 8.7 mg/dL (8.4-10.2) 08/05/18 03:31 Phosphorus 3.00 mg/dL (2.5-4.5) 07/28/18 04:48 Magnesium 1.90 mg/dL (1.7-2.3) 07/31/18 05:32 Total Bilirubin 0.30 mg/dL (0.1-1.2) 07/31/18 05:32 AST 23 units/L (5-40) 07/31/18 05:32 ALT 13 units/L (7-56) 07/31/18 05:32 Alkaline Phosphatase 180 units/L (35-129) H 07/31/18 05:32 Total Creatine Kinase 42 units/L (30-135) 07/26/18 12:39 CK-MB (CK-2) 1.8 ng/mL (0.0-4.0) 07/26/18 12:39 CK-MB (CK-2) Rel Index 4.2 (0-4) H 07/26/18 12:39 Troponin T 0.045 ng/mL (0.00-0.029) H D 07/26/18 12:39 C-Reactive Protein 2.90 mg/dL (0.00-1.30) H 07/26/18 15:42 NT-Pro-B Natriuret Pep 7314 pg/mL (0-900) H 07/26/18 05:15 Total Protein 6.2 g/dL (6.3-8.2) L 07/31/18 05:32 Albumin 2.8 g/dL (3.9-5) L 07/31/18 05:32 Albumin/Globulin Ratio 0.8 % 07/31/18 05:32 Triglycerides 120 mg/dL (2-149) 07/26/18 05:15 Cholesterol 111 mg/dL (50-199) 07/26/18 05:15 LDL Cholesterol Direct 70 mg/dL (50-130) 07/26/18 05:15 HDL Cholesterol 30 mg/dL (40-59) L 07/26/18 05:15 Cholesterol/HDL Ratio 3.70 % 07/26/18 05:15 Urine Color Yellow (Yellow) 07/26/18 05:55 Urine Turbidity Clear (Clear) 07/26/18 05:55 Urine pH 6.0 (5.0-7.0) 07/26/18 05:55 Ur Specific [place] 1.006 (1.003-1.030) 07/26/18 05:55 Urine Protein 100 mg/dl mg/dL (Negative) 07/26/18 05:55 Urine Glucose (UA) 50 mg/dL (Negative) 07/26/18 05:55 Urine Ketones Tr mg/dL (Negative) 07/26/18 05:55 Urine Blood Neg (Negative) 07/26/18 05:55 Urine Nitrite Neg (Negative) 07/26/18 05:55 Urine Bilirubin Neg (Negative) 07/26/18 05:55 Urine Urobilinogen < 2.0 mg/dL (<2.0) 07/26/18 05:55 Ur Leukocyte Esterase Neg (Negative) 07/26/18 05:55 Urine WBC (Auto) 2.0 /HPF (0.0-6.0) 07/26/18 05:55 Urine RBC (Auto) 4.0 /HPF (0.0-6.0) 07/26/18 05:55 U Epithel Cells (Auto) < 1.0 /HPF (0-13.0) 07/26/18 05:55 Urine Bacteria (Auto) 1+ /HPF (Negative) 07/26/18 05:55 Urine Mucus Few /HPF 07/26/18 05:55 C. difficile Tox (PCR) Negative (Negative) 07/27/18 Unknown Nutrition/Malnutrition Assess - Dietary Evaluation Nutrition/Malnutrition Findings: Nutrition Notes Start: 07/26/18 13:42 Freq: Status: Active Protocol: Document 08/07/18 14:11 SA (Rec: 08/07/18 14:35 [id number]) Co-Sign 08/07/18 14:11 LP Nutrition Notes Need for Assessment generated from: MD Order Initial or Follow up Reassessment Current Diagnosis CKD(stage I-IV) Coronary Artery Disease Diabetes Hypertension Heart Failure Respiratory Failure Malnutrition Stroke Other Pertinent Diagnosis Pneu, Dementia, Legally blind, A. fib, encephalopathy, siezure disorder Current Diet TF Labs/Tests Glu: 106 Chl: 97.6 CO2: 31 POC: 114 Pertinent Medications Reviewed Height 5 ft 2 in Weight 80 kg [place] Body Weight (kg) 50.00 BMI 32.2 Subjective/Other Information MD consult for Write/Manage TF . Patient had dobhoff but showed signs of aspiration and GI bleed. PEG placement was done today. Patient will return to longterm after discharge. Percent of energy/protein needs met: 0%/0% Burn Absent Trauma Absent #2 Nutrition Diagnosis Inadequate oral intake Etiology dysphagia and GI bleed As Evidenced by Signs and Symptoms aspiration and PEG placement #1 Nutrition Diagnosis Predicted suboptimal energy intake Diagnosis Progress(for reassessment Resolved documentation) Is patient on ventilator? No Is Patient Ambulatory and/or Out of Bed No REE-([facility]-confined to bed) [phone] Calculation Used for Recommendations [facility] Additional Notes PRO needs: 65-78g (1-1.2g/kg Adj BW: 65kg) Fluid needs: 1 mL/kcal Nutrition Intervention Change Diet Order: Continue TF Nutrition Support: Continue Glucerna 1.2 at 50 mL /hr w/80mL flush q4h Kcal 1,440 Protein (gm) 72 Fluid (mL) 966 Goal #1 TF tolerance Goal #2 TF to continue to meet at least 80% energy and pro needs Anticipated Discharge Needs: Glucerna 1.2 at 50 ml/hr Follow-Up By: 08/09/18 Additional Comments F/U: stable TF
[2018-08-07] MEDS: LOVENOX SUB-Q SCH (23:36)
[2018-08-08] MEDS: HumaLOG SUB-Q SCH ×2 (05:31→12:40)
[2018-08-08] MEDS: DUONEB *Not for PRN Use IH SCH ×2 (07:42→14:31)
[2018-08-08] MEDS: APRESOLINE FEEDTUBE SCH ×2 (08:25→14:14)
[2018-08-08] MEDS: DepaKENE Liq FEEDTUBE SCH (10:22)
[2018-08-08] MEDS: SODIUM CHLORIDE FLUSH SYRINGE 10 ML IV SCH (10:23)
[2018-08-08] MEDS: POTASSIUM CHLORIDE FEEDTUBE SCH (10:24)
[2018-08-08] MEDS: PROTONIX PO SCH (10:24)
[2018-08-08] MEDS: COZAAR FEEDTUBE SCH (10:24)
[2018-08-08] MEDS: LASIX FEEDTUBE SCH (10:24)
[2018-08-08] MEDS: CORDARONE FEEDTUBE SCH (10:24)
--- NOTE | 2018-08-08 10:44 | Progress Note ---
Assessment and Plan Respiratory failure secondary hypoxemia Pneumonia Atrial fibrillation and atrial flutter with rapid ventricle response Non-ST elevation [place] type II Dementia Hypertension urgency Acute systolic heart failure Plan: Optimize BP and HR - d/c amio and initiate cardizem. Pt does not appear to be a candidate for half-way systemic AC due to advanced dementia. The patient has been seen in conjunction with Dr. Aburto who agrees with the assessment and plan of care. - Patient Problems (1) Acute systolic heart failure Current Visit: Yes Status: Acute (2) NSTEMI (non-ST elevated myocardial infarction) Current Visit: Yes Status: Acute (3) Atrial fibrillation Current Visit: No Status: Acute (4) CAD (coronary artery disease) Current Visit: No Status: Chronic (5) Diabetes mellitus Current Visit: No Status: Chronic (6) Hx of CABG Current Visit: No Status: Chronic (7) Hypertension Current Visit: No Status: Chronic Subjective Date of service: 08/08/18 Principal diagnosis: Acute hypoxemic Resp failure; Pneumonia (HAP); Tod Pleural effusions; A-Fib Interval history: pt nonverbal, no apparent distress. in AFib/AFlutter with with HR 110s - 120s. Objective Last Vital Signs Temp 98.6 F 08/08/18 07:21 Pulse 100 H 08/08/18 10:24 Resp 16 08/08/18 07:43 BP 154/105 08/08/18 10:24 Pulse Ox 99 08/08/18 07:46 - Physical Examination General: No Apparent Distress HEENT: Positive: PERRL, EOMI Neck: Positive: neck supple Cardiac: Positive: irregularly irregular, S1/S2 Lungs: Positive: Decreased Breath Sounds Neuro: Positive: Other (obtunded) Abdomen: Positive: Soft Extremities: Present: normal, edema (swelling ) - Imaging and Cardiology Echo: report reviewed (quadrant over dysfunction 30 to 35% severe palmar hypertension RVSP 60 mmHg mild RV dysfunction) - Allied health notes Allied health notes reviewed: RT
[2018-08-08] MEDS ORDERED: CARDIZEM PO SCH (11:00)
--- NOTE | 2018-08-08 11:05 | Gastroenterology Progress Note ---
Addendum entered and electronically signed by MEAGAN DOUGLASS MD 08/08/18 16:09: Patient seen and examined on 08/08/2018. Doing well with tube feeds. Original Note: Assessment and Plan This is a 68 yo AAF with pmh of Afib, CHF, severe dementia ([facility]), HTN, DM, seizure, legally blind, and malnutrition admitted for respiratory failure due to HCAP, heart failure requiring BiPap. 1.PEG placement for metabolic encephalopathy in the setting of severe dementia. -s/p EGD/PEG yesterday -PEG site this am w/o s/s of infection -bumper loosened to prevent skin breakdown -split gauze dressing PRN -daily PEG care -abd binder -tolerating TFs -continue supportive care -no further recommendations per GI standpoint -will sign off, please call if needed Subjective Date of service: 08/08/18 Principal diagnosis: PEG placement Interval history: No acute distress. PEG site w/o redness, swelling, odor, bleeding, or drainage. Tolerating TFs per nursing. Objective - Constitutional Vitals: Temp Pulse Resp BP Pulse Ox 98.6 F 100 H 16 154/105 99 08/08/18 07:21 08/08/18 10:24 08/08/18 07:43 08/08/18 10:24 08/08/18 07:46 General appearance: no acute distress, other (lethargic) - Respiratory Respiratory: bilateral: diminished - Cardiovascular Rhythm: other (irregular) - Gastrointestinal General gastrointestinal: Present: soft, non-distended, normal bowel sounds, other (+PEG) - Labs CBC & Chem 7: 08/05/18 03:31 08/05/18 03:31 Labs: Laboratory Results - last 24 hr 08/07/18 08/07/18 08/08/18 11:33 17:18 00:04 POC Glucose 150 H 168 H 159 H
--- NOTE | 2018-08-08 12:31 | Discharge Summary ---
Providers - Providers Date of Admission: 07/26/18 06:20 Date of discharge: 08/08/18 Attending physician: OSCAR ENGLISH 07/26/18 06:12 Consult to Physician [CONS] Stat Comment: Answering Service notified @ 0600 Consulting Provider: MONO RIDDLE Physician Instructions: Reason For Exam: critical patient 07/26/18 15:04 Speech Therapy Evaluation and Treat [CONS] Routine Reason For Exam: oropharyngeal dysphagia 07/26/18 22:00 Consult to Dietitian/Nutrition [CONS] Routine Physician Instructions: Reason For Exam: Reason for Consult: Write/Manage Tube Feeding 07/27/18 07:29 Consult to Dietitian/Nutrition [CONS] Routine Physician Instructions: Assess nutrtn needs, initiate, modify, manage TF Reason For Exam: Reason for Consult: Write/Manage Tube Feeding Reason for Consult: Write/Manage Tube Feeding 07/29/18 12:39 Consult to Physician [CONS] Routine Comment: Consulting Provider: LEONA STEPHEN Physician Instructions: Reason For Exam: pneumonia (HAP) 08/01/18 12:33 Consult to Dietitian/Nutrition [CONS] Routine Physician Instructions: Assess nutrtn needs, initiate, modify, manage TF Reason For Exam: Reason for Consult: Write/Manage Tube Feeding Reason for Consult: Write/Manage Tube Feeding 08/02/18 14:43 Consult to Physician [CONS] Routine Comment: called office/gabriele Consulting Provider: RICARDO SIERRA Physician Instructions: Reason For Exam: Severe encephalopathy/PEG placement 08/03/18 10:37 Consult to Dietitian/Nutrition [CONS] Routine Physician Instructions: Assess nutrtn needs, initiate, modify, manage TF Reason For Exam: Reason for Consult: Write/Manage Tube Feeding Reason for Consult: Write/Manage Tube Feeding 08/07/18 10:58 Consult to Dietitian/Nutrition [CONS] Routine Physician Instructions: Reason For Exam: Reason for Consult: Write/Manage Tube Feeding 08/07/18 11:00 Consult to Dietitian/Nutrition [CONS] Routine Physician Instructions: Assess nutrtn needs, initiate, modify, manage TF Reason For Exam: Reason for Consult: Write/Manage Tube Feeding Reason for Consult: Write/Manage Tube Feeding Primary care physician: RODRIGUEZ POON Hospitalization Reason for admission: worsening shortness of breath/encephalopathy Condition: Fair Pertinent studies: CTA chest Chest x-ray Abdominal x-ray Chest ultrasound Lower extremity venous Doppler CT head Procedures: PEG Placement Hospital course: 68-year-old female patient with significant past medical history of atrial fibrillation and hypertension and diabetes seizures CVA coronary artery disease legally blind, Was admitted through emergency room with worsening shortness of breath. The patient was noted to be in acute respiratory failure with A. fib with rapid ventricular rate pulmonary edema admitted and symptomatically managed subsequently evaluated by cardiology and pulmonary critical infectious diseases, medications optimized Patient's symptoms gradually improved, and dysphagia, prolonged encephalopathy Evaluated by GI and patient underwent PEG placement, tolerated PEG feeds Today patient is comfortable in no new events reported per nursing of the family Vital Signs stable, physical examination no new changes Patient is hemodynamically and clinically stable to discharge back to [facility] facility today Descharge Diagnosis: --Dysphagia /dementia /encephalopathy: s/p PEG tube placement, tube feeding per protocol --Encephalopathy; for the last 4 -5 weeks[reported by the sister and son] Patient noncommunicative, supportive care --Acute hypoxic respiratory failure; s/p BiPAP, on nasal cannula/Ventimask --Right-sided pneumonia; hospital-acquired pneumonia ,Received full treatment --A. fib with RVR; now rate controlled, B Blockers, Not a candidate for anticoagulation --Non-ST elevation [place]; probably type II, medical management --Acute systolic congestive heart failure; ejection fraction 30-35% Anti-failure medications, diuretics, beta blockers, estephania inhibitors, low sodium diet --Hypertension; stable, on current antihypertensives --Type 2 diabetes mellitus; Accu-Chek sliding scale coverage tube feeding, long-acting insulin --History of seizure disorder; seizure precautions ,antiepileptic medications, --Legally blind; supportive care --Dementia; supportive care --Severe malnutrition; hypoproteinemia, nutrition supplements Nutrition consult, tube feeding protocol/PEG placement --DVT prophylaxis; Lovenox Disposition; transfer back to SNF Patient is stable at discharge [facility] Time spent for discharge: 32 min Core Measure Documentation - Palliative Care Palliative Care/ Comfort Measures: Not Applicable - Core Measures Any of the following diagnoses?: none Exam - Constitutional Vitals: Temp Pulse Resp BP Pulse Ox 98.6 F 100 H 16 154/105 99 08/08/18 07:21 08/08/18 10:24 08/08/18 07:43 08/08/18 10:24 08/08/18 07:46 General appearance: Present: no acute distress, well-nourished - EENT Eyes: Present: PERRL, EOM intact - Neck Neck: Present: supple, normal ROM - Respiratory Respiratory effort: normal Respiratory: bilateral: diminished, negative: rales, rhonchi, wheezing - Cardiovascular Rhythm: regular Heart Sounds: Present: S1 & S2 - Extremities Extremities: no ischemia, No edema - Abdominal General gastrointestinal: Present: soft, non-tender, non-distended, normal bowel sounds - Integumentary Integumentary: Present: clear, warm - Musculoskeletal Musculoskeletal: strength equal bilaterally - Psychiatric Psychiatric: other ( noncommunicative) - Neurologic Neurologic: other (noncommunicative) Plan Activity: advance as tolerated, fall precautions Diet: other (Tube feeds per protocol) Special Instructions: physical therapy Additional Instructions: Any PEG problems or PEG related questions intact [facility] PEG care Follow up with: RODRIGUEZ POON MD [Primary Care Provider] - 3-5 [facility] [Staff Physician] - 7 Days FERCHO DUONG MD [Staff Physician] - 7 Days
[2018-08-08] MEDS: LOPRESSOR FEEDTUBE SCH (12:40)
[2018-08-08 14:10] VITALS: BP 121/70
[2018-08-08] MEDS: ISORDIL TITRADOSE PO SCH (14:13)
--- NOTE | 2018-08-08 15:04 | Progress Note ---
Assessment and Plan Acute hypoxemic respiratory failure, on mechanical ventilatory support. Pneumonia, right upper lobe, healthcare-associated pneumonia. Mild congestive heart failure exacerbation. Bilateral pleural effusions. Atrial fibrillation with a rapid ventricular response. Acute on Chronic Encephalopathy Diabetes type 2. History of hypertension. Seizure disorder. History of cerebrovascular accident. Coronary artery disease with elevated serum troponins. Anxiety disorder. Dementia. She is legally blind (She will likely be at least a mild risk for coleen-operative pulmonary complications but ok to proceed with PEG placement; avoid general anesthesia if possible, early extubation if used and early ambulation) - s/p cardiology evaluation - PEG in am - continue telemetry monitoring - continue supplemental oxygen to keep O2 sats > 90% - continue BIPAP qhs for pre-load issues and possible DAVIS - appreciate ID input (following clinically off AB's) - continue bronchodilators with pulmonary hygiene per RT - ABG prn at this point - continue lopressor for rate control - continue oral lasix (40mg p.o. qd) - advance diet per ST rec's (She will need a PEG) - continue AED (tegretol) for seizures - medical management for NSTEMI - no acute indication for thoracentesis at this point - continue tube feeding as tolerated - continue GI & VTE prophylaxis - continue aspiration precautions - continue mobility protocol for pressure ulcer prophylaxis - PT/OT as tolerated - discontinued oliver catheter - continue accuchecks with glycemic control per SSI for target blood glucose < 180 mg/dL. - Monitor for hypoglycemia - continue other care per attending / other consultants ... re-evaluate in am & prn .... discussed with attending Subjective Date of service: 08/08/18 Principal diagnosis: Acute hypoxemic Resp failure; Pneumonia (HAP); Tod Pleural effusions; A-Fib Interval history: Patient is seen today for: Acute hypoxemic Resp failure; Pneumonia (RUL HAP); Mild congestive heart failure exacerbation; Bilateral pleural effusions; Atrial fibrillation with a rapid ventricular response; Diabetes type 2. Seen and examined at bedside; 24hour events reviewed; nursing and respiratory care staff consulted; no adverse overnight events reported to me; resting peacefully in bed; Objective Vital Signs - 12hr 08/08/18 08/08/18 08/08/18 07:21 07:43 07:46 Temperature 98.6 F Pulse Rate 100 H Pulse Rate [ 117 H Anterior Bilateral Throughout] Pulse Rate [ From Monitor] Respiratory 20 Rate Respiratory 16 Rate [Anterior Bilateral Throughout] Blood Pressure 154/105 O2 Sat by Pulse 99 99 Oximetry 08/08/18 08/08/18 08/08/18 08:25 10:00 10:24 Temperature Pulse Rate 100 H 100 H Pulse Rate [ Anterior Bilateral Throughout] Pulse Rate [ 98 H From Monitor] Respiratory 25 H Rate Respiratory Rate [Anterior Bilateral Throughout] Blood Pressure 154/105 154/105 O2 Sat by Pulse 95 Oximetry 08/08/18 08/08/18 08/08/18 12:00 12:40 14:00 Temperature Pulse Rate 98 H Pulse Rate [ 94 H Anterior Bilateral Throughout] Pulse Rate [ From Monitor] Respiratory Rate Respiratory 18 Rate [Anterior Bilateral Throughout] Blood Pressure 150/102 O2 Sat by Pulse 91 Oximetry 08/08/18 08/08/18 08/08/18 14:03 14:13 14:14 Temperature 98.9 F Pulse Rate 106 H 106 H 106 H Pulse Rate [ Anterior Bilateral Throughout] Pulse Rate [ From Monitor] Respiratory 20 Rate Respiratory Rate [Anterior Bilateral Throughout] Blood Pressure 121/70 121/70 121/70 O2 Sat by Pulse 97 Oximetry 08/08/18 14:39 Temperature Pulse Rate Pulse Rate [ 106 H Anterior Bilateral Throughout] Pulse Rate [ From Monitor] Respiratory Rate Respiratory 18 Rate [Anterior Bilateral Throughout] Blood Pressure O2 Sat by Pulse Oximetry Constitutional: no acute distress, lethargic, other (elderly looking obese AAF, normocephalic and atraumatic with mildly increased work of breathing at rest) Eyes: non-icteric ENT: oropharynx moist Neck: supple, no lymphadenopathy, no JVD, other (no thyromegaly) Effort: mildly labored Ascultation: Bilateral: clear, diminished breath sounds, rhonchi Percussion: Bilateral: not dull Cardiovascular: regular rate and rhythm, murmur noted (systolic) Gastrointestinal: normoactive bowel sounds, soft, non-tender, non-distended Integumentary: other (poor turgor) Extremities: no cyanosis, pulses normal, no ischemia or petechiae, edema (trace) Neurologic: pupils equal and round, unable to assess Psychiatric: other (unable to assess) CBC and BMP: 08/05/18 03:31 08/05/18 03:31 ABG, PT/INR, D-dimer: ABG POC ABG pH 7.458 (7.35-7.45) H 07/29/18 19:04 POC ABG pCO2 43.4 (35-45) 07/29/18 19:04 POC ABG pO2 103 (80-105) 07/29/18 19:04 POC ABG HCO3 30.7 07/29/18 19:04 POC ABG Total CO2 32 07/29/18 19:04 POC ABG O2 Sat 98 07/29/18 19:04 PT/INR, D-dimer PT 14.1 Sec. (12.2-14.9) 08/07/18 05:49 INR 1.03 (0.87-1.13) 08/07/18 05:49 D-Dimer 2370.66 ng/mlDDU (0-234) H 07/26/18 05:15 Abnormal lab findings: Abnormal Labs 07/26/18 07/26/18 07/26/18 05:15 05:15 05:15 WBC RBC RDW 16.4 H Lymph % (Auto) 6.1 L [place] % (Auto) 8.4 H Eos % (Auto) Lymph # 0.6 L Seg Neutrophils % 84.5 H Seg Neutrophils # 7.9 H D-Dimer 2370.66 H POC ABG pH POC ABG pO2 Potassium Chloride Carbon Dioxide Glucose POC Glucose Lactic Acid Calcium Alkaline Phosphatase CK-MB (CK-2) Rel Index Troponin T 0.036 H C-Reactive Protein NT-Pro-B Natriuret Pep Total Protein Albumin HDL Cholesterol 30 L 07/26/18 07/26/18 07/26/18 05:15 05:15 05:37 WBC RBC RDW Lymph % (Auto) [place] % (Auto) Eos % (Auto) Lymph # Seg Neutrophils % Seg Neutrophils # D-Dimer POC ABG pH POC ABG pO2 69 L Potassium Chloride Carbon Dioxide Glucose 224 H POC Glucose Lactic Acid 2.90 H* Calcium 8.3 L Alkaline Phosphatase 251 H CK-MB (CK-2) Rel Index Troponin T C-Reactive Protein NT-Pro-B Natriuret Pep 7314 H Total Protein Albumin 3.3 L HDL Cholesterol 07/26/18 07/26/18 07/26/18 06:35 06:49 09:26 WBC RBC RDW Lymph % (Auto) [place] % (Auto) Eos % (Auto) Lymph # Seg Neutrophils % Seg Neutrophils # D-Dimer POC ABG pH POC ABG pO2 Potassium Chloride Carbon Dioxide Glucose POC Glucose 195 H Lactic Acid 2.20 H* Calcium Alkaline Phosphatase CK-MB (CK-2) Rel Index Troponin T 0.034 H C-Reactive Protein NT-Pro-B Natriuret Pep Total Protein Albumin HDL Cholesterol 07/26/18 07/26/18 07/26/18 12:25 12:39 15:42 WBC RBC RDW Lymph % (Auto) [place] % (Auto) Eos % (Auto) Lymph # Seg Neutrophils % Seg Neutrophils # D-Dimer POC ABG pH POC ABG pO2 Potassium Chloride Carbon Dioxide Glucose POC Glucose 171 H Lactic Acid Calcium Alkaline Phosphatase CK-MB (CK-2) Rel Index 4.2 H Troponin T 0.045 H D C-Reactive Protein 2.90 H NT-Pro-B Natriuret Pep Total Protein Albumin HDL Cholesterol 07/26/18 07/27/18 07/27/18 16:32 00:08 04:23 WBC RBC RDW 16.3 H Lymph % (Auto) [place] % (Auto) 14.5 H Eos % (Auto) Lymph # 0.8 L Seg Neutrophils % Seg Neutrophils # D-Dimer POC ABG pH POC ABG pO2 Potassium Chloride Carbon Dioxide Glucose POC Glucose 140 H 148 H Lactic Acid Calcium Alkaline Phosphatase CK-MB (CK-2) Rel Index Troponin T C-Reactive Protein NT-Pro-B Natriuret Pep Total Protein Albumin HDL Cholesterol 07/27/18 07/27/18 07/27/18 04:23 05:13 11:44 WBC RBC RDW Lymph % (Auto) [place] % (Auto) Eos % (Auto) Lymph # Seg Neutrophils % Seg Neutrophils # D-Dimer POC ABG pH POC ABG pO2 Potassium Chloride Carbon Dioxide Glucose 158 H POC Glucose 176 H 161 H Lactic Acid Calcium Alkaline Phosphatase CK-MB (CK-2) Rel Index Troponin T C-Reactive Protein NT-Pro-B Natriuret Pep Total Protein Albumin HDL Cholesterol 07/27/18 07/27/18 07/28/18 18:22 23:33 04:48 WBC 4.2 L RBC 3.56 L RDW 16.3 H Lymph % (Auto) [place] % (Auto) 9.8 H Eos % (Auto) 5.2 H Lymph # 0.9 L Seg Neutrophils % Seg Neutrophils # D-Dimer POC ABG pH POC ABG pO2 Potassium Chloride Carbon Dioxide Glucose POC Glucose 190 H 121 H Lactic Acid Calcium Alkaline Phosphatase CK-MB (CK-2) Rel Index Troponin T C-Reactive Protein NT-Pro-B Natriuret Pep Total Protein Albumin HDL Cholesterol 07/28/18 07/28/18 07/28/18 04:48 05:56 11:49 WBC RBC RDW Lymph % (Auto) [place] % (Auto) Eos % (Auto) Lymph # Seg Neutrophils % Seg Neutrophils # D-Dimer POC ABG pH POC ABG pO2 Potassium 3.5 L Chloride Carbon Dioxide Glucose 139 H POC Glucose 133 H 214 H Lactic Acid Calcium 8.3 L Alkaline Phosphatase 177 H CK-MB (CK-2) Rel Index Troponin T C-Reactive Protein NT-Pro-B Natriuret Pep Total Protein 6.1 L Albumin 2.8 L HDL Cholesterol 07/28/18 07/28/18 07/29/18 18:32 23:30 05:15 WBC RBC RDW Lymph % (Auto) [place] % (Auto) Eos % (Auto) Lymph # Seg Neutrophils % Seg Neutrophils # D-Dimer POC ABG pH POC ABG pO2 Potassium Chloride Carbon Dioxide Glucose POC Glucose 120 H 160 H 127 H Lactic Acid Calcium Alkaline Phosphatase CK-MB (CK-2) Rel Index Troponin T C-Reactive Protein NT-Pro-B Natriuret Pep Total Protein Albumin HDL Cholesterol 07/29/18 07/29/18 07/29/18 11:32 18:49 19:04 WBC RBC RDW Lymph % (Auto) [place] % (Auto) Eos % (Auto) Lymph # Seg Neutrophils % Seg Neutrophils # D-Dimer POC ABG pH 7.458 H POC ABG pO2 Potassium Chloride Carbon Dioxide Glucose POC Glucose 203 H 168 H Lactic Acid Calcium Alkaline Phosphatase CK-MB (CK-2) Rel Index Troponin T C-Reactive Protein NT-Pro-B Natriuret Pep Total Protein Albumin HDL Cholesterol 07/30/18 07/30/18 07/30/18 00:16 04:32 04:32 WBC RBC 3.61 L RDW 16.3 H Lymph % (Auto) [place] % (Auto) 11.5 H Eos % (Auto) Lymph # 0.8 L Seg Neutrophils % Seg Neutrophils # D-Dimer POC ABG pH POC ABG pO2 Potassium 3.2 L Chloride Carbon Dioxide Glucose 157 H POC Glucose 186 H Lactic Acid Calcium 8.2 L Alkaline Phosphatase 199 H CK-MB (CK-2) Rel Index Troponin T C-Reactive Protein NT-Pro-B Natriuret Pep Total Protein Albumin 2.8 L HDL Cholesterol 07/30/18 07/30/18 07/31/18 05:12 12:13 05:32 WBC RBC 3.48 L RDW 15.9 H Lymph % (Auto) [place] % (Auto) 11.6 H Eos % (Auto) 4.4 H Lymph # 0.9 L Seg Neutrophils % Seg Neutrophils # D-Dimer POC ABG pH POC ABG pO2 Potassium Chloride Carbon Dioxide Glucose POC Glucose 157 H 177 H Lactic Acid Calcium Alkaline Phosphatase CK-MB (CK-2) Rel Index Troponin T C-Reactive Protein NT-Pro-B Natriuret Pep Total Protein Albumin HDL Cholesterol 07/31/18 07/31/18 07/31/18 05:32 12:12 20:42 WBC RBC RDW Lymph % (Auto) [place] % (Auto) Eos % (Auto) Lymph # Seg Neutrophils % Seg Neutrophils # D-Dimer POC ABG pH POC ABG pO2 Potassium 3.1 L Chloride Carbon Dioxide Glucose POC Glucose 141 H 155 H Lactic Acid Calcium Alkaline Phosphatase 180 H CK-MB (CK-2) Rel Index Troponin T C-Reactive Protein NT-Pro-B Natriuret Pep Total Protein 6.2 L Albumin 2.8 L HDL Cholesterol 08/01/18 08/01/18 08/01/18 05:07 12:01 16:23 WBC RBC RDW Lymph % (Auto) [place] % (Auto) Eos % (Auto) Lymph # Seg Neutrophils % Seg Neutrophils # D-Dimer POC ABG pH POC ABG pO2 Potassium Chloride Carbon Dioxide Glucose POC Glucose 108 H 178 H 138 H Lactic Acid Calcium Alkaline Phosphatase CK-MB (CK-2) Rel Index Troponin T C-Reactive Protein NT-Pro-B Natriuret Pep Total Protein Albumin HDL Cholesterol 08/02/18 08/02/18 08/02/18 00:39 05:42 11:53 WBC RBC RDW Lymph % (Auto) [place] % (Auto) Eos % (Auto) Lymph # Seg Neutrophils % Seg Neutrophils # D-Dimer POC ABG pH POC ABG pO2 Potassium Chloride Carbon Dioxide Glucose POC Glucose 109 H 143 H 188 H Lactic Acid Calcium Alkaline Phosphatase CK-MB (CK-2) Rel Index Troponin T C-Reactive Protein NT-Pro-B Natriuret Pep Total Protein Albumin HDL Cholesterol 08/02/18 08/02/18 08/03/18 18:15 23:48 05:14 WBC RBC RDW 16.0 H Lymph % (Auto) [place] % (Auto) 13.7 H Eos % (Auto) Lymph # 0.9 L Seg Neutrophils % Seg Neutrophils # D-Dimer POC ABG pH POC ABG pO2 Potassium Chloride Carbon Dioxide Glucose POC Glucose 112 H 157 H Lactic Acid Calcium Alkaline Phosphatase CK-MB (CK-2) Rel Index Troponin T C-Reactive Protein NT-Pro-B Natriuret Pep Total Protein Albumin HDL Cholesterol 08/03/18 08/03/18 08/03/18 05:14 05:59 11:44 WBC RBC RDW Lymph % (Auto) [place] % (Auto) Eos % (Auto) Lymph # Seg Neutrophils % Seg Neutrophils # D-Dimer POC ABG pH POC ABG pO2 Potassium Chloride Carbon Dioxide Glucose 117 H POC Glucose 148 H 175 H Lactic Acid Calcium Alkaline Phosphatase CK-MB (CK-2) Rel Index Troponin T C-Reactive Protein NT-Pro-B Natriuret Pep Total Protein Albumin HDL Cholesterol 08/03/18 08/03/18 08/04/18 17:39 21:55 05:40 WBC RBC RDW Lymph % (Auto) [place] % (Auto) Eos % (Auto) Lymph # Seg Neutrophils % Seg Neutrophils # D-Dimer POC ABG pH POC ABG pO2 Potassium Chloride Carbon Dioxide Glucose POC Glucose 120 H 147 H 141 H Lactic Acid Calcium Alkaline Phosphatase CK-MB (CK-2) Rel Index Troponin T C-Reactive Protein NT-Pro-B Natriuret Pep Total Protein Albumin HDL Cholesterol 08/04/18 08/04/18 08/05/18 13:16 18:02 00:07 WBC RBC RDW Lymph % (Auto) [place] % (Auto) Eos % (Auto) Lymph # Seg Neutrophils % Seg Neutrophils # D-Dimer POC ABG pH POC ABG pO2 Potassium Chloride Carbon Dioxide Glucose POC Glucose 177 H 133 H 167 H Lactic Acid Calcium Alkaline Phosphatase CK-MB (CK-2) Rel Index Troponin T C-Reactive Protein NT-Pro-B Natriuret Pep Total Protein Albumin HDL Cholesterol 08/05/18 08/05/18 08/05/18 03:31 03:31 05:41 WBC RBC 3.60 L RDW 16.3 H Lymph % (Auto) [place] % (Auto) 11.7 H Eos % (Auto) 5.3 H Lymph # 1.0 L Seg Neutrophils % Seg Neutrophils # D-Dimer POC ABG pH POC ABG pO2 Potassium Chloride 97.6 L Carbon Dioxide 31 H Glucose 106 H POC Glucose 112 H Lactic Acid Calcium Alkaline Phosphatase CK-MB (CK-2) Rel Index Troponin T C-Reactive Protein NT-Pro-B Natriuret Pep Total Protein Albumin HDL Cholesterol 08/05/18 08/05/18 08/06/18 11:28 18:22 00:32 WBC RBC RDW Lymph % (Auto) [place] % (Auto) Eos % (Auto) Lymph # Seg Neutrophils % Seg Neutrophils # D-Dimer POC ABG pH POC ABG pO2 Potassium Chloride Carbon Dioxide Glucose POC Glucose 151 H 150 H 147 H Lactic Acid Calcium Alkaline Phosphatase CK-MB (CK-2) Rel Index Troponin T C-Reactive Protein NT-Pro-B Natriuret Pep Total Protein Albumin HDL Cholesterol 08/06/18 08/06/18 08/06/18 05:56 11:29 17:50 WBC RBC RDW Lymph % (Auto) [place] % (Auto) Eos % (Auto) Lymph # Seg Neutrophils % Seg Neutrophils # D-Dimer POC ABG pH POC ABG pO2 Potassium Chloride Carbon Dioxide Glucose POC Glucose 114 H 208 H 140 H Lactic Acid Calcium Alkaline Phosphatase CK-MB (CK-2) Rel Index Troponin T C-Reactive Protein NT-Pro-B Natriuret Pep Total Protein Albumin HDL Cholesterol 08/06/18 08/07/18 08/07/18 22:59 05:48 11:33 WBC RBC RDW Lymph % (Auto) [place] % (Auto) Eos % (Auto) Lymph # Seg Neutrophils % Seg Neutrophils # D-Dimer POC ABG pH POC ABG pO2 Potassium Chloride Carbon Dioxide Glucose POC Glucose 146 H 124 H 150 H Lactic Acid Calcium Alkaline Phosphatase CK-MB (CK-2) Rel Index Troponin T C-Reactive Protein NT-Pro-B Natriuret Pep Total Protein Albumin HDL Cholesterol 08/07/18 08/08/18 08/08/18 17:18 00:04 11:48 WBC RBC RDW Lymph % (Auto) [place] % (Auto) Eos % (Auto) Lymph # Seg Neutrophils % Seg Neutrophils # D-Dimer POC ABG pH POC ABG pO2 Potassium Chloride Carbon Dioxide Glucose POC Glucose 168 H 159 H 169 H Lactic Acid Calcium Alkaline Phosphatase CK-MB (CK-2) Rel Index Troponin T C-Reactive Protein NT-Pro-B Natriuret Pep Total Protein Albumin HDL Cholesterol Allied health notes reviewed: RT
== END 2018-08-08 16:20 | DRG 280 ==
LOC: SUATTDRO 04:37 → ED 04:37 → CC1 06:20 → 4A 07-30 17:51 → 2B-ACE 08-02 17:35
PROVIDERS: ADMIT Internal Medicine; ATTEND Internal Medicine
PROC: 4A033R1 Measurement of Arterial Saturation, Peripheral, Percutaneous Approach (ICD-10-PCS; principal; 2018-07-26)
PROC: 5A09357 Assistance with Respiratory Ventilation, Less than 24 Consecutive Hours, Continuous Positive Airway Pressure (ICD-10-PCS; 2018-07-26)
PROC: 5A09357 Assistance with Respiratory Ventilation, Less than 24 Consecutive Hours, Continuous Positive Airway Pressure (ICD-10-PCS; 2018-07-27)
PROC: 5A09357 Assistance with Respiratory Ventilation, Less than 24 Consecutive Hours, Continuous Positive Airway Pressure (ICD-10-PCS; 2018-07-28)
PROC: 5A09357 Assistance with Respiratory Ventilation, Less than 24 Consecutive Hours, Continuous Positive Airway Pressure (ICD-10-PCS; 2018-07-29)
PROC: 5A09357 Assistance with Respiratory Ventilation, Less than 24 Consecutive Hours, Continuous Positive Airway Pressure (ICD-10-PCS; 2018-08-04)
PROC: 5A09357 Assistance with Respiratory Ventilation, Less than 24 Consecutive Hours, Continuous Positive Airway Pressure (ICD-10-PCS; 2018-08-05)
PROC: 0DH63UZ Insertion of Feeding Device into Stomach, Percutaneous Approach (ICD-10-PCS; 2018-08-07)
PROC: 5A09357 Assistance with Respiratory Ventilation, Less than 24 Consecutive Hours, Continuous Positive Airway Pressure (ICD-10-PCS; 2018-08-08)
DX: I21.A1 Myocardial infarction type 2 (principal); J96.01 Acute respiratory failure with hypoxia; J18.9 Pneumonia, unspecified organism; E43 Unspecified severe protein-calorie malnutrition; G92 Toxic encephalopathy; I50.23 Acute on chronic systolic (congestive) heart failure; I13.0 Hypertensive heart and chronic kidney disease with heart failure and stage 1 through stage 4 chronic kidney disease, or unspecified chronic kidney disease; N17.9 Acute kidney failure, unspecified; E87.6 Hypokalemia; R13.10 Dysphagia, unspecified; G40.909 Epilepsy, unspecified, not intractable, without status epilepticus; I16.0 Hypertensive urgency; E11.22 Type 2 diabetes mellitus with diabetic chronic kidney disease; N18.9 Chronic kidney disease, unspecified; I48.2 Chronic atrial fibrillation; I25.10 Atherosclerotic heart disease of native coronary artery without angina pectoris; M19.90 Unspecified osteoarthritis, unspecified site; F41.9 Anxiety disorder, unspecified; H54.8 Legal blindness, as defined in USA; F03.90 Unspecified dementia, unspecified severity, without behavioral disturbance, psychotic disturbance, mood disturbance, and anxiety; K29.70 Gastritis, unspecified, without bleeding; K25.9 Gastric ulcer, unspecified as acute or chronic, without hemorrhage or perforation; Z79.899 Other long term (current) drug therapy; Z86.73 Personal history of transient ischemic attack (TIA), and cerebral infarction without residual deficits; Z79.82 Long term (current) use of aspirin; Z88.8 Allergy status to other drugs, medicaments and biological substances; Z82.49 Family history of ischemic heart disease and other diseases of the circulatory system; Z95.1 Presence of aortocoronary bypass graft; Z87.891 Personal history of nicotine dependence; Z79.01 Long term (current) use of anticoagulants; Z68.32 Body mass index [BMI] 32.0-32.9, adult
CPT/HCPCS: 36415; 36600; 70450; 71045; 71275; 74018; 76604; 80048; 80053; 80061; 81001; 82140; 82550; 82553; 82803; 82962; 83735; 83880; 84100; 84484; 85025; 85379; 85610; 85730; 86140; 87040; 87493; 93005; 93010; 93306; 93970; 94640; 94660; 94760; 96374; 96375; 99291; G0378; A9270-GY; J0690; J0692; J1650; J1815; J1940; J2704; J3370; J7030; J7040; Q9967